=== PATIENT | male | born 1960 | race American Indian/Alaskan Native ===

== ENCOUNTER 2019-04-20 08:20 | Inpatient (IN) | payer MEDICARE ==
[2019-04-20] MEDS ORDERED: NACL 0.9% 1000 ML IV ONE (09:32)
[2019-04-20] MEDS ORDERED: MAXIPIME/NS 2 GM/100 ML 2 GM/100 ML BAG IV ONE (09:36)
[2019-04-20] MEDS ORDERED: VANCOMYCIN/NS 1 GM/250 ML 1 GM/250 ML BAG IV ONE (09:37)
--- NOTE | 2019-04-20 10:17 | Emergency Department Report ---
ED General Adult HPI - General Chief complaint: Altered Mental Status Stated complaint: SEPSIS Time Seen by Provider: 04/20/19 08:53 Source: EMS Mode of arrival: Stretcher Limitations: Altered Mental Status - History of Present Illness Initial comments: Patient presents to the emergency department via EMS for altered mental status. Patient was recently discharged from a rehabilitation facility for treatment of a sacral ulcer with hyperbaric treatment. The patient's states that yesterday the patient became altered and would not answer her questions. Due to the patient's condition he is not able to add to the history. -: Sudden Improves with: none Worsens with: none Treatments Prior to Arrival: none - Related Data Allergies Allergy/AdvReac Type Severity Reaction Status Date / Time No Known Allergies Allergy Unverified 04/20/19 09:03 ED Review of Systems ROS: Stated complaint: SEPSIS Other details as noted in HPI Comment: Unobtainable due to pts medical conditions ED Past Medical Hx - Past Medical History Hx Hypertension: Yes Hx Diabetes: Yes Hx Renal Disease: Yes - Surgical History Past Surgical History?: Yes Additional Surgical History: colostomy - Social History Smoking Status: Never Smoker Substance Use Type: None ED Physical Exam - General Limitations: Altered Mental Status General appearance: other (Altered Menal Status) - Head Head exam: Present: atraumatic, normocephalic - Eye Eye exam: Present: normal appearance - ENT ENT exam: Present: mucous membranes moist - Neck Neck exam: Present: normal inspection - Respiratory Respiratory exam: Present: normal lung sounds bilaterally. Absent: respiratory distress - Cardiovascular Cardiovascular Exam: Present: normal rhythm, tachycardia. Absent: systolic murmur, diastolic murmur, rubs, gallop - GI/Abdominal GI/Abdominal exam: Present: soft, normal bowel sounds, other (colostomy bag present). Absent: distended, tenderness - Rectal Rectal exam: Present: other (patient has a stage IV decubitus ulcer with irritation and drainage) - Extremities Exam Extremities exam: Present: normal inspection - Back Exam Back exam: Present: normal inspection - Neurological Exam Neurological exam: Present: altered - Psychiatric Psychiatric exam: Present: normal affect, normal mood - Skin Skin exam: Present: warm, dry, intact, normal color. Absent: rash ED Course Vital Signs 04/20/19 04/20/19 04/20/19 08:42 08:45 09:00 Temperature 97.9 F Pulse Rate 114 H 116 H 116 H Respiratory 19 20 11 L Rate Blood Pressure 105/66 Blood Pressure 105/66 [Right] O2 Sat by Pulse 99 Oximetry 04/20/19 04/20/19 04/20/19 09:03 09:15 09:30 Temperature Pulse Rate Respiratory 18 10 L 11 L Rate Blood Pressure 111/69 107/68 Blood Pressure [Right] O2 Sat by Pulse 99 91 Oximetry 04/20/19 04/20/19 04/20/19 09:45 10:01 10:15 Temperature Pulse Rate Respiratory 13 9 L 9 L Rate Blood Pressure 107/61 111/69 111/69 Blood Pressure [Right] O2 Sat by Pulse 100 Oximetry 04/20/19 04/20/19 04/20/19 10:31 10:45 11:00 Temperature Pulse Rate 114 H Respiratory 12 14 15 Rate Blood Pressure 107/61 107/61 120/62 Blood Pressure [Right] O2 Sat by Pulse 100 100 95 Oximetry 04/20/19 04/20/19 04/20/19 12:01 12:15 12:18 Temperature Pulse Rate 119 H 122 H 118 H Respiratory 14 12 19 Rate Blood Pressure 123/80 129/76 Blood Pressure [Right] O2 Sat by Pulse 100 81 L 95 Oximetry 04/20/19 04/20/19 12:31 12:45 Temperature Pulse Rate 121 H 124 H Respiratory 14 12 Rate Blood Pressure 125/64 114/66 Blood Pressure [Right] O2 Sat by Pulse 88 Oximetry ED Medical Decision Making - Lab Data Result diagrams: 04/20/19 10:05 04/20/19 10:05 Lab Results 04/20/19 04/20/19 04/20/19 Range/Units 10:05 10:05 10:05 WBC (4.5-11.0) K/mm3 RBC (3.65-5.03) M/mm3 Hgb (11.8-15.2) gm/dl Hct (35.5-45.6) % MCV (84-94) fl MCH (28-32) pg MCHC (32-34) % RDW (13.2-15.2) % Plt Count (140-440) K/mm3 Lymph % (Auto) (13.4-35.0) % [place] % (Auto) (0.0-7.3) % Eos % (Auto) (0.0-4.3) % Baso % (Auto) (0.0-1.8) % Lymph # (1.2-5.4) K/mm3 [place] # (0.0-0.8) K/mm3 Eos # (0.0-0.4) K/mm3 Baso # (0.0-0.1) K/mm3 Seg Neutrophils % (40.0-70.0) % Seg Neutrophils # (1.8-7.7) K/mm3 APTT 36.4 (24.2-36.6) Sec. Sodium (137-145) mmol/L Potassium (3.6-5.0) mmol/L Chloride (98-107) mmol/L Carbon Dioxide (22-30) mmol/L Anion Gap mmol/L BUN (9-20) mg/dL Creatinine (0.8-1.5) mg/dL Estimated GFR ml/min BUN/Creatinine Ratio % Glucose (75-100) mg/dL Lactic Acid (0.7-2.0) mmol/L Calcium (8.4-10.2) mg/dL Total Bilirubin (0.1-1.2) mg/dL AST (5-40) units/L ALT (7-56) units/L Alkaline Phosphatase (35-129) units/L Troponin T 0.269 H* 0.291 H* (0.00-0.029) ng/mL NT-Pro-B Natriuret Pep 416.2 (0-900) pg/mL Total Protein (6.3-8.2) g/dL Albumin (3.9-5) g/dL Albumin/Globulin Ratio % Triglycerides 124 (2-149) mg/dL Cholesterol 223 H (50-199) mg/dL LDL Cholesterol Direct 152 H (50-130) mg/dL HDL Cholesterol 48 (40-59) mg/dL Cholesterol/HDL Ratio 4.64 % Urine Color (Yellow) Urine Turbidity (Clear) Urine pH (5.0-7.0) Ur Specific [place] (1.003-1.030) Urine Protein (Negative) mg/dL Urine Glucose (UA) (Negative) mg/dL Urine Ketones (Negative) mg/dL Urine Blood (Negative) Urine Nitrite (Negative) Urine Bilirubin (Negative) Urine Urobilinogen (<2.0) mg/dL Ur Leukocyte Esterase (Negative) Urine WBC (Auto) (0.0-6.0) /HPF Urine RBC (Auto) (0.0-6.0) /HPF U Epithel Cells (Auto) (0-13.0) /HPF Urine Bacteria (Auto) (Negative) /HPF Urine Mucus /HPF 04/20/19 04/20/19 04/20/19 Range/Units 10:05 10:05 10:05 WBC 12.7 H (4.5-11.0) K/mm3 RBC 3.14 L (3.65-5.03) M/mm3 Hgb 9.2 L (11.8-15.2) gm/dl Hct 27.6 L (35.5-45.6) % MCV 88 (84-94) fl MCH 29 (28-32) pg MCHC 33 (32-34) % RDW 15.5 H (13.2-15.2) % Plt Count 443 H (140-440) K/mm3 Lymph % (Auto) 18.2 (13.4-35.0) % [place] % (Auto) 12.6 H (0.0-7.3) % Eos % (Auto) 0.2 (0.0-4.3) % Baso % (Auto) 0.7 (0.0-1.8) % Lymph # 2.3 (1.2-5.4) K/mm3 [place] # 1.6 H (0.0-0.8) K/mm3 Eos # 0.0 (0.0-0.4) K/mm3 Baso # 0.1 (0.0-0.1) K/mm3 Seg Neutrophils % 68.3 (40.0-70.0) % Seg Neutrophils # 8.7 H (1.8-7.7) K/mm3 APTT (24.2-36.6) Sec. Sodium 131 L (137-145) mmol/L Potassium 6.6 H* (3.6-5.0) mmol/L Chloride 95.8 L (98-107) mmol/L Carbon Dioxide 8 L* (22-30) mmol/L Anion Gap 34 mmol/L BUN 109 H (9-20) mg/dL Creatinine 15.3 H (0.8-1.5) mg/dL Estimated GFR 4 ml/min BUN/Creatinine Ratio 7 % Glucose 116 H (75-100) mg/dL Lactic Acid 0.80 (0.7-2.0) mmol/L Calcium 10.1 (8.4-10.2) mg/dL Total Bilirubin 0.80 (0.1-1.2) mg/dL AST 72 H (5-40) units/L ALT 101 H (7-56) units/L Alkaline Phosphatase 267 H (35-129) units/L Troponin T (0.00-0.029) ng/mL NT-Pro-B Natriuret Pep (0-900) pg/mL Total Protein 9.5 H (6.3-8.2) g/dL Albumin 3.9 (3.9-5) g/dL Albumin/Globulin Ratio 0.7 % Triglycerides (2-149) mg/dL Cholesterol (50-199) mg/dL LDL Cholesterol Direct (50-130) mg/dL HDL Cholesterol (40-59) mg/dL Cholesterol/HDL Ratio % Urine Color (Yellow) Urine Turbidity (Clear) Urine pH (5.0-7.0) Ur Specific [place] (1.003-1.030) Urine Protein (Negative) mg/dL Urine Glucose (UA) (Negative) mg/dL Urine Ketones (Negative) mg/dL Urine Blood (Negative) Urine Nitrite (Negative) Urine Bilirubin (Negative) Urine Urobilinogen (<2.0) mg/dL Ur Leukocyte Esterase (Negative) Urine WBC (Auto) (0.0-6.0) /HPF Urine RBC (Auto) (0.0-6.0) /HPF U Epithel Cells (Auto) (0-13.0) /HPF Urine Bacteria (Auto) (Negative) /HPF Urine Mucus /HPF 04/20/19 04/20/19 Range/Units Unknown Unknown WBC (4.5-11.0) K/mm3 RBC (3.65-5.03) M/mm3 Hgb (11.8-15.2) gm/dl Hct (35.5-45.6) % MCV (84-94) fl MCH (28-32) pg MCHC (32-34) % RDW (13.2-15.2) % Plt Count (140-440) K/mm3 Lymph % (Auto) (13.4-35.0) % [place] % (Auto) (0.0-7.3) % Eos % (Auto) (0.0-4.3) % Baso % (Auto) (0.0-1.8) % Lymph # (1.2-5.4) K/mm3 [place] # (0.0-0.8) K/mm3 Eos # (0.0-0.4) K/mm3 Baso # (0.0-0.1) K/mm3 Seg Neutrophils % (40.0-70.0) % Seg Neutrophils # (1.8-7.7) K/mm3 APTT (24.2-36.6) Sec. Sodium (137-145) mmol/L Potassium (3.6-5.0) mmol/L Chloride (98-107) mmol/L Carbon Dioxide (22-30) mmol/L Anion Gap mmol/L BUN (9-20) mg/dL Creatinine (0.8-1.5) mg/dL Estimated GFR ml/min BUN/Creatinine Ratio % Glucose (75-100) mg/dL Lactic Acid 0.60 L (0.7-2.0) mmol/L Calcium (8.4-10.2) mg/dL Total Bilirubin (0.1-1.2) mg/dL AST (5-40) units/L ALT (7-56) units/L Alkaline Phosphatase (35-129) units/L Troponin T (0.00-0.029) ng/mL NT-Pro-B Natriuret Pep (0-900) pg/mL Total Protein (6.3-8.2) g/dL Albumin (3.9-5) g/dL Albumin/Globulin Ratio % Triglycerides (2-149) mg/dL Cholesterol (50-199) mg/dL LDL Cholesterol Direct (50-130) mg/dL HDL Cholesterol (40-59) mg/dL Cholesterol/HDL Ratio % Urine Color [place] (Yellow) Urine Turbidity Cloudy (Clear) Urine pH 5.0 (5.0-7.0) Ur Specific [place] 1.020 (1.003-1.030) Urine Protein 100 mg/dl (Negative) mg/dL Urine Glucose (UA) Neg (Negative) mg/dL Urine Ketones Tr (Negative) mg/dL Urine Blood Lg (Negative) Urine Nitrite Neg (Negative) Urine Bilirubin Neg (Negative) Urine Urobilinogen < 2.0 (<2.0) mg/dL Ur Leukocyte Esterase Mod (Negative) Urine WBC (Auto) 15.0 H (0.0-6.0) /HPF Urine RBC (Auto) 8.0 (0.0-6.0) /HPF U Epithel Cells (Auto) < 1.0 (0-13.0) /HPF Urine Bacteria (Auto) 4+ (Negative) /HPF Urine Mucus Few /HPF - EKG Data -: EKG Interpreted by Me EKG shows normal: sinus rhythm Rate: tachycardia - Radiology Data Radiology results: report reviewed - Medical Decision Making Sepsis protocol initiated IV antibiotics given IV fluids at 30 mL/kg given a Upon return of laboratory values was discovered that the patient was hyperkalemic Hypokalemia was treated Of note was the onset of acute renal failure Patient has elevated troponin which is likely secondary to acute stress reaction for sepsis and acute renal failure Patient a rectal aspirin Results discussed with the patient's family which include his daughter, , and son Critical Care Time: Yes Critical care time in (mins) excluding proc time.: 75 Critical care attestation.: If time is entered above; I have spent that time in minutes in the direct care of this critically ill patient, excluding procedure time. ED Disposition Clinical Impression: Sepsis, Renal failure, Altered mental status, Hyperkalemia Disposition: OP ADMIT IP TO THIS HOSP Is pt being admited?: Yes Does the pt Need Aspirin: No Condition: Fair Referrals: SARITA THORNTON MD [Primary Care Provider] - 3-5 Days
--- NOTE | 2019-04-20 10:25 | XRay Report ---
AP CHEST: HISTORY: Sepsis AP view of the chest demonstrates a normal mediastinal and cardiac contour with clear lungs and normal bony and soft tissue structures. IMPRESSION: Unremarkable AP chest.
[2019-04-20] MEDS ORDERED: VANCOMYCIN 2,000 MG in NACL 0.9% 500 ML 500 ML IV ONE (10:30)
[2019-04-20 10:56] LABS: Basophils # (Auto) 0.1 K/mm3 (0.0-0.1); Basophils % (Auto) 0.7 % (0.0-1.8); Eosinophils % (Auto) 0.2 % (0.0-4.3); Hematocrit 27.6 % (35.5-45.6); Hemoglobin 9.2 gm/dl (11.8-15.2); Lymphocytes # (Auto) 2.3 K/mm3 (1.2-5.4); Lymphocytes % (Auto) 18.2 % (13.4-35.0); Mean Corpuscular HGB Conc 33 % (32-34); Mean Corpuscular Volume 88 fl (84-94); Monocytes # (Auto) 1.6 K/mm3 (0.0-0.8); Monocytes % (Auto) 12.6 % (0.0-7.3); Platelet Count 443 K/mm3 (140-440); Red Blood Count 3.14 M/mm3 (3.65-5.03); Red Cell Distribution Width 15.5 % (13.2-15.2)
[2019-04-20 11:19] LABS: Albumin 3.9 g/dL (3.9-5); Calcium 10.1 mg/dL (8.4-10.2)
[2019-04-20] MEDS ORDERED: DILAUDID ONE (12:12)
[2019-04-20] MEDS ORDERED: ZOFRAN ONE (12:13)
[2019-04-20] MEDS ORDERED: ZOFRAN IV ONE (12:20)
[2019-04-20] MEDS ORDERED: DILAUDID IV ONE (12:20)
[2019-04-20 12:30] LABS: Chol/HDL Ratio 4.64 %
[2019-04-20 12:48] LABS: Bacteria,Urine 4+ /HPF (Negative); Bilirubin,Urine NEG (Negative); Blood,Urine LG (Negative); Color,Urine Amber (Yellow); Mucus,Urine FEW /HPF; Urobilinogen,Urine < 2.0 mg/dL (<2.0)
[2019-04-20] MEDS ORDERED: KIONEX PR ONE (12:56)
[2019-04-20] MEDS ORDERED: HumuLIN R IV ONE (12:57)
[2019-04-20] MEDS ORDERED: D50W (25GM) Syringe IV ONE (12:58)
--- NOTE | 2019-04-20 13:14 | Cat Scan Report ---
PROCEDURE: CT HEAD/BRAIN WO CON TECHNIQUE: Computerized tomography of the head was performed without contrast material. CT DOSE LENGTH PRODUCT: 2350.5 mGy-cm. HISTORY: Hypoxia. Tachycardia. Sepsis. COMPARISONS: None currently available. FINDINGS: There is no evidence for acute ischemia. There is no hemorrhage. There is no midline shift. There is no hydrocephalus. There is no mass. Age appropriate diaz-white matter attenuation is noted. There is no calvarial fracture. The temporal bones demonstrate aerated mastoid air cells. The middle ears appear unremarkable. Paranasal sinuses are unremarkable. Globes are intact. IMPRESSION: * No acute intracranial findings. This document is electronically signed by Chris Gordon MD., April 20 2019 01:11:27 PM ET
[2019-04-20] MEDS ORDERED: CALCIUM GLUCONATE 1,000 MG in NACL 0.9% 100 ML IV NR (13:30)
[2019-04-20] MEDS ORDERED: SODIUM BICARBONATE 50 MEQ in NACL 0.9% 1000 ML 1,000 ML IV ONE (13:30)
--- NOTE | 2019-04-20 13:43 | Nuclear Medicine Report ---
LUNG SCAN, VENTILATION AND PERFUSION: History: Hypoxia, tachycardia. Technique: 5mci of Tc99m MAA was infused for the perfusion images. 15mci XE 133 gas was inhaled for the ventilatory images. Correlation is made with a chest x-ray dated 04/20/19. Findings: Inhalation of Xenon gas demonstrates a normal distribution of the activity throughout both lungs. The wash out phases show no focal retention of activity. After injection of Technetium 99m macroaggregated albumin gamma camera imaging of the lungs in multiple projections demonstrates normal pulmonary contours with a homogeneous distribution of activity. No focal areas of perfusion deficiency are identified. IMPRESSION: Low probability for pulmonary embolus.
[2019-04-20] MEDS ORDERED: ASPIRIN PR ONE (14:44)
[2019-04-20] MEDS ORDERED: NACL 0.9% 1000 ML 1,000 ML ONE (14:53)
[2019-04-20] MEDS ORDERED: NACL 0.9% 100 ML IV PRN (15:39)
--- NOTE | 2019-04-20 18:03 | Consultation ---
History of Present Illness - Reason for Consult Consult date: 04/20/19 acute renal failure, hyponatremia, hyperkalemia, metabolic acidosis - History of Present Illness This is a 59 yo AAM with past medical history of Hypertension, TYpe 2 DM, h/o malignant neoplasm of the rectum diagnosed in 11/2018, pt underwent an open laparotomy and ANGELES with perineal protectomy on 12/01, at that time course was complicated by septic shock, acute respiratory failure and ATN and pt required HD until last January. Following perineal protectomy and radiation pt developed chronic perineal wound/stage IV sacral ulcer, pt was discharged to [place] for hyperbaric treatment and prolonged IV ABXs treatment. Pt is now brought in to [facility] ER after pt's noted that the patient became altered and would not answer her questions. in ER CT head showed no acute intracranial findings, CXR was unremarkable and VQ scan showed low probability for PE, however labs showed significant elevation of BUN/Cr at 109/15mg/dl along with hyperkalemia/hyponatremia and severe metabolic acidosis with pH 7.1 on ABG. Renal consult was requested for management of SHERINE and evaluation of renal replacement therapy. Pt seen and examined in ER, pt is confused, disoriented, history obtained from ER physician and at bedside. Past History Past Medical History: anemia, cancer, diabetes, hypertension, renal failure Past Surgical History: Other (open laparotomy, ANGELES, perineal protectomy) Social history: denies: smoking, alcohol abuse, prescription drug abuse, IV drug use Family history: hypertension Medications and Allergies Allergies Allergy/AdvReac Type Severity Reaction Status Date / Time No Known Allergies Allergy Unverified 04/20/19 09:03 Home Medications Medication Instructions Recorded Confirmed Last Taken Type Captopril 50 mg PO BID 04/20/19 04/20/19 Unknown History Insulin Detemir [Levemir] 35 unit SQ BID 04/20/19 04/20/19 Unknown History Lispro Insulin [HumaLOG] 15 unit SQ TID 04/20/19 04/20/19 Unknown History Oxycodone HCl [oxyCONTIN ER] 30 mg PO BID 04/20/19 04/20/19 Unknown History Oxycodone HCl/Acetaminophen 1 each PO Q4H 04/20/19 04/20/19 Unknown History [Percocet 10/325 mg] amLODIPine [Norvasc] 5 mg PO DAILY 04/20/19 04/20/19 Unknown History metFORMIN [Glucophage] 500 mg PO BID 04/20/19 04/20/19 Unknown History Active Meds: Active Medications Sodium Bicarbonate 50 meq/ (Sodium Chloride) 1,050 mls @ 100 mls/hr IV DIRECT ONE Stop: 04/20/19 23:59 Last Admin: 04/20/19 17:00 Dose: 100 mls/hr Documented by: Sodium Chloride (Nacl 0.9%) 100 mls @ 999 mls/hr IV RAMAN PRN PRN Reason: Hypotension Review of Systems ROS unobtainable: due to mental status Exam - Vital Signs Vital signs: Vital Signs Temp Pulse Resp BP Pulse Ox 97.9 F 114 H 20 105/66 99 04/20/19 08:42 04/20/19 08:42 04/20/19 08:42 04/20/19 08:42 04/20/19 08:42 - General Appearance General appearance: well-developed, appears stated age, chronically ill EENT: ATNC, PERRL, mucous membranes dry Neck: Present: neck supple Respiratory: Clear to Ascultation Heart: regular, S1S2 Gastrointestinal: Present: tenderness, distended, other (+ colostomy bag in place, site c/d/i ) Integumentary: no rash, ulcer (IV decubitus ulcer with irritation and drainage), other (+ edema b/l LE ) Neurologic: no focal deficit, confused, disoriented Results - Lab Results 04/20/19 10:05 04/20/19 10:05 Most recent lab results Calcium 10.1 mg/dL (8.4-10.2) 04/20/19 10:05 Laboratory Tests 04/20/19 04/20/19 04/20/19 10:05 10:05 10:05 Lactic Acid 0.80 Calcium 10.1 Total Bilirubin 0.80 AST 72 H Alkaline Phosphatase 267 H Troponin T 0.269 H* NT-Pro-B Natriuret Pep 416.2 Total Protein 9.5 H Albumin 3.9 Albumin/Globulin Ratio 0.7 Triglycerides 124 Cholesterol 223 H LDL Cholesterol Direct 152 H HDL Cholesterol 48 Cholesterol/HDL Ratio 4.64 Urine Color Urine Turbidity Urine pH Ur Specific [place] Urine Glucose (UA) Urine Ketones Urine Blood Urine Nitrite Urine Bilirubin Urine Urobilinogen Ur Leukocyte Esterase Urine WBC (Auto) Urine RBC (Auto) 04/20/19 Unknown Lactic Acid Calcium Total Bilirubin AST Alkaline Phosphatase Troponin T NT-Pro-B Natriuret Pep Total Protein Albumin Albumin/Globulin Ratio Triglycerides Cholesterol LDL Cholesterol Direct HDL Cholesterol Cholesterol/HDL Ratio Urine Color [place] Urine Turbidity Cloudy Urine pH 5.0 Ur Specific [place] 1.020 Urine Glucose (UA) Neg Urine Ketones Tr Urine Blood Lg Urine Nitrite Neg Urine Bilirubin Neg Urine Urobilinogen < 2.0 Ur Leukocyte Esterase Mod Urine WBC (Auto) 15.0 H Urine RBC (Auto) 8.0 Assessment and Plan - Patient Problems (1) Acute kidney failure with tubular necrosis Current Visit: Yes Status: Acute Plan to address problem: suspect ATN in the setting of sepsis, renal US ordered to rule out obstructive nephropathy. cont supportive care with IV bicarb gtt/vasopressors prn to maintain MAP > 65mmHg, avoid nephrotoxins, NSAIDs. hold OC-I/metformin. given severe metabolic acidosis/hyperkalemia with evidence of uremic encephalopathy, will arrange stat HD. Discussed with pt's about benefits and risks of hemodialysis, she understands is familiar with the treatment since pt was on HD from Nov - January, and agrees to treatment. vascular surgery consulted for vascath placement, HD orders placed. Total CCM time spent 48 min. (2) Hyponatremia Current Visit: Yes Status: Acute Plan to address problem: likely hypovolemic hyponatremia in the setting of sepsis, pt started on bicarb gtt. will switch to NS once metabolic acidosis is corrected with HD. (3) Metabolic acidosis Current Visit: Yes Status: Acute (4) Hyperkalemia Current Visit: Yes Status: Acute Plan to address problem: due to SHERINE/decreased distal tubular Na delivery. Bicarb gtt was initiated, pt given Kayexalate. Arranged emergent HD as above. (5) Sacral decubitus ulcer, stage IV Current Visit: Yes Status: Acute Plan to address problem: wound care consult (6) Metabolic encephalopathy Current Visit: Yes Status: Acute Plan to address problem: due to underlying sepsis, uremic envephalopathy contributing (7) Sepsis Current Visit: Yes Status: Acute Plan to address problem: blood/urine cultures sent, empiric ABXs started with cefepime/vancomycin. Dose ABXs for HD. (8) Anemia in chronic illness Current Visit: Yes Status: Acute Plan to address problem: check iron panel, ferritin. monitor H/H and transfuse wtih 2PRBC for Hb < 7
[2019-04-20 18:13] LABS: Hepatitis C Virus Antibody Non-Reactive (NonReactive)
[2019-04-20 18:41] LABS: Hepatitis B Surface Antigen Non-Reactive (Negative)
[2019-04-20] MEDS ORDERED: XYLOCAINE 2% INFILTRATI ONE (19:16)
--- NOTE | 2019-04-20 20:23 | Post Operative Note ---
Pre-op diagnosis: renal failure, hyperkalemia Post-op diagnosis: same Findings: vascath via right subclavian, cxr pending Procedure: insertion of vascath, right subclavian, ultrasound guided insertion right subclavian vein Anesthesia: local Surgeon: LEISA SANTANA Estimated blood loss: minimal Pathology: none Condition: critical Disposition: ICU (but stable)
[2019-04-20] MEDS ORDERED: TYLENOL PO PRN (21:01)
[2019-04-20] MEDS ORDERED: SODIUM CHLORIDE FLUSH SYRINGE 10 ML IV PRN (21:01)
[2019-04-20] MEDS ORDERED: ZOFRAN IV PRN (21:01)
[2019-04-20] MEDS ORDERED: CALCIUM GLUCONATE 2,000 MG in NACL 0.9% 100 ML IV ONE (21:07)
--- NOTE | 2019-04-20 21:33 | XRay Report ---
PROCEDURE: XR CHEST 1V AP TECHNIQUE: Chest radiograph single view. HISTORY: central line placement COMPARISONS: Chest x-ray performed earlier today at 10:08 AM . FINDINGS: There has been interval placement of a right central venous catheter with the tip projected in the re gion of the superior vena cava. There is no evidence of focal infiltrate, pneumothorax or pleural fluid collection. The cardiac silhouette appears to be normal size. The thoracic aorta is mildly tortuous. The bony structures are notable for the appearance of neurostimulator leads projected in the region o f the lower thoracic spine. IMPRESSION: 1. Right central venous catheter with tip projected in the region of the superior vena cava. 2. No evidence of pneumothorax. 3. Otherwise no significant change since study performed earlier today at 10:08 AM. This document is electronically signed by Terri Pretty MD., April 20 2019 09:31:09 PM ET
--- NOTE | 2019-04-21 00:29 | Ultrasound Report ---
PROCEDURE: US RENAL BILAT TECHNIQUE: Real-time sonography in multiple planes of the kidneys, ureters and urinary bladder was p erformed with image documentation. HISTORY: SHERINE COMPARISONS: None . FINDINGS: RIGHT kidney: Normal echotexture. No focal renal mass, calculus, or hydronephrosis. Length: 12.6 x 5.3 x 6.0 cm. LEFT kidney: Normal echotexture. No focal renal mass, calculus, or hydronephrosis. Length: 12.2 x 5 .2x 6.1 cm. Bladder: Normal. No distention or wall thickening. IMPRESSION: Normal Examination . This document is electronically signed by Fer Paez MD., April 20 2019 09:59:39 PM ET
[2019-04-21] MEDS: DILAUDID IV PRN ×3 (03:43→19:37)
[2019-04-21] MEDS: ROCEPHIN/NS 1 GM/50 ML 1 GM/50 ML BAG IV SCH ×2 (04:06→09:54)
--- NOTE | 2019-04-21 04:32 | Cat Scan Report ---
PROCEDURE: CT ABDOMEN WO CON TECHNIQUE: Routine axial imaging was obtained of the abdomen without IV or oral contrast enhancement . Sagittal and coronal reconstructions were reviewed. HISTORY: hydronephrosis COMPARISONS: Ultrasound renal 04/20/2019 FINDINGS: The lung bases do not show acute infiltrates or effusions. The liver, gallbladder and biliary tree appear normal. The pancreas, spleen and adrenal glands appear normal. The kidneys show no evidence of stones. There is very mild perinephric stranding bilaterally . There is very mild right-sided ureterectasis in the visualized portion of the ureter. A stone is no t seen in the ureter. The bowel loops are normal in caliber. Limited views of the lower abdomen revea led bilateral ostomy sites. There is no evidence of free fluid or adenopathy. In the right side of th e upper pelvis is a nonspecific 3.4 cm cystic structure. The skeletal structures reveal a TENS unit overlying the left buttock area with the leads directed in to the lower thoracic spine. There is also a 4.2 cm sebaceous cyst overlying the right buttock lead quality control technician iorly. There is disc degeneration in the lower thoracic and lumbar spine. IMPRESSION: Mild right ureterectasis. A stone is not seen in the right ureter or in either kidney. No evidence of bowel obstruction or ileus. Bilateral ostomy site seen in the limited portion of the u pper pelvis. Nonspecific 3.4 cm cystic structure in the right side of the pelvis. 4.2 cm sebaceous cyst overlying the right buttock. Multilevel disc degeneration in the lower thoracic and lumbar spine.. This document is electronically signed by Linden Irby MD., April 21 2019 04:31:15 AM ET
--- NOTE | 2019-04-21 07:10 | Event Note ---
Date: 04/20/19 See H/p in reports Acute renal failure sec to Obstructive Uropathy Rectal cancer HYperkalemia Colostomy Emergent HD
--- NOTE | 2019-04-21 08:00 | History and Physical Report ---
CHIEF COMPLAINT: Severe lethargy and altered sensorium. HISTORY OF PRESENT ILLNESS: A 59-year-old male with history of hypertension, type 2 diabetes, rectal cancer diagnosed 18 years ago with recurrence in 11/2018, comes in for altered sensorium. The patient had rectal cancer 18 years ago and was treated and had a right colostomy for the last 18 years. The patient has been working until 11/2018. The patient was undergoing surgery for reanastomosis of the colostomy site to the distal sigmoid or rectosigmoid region and the patient was found to have recurrence of cancer. Also the patient had a perforation of the colon and went into septic shock, acute respiratory failure, intubated and went into acute tubular necrosis and was dialyzed until January. The patient had perineal proctectomy and radiation. The patient has a stage 4 sacral decubitus ulcer. The patient now found to be altered sensorium and was found to have a high creatinine of 15, probably secondary to obstructive uropathy. The patient also had a high potassium level. Family wants everything to be done. They are not amenable to DNR status or hospice status. PAST MEDICAL HISTORY: Significant for anemia, rectal cancer, diabetes, hypertension, and renal failure. PAST SURGICAL HISTORY: Colostomy 18 years ago. Recent laparotomy followed by colon perforation and sepsis and intubation. SOCIAL HISTORY: Does not smoke. No alcohol abuse. No prescription drug abuse. FAMILY HISTORY: Hypertension. CURRENT MEDICATIONS: Captopril 50 mg twice a day, Levemir 35 units b.i.d., amlodipine 5 mg once a day, metformin 500 twice a day. REVIEW OF SYSTEMS: Significant for altered sensorium and being lethargic. No fever or chills. PHYSICAL EXAMINATION: GENERAL: Middle-aged male, cooperative during examination. VITAL SIGNS: Temperature 98.2, blood pressure 136/70, pulse is 126, respiratory rate is 18. HEENT: Unremarkable. Pupils equal and reactive. NECK: Supple, no lymphadenopathy, no thyromegaly. LUNGS: Clear to auscultation and percussion. Good air entry. CARDIOVASCULAR SYSTEM: S1, S2 heard. No gallop, no murmur, no rub. Apical impulse in left fifth intercostal space in midclavicular line. ABDOMEN: Distended. No fluid thrill. Hernial orifices are normal. EXTREMITIES: Good pedal pulses. CENTRAL NERVOUS SYSTEM: Lethargic. Intermittently alert. LABORATORY DATA: Significant for white count of 12,700, H and H is 9.2 and 27.6. ABG significant for pH of 7.12, pO2 of 142. Sodium is 131, potassium is 6.6, bicarbonate is 18, BUN and creatinine is 109/15.3. Troponin is 0.291. Cholesterol is 223. Urine shows white blood cells of 15. Hepatitis profile is negative. DIAGNOSTIC DATA: Head CT shows no acute intracranial findings. Chest x-ray is unremarkable chest x-ray. Ultrasound shows normal examination. Abdominal CAT scan shows mild right ureterectasis, stone is not seen in the right ureter. No evidence of bowel obstruction or ileus, bilateral ostomy site seen in the limited portion of the upper pelvis. Nonspecific 3.4 cm cystic structure in the right side of the pelvis. Multilevel disk degeneration. No hydronephrosis. ASSESSMENT AND PLAN: 1. Acute kidney injury with a high creatinine level. The patient needs emergent dialysis. Vascular Surgery consulted. Nephrology consulted. BUN and creatinine 109 and 15.3. Surprisingly, there is no hydronephrosis. The patient may have renal parenchymal disease. We will defer to Nephrology. DNR was discussed. Family wants a full code. 2. Hyperkalemia, treated. The patient was given calcium gluconate. 3. Metabolic acidosis secondary to acute kidney injury and possible acute tubular necrosis. IV fluids for the time being. 4. Rectal cancer. Hematology/Oncology consult requested. 5. Elevated troponin, probably secondary to elevated creatinine. 6. Leukocytosis. The patient started on empiric antibiotics. Ceftriaxone 1 gram IV piggyback q. 24 hours. 7. Advance care planning. DNR and hospice was discussed. Family wants everything to be done. 8. Deep venous thrombosis prophylaxis, heparin 5000 q. 12. In summary, the patient has severe renal failure with acute and chronic components. The patient is being taken for emergent hemodialysis. Also, hyperkalemia and rectal cancer with recurrence. Poor prognosis. JOB# [id number] ROSEMARIE/MALDONADO GARCIA
[2019-04-21 08:42] LABS: Basophils % (Auto) 0.4 % (0.0-1.8); Eosinophils # (Auto) 0.2 K/mm3 (0.0-0.4); Eosinophils % (Auto) 1.4 % (0.0-4.3); Hematocrit 24.6 % (35.5-45.6); Hemoglobin 8.5 gm/dl (11.8-15.2); Lymphocytes # (Auto) 1.7 K/mm3 (1.2-5.4); Lymphocytes % (Auto) 16.2 % (13.4-35.0); Mean Corpuscular HGB Conc 35 % (32-34); Mean Corpuscular Volume 87 fl (84-94); Monocytes # (Auto) 1.3 K/mm3 (0.0-0.8); Monocytes % (Auto) 12.5 % (0.0-7.3); Platelet Count 391 K/mm3 (140-440); Red Blood Count 2.85 M/mm3 (3.65-5.03); Red Cell Distribution Width 15.4 % (13.2-15.2)
[2019-04-21 09:10] LABS: Albumin 3.4 g/dL (3.9-5); Calcium 9.6 mg/dL (8.4-10.2)
[2019-04-21] MEDS: HEPARIN SUB-Q SCH ×2 (09:54→21:42)
[2019-04-21] MEDS: SODIUM CHLORIDE FLUSH SYRINGE 10 ML IV SCH ×2 (09:54→21:44)
--- NOTE | 2019-04-21 10:26 | Progress Note ---
Assessment and Plan - Patient Problems (1) Acute kidney failure with tubular necrosis Current Visit: Yes Status: Acute Plan to address problem: suspect ATN in the setting of sepsis, renal US showed no evidenoce of obstructive nephropathy. cont supportive care for ATN, maintain MAP > 65mmHg, avoid nephrotoxins, NSAIDs. hold OC-I/metformin. given severe metabolic acidosis/hyperkalemia with evidence of uremic encephalopathy, pt was initiated on HD. Will monitor lyte/renal parameters and i/O closely and assess need for further renal replacement therapy. (2) Hyponatremia Current Visit: Yes Status: Acute Plan to address problem: likely hypovolemic hyponatremia in the setting of sepsis, improved with IVF and HD . (3) Metabolic acidosis Current Visit: Yes Status: Acute Plan to address problem: improved with IV bicarb and HD (4) Hyperkalemia Current Visit: Yes Status: Acute Plan to address problem: due to SHERINE/decreased distal tubular Na delivery. corrected with HD. cont 2g K renal diet (5) Sacral decubitus ulcer, stage IV Current Visit: Yes Status: Acute Plan to address problem: wound care consult (6) Metabolic encephalopathy Current Visit: Yes Status: Acute Plan to address problem: due to underlying sepsis, uremic envephalopathy contributing (7) Sepsis Current Visit: Yes Status: Acute Plan to address problem: blood/urine cultures sent, empiric ABXs started with cefepime/vancomycin. Dose ABXs for HD. (8) Anemia in chronic illness Current Visit: Yes Status: Acute Plan to address problem: check iron panel, ferritin. monitor H/H and transfuse wtih 2PRBC for Hb < 7 Subjective Date of service: 04/21/19 Principal diagnosis: SHERINE Interval history: pt awake, confused, disoriented, in no acute respiratory distress. tolerated HD well last night. Objective - Vital Signs Vital signs: Vital Signs - 12hr 04/20/19 04/20/19 04/20/19 22:30 22:45 23:00 Temperature Pulse Rate 119 H 114 H 116 H Respiratory Rate Blood Pressure 113/58 117/68 117/62 O2 Sat by Pulse Oximetry O2 Sat by Pulse Oximetry [ Anterior Bilateral] 04/20/19 04/20/19 04/20/19 23:15 23:30 23:45 Temperature Pulse Rate 120 H 117 H 118 H Respiratory Rate Blood Pressure 101/51 96/50 111/61 O2 Sat by Pulse Oximetry O2 Sat by Pulse Oximetry [ Anterior Bilateral] 04/21/19 04/21/19 04/21/19 00:00 00:15 00:30 Temperature Pulse Rate 119 H 119 H 121 H Respiratory Rate Blood Pressure 123/68 108/56 126/60 O2 Sat by Pulse Oximetry O2 Sat by Pulse Oximetry [ Anterior Bilateral] 04/21/19 04/21/19 04/21/19 00:45 01:00 01:15 Temperature Pulse Rate 120 H 120 H 120 H Respiratory Rate Blood Pressure 105/66 117/65 116/56 O2 Sat by Pulse Oximetry O2 Sat by Pulse Oximetry [ Anterior Bilateral] 04/21/19 04/21/19 04/21/19 01:30 01:45 02:00 Temperature Pulse Rate 121 H 121 H 120 H Respiratory Rate Blood Pressure 109/60 110/58 118/59 O2 Sat by Pulse Oximetry O2 Sat by Pulse Oximetry [ Anterior Bilateral] 04/21/19 04/21/19 04/21/19 02:15 02:42 02:50 Temperature 98.2 F Pulse Rate 120 H 130 H 84 Respiratory 16 18 Rate Blood Pressure 123/68 99/61 O2 Sat by Pulse 96 95 Oximetry O2 Sat by Pulse 99 Oximetry [ Anterior Bilateral] 04/21/19 04/21/19 04/21/19 02:53 02:56 03:49 Temperature 98.2 F Pulse Rate 120 H Respiratory 18 Rate Blood Pressure O2 Sat by Pulse Oximetry O2 Sat by Pulse Oximetry [ Anterior Bilateral] 04/21/19 04/21/19 04/21/19 04:42 04:44 08:05 Temperature 98.5 F Pulse Rate 126 H Respiratory 18 Rate Blood Pressure 136/70 O2 Sat by Pulse 100 98 Oximetry O2 Sat by Pulse Oximetry [ Anterior Bilateral] - General Appearance General appearance: well-developed, well-nourished, appears stated age, chronically ill EENT: ATNC, PERRL, mucous membranes moist Neck: no JVD Respiratory: Present: Clear to Ascultation Cardiology: regular, S1S2 Gastrointestinal: normoactive bowel sounds Integumentary: no rash, other (no edema ) Neurologic: confused, disoriented - Lab 04/21/19 07:58 04/21/19 07:58 Most recent lab results Calcium 9.6 mg/dL (8.4-10.2) 04/21/19 07:58 Medications & Allergies - Medications Allergies/Adverse Reactions: Allergies No Known Allergies Allergy (Unverified 04/20/19 09:03) Home Medications: Home Medications Medication Instructions Recorded Confirmed Last Taken Type Captopril 50 mg PO BID 04/20/19 04/20/19 Unknown History Insulin Detemir [Levemir] 35 unit SQ BID 04/20/19 04/20/19 Unknown History Lispro Insulin [HumaLOG] 15 unit SQ TID 04/20/19 04/20/19 Unknown History Oxycodone HCl [oxyCONTIN ER] 30 mg PO BID 04/20/19 04/20/19 Unknown History Oxycodone HCl/Acetaminophen 1 each PO Q4H 04/20/19 04/20/19 Unknown History [Percocet 10/325 mg] amLODIPine [Norvasc] 5 mg PO DAILY 04/20/19 04/20/19 Unknown History metFORMIN [Glucophage] 500 mg PO BID 04/20/19 04/20/19 Unknown History Active Medications: Generic Name Dose Route Start Last Admin Trade Name Freq PRN Reason Stop Dose Admin Acetaminophen 650 mg 04/20/19 21:01 Tylenol PO Q4H PRN Pain MILD(1-3)/Fever >100.5/DE ANDA Heparin Sodium (Porcine) 5,000 unit 04/20/19 22:00 04/21/19 09:54 Heparin SUB-Q 5,000 unit Q12HR ZOE Administration Hydromorphone HCl 0.25 mg 04/20/19 21:01 04/21/19 03:43 Dilaudid IV 0.25 mg Q3H PRN Administration Pain, Moderate (4-6) Sodium Chloride 100 mls @ 999 mls/hr 04/20/19 15:39 Nacl 0.9% IV RAMAN PRN Hypotension Ceftriaxone Sodium 1 gm in 50 mls @ 100 mls/hr 04/20/19 22:00 04/21/19 09:54 Rocephin/Ns 1 Gm/50 Ml IV 100 mls/hr Q24HR ZOE Administration Protocol Ondansetron HCl 4 mg 04/20/19 21:01 Zofran IV Q8H PRN Nausea And Vomiting Oxycodone/Acetaminophen 1 tab 04/20/19 21:01 Percocet 5/325 PO Q6H PRN Pain, Moderate (4-6) Sodium Chloride 10 ml 04/20/19 22:00 04/21/19 09:54 Sodium Chloride Flush Syringe 10 Ml IV 10 ml BID ZOE Administration Sodium Chloride 10 ml 04/20/19 21:01 Sodium Chloride Flush Syringe 10 Ml IV PRN PRN LINE FLUSH
--- NOTE | 2019-04-21 11:41 | Progress Note ---
Assessment and Plan Pt s/p VC insertion. Catheter reportedly functioning adequately. No additional vascular surgery intervention at this time. Will see again as needed. - Patient Problems (1) Acute kidney failure with tubular necrosis Current Visit: Yes Status: Acute (2) Altered mental status Current Visit: Yes Status: Acute (3) Sacral decubitus ulcer, stage IV Current Visit: Yes Status: Acute Subjective Date of service: 04/21/19 Principal diagnosis: SHERINE Interval history: Pt awake, but confused. Denies complaint at present. Objective - Constitutional Vitals: Vital Signs - 12hr 04/20/19 04/20/19 04/21/19 23:30 23:45 00:00 Temperature Pulse Rate 117 H 118 H 119 H Respiratory Rate Blood Pressure 96/50 111/61 123/68 O2 Sat by Pulse Oximetry O2 Sat by Pulse Oximetry [ Anterior Bilateral] 04/21/19 04/21/19 04/21/19 00:15 00:30 00:45 Temperature Pulse Rate 119 H 121 H 120 H Respiratory Rate Blood Pressure 108/56 126/60 105/66 O2 Sat by Pulse Oximetry O2 Sat by Pulse Oximetry [ Anterior Bilateral] 04/21/19 04/21/19 04/21/19 01:00 01:15 01:30 Temperature Pulse Rate 120 H 120 H 121 H Respiratory Rate Blood Pressure 117/65 116/56 109/60 O2 Sat by Pulse Oximetry O2 Sat by Pulse Oximetry [ Anterior Bilateral] 04/21/19 04/21/19 04/21/19 01:45 02:00 02:15 Temperature 98.2 F Pulse Rate 121 H 120 H 120 H Respiratory 16 Rate Blood Pressure 110/58 118/59 123/68 O2 Sat by Pulse Oximetry O2 Sat by Pulse 99 Oximetry [ Anterior Bilateral] 04/21/19 04/21/19 04/21/19 02:42 02:50 02:53 Temperature Pulse Rate 130 H 84 120 H Respiratory 18 Rate Blood Pressure 99/61 O2 Sat by Pulse 96 95 Oximetry O2 Sat by Pulse Oximetry [ Anterior Bilateral] 04/21/19 04/21/19 04/21/19 02:56 03:49 04:42 Temperature 98.2 F Pulse Rate 126 H Respiratory 18 18 Rate Blood Pressure 136/70 O2 Sat by Pulse 100 Oximetry O2 Sat by Pulse Oximetry [ Anterior Bilateral] 04/21/19 04/21/19 04:44 08:05 Temperature 98.5 F Pulse Rate Respiratory Rate Blood Pressure O2 Sat by Pulse 98 Oximetry O2 Sat by Pulse Oximetry [ Anterior Bilateral] General appearance: Present: no acute distress - EENT Eyes: EOM intact ENT: hearing intact - Neck Neck: supple (Right SCV Vas cath in place. No erythema or drainage appreciated.) - Respiratory Respiratory effort: normal Extremities: No edema (RUE without obvious size descrepancy compared to the left), normal temperature - Psychiatric Psychiatric: no appropriate mood/affect, no intact judgment & insight - Labs CBC & Chem 7: 04/21/19 07:58 04/21/19 07:58 Labs: Abnormal lab results 04/20/19 04/20/19 04/20/19 Range/Units 10:05 10:05 10:05 RBC (3.65-5.03) M/mm3 Hgb (11.8-15.2) gm/dl Hct (35.5-45.6) % MCHC (32-34) % RDW (13.2-15.2) % [place] % (Auto) (0.0-7.3) % [place] # (0.0-0.8) K/mm3 POC ABG pH (7.35-7.45) POC ABG pO2 (80-105) Potassium 6.6 H* (3.6-5.0) mmol/L Carbon Dioxide 8 L* (22-30) mmol/L BUN (9-20) mg/dL Creatinine (0.8-1.5) mg/dL Glucose (75-100) mg/dL Lactic Acid (0.7-2.0) mmol/L AST (5-40) units/L ALT (7-56) units/L Alkaline Phosphatase (35-129) units/L Troponin T 0.269 H* 0.291 H* (0.00-0.029) ng/mL Albumin (3.9-5) g/dL Cholesterol 223 H (50-199) mg/dL LDL Cholesterol Direct 152 H (50-130) mg/dL Urine WBC (Auto) (0.0-6.0) /HPF 04/20/19 04/20/19 04/20/19 Range/Units 15:43 Unknown Unknown RBC (3.65-5.03) M/mm3 Hgb (11.8-15.2) gm/dl Hct (35.5-45.6) % MCHC (32-34) % RDW (13.2-15.2) % [place] % (Auto) (0.0-7.3) % [place] # (0.0-0.8) K/mm3 POC ABG pH 7.126 L (7.35-7.45) POC ABG pO2 142 H (80-105) Potassium (3.6-5.0) mmol/L Carbon Dioxide (22-30) mmol/L BUN (9-20) mg/dL Creatinine (0.8-1.5) mg/dL Glucose (75-100) mg/dL Lactic Acid 0.60 L (0.7-2.0) mmol/L AST (5-40) units/L ALT (7-56) units/L Alkaline Phosphatase (35-129) units/L Troponin T (0.00-0.029) ng/mL Albumin (3.9-5) g/dL Cholesterol (50-199) mg/dL LDL Cholesterol Direct (50-130) mg/dL Urine WBC (Auto) 15.0 H (0.0-6.0) /HPF 04/21/19 04/21/19 Range/Units 07:58 07:58 RBC 2.85 L (3.65-5.03) M/mm3 Hgb 8.5 L (11.8-15.2) gm/dl Hct 24.6 L (35.5-45.6) % MCHC 35 H (32-34) % RDW 15.4 H (13.2-15.2) % [place] % (Auto) 12.5 H (0.0-7.3) % [place] # 1.3 H (0.0-0.8) K/mm3 POC ABG pH (7.35-7.45) POC ABG pO2 (80-105) Potassium (3.6-5.0) mmol/L Carbon Dioxide 19 L D (22-30) mmol/L BUN 52 H (9-20) mg/dL Creatinine 6.9 H D (0.8-1.5) mg/dL Glucose 126 H (75-100) mg/dL Lactic Acid (0.7-2.0) mmol/L AST 80 H (5-40) units/L ALT 95 H (7-56) units/L Alkaline Phosphatase 215 H (35-129) units/L Troponin T (0.00-0.029) ng/mL Albumin 3.4 L (3.9-5) g/dL Cholesterol (50-199) mg/dL LDL Cholesterol Direct (50-130) mg/dL Urine WBC (Auto) (0.0-6.0) /HPF Medications & Allergies - Medications Allergies/Adverse Reactions: Allergies No Known Allergies Allergy (Unverified 04/20/19 09:03) Home Medications: Home Medications Medication Instructions Recorded Confirmed Last Taken Type Captopril 50 mg PO BID 04/20/19 04/20/19 Unknown History Insulin Detemir [Levemir] 35 unit SQ BID 04/20/19 04/20/19 Unknown History Lispro Insulin [HumaLOG] 15 unit SQ TID 04/20/19 04/20/19 Unknown History Oxycodone HCl [oxyCONTIN ER] 30 mg PO BID 04/20/19 04/20/19 Unknown History Oxycodone HCl/Acetaminophen 1 each PO Q4H 04/20/19 04/20/19 Unknown History [Percocet 10/325 mg] amLODIPine [Norvasc] 5 mg PO DAILY 04/20/19 04/20/19 Unknown History metFORMIN [Glucophage] 500 mg PO BID 04/20/19 04/20/19 Unknown History Active Medications: Generic Name Dose Route Start Last Admin Trade Name Freq PRN Reason Stop Dose Admin Acetaminophen 650 mg 04/20/19 21:01 Tylenol PO Q4H PRN Pain MILD(1-3)/Fever >100.5/DE ANDA Heparin Sodium (Porcine) 5,000 unit 04/20/19 22:00 04/21/19 09:54 Heparin SUB-Q 5,000 unit Q12HR ZOE Administration Hydromorphone HCl 0.25 mg 04/20/19 21:01 04/21/19 03:43 Dilaudid IV 0.25 mg Q3H PRN Administration Pain, Moderate (4-6) Sodium Chloride 100 mls @ 999 mls/hr 04/20/19 15:39 Nacl 0.9% IV RAMAN PRN Hypotension Ceftriaxone Sodium 1 gm in 50 mls @ 100 mls/hr 04/20/19 22:00 04/21/19 09:54 Rocephin/Ns 1 Gm/50 Ml IV 100 mls/hr Q24HR ZOE Administration Protocol Ondansetron HCl 4 mg 04/20/19 21:01 Zofran IV Q8H PRN Nausea And Vomiting Oxycodone/Acetaminophen 1 tab 04/20/19 21:01 Percocet 5/325 PO Q6H PRN Pain, Moderate (4-6) Sodium Chloride 10 ml 04/20/19 22:00 04/21/19 09:54 Sodium Chloride Flush Syringe 10 Ml IV 10 ml BID ZOE Administration Sodium Chloride 10 ml 04/20/19 21:01 Sodium Chloride Flush Syringe 10 Ml IV PRN PRN LINE FLUSH
--- NOTE | 2019-04-21 12:13 | Progress Note ---
Assessment and Plan Assessment and plan: 59-year-old man with past medical history significant for hypertension, diabetes mellitus, rectal CA status post laparotomy, colostomy, stage IV sacral ulcer, presented to the emergency department with complaints of altered mental status. Patient had history of ATN and was on dialysis until last January. Patient is confused and disoriented. Acute kidney failure with tubular necrosis - Vas-Cath was placed and emergency hemodialysis was done yesterday - Avoid nephrotoxins Metabolic, uremic encephalopathy - Patient is in acute renal failure - Nephrology was consulted and emergency hemodialysis was done - Patient's mentation improved better this morning Severe sepsis likely due to UTI versus sacral decubitus ulcer - With around dysfunction - Continue IV Rocephin and IV fluids Metabolic acidosis due to the above -Improved with bicarbonate and hemodialysis Hyponatremia - Resolved Hyperkalemia - resolved with dialysis Anemia of chronic disease - We'll follow H&H - Transfusion H&H is below 7 DVT prophylaxis - On heparin Disposition - Continue inpatient care History Interval history: Patient was seen in the amount of this morning, patient was confused. Patient was on restraints. Hospitalist Physical - Physical exam Narrative exam: Not in cardiopulmonary distress. The patient appeared well nourished and normally developed. Vital signs as documented. Head exam is unremarkable. No scleral icterus . Neck is without jugular venous distension, thyromegaly, or carotid bruits. Lungs are clear to auscultation. Cardiac exam reveals regular rate and Rhythm. First and second heart sounds normal. No murmurs, rubs or gallops. Abdominal exam reveals colostomy bag on the right side of abdomen and open stoma on the left lower abdomen. Extremities are nonedematous and both femoral and pedal pulses are normal. PARK MANAGER: Patient is confused. - Constitutional Vitals: Temp Pulse Resp BP Pulse Ox 97.4 F L 126 H 16 136/74 98 04/21/19 08:06 04/21/19 04:42 04/21/19 08:06 04/21/19 08:06 04/21/19 08:05 General appearance: Present: no acute distress Results - Labs CBC & Chem 7: 04/21/19 07:58 04/21/19 07:58 Labs: Laboratory Last Values WBC 10.7 K/mm3 (4.5-11.0) 04/21/19 07:58 RBC 2.85 M/mm3 (3.65-5.03) L 04/21/19 07:58 Hgb 8.5 gm/dl (11.8-15.2) L 04/21/19 07:58 Hct 24.6 % (35.5-45.6) L 04/21/19 07:58 MCV 87 fl (84-94) 04/21/19 07:58 MCH 30 pg (28-32) 04/21/19 07:58 MCHC 35 % (32-34) H 04/21/19 07:58 RDW 15.4 % (13.2-15.2) H 04/21/19 07:58 Plt Count 391 K/mm3 (140-440) 04/21/19 07:58 Lymph % (Auto) 16.2 % (13.4-35.0) 04/21/19 07:58 [place] % (Auto) 12.5 % (0.0-7.3) H 04/21/19 07:58 Eos % (Auto) 1.4 % (0.0-4.3) 04/21/19 07:58 Baso % (Auto) 0.4 % (0.0-1.8) 04/21/19 07:58 Lymph # 1.7 K/mm3 (1.2-5.4) 04/21/19 07:58 [place] # 1.3 K/mm3 (0.0-0.8) H 04/21/19 07:58 Eos # 0.2 K/mm3 (0.0-0.4) 04/21/19 07:58 Baso # 0.0 K/mm3 (0.0-0.1) 04/21/19 07:58 Seg Neutrophils % 69.5 % (40.0-70.0) 04/21/19 07:58 Seg Neutrophils # 7.4 K/mm3 (1.8-7.7) 04/21/19 07:58 APTT 36.4 Sec. (24.2-36.6) 04/20/19 10:05 POC ABG pH 7.126 (7.35-7.45) L 04/20/19 15:43 POC ABG pO2 142 (80-105) H 04/20/19 15:43 POC ABG HCO3 7.0 (22-26 mml/L) 04/20/19 15:43 POC ABG Total CO2 8 (23-27mmol/L) 04/20/19 15:43 POC ABG O2 Sat 98 04/20/19 15:43 POC ABG Base Excess -22 ((-2) - (+3)mmol/L) 04/20/19 15:43 32 % 04/20/19 15:43 Sodium 143 mmol/L (137-145) D 04/21/19 07:58 Potassium 3.7 mmol/L (3.6-5.0) D 04/21/19 07:58 Chloride 98.6 mmol/L (98-107) 04/21/19 07:58 Carbon Dioxide 19 mmol/L (22-30) L D 04/21/19 07:58 29 mmol/L 04/21/19 07:58 BUN 52 mg/dL (9-20) H 04/21/19 07:58 6.9 mg/dL (0.8-1.5) H D 04/21/19 07:58 Estimated GFR 10 ml/min 04/21/19 07:58 8 % 04/21/19 07:58 Glucose 126 mg/dL (75-100) H 04/21/19 07:58 5.1 % (4-6) 04/20/19 Unknown Lactic Acid 0.60 mmol/L (0.7-2.0) L 04/20/19 Unknown Calcium 9.6 mg/dL (8.4-10.2) 04/21/19 07:58 0.40 mg/dL (0.1-1.2) 04/21/19 07:58 AST 80 units/L (5-40) H 04/21/19 07:58 ALT 95 units/L (7-56) H 04/21/19 07:58 215 units/L (35-129) H 04/21/19 07:58 0.269 ng/mL (0.00-0.029) H* 04/20/19 10:05 0.291 ng/mL (0.00-0.029) H* 04/20/19 10:05 NT-Pro-B Natriuret Pep 416.2 pg/mL (0-900) 04/20/19 10:05 8.1 g/dL (6.3-8.2) 04/21/19 07:58 3.4 g/dL (3.9-5) L 04/21/19 07:58 0.7 % 04/21/19 07:58 Triglycerides 124 mg/dL (2-149) 04/20/19 10:05 Cholesterol 223 mg/dL (50-199) H 04/20/19 10:05 152 mg/dL (50-130) H 04/20/19 10:05 48 mg/dL (40-59) 04/20/19 10:05 4.64 % 04/20/19 10:05 [place] (Yellow) 04/20/19 Unknown Cloudy (Clear) 04/20/19 Unknown 5.0 (5.0-7.0) 04/20/19 Unknown Ur Specific [place] 1.020 (1.003-1.030) 04/20/19 Unknown 100 mg/dl mg/dL (Negative) 04/20/19 Unknown Neg mg/dL (Negative) 04/20/19 Unknown Tr mg/dL (Negative) 04/20/19 Unknown Lg (Negative) 04/20/19 Unknown Neg (Negative) 04/20/19 Unknown Neg (Negative) 04/20/19 Unknown < 2.0 mg/dL (<2.0) 04/20/19 Unknown Ur Leukocyte Esterase Mod (Negative) 04/20/19 Unknown 15.0 /HPF (0.0-6.0) H 04/20/19 Unknown 8.0 /HPF (0.0-6.0) 04/20/19 Unknown U Epithel Cells (Auto) < 1.0 /HPF (0-13.0) 04/20/19 Unknown 4+ /HPF (Negative) 04/20/19 Unknown Few /HPF 04/20/19 Unknown Hepatitis A IgM Ab Non-reactive (NonReactive) 04/20/19 17:21 Hep Bs Antigen Non-reactive (Negative) 04/20/19 17:21 Hep B Core IgM Ab Non-reactive (NonReactive) 04/20/19 17:21 Non-reactive (NonReactive) 04/20/19 17:21 Active Medications - Current Medications Current Medications: Generic Name Dose Route Start Last Admin Trade Name Freq PRN Reason Stop Dose Admin Acetaminophen 650 mg 04/20/19 21:01 Tylenol PO Q4H PRN Pain MILD(1-3)/Fever >100.5/DE ANDA Heparin Sodium (Porcine) 5,000 unit 04/20/19 22:00 04/21/19 09:54 Heparin SUB-Q 5,000 unit Q12HR ZOE Administration Hydromorphone HCl 0.25 mg 04/20/19 21:01 04/21/19 03:43 Dilaudid IV 0.25 mg Q3H PRN Administration Pain, Moderate (4-6) Sodium Chloride 100 mls @ 999 mls/hr 04/20/19 15:39 Nacl 0.9% IV RAMAN PRN Hypotension Ceftriaxone Sodium 1 gm in 50 mls @ 100 mls/hr 04/20/19 22:00 04/21/19 09:54 Rocephin/Ns 1 Gm/50 Ml IV 100 mls/hr Q24HR ZOE Administration Protocol Ondansetron HCl 4 mg 04/20/19 21:01 Zofran IV Q8H PRN Nausea And Vomiting Oxycodone/Acetaminophen 1 tab 04/20/19 21:01 Percocet 5/325 PO Q6H PRN Pain, Moderate (4-6) Sodium Chloride 10 ml 04/20/19 22:00 04/21/19 09:54 Sodium Chloride Flush Syringe 10 Ml IV 10 ml BID ZOE Administration Sodium Chloride 10 ml 04/20/19 21:01 Sodium Chloride Flush Syringe 10 Ml IV PRN PRN LINE FLUSH
[2019-04-21] MEDS: PERCOCET 5/325 PO PRN ×2 (15:29→21:46)
--- NOTE | 2019-04-21 21:25 | Event Note ---
Date: 04/21/19 [id number]
[2019-04-22] MEDS: DILAUDID IV PRN ×2 (05:59→12:16)
[2019-04-22 06:26] LABS: Calcium 9.6 mg/dL (8.4-10.2)
[2019-04-22 06:38] LABS: Iron 73 ug/dL (49-181); Total Iron Binding Capacity 180 mcg/dL (250-450)
--- NOTE | 2019-04-22 07:14 | Consultation ---
REFERRED BY: Dr. Link. REASON FOR CONSULTATION: Recurrence of colon cancer. HISTORY OF PRESENT ILLNESS: I saw the patient, a 59-year-old -[place] male in the medical floor. The patient has a history of rectal cancer diagnosed 18 years ago for which he has a colostomy and this was found to have a recurrence in 11/2018. He also has a history of diabetes and hypertension. He came to the hospital because of altered sensorium. As per the information, the patient was trying to get a colostomy reversed, and during that procedure, he was found to have recurrence. He also had perforation of the colon and went into septic shock, respiratory failure, intubated and was dialyzed until 01/2019. The patient also has a history of decubitus ulcer. The patient is not able to give adequate history. No family members are present. Most of the information comes from the medical notes. The details about his oncologist and his treatment for recurrent cancer are not clear. There is a mention that he has had radiation. I have been asked to evaluate the patient because of his recurrence. PAST MEDICAL HISTORY: As above, anemia, diabetes, hypertension, renal failure, colorectal cancer, colostomy, and reversal. PAST SURGICAL HISTORY: Colostomy, laparotomy for colon perforation. SOCIAL HISTORY: No history of tobacco or alcohol usage. FAMILY HISTORY: Hypertension. HOME MEDICATIONS: Included Captopril, insulin, amlodipine, metformin. During this inpatient for the renal failure, a catheter was placed and dialysis done. ALLERGIES: None. MEDICATIONS: Include ceftriaxone, Dilaudid. PHYSICAL EXAMINATION: VITAL SIGNS: Temperature 98, pulse 104, respirations 17, BP given 163/97. HEENT: Pallor present. No icterus. NECK: No neck lymph nodes. HEART: S1, S2. LUNGS: Clear to auscultation anteriorly. ABDOMEN: Colostomy and ____. GENERAL: Awake, confused. MUSCULOSKELETAL: A TENS unit in the left buttock area was found. LABORATORY DATA: White cell 10, hemoglobin 8.5, MCV 87, platelets 391. Potassium 3.7, creatinine 6.9. At admission, creatinine was 15.3, calcium 9.6, bilirubin 0.4, AST 80. RADIOLOGY: Abdominal CT was done. Liver was normal. ASSESSMENT: 1. History of recurrent colon cancer found in 11/2018. 2. Original colorectal cancer was 18 years ago. 3. History of colostomy. 4. History of colon perforation, status post surgery in 11/2018. 5. History of renal impairment. Nephrology following. Resume dialysis. 6. Electrolyte issues. 7. Anemia. 8. Abnormal LFTs. CT does not mention any liver lesions. As per the information in the medical record, there is mention of radiation treatment, details not clear. The details of treatment for his recurrent colon cancer are unclear. At this time, he is clinically not good and would need stabilization before treatment, or this could be looked into as an outpatient basis. JOB# [id number] KAREN/MALDONADO
--- NOTE | 2019-04-22 07:28 | Hem/Onc Progress Note ---
Assessment and Plan 1. History of recurrent colon cancer found in 11/2018. 2. Original colorectal cancer was 18 years ago. 3. History of colostomy. 4. History of colon perforation, status post surgery in 11/2018. 5. History of renal impairment. Nephrology following. dialysis. 6. Electrolyte issues. 7. Anemia. 8. Abnormal LFTs. CT does not mention any liver lesions. As per the information in the medical record, there is mention of radiation treatment, details not clear. The details of treatment for his recurrent colon cancer are unclear. At this time, he is clinically not good and would need stabilization before treatment, or this could be looked into as an outpatient basis. - Patient Problems (1) Rectal cancer Current Visit: Yes Status: Acute Subjective Date of service: 04/22/19 Principal diagnosis: rectal ca Interval history: pt awake - answers a few questions - for others - no response Objective - Constitutional Vitals: Last Vital Signs Temp 98.6 F 04/22/19 04:11 Pulse 107 H 04/22/19 04:11 Resp 18 04/22/19 04:11 BP 145/78 04/22/19 04:11 Pulse Ox 99 04/22/19 04:11 General appearance: no acute distress Performance status: 4-completely disabled - EENT Eyes: EOM intact ENT: clear oral mucosa - Neck Neck: supple - Respiratory Respiratory effort: Positive: normal Respiratory: bilateral: CTA - Cardiovascular Heart Sounds: Present: S1 & S2 Extremities: No edema - Gastrointestinal General gastrointestinal: Present: soft, other (colostomy) Rectal Exam: deferred - Genitourinary Male genitourinary: Present: deferred - Integumentary Integumentary: warm - Musculoskeletal Musculoskeletal: strength equal bilaterally - Neurologic Neurologic: moves all extremities, other (blank stare sometimes to questions) - Labs Lab Results: Laboratory Results - last 24 hr 04/21/19 04/21/19 04/22/19 07:58 07:58 04:19 WBC 10.7 RBC 2.85 L Hgb 8.5 L Hct 24.6 L MCV 87 MCH 30 MCHC 35 H RDW 15.4 H Plt Count 391 Lymph % (Auto) 16.2 Caroline % (Auto) 12.5 H Eos % (Auto) 1.4 Baso % (Auto) 0.4 Lymph # 1.7 Caroline # 1.3 H Eos # 0.2 Baso # 0.0 Seg Neutrophils % 69.5 Seg Neutrophils # 7.4 Sodium 143 D 141 Potassium 3.7 D 3.6 Chloride 98.6 101.5 Carbon Dioxide 19 L D 17 L Anion Gap 29 26 BUN 52 H 61 H Creatinine 6.9 H D 8.2 H Estimated GFR 10 8 BUN/Creatinine Ratio 8 7 Glucose 126 H 120 H Calcium 9.6 9.6 Iron TIBC Total Bilirubin 0.40 AST 80 H ALT 95 H Alkaline Phosphatase 215 H Total Protein 8.1 Albumin 3.4 L Albumin/Globulin Ratio 0.7 04/22/19 04:19 WBC RBC Hgb Hct MCV MCH MCHC RDW Plt Count Lymph % (Auto) Caroline % (Auto) Eos % (Auto) Baso % (Auto) Lymph # Caroline # Eos # Baso # Seg Neutrophils % Seg Neutrophils # Sodium Potassium Chloride Carbon Dioxide Anion Gap BUN Creatinine Estimated GFR BUN/Creatinine Ratio Glucose Calcium Iron 73 TIBC 180 L Total Bilirubin AST ALT Alkaline Phosphatase Total Protein Albumin Albumin/Globulin Ratio Medications & Allergies - Medications Allergies/Adverse Reactions: Allergies No Known Allergies Allergy (Unverified 04/20/19 09:03) Home Medications: Home Medications Medication Instructions Recorded Confirmed Last Taken Type Captopril 50 mg PO BID 04/20/19 04/20/19 Unknown History Insulin Detemir [Levemir] 35 unit SQ BID 04/20/19 04/20/19 Unknown History Lispro Insulin [HumaLOG] 15 unit SQ TID 04/20/19 04/20/19 Unknown History Oxycodone HCl [oxyCONTIN ER] 30 mg PO BID 04/20/19 04/20/19 Unknown History Oxycodone HCl/Acetaminophen 1 each PO Q4H 04/20/19 04/20/19 Unknown History [Percocet 10/325 mg] amLODIPine [Norvasc] 5 mg PO DAILY 04/20/19 04/20/19 Unknown History metFORMIN [Glucophage] 500 mg PO BID 04/20/19 04/20/19 Unknown History Active Medications: Generic Name Dose Route Start Last Admin Trade Name Freq PRN Reason Stop Dose Admin Acetaminophen 650 mg 04/20/19 21:01 Tylenol PO Q4H PRN Pain MILD(1-3)/Fever >100.5/DE ANDA Heparin Sodium (Porcine) 5,000 unit 04/20/19 22:00 04/21/19 21:42 Heparin SUB-Q 5,000 unit Q12HR ZOE Administration Hydromorphone HCl 0.25 mg 04/20/19 21:01 04/22/19 05:59 Dilaudid IV 0.25 mg Q3H PRN Administration Pain, Moderate (4-6) Sodium Chloride 100 mls @ 999 mls/hr 04/20/19 15:39 Nacl 0.9% IV RAMAN PRN Hypotension Ceftriaxone Sodium 1 gm in 50 mls @ 100 mls/hr 04/20/19 22:00 04/21/19 09:54 Rocephin/Ns 1 Gm/50 Ml IV 100 mls/hr Q24HR ZOE Administration Protocol Ondansetron HCl 4 mg 04/20/19 21:01 Zofran IV Q8H PRN Nausea And Vomiting Oxycodone/Acetaminophen 1 tab 04/20/19 21:01 04/21/19 21:46 Percocet 5/325 PO 1 tab Q6H PRN Administration Pain, Moderate (4-6) Sodium Chloride 10 ml 04/20/19 22:00 04/21/19 21:44 Sodium Chloride Flush Syringe 10 Ml IV 10 ml BID ZOE Administration Sodium Chloride 10 ml 04/20/19 21:01 Sodium Chloride Flush Syringe 10 Ml IV PRN PRN LINE FLUSH
[2019-04-22] MEDS: PERCOCET 5/325 PO PRN ×2 (09:53→23:06)
[2019-04-22] MEDS ORDERED: NACL 0.9 (PRIMING MACHINE ONLY DIALYSIS) MC ONE (13:32)
--- NOTE | 2019-04-22 15:00 | Progress Note ---
Assessment and Plan Assessment and plan: 59-year-old man with past medical history significant for hypertension, diabetes mellitus, rectal CA status post laparotomy, colostomy, stage IV sacral ulcer, presented to the emergency department with complaints of altered mental status. Patient had history of ATN and was on dialysis until last January. Patient is confused and disoriented. Acute kidney failure with tubular necrosis - Patient is on HD - Avoid nephrotoxins Metabolic, uremic encephalopathy - Patient is in acute renal failure - Nephrology was consulted and emergency hemodialysis was done yesterday - Patient was alert but still confused Severe sepsis likely due to UTI versus sacral decubitus ulcer - Patient is being managed according to sepsis protocol - Continue IV Rocephin and IV fluids Metabolic acidosis due to the above -Improved with bicarbonate and hemodialysis Hyponatremia - Resolved Hyperkalemia - resolved with dialysis Anemia of chronic disease - We'll follow H&H - Transfusion H&H is below 7 History of rectal cancer - Status post colostomy and ostomy - continue colostomy care - Hematology consulted and recommended patient follow-up after his acute condition is resolved DVT prophylaxis - On heparin Disposition - Continue inpatient care History Interval history: Patient was seen in the amount of this morning, patient was confused. Hospitalist Physical - Physical exam Narrative exam: Not in cardiopulmonary distress. The patient appeared well nourished and normally developed. Vital signs as documented. Head exam is unremarkable. No scleral icterus . Neck is without jugular venous distension, thyromegaly, or carotid bruits. Lungs are clear to auscultation. Cardiac exam reveals regular rate and Rhythm. First and second heart sounds normal. No murmurs, rubs or gallops. Abdominal exam reveals colostomy bag on the right side of abdomen and open stoma on the left lower abdomen. Extremities are nonedematous and both femoral and pedal pulses are normal. MEDICAL RECORD CLERK: Patient is alert but confused. - Constitutional Vitals: Temp Pulse Resp BP Pulse Ox 98.0 F 125 H 16 155/105 99 04/22/19 14:15 04/22/19 14:15 04/22/19 14:15 04/22/19 14:15 04/22/19 04:11 General appearance: Present: no acute distress Results - Labs CBC & Chem 7: 04/21/19 07:58 04/22/19 04:19 Labs: Laboratory Last Values WBC 10.7 K/mm3 (4.5-11.0) 04/21/19 07:58 RBC 2.85 M/mm3 (3.65-5.03) L 04/21/19 07:58 Hgb 8.5 gm/dl (11.8-15.2) L 04/21/19 07:58 Hct 24.6 % (35.5-45.6) L 04/21/19 07:58 MCV 87 fl (84-94) 04/21/19 07:58 MCH 30 pg (28-32) 04/21/19 07:58 MCHC 35 % (32-34) H 04/21/19 07:58 RDW 15.4 % (13.2-15.2) H 04/21/19 07:58 Plt Count 391 K/mm3 (140-440) 04/21/19 07:58 Lymph % (Auto) 16.2 % (13.4-35.0) 04/21/19 07:58 [place] % (Auto) 12.5 % (0.0-7.3) H 04/21/19 07:58 Eos % (Auto) 1.4 % (0.0-4.3) 04/21/19 07:58 Baso % (Auto) 0.4 % (0.0-1.8) 04/21/19 07:58 Lymph # 1.7 K/mm3 (1.2-5.4) 04/21/19 07:58 [place] # 1.3 K/mm3 (0.0-0.8) H 04/21/19 07:58 Eos # 0.2 K/mm3 (0.0-0.4) 04/21/19 07:58 Baso # 0.0 K/mm3 (0.0-0.1) 04/21/19 07:58 Seg Neutrophils % 69.5 % (40.0-70.0) 04/21/19 07:58 Seg Neutrophils # 7.4 K/mm3 (1.8-7.7) 04/21/19 07:58 APTT 36.4 Sec. (24.2-36.6) 04/20/19 10:05 POC ABG pH 7.126 (7.35-7.45) L 04/20/19 15:43 POC ABG pO2 142 (80-105) H 04/20/19 15:43 POC ABG HCO3 7.0 (22-26 mml/L) 04/20/19 15:43 POC ABG Total CO2 8 (23-27mmol/L) 04/20/19 15:43 POC ABG O2 Sat 98 04/20/19 15:43 POC ABG Base Excess -22 ((-2) - (+3)mmol/L) 04/20/19 15:43 32 % 04/20/19 15:43 Sodium 141 mmol/L (137-145) 04/22/19 04:19 Potassium 3.6 mmol/L (3.6-5.0) 04/22/19 04:19 Chloride 101.5 mmol/L (98-107) 04/22/19 04:19 Carbon Dioxide 17 mmol/L (22-30) L 04/22/19 04:19 26 mmol/L 04/22/19 04:19 BUN 61 mg/dL (9-20) H 04/22/19 04:19 8.2 mg/dL (0.8-1.5) H 04/22/19 04:19 Estimated GFR 8 ml/min 04/22/19 04:19 7 % 04/22/19 04:19 Glucose 120 mg/dL (75-100) H 04/22/19 04:19 5.1 % (4-6) 04/20/19 Unknown Lactic Acid 0.60 mmol/L (0.7-2.0) L 04/20/19 Unknown Calcium 9.6 mg/dL (8.4-10.2) 04/22/19 04:19 Iron 73 ug/dL (49-181) 04/22/19 04:19 TIBC 180 mcg/dL (250-450) L 04/22/19 04:19 2398.0 ng/mL (13.0-400.0) H 04/22/19 04:19 0.40 mg/dL (0.1-1.2) 04/21/19 07:58 AST 80 units/L (5-40) H 04/21/19 07:58 ALT 95 units/L (7-56) H 04/21/19 07:58 215 units/L (35-129) H 04/21/19 07:58 0.269 ng/mL (0.00-0.029) H* 04/20/19 10:05 0.291 ng/mL (0.00-0.029) H* 04/20/19 10:05 NT-Pro-B Natriuret Pep 416.2 pg/mL (0-900) 04/20/19 10:05 8.1 g/dL (6.3-8.2) 04/21/19 07:58 3.4 g/dL (3.9-5) L 04/21/19 07:58 0.7 % 04/21/19 07:58 Triglycerides 124 mg/dL (2-149) 04/20/19 10:05 Cholesterol 223 mg/dL (50-199) H 04/20/19 10:05 152 mg/dL (50-130) H 04/20/19 10:05 48 mg/dL (40-59) 04/20/19 10:05 4.64 % 04/20/19 10:05 Vitamin B12 > 2000 pg/mL (211-911) H 04/22/19 04:19 > 20.0 ng/mL (7.3-26.0) 04/22/19 04:19 Mariama (Yellow) 04/20/19 Unknown Cloudy (Clear) 04/20/19 Unknown 5.0 (5.0-7.0) 04/20/19 Unknown Ur Specific [place] 1.020 (1.003-1.030) 04/20/19 Unknown 100 mg/dl mg/dL (Negative) 04/20/19 Unknown Neg mg/dL (Negative) 04/20/19 Unknown Tr mg/dL (Negative) 04/20/19 Unknown Lg (Negative) 04/20/19 Unknown Neg (Negative) 04/20/19 Unknown Neg (Negative) 04/20/19 Unknown < 2.0 mg/dL (<2.0) 04/20/19 Unknown Ur Leukocyte Esterase Mod (Negative) 04/20/19 Unknown 15.0 /HPF (0.0-6.0) H 04/20/19 Unknown 8.0 /HPF (0.0-6.0) 04/20/19 Unknown U Epithel Cells (Auto) < 1.0 /HPF (0-13.0) 04/20/19 Unknown 4+ /HPF (Negative) 04/20/19 Unknown Few /HPF 04/20/19 Unknown Hepatitis A IgM Ab Non-reactive (NonReactive) 04/20/19 17:21 Hep Bs Antigen Non-reactive (Negative) 04/20/19 17:21 Hep B Core IgM Ab Non-reactive (NonReactive) 04/20/19 17:21 Non-reactive (NonReactive) 04/20/19 17:21 Active Medications - Current Medications Current Medications: Generic Name Dose Route Start Last Admin Trade Name Freq PRN Reason Stop Dose Admin Acetaminophen 650 mg 04/20/19 21:01 Tylenol PO Q4H PRN Pain MILD(1-3)/Fever >100.5/DE ANDA Heparin Sodium (Porcine) 5,000 unit 04/20/19 22:00 04/21/19 21:42 Heparin SUB-Q 5,000 unit Q12HR ZOE Administration Hydromorphone HCl 0.25 mg 04/20/19 21:01 04/22/19 12:16 Dilaudid IV 0.25 mg Q3H PRN Administration Pain, Moderate (4-6) Sodium Chloride 100 mls @ 999 mls/hr 04/20/19 15:39 Nacl 0.9% IV RAMAN PRN Hypotension Ceftriaxone Sodium 1 gm in 50 mls @ 100 mls/hr 04/20/19 22:00 04/21/19 09:54 Rocephin/Ns 1 Gm/50 Ml IV 100 mls/hr Q24HR ZOE Administration Protocol Ondansetron HCl 4 mg 04/20/19 21:01 Zofran IV Q8H PRN Nausea And Vomiting Oxycodone/Acetaminophen 1 tab 04/20/19 21:01 04/22/19 09:53 Percocet 5/325 PO 1 tab Q6H PRN Administration Pain, Moderate (4-6) Sodium Chloride 10 ml 04/20/19 22:00 04/21/19 21:44 Sodium Chloride Flush Syringe 10 Ml IV 10 ml BID ZOE Administration Sodium Chloride 10 ml 04/20/19 21:01 Sodium Chloride Flush Syringe 10 Ml IV PRN PRN LINE FLUSH Nutrition/Malnutrition Assess - Dietary Evaluation Nutrition/Malnutrition Findings: Nutrition Notes Start: 04/21/19 15:41 Freq: Status: Active Protocol: Document 04/21/19 15:41 RM (Rec: 04/21/19 15:47 RM [id number]) Nutrition Notes Need for Assessment generated from: MD Order Initial or Follow up Brief Note Current Diet Dietary supplements Subjective/Other Information Consulted for poor oral intake . Pt not in room at time of visit. Executive Sales Assistant called nurse and requested that diet be put in w/[facility]. Gave recommendation of diet choice. Nurse stated that she would speak w/MD about orderering diet. Nutrition Intervention Change Diet Order: Cardiac/Consistent CHO Follow-Up By: 04/22/19 Additional Comments Follow for poor oral intake assessment
[2019-04-22] MEDS: HEPARIN SUB-Q SCH ×3 (15:35→23:06)
[2019-04-22] MEDS: SODIUM CHLORIDE FLUSH SYRINGE 10 ML IV SCH ×2 (15:37→23:07)
[2019-04-22] MEDS: ROCEPHIN/NS 1 GM/50 ML 1 GM/50 ML BAG IV SCH (15:46)
--- NOTE | 2019-04-22 17:05 | Progress Note ---
Assessment and Plan - Patient Problems (1) Acute kidney failure with tubular necrosis Current Visit: Yes Status: Acute Plan to address problem: suspect ATN in the setting of sepsis, renal US showed no evidenoce of obstructive nephropathy. cont supportive care for ATN, maintain MAP > 65mmHg, avoid nephrotoxins, NSAIDs. hold OC-I/metformin. no signs of renal recovery, cont HD on TTS schedule. (2) Hyponatremia Current Visit: Yes Status: Acute Plan to address problem: likely hypovolemic hyponatremia in the setting of sepsis, improved with IVF and HD . (3) Metabolic acidosis Current Visit: Yes Status: Acute Plan to address problem: improved with IV bicarb and HD (4) Hyperkalemia Current Visit: Yes Status: Acute Plan to address problem: due to SHERINE/decreased distal tubular Na delivery. corrected with HD. cont 2g K renal diet (5) Sacral decubitus ulcer, stage IV Current Visit: Yes Status: Acute Plan to address problem: wound care consult (6) Metabolic encephalopathy Current Visit: Yes Status: Acute Plan to address problem: due to underlying sepsis, uremic envephalopathy contributing (7) Sepsis Current Visit: Yes Status: Acute Plan to address problem: blood/urine cultures sent, empiric ABXs started with cefepime/vancomycin. Dose ABXs for HD. (8) Anemia in chronic illness Current Visit: Yes Status: Acute Plan to address problem: check iron panel, ferritin. monitor H/H and transfuse wtih 2PRBC for Hb < 7 Subjective Date of service: 04/22/19 Principal diagnosis: rectal ca Interval history: pt awake, confused, disoriented, in no acute respiratory distress. Objective - Vital Signs Vital signs: Vital Signs - 12hr 04/22/19 04/22/19 04/22/19 08:02 10:00 10:30 Temperature 98.1 F 98.0 F Pulse Rate 115 H 107 H Respiratory 18 16 Rate Blood Pressure 138/88 140/82 04/22/19 04/22/19 04/22/19 10:45 11:00 11:15 Temperature Pulse Rate 121 H 116 H 119 H Respiratory Rate Blood Pressure 137/80 130/79 139/91 04/22/19 04/22/19 04/22/19 11:30 11:45 12:00 Temperature Pulse Rate 117 H 114 H 108 H Respiratory Rate Blood Pressure 160/91 155/86 155/88 04/22/19 04/22/19 04/22/19 12:15 12:16 12:30 Temperature Pulse Rate 113 H 108 H Respiratory 16 Rate Blood Pressure 133/82 124/76 04/22/19 04/22/19 04/22/19 12:45 13:00 13:15 Temperature Pulse Rate 118 H 120 H 122 H Respiratory Rate Blood Pressure 140/72 137/77 139/80 04/22/19 04/22/19 04/22/19 13:30 13:45 14:00 Temperature Pulse Rate 63 134 H 127 H Respiratory Rate Blood Pressure 168/124 133/92 142/91 04/22/19 04/22/19 14:15 15:00 Temperature 98.0 F Pulse Rate 125 H Respiratory 16 20 Rate Blood Pressure 155/105 - General Appearance General appearance: well-developed, appears stated age, chronically ill EENT: ATNC, PERRL, mucous membranes moist Neck: no JVD Respiratory: Present: Clear to Ascultation Cardiology: regular, S1S2 Gastrointestinal: normoactive bowel sounds Integumentary: no rash, other (no edema ) Neurologic: no focal deficit, confused, disoriented, CN 3-12 intact Psychiatric: mood/affect appropriate, cooperative - Lab 04/21/19 07:58 04/22/19 04:19 Most recent lab results Calcium 9.6 mg/dL (8.4-10.2) 04/22/19 04:19 Medications & Allergies - Medications Allergies/Adverse Reactions: Allergies No Known Allergies Allergy (Unverified 04/20/19 09:03) Home Medications: Home Medications Medication Instructions Recorded Confirmed Last Taken Type Captopril 50 mg PO BID 04/20/19 04/20/19 Unknown History Insulin Detemir [Levemir] 35 unit SQ BID 04/20/19 04/20/19 Unknown History Lispro Insulin [HumaLOG] 15 unit SQ TID 04/20/19 04/20/19 Unknown History Oxycodone HCl [oxyCONTIN ER] 30 mg PO BID 04/20/19 04/20/19 Unknown History Oxycodone HCl/Acetaminophen 1 each PO Q4H 04/20/19 04/20/19 Unknown History [Percocet 10/325 mg] amLODIPine [Norvasc] 5 mg PO DAILY 04/20/19 04/20/19 Unknown History metFORMIN [Glucophage] 500 mg PO BID 04/20/19 04/20/19 Unknown History Active Medications: Generic Name Dose Route Start Last Admin Trade Name Freq PRN Reason Stop Dose Admin Acetaminophen 650 mg 04/20/19 21:01 Tylenol PO Q4H PRN Pain MILD(1-3)/Fever >100.5/DE ANDA Heparin Sodium (Porcine) 5,000 unit 04/20/19 22:00 04/22/19 15:35 Heparin SUB-Q Not Given Q12HR ZOE Hydromorphone HCl 0.25 mg 04/20/19 21:01 04/22/19 12:16 Dilaudid IV 0.25 mg Q3H PRN Administration Pain, Moderate (4-6) Sodium Chloride 100 mls @ 999 mls/hr 04/20/19 15:39 Nacl 0.9% IV RAMAN PRN Hypotension Ceftriaxone Sodium 1 gm in 50 mls @ 100 mls/hr 04/20/19 22:00 04/22/19 15:46 Rocephin/Ns 1 Gm/50 Ml IV 100 mls/hr Q24HR ZOE Administration Protocol Ondansetron HCl 4 mg 04/20/19 21:01 Zofran IV Q8H PRN Nausea And Vomiting Oxycodone/Acetaminophen 1 tab 04/20/19 21:01 04/22/19 09:53 Percocet 5/325 PO 1 tab Q6H PRN Administration Pain, Moderate (4-6) Sodium Chloride 10 ml 04/20/19 22:00 04/22/19 15:37 Sodium Chloride Flush Syringe 10 Ml IV 10 ml BID ZOE Administration Sodium Chloride 10 ml 04/20/19 21:01 Sodium Chloride Flush Syringe 10 Ml IV PRN PRN LINE FLUSH
[2019-04-22] MEDS ORDERED: APRESOLINE IV PRN (22:27)
[2019-04-22] MEDS ORDERED: D50W (25GM) Syringe IV PRN (22:28)
[2019-04-22] MEDS: LOPRESSOR PO SCH (23:06)
[2019-04-23] MEDS: PERCOCET 5/325 PO PRN ×3 (06:39→19:01)
[2019-04-23 06:42] LABS: Basophils # (Auto) 0.1 K/mm3 (0.0-0.1); Basophils % (Auto) 1.1 % (0.0-1.8); Eosinophils # (Auto) 0.2 K/mm3 (0.0-0.4); Eosinophils % (Auto) 2.2 % (0.0-4.3); Hematocrit 26.4 % (35.5-45.6); Lymphocytes # (Auto) 1.7 K/mm3 (1.2-5.4); Lymphocytes % (Auto) 19.8 % (13.4-35.0); Mean Corpuscular HGB Conc 34 % (32-34); Mean Corpuscular Volume 86 fl (84-94); Monocytes # (Auto) 1.3 K/mm3 (0.0-0.8); Monocytes % (Auto) 14.8 % (0.0-7.3); Platelet Count 386 K/mm3 (140-440); Red Blood Count 3.07 M/mm3 (3.65-5.03); Red Cell Distribution Width 15.4 % (13.2-15.2)
[2019-04-23 07:22] LABS: Albumin 3.6 g/dL (3.9-5); Calcium 9.1 mg/dL (8.4-10.2)
[2019-04-23] MEDS: HumaLOG SUB-Q SCH ×4 (07:30→22:19)
[2019-04-23] MEDS: NORVASC PO SCH (10:20)
[2019-04-23] MEDS: HEPARIN SUB-Q SCH ×2 (10:21→22:18)
[2019-04-23] MEDS: SODIUM CHLORIDE FLUSH SYRINGE 10 ML IV SCH ×2 (10:21→22:20)
[2019-04-23] MEDS: ROCEPHIN/NS 1 GM/50 ML 1 GM/50 ML BAG IV SCH (10:21)
[2019-04-23] MEDS: LOPRESSOR PO SCH ×2 (10:21→22:16)
[2019-04-23] MEDS ORDERED: LANTUS SUB-Q ONE (12:00)
--- NOTE | 2019-04-23 12:00 | Progress Note ---
Assessment and Plan Assessment and plan: 59-year-old man with past medical history significant for hypertension, diabetes mellitus, rectal CA status post laparotomy, colostomy, stage IV sacral ulcer, presented to the emergency department with complaints of altered mental status. Patient had history of ATN and was on dialysis until last January. Patient is confused and disoriented. Acute kidney failure with tubular necrosis - Patient is on HD - Avoid nephrotoxins Metabolic, uremic encephalopathy - Patient is in acute renal failure - Nephrology was consulted and emergency hemodialysis was done yesterday - Patient was alert but still confused Severe sepsis likely due to UTI versus sacral decubitus ulcer - Patient is being managed according to sepsis protocol - Continue IV Rocephin and IV fluids Metabolic acidosis due to the above -Improved with bicarbonate and hemodialysis Hyponatremia - Resolved Hyperkalemia - resolved with dialysis Anemia of chronic disease - We'll follow H&H - Transfusion H&H is below 7 History of rectal cancer - Status post colostomy and ostomy - continue colostomy care - Hematology consulted and recommended patient follow-up after his acute condition is resolved DVT prophylaxis - On heparin Disposition - Discussed with his yesterday and is not considering Hospice at this time History Interval history: Patient was seen in the amount of this morning, patient 's mentation is better than yesterday he said he is in the hospital and able to state his name. Not oriented to time. Hospitalist Physical - Physical exam Narrative exam: Not in cardiopulmonary distress. The patient appeared well nourished and normally developed. Vital signs as documented. Head exam is unremarkable. No scleral icterus . Neck is without jugular venous distension, thyromegaly, or carotid bruits. Lungs are clear to auscultation. Cardiac exam reveals regular rate and Rhythm. First and second heart sounds normal. No murmurs, rubs or gallops. Abdominal exam reveals colostomy bag on the right side of abdomen and open stoma on the left lower abdomen. Extremities are nonedematous and both femoral and pedal pulses are normal. 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 - Constitutional Vitals: Temp Pulse Resp BP Pulse Ox 98.4 F 114 H 18 155/104 99 04/23/19 07:20 04/23/19 07:36 04/23/19 07:20 04/23/19 07:36 04/23/19 04:18 General appearance: Present: no acute distress Results - Labs CBC & Chem 7: 04/23/19 05:57 04/23/19 05:57 Labs: Laboratory Last Values WBC 8.8 K/mm3 (4.5-11.0) 04/23/19 05:57 RBC 3.07 M/mm3 (3.65-5.03) L 04/23/19 05:57 Hgb 9.0 gm/dl (11.8-15.2) L 04/23/19 05:57 Hct 26.4 % (35.5-45.6) L 04/23/19 05:57 MCV 86 fl (84-94) 04/23/19 05:57 MCH 29 pg (28-32) 04/23/19 05:57 MCHC 34 % (32-34) 04/23/19 05:57 RDW 15.4 % (13.2-15.2) H 04/23/19 05:57 Plt Count 386 K/mm3 (140-440) 04/23/19 05:57 Lymph % (Auto) 19.8 % (13.4-35.0) 04/23/19 05:57 [place] % (Auto) 14.8 % (0.0-7.3) H 04/23/19 05:57 Eos % (Auto) 2.2 % (0.0-4.3) 04/23/19 05:57 Baso % (Auto) 1.1 % (0.0-1.8) 04/23/19 05:57 Lymph # 1.7 K/mm3 (1.2-5.4) 04/23/19 05:57 [place] # 1.3 K/mm3 (0.0-0.8) H 04/23/19 05:57 Eos # 0.2 K/mm3 (0.0-0.4) 04/23/19 05:57 Baso # 0.1 K/mm3 (0.0-0.1) 04/23/19 05:57 Seg Neutrophils % 62.1 % (40.0-70.0) 04/23/19 05:57 Seg Neutrophils # 5.4 K/mm3 (1.8-7.7) 04/23/19 05:57 APTT 36.4 Sec. (24.2-36.6) 04/20/19 10:05 POC ABG pH 7.126 (7.35-7.45) L 04/20/19 15:43 POC ABG pO2 142 (80-105) H 04/20/19 15:43 POC ABG HCO3 7.0 (22-26 mml/L) 04/20/19 15:43 POC ABG Total CO2 8 (23-27mmol/L) 04/20/19 15:43 POC ABG O2 Sat 98 04/20/19 15:43 POC ABG Base Excess -22 ((-2) - (+3)mmol/L) 04/20/19 15:43 32 % 04/20/19 15:43 Sodium 142 mmol/L (137-145) 04/23/19 05:57 Potassium 4.5 mmol/L (3.6-5.0) D 04/23/19 05:57 Chloride 97.1 mmol/L (98-107) L 04/23/19 05:57 Carbon Dioxide 18 mmol/L (22-30) L 04/23/19 05:57 31 mmol/L 04/23/19 05:57 BUN 44 mg/dL (9-20) H 04/23/19 05:57 7.1 mg/dL (0.8-1.5) H 04/23/19 05:57 Estimated GFR 10 ml/min 04/23/19 05:57 6 % 04/23/19 05:57 Glucose 132 mg/dL (75-100) H 04/23/19 05:57 POC Glucose 228 (70-105) H 04/23/19 11:32 5.1 % (4-6) 04/20/19 Unknown Lactic Acid 0.60 mmol/L (0.7-2.0) L 04/20/19 Unknown Calcium 9.1 mg/dL (8.4-10.2) 04/23/19 05:57 Iron 73 ug/dL (49-181) 04/22/19 04:19 TIBC 180 mcg/dL (250-450) L 04/22/19 04:19 2398.0 ng/mL (13.0-400.0) H 04/22/19 04:19 0.30 mg/dL (0.1-1.2) 04/23/19 05:57 AST 33 units/L (5-40) 04/23/19 05:57 ALT 63 units/L (7-56) H 04/23/19 05:57 197 units/L (35-129) H 04/23/19 05:57 0.269 ng/mL (0.00-0.029) H* 04/20/19 10:05 0.291 ng/mL (0.00-0.029) H* 04/20/19 10:05 NT-Pro-B Natriuret Pep 416.2 pg/mL (0-900) 04/20/19 10:05 8.0 g/dL (6.3-8.2) 04/23/19 05:57 3.6 g/dL (3.9-5) L 04/23/19 05:57 0.8 % 04/23/19 05:57 Triglycerides 124 mg/dL (2-149) 04/20/19 10:05 Cholesterol 223 mg/dL (50-199) H 04/20/19 10:05 152 mg/dL (50-130) H 04/20/19 10:05 48 mg/dL (40-59) 04/20/19 10:05 4.64 % 04/20/19 10:05 Vitamin B12 > 2000 pg/mL (211-911) H 04/22/19 04:19 > 20.0 ng/mL (7.3-26.0) 04/22/19 04:19 [place] (Yellow) 04/20/19 Unknown Cloudy (Clear) 04/20/19 Unknown 5.0 (5.0-7.0) 04/20/19 Unknown Ur Specific [place] 1.020 (1.003-1.030) 04/20/19 Unknown 100 mg/dl mg/dL (Negative) 04/20/19 Unknown Neg mg/dL (Negative) 04/20/19 Unknown Tr mg/dL (Negative) 04/20/19 Unknown Lg (Negative) 04/20/19 Unknown Neg (Negative) 04/20/19 Unknown Neg (Negative) 04/20/19 Unknown < 2.0 mg/dL (<2.0) 04/20/19 Unknown Ur Leukocyte Esterase Mod (Negative) 04/20/19 Unknown 15.0 /HPF (0.0-6.0) H 04/20/19 Unknown 8.0 /HPF (0.0-6.0) 04/20/19 Unknown U Epithel Cells (Auto) < 1.0 /HPF (0-13.0) 04/20/19 Unknown 4+ /HPF (Negative) 04/20/19 Unknown Few /HPF 04/20/19 Unknown Hepatitis A IgM Ab Non-reactive (NonReactive) 04/20/19 17:21 Hep Bs Antigen Non-reactive (Negative) 04/20/19 17:21 Hep B Core IgM Ab Non-reactive (NonReactive) 04/20/19 17:21 Non-reactive (NonReactive) 04/20/19 17:21 Active Medications - Current Medications Current Medications: Generic Name Dose Route Start Last Admin Trade Name Freq PRN Reason Stop Dose Admin Acetaminophen 650 mg 04/20/19 21:01 Tylenol PO Q4H PRN Pain MILD(1-3)/Fever >100.5/DE ANDA Amlodipine Besylate 5 mg 04/23/19 10:00 04/23/19 10:20 Norvasc PO 5 mg DAILY ZOE Administration Dextrose 50 ml 04/22/19 22:28 D50w (25gm) Syringe IV PRN PRN Hypoglycemia Heparin Sodium (Porcine) 5,000 unit 04/20/19 22:00 04/23/19 10:21 Heparin SUB-Q 5,000 unit Q12HR ZOE Administration Hydralazine HCl 10 mg 04/22/19 22:27 04/23/19 07:36 Apresoline IV 10 mg Q4HR PRN Administration Blood Pressure Hydromorphone HCl 0.5 mg 04/22/19 17:50 Dilaudid IV Q3H PRN Pain, Moderate (4-6) Sodium Chloride 100 mls @ 999 mls/hr 04/20/19 15:39 Nacl 0.9% IV RAMAN PRN Hypotension Ceftriaxone Sodium 1 gm in 50 mls @ 100 mls/hr 04/20/19 22:00 04/23/19 10:21 Rocephin/Ns 1 Gm/50 Ml IV 100 mls/hr Q24HR ZOE Administration Protocol Insulin Glargine 10 units 04/23/19 22:00 Lantus SUB-Q QHS ZOE Insulin Glargine 10 units 04/23/19 11:56 Lantus SUB-Q 04/23/19 11:57 ONCE ONE Insulin Human Lispro 0 unit 04/23/19 07:30 04/23/19 11:49 Humalog SUB-Q 3 unit ACHS ZOE Administration Protocol Metoprolol Tartrate 50 mg 04/22/19 22:00 04/23/19 10:21 Lopressor PO 50 mg BID ZOE Administration Ondansetron HCl 4 mg 04/20/19 21:01 Zofran IV Q8H PRN Nausea And Vomiting Oxycodone/Acetaminophen 1 tab 04/20/19 21:01 04/23/19 06:39 Percocet 5/325 PO 1 tab Q6H PRN Administration Pain, Moderate (4-6) Sodium Chloride 10 ml 04/20/19 22:00 04/23/19 10:21 Sodium Chloride Flush Syringe 10 Ml IV 10 ml BID ZOE Administration Sodium Chloride 10 ml 04/20/19 21:01 Sodium Chloride Flush Syringe 10 Ml IV PRN PRN LINE FLUSH Nutrition/Malnutrition Assess - Dietary Evaluation Nutrition/Malnutrition Findings: Nutrition Notes Start: 04/21/19 15:41 Freq: Status: Active Protocol: Document 04/22/19 15:16 RM (Rec: 04/22/19 15:26 RM [id number]) Nutrition Notes Initial or Follow up Assessment Current Diagnosis Acute Kidney Injury,Diabetes, Sepsis,Hypertension Other Pertinent Diagnosis Sacral wound, Rectal CA, Colostomy Current Diet Cardiac/Consistent CHO, Renal w/Glucerna Labs/Tests Reviewed Pertinent Medications Reviewed Height 6 ft 2 in Weight 98.7 kg [place] Body Weight (kg) 86.36 BMI 27.9 Subjective/Other Information Pt not in room at time of visit. Pt tech and nurse unsure how much pt has been eating. #1 Nutrition Diagnosis Increased nutrient needs ( specify in comment below) Comments: protein needs Etiology wound healing As Evidenced by Signs and Symptoms sacral wound Is patient on ventilator? No Is Patient Ambulatory and/or Out of Bed No REE-([facility]-confined to bed) [phone] Calculation Used for Recommendations [facility] Additional Notes Protein Needs: 118-148g (1.2-1 .5g/kg) Fluid Needs: 1 ml/kcal Nutrition Intervention Change Diet Order: Continue current Add Supplement/Snack (indicate name/kcal Glucerna 1 daily /protein ) Provides kCal: 220 Provides Protein (gm) 10 Goal #1 Meet at least 75% of calorie and protein needs via PO and ONS intakes Anticipated Discharge Needs: Unable to determine at this time Follow-Up By: 04/19/19 Additional Comments Follow for PO and ONS intakes
--- NOTE | 2019-04-23 15:02 | Progress Note ---
Assessment and Plan - Patient Problems (1) Acute kidney failure with tubular necrosis Current Visit: Yes Status: Acute Plan to address problem: suspect ATN in the setting of sepsis, renal US showed no evidenoce of obstructive nephropathy. cont supportive care for ATN, maintain MAP > 65mmHg, avoid nephrotoxins, NSAIDs. hold OC-I/metformin. no signs of renal recovery at present, cont HD on TTS schedule. (2) Hyponatremia Current Visit: Yes Status: Acute Plan to address problem: likely hypovolemic hyponatremia in the setting of sepsis, improved with IVF and HD . (3) Metabolic acidosis Current Visit: Yes Status: Acute Plan to address problem: improved with IV bicarb and HD (4) Hyperkalemia Current Visit: Yes Status: Acute Plan to address problem: due to SHERINE/decreased distal tubular Na delivery. corrected with HD. cont 2g K renal diet (5) Sacral decubitus ulcer, stage IV Current Visit: Yes Status: Acute Plan to address problem: wound care consult, cont empiric ABXs, dose renally adjusted. (6) Metabolic encephalopathy Current Visit: Yes Status: Acute Plan to address problem: due to underlying sepsis, uremic encephalopathy contributing. now improving s/p 2 HD treatments. (7) Sepsis Current Visit: Yes Status: Acute Plan to address problem: likely due to UTI versus sacral decubitus ulcer; BCx/UCx show no growth to date. empiric ABXs started with cefepime/vancomycin. Dose ABXs for HD. (8) Anemia in chronic illness Current Visit: Yes Status: Acute Plan to address problem: check iron panel, ferritin. monitor H/H and transfuse wtih 2PRBC for Hb < 7 Subjective Date of service: 04/23/19 Principal diagnosis: rectal ca Interval history: pt awake, alert, oriented x 3, in no acute respiratory distress. He remains oliguric. Objective - Vital Signs Vital signs: Vital Signs - 12hr 04/23/19 04/23/19 04/23/19 04:18 07:20 07:36 Temperature 98.5 F 98.4 F Pulse Rate 110 H 114 H Respiratory 18 18 Rate Blood Pressure 157/103 155/104 155/104 O2 Sat by Pulse 99 Oximetry 04/23/19 04/23/19 04/23/19 10:30 12:40 13:46 Temperature 98.6 F 98.2 F Pulse Rate 126 H 115 H Respiratory 16 18 20 Rate Blood Pressure 156/99 138/97 O2 Sat by Pulse 99 100 Oximetry - General Appearance General appearance: well-developed, appears stated age, chronically ill EENT: ATNC, PERRL, mucous membranes moist Neck: no JVD Respiratory: Present: Clear to Ascultation Cardiology: regular, S1S2 Gastrointestinal: normoactive bowel sounds Integumentary: no rash Neurologic: no focal deficit, alert and oriented x3, strength 5/5, CN 3-12 intact Psychiatric: mood/affect appropriate, cooperative - Lab 04/23/19 05:57 04/23/19 05:57 Most recent lab results Calcium 9.1 mg/dL (8.4-10.2) 04/23/19 05:57 Medications & Allergies - Medications Allergies/Adverse Reactions: Allergies No Known Allergies Allergy (Unverified 04/20/19 09:03) Home Medications: Home Medications Medication Instructions Recorded Confirmed Last Taken Type Captopril 50 mg PO BID 04/20/19 04/20/19 Unknown History Insulin Detemir [Levemir] 35 unit SQ BID 04/20/19 04/20/19 Unknown History Lispro Insulin [HumaLOG] 15 unit SQ TID 04/20/19 04/20/19 Unknown History Oxycodone HCl [oxyCONTIN ER] 30 mg PO BID 04/20/19 04/20/19 Unknown History Oxycodone HCl/Acetaminophen 1 each PO Q4H 04/20/19 04/20/19 Unknown History [Percocet 10/325 mg] amLODIPine [Norvasc] 5 mg PO DAILY 04/20/19 04/20/19 Unknown History metFORMIN [Glucophage] 500 mg PO BID 04/20/19 04/20/19 Unknown History Active Medications: Generic Name Dose Route Start Last Admin Trade Name Freq PRN Reason Stop Dose Admin Acetaminophen 650 mg 04/20/19 21:01 Tylenol PO Q4H PRN Pain MILD(1-3)/Fever >100.5/DE ANDA Amlodipine Besylate 5 mg 04/23/19 10:00 04/23/19 10:20 Norvasc PO 5 mg DAILY ZOE Administration Dextrose 50 ml 04/22/19 22:28 D50w (25gm) Syringe IV PRN PRN Hypoglycemia Heparin Sodium (Porcine) 5,000 unit 04/20/19 22:00 04/23/19 10:21 Heparin SUB-Q 5,000 unit Q12HR ZOE Administration Hydralazine HCl 10 mg 04/22/19 22:27 04/23/19 07:36 Apresoline IV 10 mg Q4HR PRN Administration Blood Pressure Hydromorphone HCl 0.5 mg 04/22/19 17:50 Dilaudid IV Q3H PRN Pain, Moderate (4-6) Sodium Chloride 100 mls @ 999 mls/hr 04/20/19 15:39 Nacl 0.9% IV RAMAN PRN Hypotension Ceftriaxone Sodium 1 gm in 50 mls @ 100 mls/hr 04/20/19 22:00 04/23/19 10:21 Rocephin/Ns 1 Gm/50 Ml IV 100 mls/hr Q24HR ZOE Administration Protocol Insulin Glargine 10 units 04/23/19 22:00 Lantus SUB-Q QHS ZOE Insulin Human Lispro 0 unit 04/23/19 07:30 04/23/19 11:49 Humalog SUB-Q 3 unit ACHS [facility] Administration Protocol Metoprolol Tartrate 50 mg 04/22/19 22:00 04/23/19 10:21 Lopressor PO 50 mg BID ZOE Administration Ondansetron HCl 4 mg 04/20/19 21:01 Zofran IV Q8H PRN Nausea And Vomiting Oxycodone/Acetaminophen 1 tab 04/20/19 21:01 04/23/19 13:46 Percocet 5/325 PO 1 tab Q6H PRN Administration Pain, Moderate (4-6) Sodium Chloride 10 ml 04/20/19 22:00 04/23/19 10:21 Sodium Chloride Flush Syringe 10 Ml IV 10 ml BID ZOE Administration Sodium Chloride 10 ml 04/20/19 21:01 Sodium Chloride Flush Syringe 10 Ml IV PRN PRN LINE FLUSH
--- NOTE | 2019-04-23 16:55 | Hem/Onc Progress Note ---
Assessment and Plan 1. History of recurrent colon cancer found in 11/2018. 2. Original colorectal cancer was 18 years ago. 3. History of colostomy. 4. History of colon perforation, status post surgery in 11/2018. 5. History of renal impairment. Nephrology following. dialysis. 6. Electrolyte issues. 7. Anemia. 8. Abnormal LFTs. CT does not mention any liver lesions. As per the information in the medical record, there is mention of radiation treatment, details not clear. The details of treatment for his recurrent colon cancer are unclear. At this time, he is clinically not good and would need stabilization before treatment, or this could be looked into as an outpatient basis. 04/23 - d/w nephrology - pt on dialysis pt is not keen for any interventions for the cancer at this time - Patient Problems (1) Rectal cancer Current Visit: Yes Status: Acute Subjective Date of service: 04/23/19 Principal diagnosis: rectal ca Interval history: more awake, Objective - Constitutional Vitals: Last Vital Signs Temp 98.2 F 04/23/19 12:40 Pulse 115 H 04/23/19 12:40 Resp 20 04/23/19 13:46 BP 138/97 04/23/19 12:40 Pulse Ox 100 04/23/19 12:40 Pain Intensity (0-10): denies any pain General appearance: no acute distress Performance status: 3-limited selfcare - EENT Eyes: EOM intact ENT: clear oral mucosa Lymph node exam: negative cervical - Neck Neck: supple - Respiratory Respiratory effort: Positive: normal Respiratory: bilateral: CTA - Cardiovascular Heart Sounds: Present: S1 & S2 Extremities: normal temperature - Gastrointestinal General gastrointestinal: Present: soft, non-tender, other (colostomy) Rectal Exam: deferred - Genitourinary Male genitourinary: Present: deferred - Integumentary Integumentary: warm - Musculoskeletal Musculoskeletal: generalized weakness - Neurologic Neurologic: moves all extremities - Labs Lab Results: Laboratory Results - last 24 hr 04/23/19 04/23/19 04/23/19 05:57 05:57 11:32 WBC 8.8 RBC 3.07 L Hgb 9.0 L Hct 26.4 L MCV 86 MCH 29 MCHC 34 RDW 15.4 H Plt Count 386 Lymph % (Auto) 19.8 [place] % (Auto) 14.8 H Eos % (Auto) 2.2 Baso % (Auto) 1.1 Lymph # 1.7 [place] # 1.3 H Eos # 0.2 Baso # 0.1 Seg Neutrophils % 62.1 Seg Neutrophils # 5.4 Sodium 142 Potassium 4.5 D Chloride 97.1 L Carbon Dioxide 18 L Anion Gap 31 BUN 44 H Creatinine 7.1 H Estimated GFR 10 BUN/Creatinine Ratio 6 Glucose 132 H POC Glucose 228 H Calcium 9.1 Total Bilirubin 0.30 AST 33 ALT 63 H Alkaline Phosphatase 197 H Total Protein 8.0 Albumin 3.6 L Albumin/Globulin Ratio 0.8 Medications & Allergies - Medications Allergies/Adverse Reactions: Allergies No Known Allergies Allergy (Unverified 04/20/19 09:03) Home Medications: Home Medications Medication Instructions Recorded Confirmed Last Taken Type Captopril 50 mg PO BID 04/20/19 04/20/19 Unknown History Insulin Detemir [Levemir] 35 unit SQ BID 04/20/19 04/20/19 Unknown History Lispro Insulin [HumaLOG] 15 unit SQ TID 04/20/19 04/20/19 Unknown History Oxycodone HCl [oxyCONTIN ER] 30 mg PO BID 04/20/19 04/20/19 Unknown History Oxycodone HCl/Acetaminophen 1 each PO Q4H 04/20/19 04/20/19 Unknown History [Percocet 10/325 mg] amLODIPine [Norvasc] 5 mg PO DAILY 04/20/19 04/20/19 Unknown History metFORMIN [Glucophage] 500 mg PO BID 04/20/19 04/20/19 Unknown History Active Medications: Generic Name Dose Route Start Last Admin Trade Name [place] PRN Reason Stop Dose Admin Acetaminophen 650 mg 04/20/19 21:01 Tylenol PO Q4H PRN Pain MILD(1-3)/Fever >100.5/DE ANDA Amlodipine Besylate 5 mg 04/23/19 10:00 04/23/19 10:20 Norvasc PO 5 mg DAILY ZOE Administration Dextrose 50 ml 04/22/19 22:28 D50w (25gm) Syringe IV PRN PRN Hypoglycemia Heparin Sodium (Porcine) 5,000 unit 04/20/19 22:00 04/23/19 10:21 Heparin SUB-Q 5,000 unit Q12HR ZOE Administration Hydralazine HCl 10 mg 04/22/19 22:27 04/23/19 07:36 Apresoline IV 10 mg Q4HR PRN Administration Blood Pressure Hydromorphone HCl 0.5 mg 04/22/19 17:50 Dilaudid IV Q3H PRN Pain, Moderate (4-6) Sodium Chloride 100 mls @ 999 mls/hr 04/20/19 15:39 Nacl 0.9% IV RAMAN PRN Hypotension Ceftriaxone Sodium 1 gm in 50 mls @ 100 mls/hr 04/20/19 22:00 04/23/19 10:21 Rocephin/Ns 1 Gm/50 Ml IV 100 mls/hr Q24HR ZOE Administration Protocol Insulin Glargine 10 units 04/23/19 22:00 Lantus SUB-Q QHS ZOE Insulin Human Lispro 0 unit 04/23/19 07:30 04/23/19 11:49 Humalog SUB-Q 3 unit ACHS ZOE Administration Protocol Metoprolol Tartrate 50 mg 04/22/19 22:00 04/23/19 10:21 Lopressor PO 50 mg BID ZOE Administration Ondansetron HCl 4 mg 04/20/19 21:01 Zofran IV Q8H PRN Nausea And Vomiting Oxycodone/Acetaminophen 1 tab 04/20/19 21:01 04/23/19 13:46 Percocet 5/325 PO 1 tab Q6H PRN Administration Pain, Moderate (4-6) Sodium Chloride 10 ml 04/20/19 22:00 04/23/19 10:21 Sodium Chloride Flush Syringe 10 Ml IV 10 ml BID ZOE Administration Sodium Chloride 10 ml 04/20/19 21:01 Sodium Chloride Flush Syringe 10 Ml IV PRN PRN LINE FLUSH
[2019-04-23] MEDS: LANTUS SUB-Q SCH (22:18)
[2019-04-23] MEDS: DILAUDID IV PRN (22:22)
[2019-04-24 05:35] LABS: Basophils # (Auto) 0.1 K/mm3 (0.0-0.1); Basophils % (Auto) 0.9 % (0.0-1.8); Eosinophils # (Auto) 0.3 K/mm3 (0.0-0.4); Eosinophils % (Auto) 4.1 % (0.0-4.3); Hematocrit 25.8 % (35.5-45.6); Hemoglobin 8.7 gm/dl (11.8-15.2); Lymphocytes # (Auto) 2.2 K/mm3 (1.2-5.4); Lymphocytes % (Auto) 26.4 % (13.4-35.0); Mean Corpuscular HGB Conc 34 % (32-34); Mean Corpuscular Volume 86 fl (84-94); Monocytes # (Auto) 0.9 K/mm3 (0.0-0.8); Monocytes % (Auto) 10.4 % (0.0-7.3); Platelet Count 386 K/mm3 (140-440); Red Blood Count 2.99 M/mm3 (3.65-5.03)
[2019-04-24] MEDS: PERCOCET 5/325 PO PRN (05:45)
[2019-04-24 06:01] LABS: Calcium 9.7 mg/dL (8.4-10.2)
[2019-04-24] MEDS: HumaLOG SUB-Q SCH ×4 (07:45→21:21)
--- NOTE | 2019-04-24 07:55 | Progress Note ---
Assessment and Plan - Patient Problems (1) Colorectal cancer Current Visit: Yes Status: Acute Plan to address problem: Being followed by oncologist (2) Anemia in chronic kidney disease Current Visit: Yes Status: Acute Plan to address problem: Give Erythropoetin on dialysis (3) Acute kidney failure with tubular necrosis Current Visit: Yes Status: Acute Plan to address problem: Patient started on dialysis due to worsening renal indices, uremic encephalopathy, hyperkalemia and hyponatremia. Improving on dialysis. Hemodialysis today and then continue on a Friday, and Friday schedule. (4) Hyperkalemia Current Visit: Yes Status: Acute Plan to address problem: Improved with dialysis (5) Hyponatremia Current Visit: Yes Status: Acute Plan to address problem: Improved with dialysis (6) Metabolic acidosis Current Visit: Yes Status: Acute Plan to address problem: Improved with dialysis (7) Metabolic encephalopathy Current Visit: Yes Status: Acute Plan to address problem: Improved with dialysis (8) Sacral decubitus ulcer, stage IV Current Visit: Yes Status: Acute Plan to address problem: Continue treatment (9) Sepsis Current Visit: Yes Status: Acute Plan to address problem: Secondary to urinary tract infection and/or infected sacral decubitus ulcer. Continue antibiotics and monitoring Subjective Date of service: 04/24/19 Principal diagnosis: rectal ca Interval history: Patient seen lying in bed. Complains of pain over the sacral area. No nausea or vomiting. No shortness of breath Objective - Exam Narrative Exam: Middle-aged -[place] female lying in bed in no acute distress HEENT: NCAT, pink oral mucous membrane Neck: Supple, no venous distention CVS: S1S2 RRR with no murmur, rub or gallop Chest: Clear to auscultation Abdomen: Protuberant, soft, nontender, ostomy intact, no organomegaly, bowel sounds are present Extremities: Mild edema Neuro: Awake, alert no focal deficits - Vital Signs Vital signs: Vital Signs - 12hr 04/23/19 04/23/19 04/23/19 20:02 22:00 22:16 Temperature 98.2 F Pulse Rate 103 H 106 H 100 H Respiratory 20 Rate Blood Pressure 133/93 133/93 O2 Sat by Pulse 99 Oximetry 04/23/19 04/24/19 04/24/19 22:22 00:01 04:31 Temperature 98.4 F 97.7 F Pulse Rate 101 H 95 H Respiratory 20 20 20 Rate Blood Pressure 136/80 137/77 O2 Sat by Pulse 100 100 Oximetry 04/24/19 05:45 Temperature Pulse Rate Respiratory 20 Rate Blood Pressure O2 Sat by Pulse Oximetry - Lab 04/24/19 03:59 04/24/19 03:59 Most recent lab results Calcium 9.7 mg/dL (8.4-10.2) 04/24/19 03:59 Medications & Allergies - Medications Allergies/Adverse Reactions: Allergies No Known Allergies Allergy (Unverified 04/20/19 09:03) Home Medications: Home Medications Medication Instructions Recorded Confirmed Last Taken Type Captopril 50 mg PO BID 04/20/19 04/20/19 Unknown History Insulin Detemir [Levemir] 35 unit SQ BID 04/20/19 04/20/19 Unknown History Lispro Insulin [HumaLOG] 15 unit SQ TID 04/20/19 04/20/19 Unknown History Oxycodone HCl [oxyCONTIN ER] 30 mg PO BID 04/20/19 04/20/19 Unknown History Oxycodone HCl/Acetaminophen 1 each PO Q4H 04/20/19 04/20/19 Unknown History [Percocet 10/325 mg] amLODIPine [Norvasc] 5 mg PO DAILY 04/20/19 04/20/19 Unknown History metFORMIN [Glucophage] 500 mg PO BID 04/20/19 04/20/19 Unknown History Active Medications: Generic Name Dose Route Start Last Admin Trade Name Freq PRN Reason Stop Dose Admin Acetaminophen 650 mg 04/20/19 21:01 Tylenol PO Q4H PRN Pain MILD(1-3)/Fever >100.5/DE ANDA Amlodipine Besylate 5 mg 04/23/19 10:00 04/23/19 10:20 Norvasc PO 5 mg DAILY ZOE Administration Dextrose 50 ml 04/22/19 22:28 D50w (25gm) Syringe IV PRN PRN Hypoglycemia Heparin Sodium (Porcine) 5,000 unit 04/20/19 22:00 04/23/19 22:18 Heparin SUB-Q 5,000 unit Q12HR ZOE Administration Hydralazine HCl 10 mg 04/22/19 22:27 04/23/19 07:36 Apresoline IV 10 mg Q4HR PRN Administration Blood Pressure Hydromorphone HCl 0.5 mg 04/22/19 17:50 04/23/19 22:22 Dilaudid IV 0.5 mg Q3H PRN Administration Pain, Moderate (4-6) Sodium Chloride 100 mls @ 999 mls/hr 04/20/19 15:39 Nacl 0.9% IV RAMAN PRN Hypotension Ceftriaxone Sodium 1 gm in 50 mls @ 100 mls/hr 04/20/19 22:00 04/23/19 10:21 Rocephin/Ns 1 Gm/50 Ml IV 100 mls/hr Q24HR ZOE Administration Protocol Insulin Glargine 10 units 04/23/19 22:00 04/23/19 22:18 Lantus SUB-Q 10 units QHS ZOE Administration Insulin Human Lispro 0 unit 04/23/19 07:30 04/23/19 22:19 Humalog SUB-Q 3 unit ACHS ZOE Administration Protocol Metoprolol Tartrate 50 mg 04/22/19 22:00 04/23/19 22:16 Lopressor PO 50 mg BID ZOE Administration Ondansetron HCl 4 mg 04/20/19 21:01 Zofran IV Q8H PRN Nausea And Vomiting Oxycodone/Acetaminophen 1 tab 04/20/19 21:01 04/24/19 05:45 Percocet 5/325 PO 1 tab Q6H PRN Administration Pain, Moderate (4-6) Sodium Chloride 10 ml 04/20/19 22:00 04/23/19 22:20 Sodium Chloride Flush Syringe 10 Ml IV 10 ml BID ZOE Administration Sodium Chloride 10 ml 04/20/19 21:01 Sodium Chloride Flush Syringe 10 Ml IV PRN PRN LINE FLUSH
[2019-04-24] MEDS: DILAUDID IV PRN ×4 (08:10→21:30)
[2019-04-24] MEDS ORDERED: NACL 0.9 (PRIMING MACHINE ONLY DIALYSIS) MC ONE (12:43)
--- NOTE | 2019-04-24 13:00 | Progress Note ---
Assessment and Plan Assessment and plan: 59-year-old man with past medical history significant for hypertension, diabetes mellitus, rectal CA status post laparotomy, colostomy, stage IV sacral ulcer, presented to the emergency department with complaints of altered mental status. Patient had history of ATN and was on dialysis until last January. Patient is confused and disoriented. Acute kidney failure with tubular necrosis - Patient is on HD - Avoid nephrotoxins Metabolic, uremic encephalopathy - Resolved, she desired and oriented - Patient is in acute renal failure - Nephrology was consulted and patient is currently on dialysis - Patient was alert but still confused Severe sepsis likely due to UTI versus sacral decubitus ulcer - Patient is being managed according to sepsis protocol - Continue IV Rocephin Metabolic acidosis due to the above -Improved with bicarbonate and hemodialysis Hyponatremia - Resolved Hyperkalemia - resolved with dialysis Anemia of chronic disease - We'll follow H&H - Transfusion H&H is below 7 History of rectal cancer - Status post colostomy and ostomy - continue colostomy care - Hematology consulted and recommended patient follow-up after his acute condition is resolved DVT prophylaxis - On heparin Disposition - Patient is alert and oriented, follow nephrology recommendation for arrangement of outpatient dialysis if needed. History Interval history: Patient was seen in the amount of this morning, patient was alert and oriented. No confusion. Hospitalist Physical - Physical exam Narrative exam: Not in cardiopulmonary distress. The patient appeared well nourished and normally developed. Vital signs as documented. Head exam is unremarkable. No scleral icterus . Neck is without jugular venous distension, thyromegaly, or carotid bruits. Lungs are clear to auscultation. Cardiac exam reveals regular rate and Rhythm. First and second heart sounds normal. No murmurs, rubs or gallops. Abdominal exam reveals colostomy bag on the right side of abdomen and open stoma on the left lower abdomen. Extremities are nonedematous and both femoral and pedal pulses are normal. TECHNICAL SUPPORT ASSOCIATE: Alert and oriented 3. No focal deficit - Constitutional Vitals: Temp Pulse Resp BP Pulse Ox 98.9 F 101 H 16 145/83 95 04/24/19 10:00 04/24/19 12:30 04/24/19 10:00 04/24/19 12:30 04/24/19 07:57 General appearance: Present: no acute distress Results - Labs CBC & Chem 7: 04/24/19 03:59 04/24/19 03:59 Labs: Laboratory Last Values WBC 8.4 K/mm3 (4.5-11.0) 04/24/19 03:59 RBC 2.99 M/mm3 (3.65-5.03) L 04/24/19 03:59 Hgb 8.7 gm/dl (11.8-15.2) L 04/24/19 03:59 Hct 25.8 % (35.5-45.6) L 04/24/19 03:59 MCV 86 fl (84-94) 04/24/19 03:59 MCH 29 pg (28-32) 04/24/19 03:59 MCHC 34 % (32-34) 04/24/19 03:59 RDW 15.0 % (13.2-15.2) 04/24/19 03:59 Plt Count 386 K/mm3 (140-440) 04/24/19 03:59 Lymph % (Auto) 26.4 % (13.4-35.0) 04/24/19 03:59 [place] % (Auto) 10.4 % (0.0-7.3) H 04/24/19 03:59 Eos % (Auto) 4.1 % (0.0-4.3) 04/24/19 03:59 Baso % (Auto) 0.9 % (0.0-1.8) 04/24/19 03:59 Lymph # 2.2 K/mm3 (1.2-5.4) 04/24/19 03:59 [place] # 0.9 K/mm3 (0.0-0.8) H 04/24/19 03:59 Eos # 0.3 K/mm3 (0.0-0.4) 04/24/19 03:59 Baso # 0.1 K/mm3 (0.0-0.1) 04/24/19 03:59 Seg Neutrophils % 58.2 % (40.0-70.0) 04/24/19 03:59 Seg Neutrophils # 4.9 K/mm3 (1.8-7.7) 04/24/19 03:59 APTT 36.4 Sec. (24.2-36.6) 04/20/19 10:05 POC ABG pH 7.126 (7.35-7.45) L 04/20/19 15:43 POC ABG pO2 142 (80-105) H 04/20/19 15:43 POC ABG HCO3 7.0 (22-26 mml/L) 04/20/19 15:43 POC ABG Total CO2 8 (23-27mmol/L) 04/20/19 15:43 POC ABG O2 Sat 98 04/20/19 15:43 POC ABG Base Excess -22 ((-2) - (+3)mmol/L) 04/20/19 15:43 32 % 04/20/19 15:43 Sodium 135 mmol/L (137-145) L 04/24/19 03:59 Potassium 3.8 mmol/L (3.6-5.0) 04/24/19 03:59 Chloride 97.4 mmol/L (98-107) L 04/24/19 03:59 Carbon Dioxide 21 mmol/L (22-30) L 04/24/19 03:59 20 mmol/L 04/24/19 03:59 BUN 52 mg/dL (9-20) H 04/24/19 03:59 5.7 mg/dL (0.8-1.5) H 04/24/19 03:59 Estimated GFR 13 ml/min 04/24/19 03:59 9 % 04/24/19 03:59 Glucose 112 mg/dL (75-100) H 04/24/19 03:59 POC Glucose 169 (70-105) H 04/24/19 08:13 5.1 % (4-6) 04/20/19 Unknown Lactic Acid 0.60 mmol/L (0.7-2.0) L 04/20/19 Unknown Calcium 9.7 mg/dL (8.4-10.2) 04/24/19 03:59 Iron 73 ug/dL (49-181) 04/22/19 04:19 TIBC 180 mcg/dL (250-450) L 04/22/19 04:19 2398.0 ng/mL (13.0-400.0) H 04/22/19 04:19 0.30 mg/dL (0.1-1.2) 04/23/19 05:57 AST 33 units/L (5-40) 04/23/19 05:57 ALT 63 units/L (7-56) H 04/23/19 05:57 197 units/L (35-129) H 04/23/19 05:57 0.269 ng/mL (0.00-0.029) H* 04/20/19 10:05 0.291 ng/mL (0.00-0.029) H* 04/20/19 10:05 NT-Pro-B Natriuret Pep 416.2 pg/mL (0-900) 04/20/19 10:05 8.0 g/dL (6.3-8.2) 04/23/19 05:57 3.6 g/dL (3.9-5) L 04/23/19 05:57 0.8 % 04/23/19 05:57 Triglycerides 124 mg/dL (2-149) 04/20/19 10:05 Cholesterol 223 mg/dL (50-199) H 04/20/19 10:05 152 mg/dL (50-130) H 04/20/19 10:05 48 mg/dL (40-59) 04/20/19 10:05 4.64 % 04/20/19 10:05 Vitamin B12 > 2000 pg/mL (211-911) H 04/22/19 04:19 > 20.0 ng/mL (7.3-26.0) 04/22/19 04:19 [place] (Yellow) 04/20/19 Unknown Cloudy (Clear) 04/20/19 Unknown 5.0 (5.0-7.0) 04/20/19 Unknown Ur Specific [place] 1.020 (1.003-1.030) 04/20/19 Unknown 100 mg/dl mg/dL (Negative) 04/20/19 Unknown Neg mg/dL (Negative) 04/20/19 Unknown Tr mg/dL (Negative) 04/20/19 Unknown Lg (Negative) 04/20/19 Unknown Neg (Negative) 04/20/19 Unknown Neg (Negative) 04/20/19 Unknown < 2.0 mg/dL (<2.0) 04/20/19 Unknown Ur Leukocyte Esterase Mod (Negative) 04/20/19 Unknown 15.0 /HPF (0.0-6.0) H 04/20/19 Unknown 8.0 /HPF (0.0-6.0) 04/20/19 Unknown U Epithel Cells (Auto) < 1.0 /HPF (0-13.0) 04/20/19 Unknown 4+ /HPF (Negative) 04/20/19 Unknown Few /HPF 04/20/19 Unknown Hepatitis A IgM Ab Non-reactive (NonReactive) 04/20/19 17:21 Hep Bs Antigen Non-reactive (Negative) 04/20/19 17:21 Hep B Core IgM Ab Non-reactive (NonReactive) 04/20/19 17:21 Non-reactive (NonReactive) 04/20/19 17:21 Active Medications - Current Medications Current Medications: Generic Name Dose Route Start Last Admin Trade Name Freq PRN Reason Stop Dose Admin Acetaminophen 650 mg 04/20/19 21:01 Tylenol PO Q4H PRN Pain MILD(1-3)/Fever >100.5/DE ANDA Amlodipine Besylate 5 mg 04/23/19 10:00 04/23/19 10:20 Norvasc PO 5 mg DAILY ZOE Administration Dextrose 50 ml 04/22/19 22:28 D50w (25gm) Syringe IV PRN PRN Hypoglycemia Heparin Sodium (Porcine) 5,000 unit 04/20/19 22:00 04/23/19 22:18 Heparin SUB-Q 5,000 unit Q12HR ZOE Administration Hydralazine HCl 10 mg 04/22/19 22:27 04/23/19 07:36 Apresoline IV 10 mg Q4HR PRN Administration Blood Pressure Hydromorphone HCl 0.5 mg 04/22/19 17:50 04/24/19 08:10 Dilaudid IV 0.5 mg Q3H PRN Administration Pain, Moderate (4-6) Sodium Chloride 100 mls @ 999 mls/hr 04/20/19 15:39 Nacl 0.9% IV RAMAN PRN Hypotension Ceftriaxone Sodium 1 gm in 50 mls @ 100 mls/hr 04/20/19 22:00 04/23/19 10:21 Rocephin/Ns 1 Gm/50 Ml IV 100 mls/hr Q24HR ZOE Administration Protocol Insulin Glargine 10 units 04/23/19 22:00 04/23/19 22:18 Lantus SUB-Q 10 units QHS ZOE Administration Insulin Human Lispro 0 unit 04/23/19 07:30 04/24/19 12:20 Humalog SUB-Q Not Given ACHS [facility] Protocol Metoprolol Tartrate 50 mg 04/22/19 22:00 04/23/19 22:16 Lopressor PO 50 mg BID ZOE Administration Ondansetron HCl 4 mg 04/20/19 21:01 Zofran IV Q8H PRN Nausea And Vomiting Oxycodone/Acetaminophen 1 tab 04/20/19 21:01 04/24/19 05:45 Percocet 5/325 PO 1 tab Q6H PRN Administration Pain, Moderate (4-6) Sodium Chloride 10 ml 04/20/19 22:00 04/23/19 22:20 Sodium Chloride Flush Syringe 10 Ml IV 10 ml BID ZOE Administration Sodium Chloride 10 ml 04/20/19 21:01 Sodium Chloride Flush Syringe 10 Ml IV PRN PRN LINE FLUSH Nutrition/Malnutrition Assess - Dietary Evaluation Nutrition/Malnutrition Findings: Nutrition Notes Start: 04/21/19 15:41 Freq: Status: Active Protocol: Document 04/22/19 15:16 RM (Rec: 04/22/19 15:26 RM [id number]) Nutrition Notes Initial or Follow up Assessment Current Diagnosis Acute Kidney Injury,Diabetes, Sepsis,Hypertension Other Pertinent Diagnosis Sacral wound, Rectal CA, Colostomy Current Diet Cardiac/Consistent CHO, Renal w/Glucerna Labs/Tests Reviewed Pertinent Medications Reviewed Height 6 ft 2 in Weight 98.7 kg [place] Body Weight (kg) 86.36 BMI 27.9 Subjective/Other Information Pt not in room at time of visit. Pt tech and nurse unsure how much pt has been eating. #1 Nutrition Diagnosis Increased nutrient needs ( specify in comment below) Comments: protein needs Etiology wound healing As Evidenced by Signs and Symptoms sacral wound Is patient on ventilator? No Is Patient Ambulatory and/or Out of Bed No REE-([facility]-confined to bed) [phone] Calculation Used for Recommendations [facility] Additional Notes Protein Needs: 118-148g (1.2-1 .5g/kg) Fluid Needs: 1 ml/kcal Nutrition Intervention Change Diet Order: Continue current Add Supplement/Snack (indicate name/kcal Glucerna 1 daily /protein ) Provides kCal: 220 Provides Protein (gm) 10 Goal #1 Meet at least 75% of calorie and protein needs via PO and ONS intakes Anticipated Discharge Needs: Unable to determine at this time Follow-Up By: 04/19/19 Additional Comments Follow for PO and ONS intakes
[2019-04-24] MEDS: ROCEPHIN/NS 1 GM/50 ML 1 GM/50 ML BAG IV SCH (13:54)
[2019-04-24] MEDS: LOPRESSOR PO SCH ×2 (13:55→21:26)
[2019-04-24] MEDS: HEPARIN SUB-Q SCH ×2 (13:55→21:26)
[2019-04-24] MEDS: NORVASC PO SCH (13:55)
[2019-04-24] MEDS: SODIUM CHLORIDE FLUSH SYRINGE 10 ML IV SCH ×2 (13:55→21:25)
[2019-04-24] MEDS: LANTUS SUB-Q SCH (21:26)
[2019-04-25] MEDS: DILAUDID IV PRN ×5 (00:21→21:45)
[2019-04-25 08:02] LABS: Calcium 8.9 mg/dL (8.4-10.2)
--- NOTE | 2019-04-25 08:34 | Hem/Onc Progress Note ---
Assessment and Plan 1. History of recurrent colon cancer found in 11/2018. 2. Original colorectal cancer was 18 years ago. 3. History of colostomy. 4. History of colon perforation, status post surgery in 11/2018. 5. History of renal impairment. Nephrology following. dialysis. 6. Electrolyte issues. 7. Anemia. 8. Abnormal LFTs. CT does not mention any liver lesions. As per the information in the medical record, there is mention of radiation treatment, details not clear. The details of treatment for his recurrent colon cancer are unclear. At this time, he is clinically not good and would need stabilization before treatment, or this could be looked into as an outpatient basis. 04/25 pt is not keen for any interventions for the cancer at this time d/w - surgeon - dr Farris had told plt that all cancer removed OP follow uo with med oncology needed - Patient Problems (1) Rectal cancer Current Visit: Yes Status: Acute Subjective Date of service: 04/25/19 Principal diagnosis: colon ca Interval history: more awake, d/w Objective - Constitutional Vitals: Last Vital Signs Temp 97.4 F L 04/25/19 05:37 Pulse 90 04/25/19 05:37 Resp 18 04/25/19 05:37 BP 104/67 04/25/19 05:37 Pulse Ox 100 04/25/19 05:37 Pain Intensity (0-10): denies any pain General appearance: no acute distress Performance status: 3-limited selfcare - EENT Eyes: EOM intact ENT: hearing intact Lymph node exam: negative cervical - Neck Neck: normal ROM - Respiratory Respiratory effort: Positive: normal Respiratory: bilateral: CTA (anteriorly) - Cardiovascular Heart Sounds: Present: S1 & S2 (m) Extremities: normal temperature - Gastrointestinal General gastrointestinal: Present: soft, other (colostomy and bandage) Rectal Exam: deferred - Genitourinary Male genitourinary: Present: deferred - Integumentary Integumentary: warm - Musculoskeletal Musculoskeletal: generalized weakness - Neurologic Neurologic: moves all extremities - Labs Lab Results: Laboratory Results - last 24 hr 04/24/19 04/24/19 04/24/19 14:15 16:35 20:49 Sodium Potassium Chloride Carbon Dioxide Anion Gap BUN Creatinine Estimated GFR BUN/Creatinine Ratio Glucose POC Glucose 160 H 173 H 136 H Calcium 04/25/19 04/25/19 07:21 07:48 Sodium 136 L Potassium 4.2 Chloride 95.5 L Carbon Dioxide 27 Anion Gap 18 BUN 34 H Creatinine 2.5 H D Estimated GFR 32 BUN/Creatinine Ratio 14 Glucose 149 H POC Glucose 179 H Calcium 8.9 Medications & Allergies - Medications Allergies/Adverse Reactions: Allergies No Known Allergies Allergy (Unverified 04/20/19 09:03) Home Medications: Home Medications Medication Instructions Recorded Confirmed Last Taken Type Captopril 50 mg PO BID 04/20/19 04/20/19 Unknown History Insulin Detemir [Levemir] 35 unit SQ BID 04/20/19 04/20/19 Unknown History Lispro Insulin [HumaLOG] 15 unit SQ TID 04/20/19 04/20/19 Unknown History Oxycodone HCl [oxyCONTIN ER] 30 mg PO BID 04/20/19 04/20/19 Unknown History Oxycodone HCl/Acetaminophen 1 each PO Q4H 04/20/19 04/20/19 Unknown History [Percocet 10/325 mg] amLODIPine [Norvasc] 5 mg PO DAILY 04/20/19 04/20/19 Unknown History metFORMIN [Glucophage] 500 mg PO BID 04/20/19 04/20/19 Unknown History Active Medications: Generic Name Dose Route Start Last Admin Trade Name Freq PRN Reason Stop Dose Admin Acetaminophen 650 mg 04/20/19 21:01 Tylenol PO Q4H PRN Pain MILD(1-3)/Fever >100.5/DE ANDA Amlodipine Besylate 5 mg 04/23/19 10:00 04/24/19 13:55 Norvasc PO 5 mg DAILY ZOE Administration Dextrose 50 ml 04/22/19 22:28 D50w (25gm) Syringe IV PRN PRN Hypoglycemia Heparin Sodium (Porcine) 5,000 unit 04/20/19 22:00 04/24/19 21:26 Heparin SUB-Q 5,000 unit Q12HR ZOE Administration Hydralazine HCl 10 mg 04/22/19 22:27 04/23/19 07:36 Apresoline IV 10 mg Q4HR PRN Administration Blood Pressure Hydromorphone HCl 0.5 mg 04/22/19 17:50 04/25/19 05:38 Dilaudid IV 0.5 mg Q3H PRN Administration Pain , Severe (7-10) Sodium Chloride 100 mls @ 999 mls/hr 04/20/19 15:39 Nacl 0.9% IV RAMAN PRN Hypotension Ceftriaxone Sodium 1 gm in 50 mls @ 100 mls/hr 04/20/19 22:00 04/24/19 13:54 Rocephin/Ns 1 Gm/50 Ml IV 100 mls/hr Q24HR ZOE Administration Protocol Insulin Glargine 10 units 04/23/19 22:00 04/24/19 21:26 Lantus SUB-Q 10 units QHS ZOE Administration Insulin Human Lispro 0 unit 04/23/19 07:30 04/24/19 21:21 Humalog SUB-Q Not Given ACHS [facility] Protocol Metoprolol Tartrate 50 mg 04/22/19 22:00 04/24/19 21:26 Lopressor PO 50 mg BID ZOE Administration Ondansetron HCl 4 mg 04/20/19 21:01 Zofran IV Q8H PRN Nausea And Vomiting Oxycodone/Acetaminophen 1 tab 04/20/19 21:01 04/24/19 05:45 Percocet 5/325 PO 1 tab Q6H PRN Administration Pain, Moderate (4-6) Sodium Chloride 10 ml 04/20/19 22:00 04/24/19 21:25 Sodium Chloride Flush Syringe 10 Ml IV 10 ml BID ZOE Administration Sodium Chloride 10 ml 04/20/19 21:01 04/25/19 00:23 Sodium Chloride Flush Syringe 10 Ml IV 10 ml PRN PRN Administration LINE FLUSH
--- NOTE | 2019-04-25 09:17 | Progress Note ---
Assessment and Plan Assessment and plan: 59-year-old man with past medical history significant for hypertension, diabetes mellitus, rectal CA status post laparotomy, colostomy, stage IV sacral ulcer, presented to the emergency department with complaints of altered mental status. Patient had history of ATN and was on dialysis until last January. Patient is confused and disoriented. Acute kidney failure with tubular necrosis - Patient is on HD - Avoid nephrotoxins Metabolic, uremic encephalopathy - Resolved, she desired and oriented - Patient is in acute renal failure - Nephrology was consulted and patient is currently on dialysis - Patient was alert but still confused Severe sepsis likely due to UTI versus sacral decubitus ulcer - Patient is being managed according to sepsis protocol - Continue IV Rocephin Metabolic acidosis due to the above -Improved with bicarbonate and hemodialysis Hyponatremia - Resolved Hyperkalemia - resolved with dialysis Anemia of chronic disease - We'll follow H&H - Transfusion H&H is below 7 History of rectal cancer - Status post colostomy and ostomy - continue colostomy care - Hematology consulted and recommended patient follow-up after his acute condition is resolved DVT prophylaxis - On heparin Disposition - Patient is alert and oriented, follow nephrology recommendation for arrangement of outpatient dialysis if needed. History Interval history: Continues to complain of buttock pain/sacral pain related to his decub Review of systems Constitutional: No fevers, no malaise, no joint pains CVS: No chest pain, no orthopnea, no dyspnea on exertion, no pedal edema GI: No abdominal pain, no diarrhea, no vomiting, no constipation Respiratory: No shortness of breath, no wheezing, no coughing Hospitalist Physical - Physical exam Narrative exam: General.: Appears well, no distress, nontoxic HEENT: Moist mucous membranes, extraocular muscles intact, no lymphadenopathy Neck: supple Cardiac: S1-S2 heard Lungs: clear to auscultation bilaterally Abdomen: soft , nontender, nondistended, bowel sounds positive Extremities: no edema clubbing or cyanosis Skin: no rash or lesions, stage III sacral decub, present on admission Neurologic: no gross focal deficits Psych: calm, and cooperative - Constitutional Vitals: Temp Pulse Resp BP Pulse Ox 97.4 F L 103 H 18 142/97 98 04/25/19 05:37 04/25/19 08:07 04/25/19 08:07 04/25/19 08:07 04/25/19 08:07 General appearance: Present: no acute distress Results - Labs CBC & Chem 7: 04/29/19 14:48 04/30/19 10:37 Labs: Laboratory Last Values WBC 8.4 K/mm3 (4.5-11.0) 04/24/19 03:59 RBC 2.99 M/mm3 (3.65-5.03) L 04/24/19 03:59 Hgb 8.7 gm/dl (11.8-15.2) L 04/24/19 03:59 Hct 25.8 % (35.5-45.6) L 04/24/19 03:59 MCV 86 fl (84-94) 04/24/19 03:59 MCH 29 pg (28-32) 04/24/19 03:59 MCHC 34 % (32-34) 04/24/19 03:59 RDW 15.0 % (13.2-15.2) 04/24/19 03:59 Plt Count 386 K/mm3 (140-440) 04/24/19 03:59 Lymph % (Auto) 26.4 % (13.4-35.0) 04/24/19 03:59 Thomas % (Auto) 10.4 % (0.0-7.3) H 04/24/19 03:59 Eos % (Auto) 4.1 % (0.0-4.3) 04/24/19 03:59 Baso % (Auto) 0.9 % (0.0-1.8) 04/24/19 03:59 Lymph # 2.2 K/mm3 (1.2-5.4) 04/24/19 03:59 Thomas # 0.9 K/mm3 (0.0-0.8) H 04/24/19 03:59 Eos # 0.3 K/mm3 (0.0-0.4) 04/24/19 03:59 Baso # 0.1 K/mm3 (0.0-0.1) 04/24/19 03:59 Seg Neutrophils % 58.2 % (40.0-70.0) 04/24/19 03:59 Seg Neutrophils # 4.9 K/mm3 (1.8-7.7) 04/24/19 03:59 APTT 36.4 Sec. (24.2-36.6) 04/20/19 10:05 POC ABG pH 7.126 (7.35-7.45) L 04/20/19 15:43 POC ABG pO2 142 (80-105) H 04/20/19 15:43 POC ABG HCO3 7.0 (22-26 mml/L) 04/20/19 15:43 POC ABG Total CO2 8 (23-27mmol/L) 04/20/19 15:43 POC ABG O2 Sat 98 04/20/19 15:43 POC ABG Base Excess -22 ((-2) - (+3)mmol/L) 04/20/19 15:43 32 % 04/20/19 15:43 Sodium 136 mmol/L (137-145) L 04/25/19 07:21 Potassium 4.2 mmol/L (3.6-5.0) 04/25/19 07:21 Chloride 95.5 mmol/L (98-107) L 04/25/19 07:21 Carbon Dioxide 27 mmol/L (22-30) 04/25/19 07:21 18 mmol/L 04/25/19 07:21 BUN 34 mg/dL (9-20) H 04/25/19 07:21 2.5 mg/dL (0.8-1.5) H D 04/25/19 07:21 Estimated GFR 32 ml/min 04/25/19 07:21 14 % 04/25/19 07:21 Glucose 149 mg/dL (75-100) H 04/25/19 07:21 POC Glucose 179 (70-105) H 04/25/19 07:48 5.1 % (4-6) 04/20/19 Unknown Lactic Acid 0.60 mmol/L (0.7-2.0) L 04/20/19 Unknown Calcium 8.9 mg/dL (8.4-10.2) 04/25/19 07:21 Iron 73 ug/dL (49-181) 04/22/19 04:19 TIBC 180 mcg/dL (250-450) L 04/22/19 04:19 2398.0 ng/mL (13.0-400.0) H 04/22/19 04:19 0.30 mg/dL (0.1-1.2) 04/23/19 05:57 AST 33 units/L (5-40) 04/23/19 05:57 ALT 63 units/L (7-56) H 04/23/19 05:57 197 units/L (35-129) H 04/23/19 05:57 0.269 ng/mL (0.00-0.029) H* 04/20/19 10:05 0.291 ng/mL (0.00-0.029) H* 04/20/19 10:05 NT-Pro-B Natriuret Pep 416.2 pg/mL (0-900) 04/20/19 10:05 8.0 g/dL (6.3-8.2) 04/23/19 05:57 3.6 g/dL (3.9-5) L 04/23/19 05:57 0.8 % 04/23/19 05:57 Triglycerides 124 mg/dL (2-149) 04/20/19 10:05 Cholesterol 223 mg/dL (50-199) H 04/20/19 10:05 152 mg/dL (50-130) H 04/20/19 10:05 48 mg/dL (40-59) 04/20/19 10:05 4.64 % 04/20/19 10:05 Vitamin B12 > 2000 pg/mL (211-911) H 04/22/19 04:19 > 20.0 ng/mL (7.3-26.0) 04/22/19 04:19 Mariama (Yellow) 04/20/19 Unknown Cloudy (Clear) 04/20/19 Unknown 5.0 (5.0-7.0) 04/20/19 Unknown Ur Specific Luna 1.020 (1.003-1.030) 04/20/19 Unknown 100 mg/dl mg/dL (Negative) 04/20/19 Unknown Neg mg/dL (Negative) 04/20/19 Unknown Tr mg/dL (Negative) 04/20/19 Unknown Lg (Negative) 04/20/19 Unknown Neg (Negative) 04/20/19 Unknown Neg (Negative) 04/20/19 Unknown < 2.0 mg/dL (<2.0) 04/20/19 Unknown Ur Leukocyte Esterase Mod (Negative) 04/20/19 Unknown 15.0 /HPF (0.0-6.0) H 04/20/19 Unknown 8.0 /HPF (0.0-6.0) 04/20/19 Unknown U Epithel Cells (Auto) < 1.0 /HPF (0-13.0) 04/20/19 Unknown 4+ /HPF (Negative) 04/20/19 Unknown Few /HPF 04/20/19 Unknown Hepatitis A IgM Ab Non-reactive (NonReactive) 04/20/19 17:21 Hep Bs Antigen Non-reactive (Negative) 04/20/19 17:21 Hep B Core IgM Ab Non-reactive (NonReactive) 04/20/19 17:21 Non-reactive (NonReactive) 04/20/19 17:21 Active Medications - Current Medications Current Medications: Generic Name Dose Route Start Last Admin Trade Name Freq PRN Reason Stop Dose Admin Acetaminophen 650 mg 04/20/19 21:01 Tylenol PO Q4H PRN Pain MILD(1-3)/Fever >100.5/DE ANDA Amlodipine Besylate 5 mg 04/23/19 10:00 04/24/19 13:55 Norvasc PO 5 mg DAILY ZOE Administration Dextrose 50 ml 04/22/19 22:28 D50w (25gm) Syringe IV PRN PRN Hypoglycemia Heparin Sodium (Porcine) 5,000 unit 04/20/19 22:00 04/24/19 21:26 Heparin SUB-Q 5,000 unit Q12HR ZOE Administration Hydralazine HCl 10 mg 04/22/19 22:27 04/23/19 07:36 Apresoline IV 10 mg Q4HR PRN Administration Blood Pressure Hydromorphone HCl 0.5 mg 04/22/19 17:50 04/25/19 05:38 Dilaudid IV 0.5 mg Q3H PRN Administration Pain , Severe (7-10) Sodium Chloride 100 mls @ 999 mls/hr 04/20/19 15:39 Nacl 0.9% IV RAMAN PRN Hypotension Ceftriaxone Sodium 1 gm in 50 mls @ 100 mls/hr 04/20/19 22:00 04/24/19 13:54 Rocephin/Ns 1 Gm/50 Ml IV 100 mls/hr Q24HR ZOE Administration Protocol Insulin Glargine 10 units 04/23/19 22:00 04/24/19 21:26 Lantus SUB-Q 10 units QHS ZOE Administration Insulin Human Lispro 0 unit 04/23/19 07:30 04/24/19 21:21 Humalog SUB-Q Not Given ACHS [facility] Protocol Metoprolol Tartrate 50 mg 04/22/19 22:00 04/24/19 21:26 Lopressor PO 50 mg BID ZOE Administration Ondansetron HCl 4 mg 04/20/19 21:01 Zofran IV Q8H PRN Nausea And Vomiting Oxycodone/Acetaminophen 1 tab 04/20/19 21:01 04/24/19 05:45 Percocet 5/325 PO 1 tab Q6H PRN Administration Pain, Moderate (4-6) Sodium Chloride 10 ml 04/20/19 22:00 04/24/19 21:25 Sodium Chloride Flush Syringe 10 Ml IV 10 ml BID ZOE Administration Sodium Chloride 10 ml 04/20/19 21:01 04/25/19 00:23 Sodium Chloride Flush Syringe 10 Ml IV 10 ml PRN PRN Administration LINE FLUSH Nutrition/Malnutrition Assess - Dietary Evaluation Nutrition/Malnutrition Findings: Nutrition Notes Start: 04/21/19 15:41 Freq: Status: Active Protocol: Document 04/22/19 15:16 RM (Rec: 04/22/19 15:26 RM [id number]) Nutrition Notes Initial or Follow up Assessment Current Diagnosis Acute Kidney Injury,Diabetes, Sepsis,Hypertension Other Pertinent Diagnosis Sacral wound, Rectal CA, Colostomy Current Diet Cardiac/Consistent CHO, Renal w/Glucerna Labs/Tests Reviewed Pertinent Medications Reviewed Height 6 ft 2 in Weight 98.7 kg [place] Body Weight (kg) 86.36 BMI 27.9 Subjective/Other Information Pt not in room at time of visit. Pt tech and nurse unsure how much pt has been eating. #1 Nutrition Diagnosis Increased nutrient needs ( specify in comment below) Comments: protein needs Etiology wound healing As Evidenced by Signs and Symptoms sacral wound Is patient on ventilator? No Is Patient Ambulatory and/or Out of Bed No REE-([facility]-confined to bed) 8140.003 Calculation Used for Recommendations [facility] Additional Notes Protein Needs: 118-148g (1.2-1 .5g/kg) Fluid Needs: 1 ml/kcal Nutrition Intervention Change Diet Order: Continue current Add Supplement/Snack (indicate name/kcal Glucerna 1 daily /protein ) Provides kCal: 220 Provides Protein (gm) 10 Goal #1 Meet at least 75% of calorie and protein needs via PO and ONS intakes Anticipated Discharge Needs: Unable to determine at this time Follow-Up By: 04/19/19 Additional Comments Follow for PO and ONS intakes
[2019-04-25] MEDS: HumaLOG SUB-Q SCH ×4 (09:40→21:47)
[2019-04-25] MEDS: ROCEPHIN/NS 1 GM/50 ML 1 GM/50 ML BAG IV SCH (09:41)
[2019-04-25] MEDS: HEPARIN SUB-Q SCH ×2 (09:41→21:47)
[2019-04-25] MEDS: NORVASC PO SCH (09:41)
[2019-04-25] MEDS: LOPRESSOR PO SCH ×2 (09:41→21:46)
[2019-04-25] MEDS: SODIUM CHLORIDE FLUSH SYRINGE 10 ML IV SCH ×2 (09:42→21:47)
--- NOTE | 2019-04-25 12:28 | Progress Note ---
Assessment and Plan - Patient Problems (1) Acute kidney failure with tubular necrosis Current Visit: Yes Status: Acute Plan to address problem: Patient started on dialysis due to worsening renal indices, uremic encephalopathy, hyperkalemia and hyponatremia. Improving on dialysis. Hemodialysis on a Friday, and Friday schedule this week (2) Colorectal cancer Current Visit: Yes Status: Acute Plan to address problem: Being followed by oncologist (3) Anemia in chronic kidney disease Current Visit: Yes Status: Acute Plan to address problem: Give Erythropoetin on dialysis (4) Hyperkalemia Current Visit: Yes Status: Acute Plan to address problem: Improved with dialysis (5) Hyponatremia Current Visit: Yes Status: Acute Plan to address problem: Improved with dialysis (6) Metabolic acidosis Current Visit: Yes Status: Acute Plan to address problem: Improved with dialysis (7) Metabolic encephalopathy Current Visit: Yes Status: Acute Plan to address problem: Improved with dialysis (8) Sacral decubitus ulcer, stage IV Current Visit: Yes Status: Acute Plan to address problem: Continue treatment (9) Sepsis Current Visit: Yes Status: Acute Plan to address problem: Secondary to urinary tract infection and/or infected sacral decubitus ulcer. Continue antibiotics and monitoring Subjective Date of service: 04/25/19 Principal diagnosis: rectal ca Interval history: Patient seen lying in bed. Feels better today. No nausea or vomiting. No shortness of breath Objective - Exam Narrative Exam: Middle-aged -[place] female lying in bed in no acute distress HEENT: NCAT, pink oral mucous membrane Neck: Supple, no venous distention CVS: S1S2 RRR with no murmur, rub or gallop Chest: Clear to auscultation Abdomen: Protuberant, soft, nontender, ostomy intact, no organomegaly, bowel s ounds are present Extremities: Mild edema Neuro: Awake, alert no focal deficits - Vital Signs Vital signs: Vital Signs - 12hr 04/25/19 04/25/19 05:37 08:07 Temperature 97.4 F L Pulse Rate 90 103 H Respiratory 18 18 Rate Blood Pressure 142/97 Blood Pressure 104/67 [Right] O2 Sat by Pulse 100 98 Oximetry - Lab 04/24/19 03:59 04/25/19 07:21 Most recent lab results Calcium 8.9 mg/dL (8.4-10.2) 04/25/19 07:21 Medications & Allergies - Medications Allergies/Adverse Reactions: Allergies No Known Allergies Allergy (Unverified 04/20/19 09:03) Home Medications: Home Medications Medication Instructions Recorded Confirmed Last Taken Type Captopril 50 mg PO BID 04/20/19 04/20/19 Unknown History Insulin Detemir [Levemir] 35 unit SQ BID 04/20/19 04/20/19 Unknown History Lispro Insulin [HumaLOG] 15 unit SQ TID 04/20/19 04/20/19 Unknown History Oxycodone HCl [oxyCONTIN ER] 30 mg PO BID 04/20/19 04/20/19 Unknown History Oxycodone HCl/Acetaminophen 1 each PO Q4H 04/20/19 04/20/19 Unknown History [Percocet 10/325 mg] amLODIPine [Norvasc] 5 mg PO DAILY 04/20/19 04/20/19 Unknown History metFORMIN [Glucophage] 500 mg PO BID 04/20/19 04/20/19 Unknown History Active Medications: Generic Name Dose Route Start Last Admin Trade Name Fantasma PRN Reason Stop Dose Admin Acetaminophen 650 mg 04/20/19 21:01 Tylenol PO Q4H PRN Pain MILD(1-3)/Fever >100.5/DE ANDA Amlodipine Besylate 5 mg 04/23/19 10:00 04/25/19 09:41 Norvasc PO 5 mg DAILY ZOE Administration Dextrose 50 ml 04/22/19 22:28 D50w (25gm) Syringe IV PRN PRN Hypoglycemia Heparin Sodium (Porcine) 5,000 unit 04/20/19 22:00 04/25/19 09:41 Heparin SUB-Q 5,000 unit Q12HR ZOE Administration Hydralazine HCl 10 mg 04/22/19 22:27 04/23/19 07:36 Apresoline IV 10 mg Q4HR PRN Administration Blood Pressure Hydromorphone HCl 0.5 mg 04/22/19 17:50 04/25/19 09:42 Dilaudid IV 0.5 mg Q3H PRN Administration Pain , Severe (7-10) Sodium Chloride 100 mls @ 999 mls/hr 04/20/19 15:39 Nacl 0.9% IV RAMAN PRN Hypotension Ceftriaxone Sodium 1 gm in 50 mls @ 100 mls/hr 04/20/19 22:00 04/25/19 09:41 Rocephin/Ns 1 Gm/50 Ml IV 100 mls/hr Q24HR ZOE Administration Protocol Insulin Glargine 10 units 04/23/19 22:00 04/24/19 21:26 Lantus SUB-Q 10 units QHS ZOE Administration Insulin Human Lispro 0 unit 04/23/19 07:30 04/25/19 09:40 Humalog SUB-Q 2 unit ACHS ZOE Administration Protocol Metoprolol Tartrate 50 mg 04/22/19 22:00 04/25/19 09:41 Lopressor PO 50 mg BID ZOE Administration Ondansetron HCl 4 mg 04/20/19 21:01 Zofran IV Q8H PRN Nausea And Vomiting Oxycodone/Acetaminophen 1 tab 04/20/19 21:01 04/24/19 05:45 Percocet 5/325 PO 1 tab Q6H PRN Administration Pain, Moderate (4-6) Sodium Chloride 10 ml 04/20/19 22:00 04/25/19 09:42 Sodium Chloride Flush Syringe 10 Ml IV 10 ml BID ZOE Administration Sodium Chloride 10 ml 04/20/19 21:01 04/25/19 00:23 Sodium Chloride Flush Syringe 10 Ml IV 10 ml PRN PRN Administration LINE FLUSH
[2019-04-25] MEDS: LANTUS SUB-Q SCH (21:47)
[2019-04-26] MEDS: DILAUDID IV PRN ×2 (05:45→09:00)
--- NOTE | 2019-04-26 08:16 | Progress Note ---
Assessment and Plan - Patient Problems (1) Acute kidney failure with tubular necrosis Current Visit: Yes Status: Acute Plan to address problem: Patient started on dialysis due to worsening renal indices, uremic encephalopathy, hyperkalemia and hyponatremia. Improving on dialysis. Hemodialysis on a Friday, and Friday schedule this week. We'll follow up labs and continue to monitor for renal recovery (2) Colorectal cancer Current Visit: Yes Status: Acute Plan to address problem: Being followed by oncologist (3) Anemia in chronic kidney disease Current Visit: Yes Status: Acute Plan to address problem: Give Erythropoetin on dialysis (4) Hyperkalemia Current Visit: Yes Status: Acute Plan to address problem: Improved with dialysis (5) Hyponatremia Current Visit: Yes Status: Acute Plan to address problem: Improved with dialysis (6) Metabolic acidosis Current Visit: Yes Status: Acute Plan to address problem: Improved with dialysis (7) Metabolic encephalopathy Current Visit: Yes Status: Acute Plan to address problem: Improved with dialysis (8) Sacral decubitus ulcer, stage IV Current Visit: Yes Status: Acute Plan to address problem: Continue treatment (9) Sepsis Current Visit: Yes Status: Acute Plan to address problem: Secondary to urinary tract infection and/or infected sacral decubitus ulcer. Continue antibiotics and monitoring Subjective Date of service: 04/26/19 Principal diagnosis: colon ca Interval history: Patient seen lying in bed. Feels better today. Asks about his renal recovery. No nausea or vomiting. No shortness of breath Objective - Exam Narrative Exam: Middle-aged -[place] female lying in bed in no acute distress HEENT: NCAT, pink oral mucous membrane Neck: Supple, no venous distention CVS: S1S2 RRR with no murmur, rub or gallop Chest: Clear to auscultation Abdomen: Protuberant, soft, nontender, ostomy intact, no organomegaly, bowel sounds are present Extremities: Mild edema Neuro: Awake, alert no focal deficits - Vital Signs Vital signs: Vital Signs - 12hr 04/25/19 04/25/19 04/25/19 21:45 21:46 22:15 Temperature Pulse Rate 87 Respiratory 20 18 Rate Respiratory 20 Rate [Posterior Sacrum Soft Tissue] Blood Pressure 112/73 O2 Sat by Pulse 96 Oximetry 04/26/19 04/26/19 04/26/19 00:26 04:57 05:45 Temperature 98.0 F 98.0 F Pulse Rate 80 90 Respiratory 18 18 20 Rate Respiratory Rate [Posterior Sacrum Soft Tissue] Blood Pressure 105/67 113/63 O2 Sat by Pulse 99 98 Oximetry 04/26/19 06:15 Temperature Pulse Rate Respiratory 18 Rate Respiratory Rate [Posterior Sacrum Soft Tissue] Blood Pressure O2 Sat by Pulse Oximetry - Lab 04/24/19 03:59 04/25/19 07:21 Most recent lab results Calcium 8.9 mg/dL (8.4-10.2) 04/25/19 07:21 Medications & Allergies - Medications Allergies/Adverse Reactions: Allergies No Known Allergies Allergy (Unverified 04/20/19 09:03) Home Medications: Home Medications Medication Instructions Recorded Confirmed Last Taken Type Captopril 50 mg PO BID 04/20/19 04/20/19 Unknown History Insulin Detemir [Levemir] 35 unit SQ BID 04/20/19 04/20/19 Unknown History Lispro Insulin [HumaLOG] 15 unit SQ TID 04/20/19 04/20/19 Unknown History Oxycodone HCl [oxyCONTIN ER] 30 mg PO BID 04/20/19 04/20/19 Unknown History Oxycodone HCl/Acetaminophen 1 each PO Q4H 04/20/19 04/20/19 Unknown History [Percocet 10/325 mg] amLODIPine [Norvasc] 5 mg PO DAILY 04/20/19 04/20/19 Unknown History metFORMIN [Glucophage] 500 mg PO BID 04/20/19 04/20/19 Unknown History Active Medications: Generic Name Dose Route Start Last Admin Trade Name Fantasmaq PRN Reason Stop Dose Admin Acetaminophen 650 mg 04/20/19 21:01 Tylenol PO Q4H PRN Pain MILD(1-3)/Fever >100.5/DE ANDA Amlodipine Besylate 5 mg 04/23/19 10:00 04/25/19 09:41 Norvasc PO 5 mg DAILY ZOE Administration Dextrose 50 ml 04/22/19 22:28 D50w (25gm) Syringe IV PRN PRN Hypoglycemia Heparin Sodium (Porcine) 5,000 unit 04/20/19 22:00 04/25/19 21:47 Heparin SUB-Q 5,000 unit Q12HR ZOE Administration Hydralazine HCl 10 mg 04/22/19 22:27 04/23/19 07:36 Apresoline IV 10 mg Q4HR PRN Administration Blood Pressure Hydromorphone HCl 0.5 mg 04/22/19 17:50 04/26/19 05:45 Dilaudid IV 0.5 mg Q3H PRN Administration Pain , Severe (7-10) Sodium Chloride 100 mls @ 999 mls/hr 04/20/19 15:39 Nacl 0.9% IV RAMAN PRN Hypotension Ceftriaxone Sodium 1 gm in 50 mls @ 100 mls/hr 04/20/19 22:00 04/25/19 09:41 Rocephin/Ns 1 Gm/50 Ml IV 100 mls/hr Q24HR ZOE Administration Protocol Insulin Glargine 10 units 04/23/19 22:00 04/25/19 21:47 Lantus SUB-Q 10 units QHS ZOE Administration Insulin Human Lispro 0 unit 04/23/19 07:30 04/25/19 21:47 Humalog SUB-Q 2 unit ACHS ZOE Administration Protocol Metoprolol Tartrate 50 mg 04/22/19 22:00 04/25/19 21:46 Lopressor PO 50 mg BID ZOE Administration Ondansetron HCl 4 mg 04/20/19 21:01 Zofran IV Q8H PRN Nausea And Vomiting Oxycodone/Acetaminophen 1 tab 04/20/19 21:01 04/24/19 05:45 Percocet 5/325 PO 1 tab Q6H PRN Administration Pain, Moderate (4-6) Sodium Chloride 10 ml 04/20/19 22:00 04/25/19 21:47 Sodium Chloride Flush Syringe 10 Ml IV 10 ml BID ZOE Administration Sodium Chloride 10 ml 04/20/19 21:01 04/25/19 00:23 Sodium Chloride Flush Syringe 10 Ml IV 10 ml PRN PRN Administration LINE FLUSH
--- NOTE | 2019-04-26 08:21 | Hem/Onc Progress Note ---
Assessment and Plan 1. History of recurrent colon cancer found in 11/2018. 2. Original colorectal cancer was 18 years ago. 3. History of colostomy. 4. History of colon perforation, status post surgery in 11/2018. 5. History of renal impairment. Nephrology following. dialysis. 6. Electrolyte issues. 7. Anemia. 8. Abnormal LFTs. CT does not mention any liver lesions. As per the information in the medical record, there is mention of radiation treatment, details not clear. The details of treatment for his recurrent colon cancer are unclear. At this time, he is clinically not good and would need stabilization before treatment, or this could be looked into as an outpatient basis. 04/26 pt is not keen for any interventions for the cancer at this time surgeon - dr Farris had told plt that all cancer removed OP follow uo with med oncology needed - Patient Problems (1) Rectal cancer Current Visit: Yes Status: Acute Subjective Date of service: 04/26/19 Principal diagnosis: rec colon ca Interval history: pt more awake Objective - Constitutional Vitals: Last Vital Signs Temp 98.0 F 04/26/19 04:57 Pulse 90 04/26/19 04:57 Resp 18 04/26/19 06:15 BP 113/63 04/26/19 04:57 Pulse Ox 98 04/26/19 04:57 Pain Intensity (0-10): denies any pain General appearance: no acute distress Performance status: 3-limited selfcare - EENT Eyes: EOM intact ENT: hearing intact Lymph node exam: negative cervical - Neck Neck: normal ROM - Respiratory Respiratory effort: Positive: normal Respiratory: bilateral: CTA - Cardiovascular Heart Sounds: Present: S1 & S2 Extremities: No edema - Gastrointestinal General gastrointestinal: Present: soft, other (colostomy+) Rectal Exam: deferred - Genitourinary Male genitourinary: Present: deferred - Integumentary Integumentary: warm - Musculoskeletal Musculoskeletal: strength equal bilaterally - Neurologic Neurologic: moves all extremities - Labs Lab Results: Laboratory Results - last 24 hr 04/25/19 04/25/19 04/25/19 11:36 16:35 20:42 POC Glucose 221 H 179 H 157 H 04/26/19 07:20 POC Glucose 166 H Medications & Allergies - Medications Allergies/Adverse Reactions: Allergies No Known Allergies Allergy (Unverified 04/20/19 09:03) Home Medications: Home Medications Medication Instructions Recorded Confirmed Last Taken Type Captopril 50 mg PO BID 04/20/19 04/20/19 Unknown History Insulin Detemir [Levemir] 35 unit SQ BID 04/20/19 04/20/19 Unknown History Lispro Insulin [HumaLOG] 15 unit SQ TID 04/20/19 04/20/19 Unknown History Oxycodone HCl [oxyCONTIN ER] 30 mg PO BID 04/20/19 04/20/19 Unknown History Oxycodone HCl/Acetaminophen 1 each PO Q4H 04/20/19 04/20/19 Unknown History [Percocet 10/325 mg] amLODIPine [Norvasc] 5 mg PO DAILY 04/20/19 04/20/19 Unknown History metFORMIN [Glucophage] 500 mg PO BID 04/20/19 04/20/19 Unknown History Active Medications: Generic Name Dose Route Start Last Admin Trade Name Freq PRN Reason Stop Dose Admin Acetaminophen 650 mg 04/20/19 21:01 Tylenol PO Q4H PRN Pain MILD(1-3)/Fever >100.5/DE ANDA Amlodipine Besylate 5 mg 04/23/19 10:00 04/25/19 09:41 Norvasc PO 5 mg DAILY ZOE Administration Dextrose 50 ml 04/22/19 22:28 D50w (25gm) Syringe IV PRN PRN Hypoglycemia Heparin Sodium (Porcine) 5,000 unit 04/20/19 22:00 04/25/19 21:47 Heparin SUB-Q 5,000 unit Q12HR ZOE Administration Hydralazine HCl 10 mg 04/22/19 22:27 04/23/19 07:36 Apresoline IV 10 mg Q4HR PRN Administration Blood Pressure Hydromorphone HCl 0.5 mg 04/22/19 17:50 04/26/19 05:45 Dilaudid IV 0.5 mg Q3H PRN Administration Pain , Severe (7-10) Sodium Chloride 100 mls @ 999 mls/hr 04/20/19 15:39 Nacl 0.9% IV RAMAN PRN Hypotension Ceftriaxone Sodium 1 gm in 50 mls @ 100 mls/hr 04/20/19 22:00 04/25/19 09:41 Rocephin/Ns 1 Gm/50 Ml IV 100 mls/hr Q24HR ZOE Administration Protocol Insulin Glargine 10 units 04/23/19 22:00 04/25/19 21:47 Lantus SUB-Q 10 units QHS ZOE Administration Insulin Human Lispro 0 unit 04/23/19 07:30 04/25/19 21:47 Humalog SUB-Q 2 unit ACHS ZOE Administration Protocol Metoprolol Tartrate 50 mg 04/22/19 22:00 04/25/19 21:46 Lopressor PO 50 mg BID ZOE Administration Ondansetron HCl 4 mg 04/20/19 21:01 Zofran IV Q8H PRN Nausea And Vomiting Oxycodone/Acetaminophen 1 tab 04/20/19 21:01 04/24/19 05:45 Percocet 5/325 PO 1 tab Q6H PRN Administration Pain, Moderate (4-6) Sodium Chloride 10 ml 04/20/19 22:00 04/25/19 21:47 Sodium Chloride Flush Syringe 10 Ml IV 10 ml BID ZOE Administration Sodium Chloride 10 ml 04/20/19 21:01 04/25/19 00:23 Sodium Chloride Flush Syringe 10 Ml IV 10 ml PRN PRN Administration LINE FLUSH
[2019-04-26] MEDS: HumaLOG SUB-Q SCH ×4 (09:03→23:10)
[2019-04-26] MEDS: NORVASC PO SCH (10:32)
[2019-04-26] MEDS: LOPRESSOR PO SCH ×2 (10:32→23:10)
[2019-04-26] MEDS: SODIUM CHLORIDE FLUSH SYRINGE 10 ML IV SCH ×2 (10:33→23:11)
[2019-04-26] MEDS: ROCEPHIN/NS 1 GM/50 ML 1 GM/50 ML BAG IV SCH (10:33)
[2019-04-26] MEDS: HEPARIN SUB-Q SCH ×2 (10:34→23:09)
--- NOTE | 2019-04-26 16:44 | Progress Note ---
Assessment and Plan Assessment and plan: 59-year-old man with past medical history significant for hypertension, diabetes mellitus, rectal CA status post laparotomy, colostomy, stage IV sacral ulcer, presented to the emergency department with complaints of altered mental status. Patient had history of ATN and was on dialysis until last January. Patient is confused and disoriented. Acute kidney failure with tubular necrosis - Patient is on HD, awaiting renal recovery - Avoid nephrotoxins Metabolic, uremic encephalopathy. metabolic acidosis - Resolved, she desired and oriented - Patient is in acute renal failure - Nephrology was consulted and patient is currently on dialysis - Patient was alert but still confused Severe sepsis likely due to UTI , sacral decubitus ulcer is deep POA, stage 3, did not appear infected -cont abx, to finish today Sacral decub stage 3, poa -cont wound care Hyponatremia - Resolved Hyperkalemia - resolved with dialysis Anemia of chronic disease - We'll follow H&H - Transfusion H&H is below 7 History of rectal cancer - Status post colostomy and ostomy - continue colostomy care - oncology consulted and recommended patient follow-up after his acute condition is resolved DVT prophylaxis - On heparin Disposition - Patient is alert and oriented, follow nephrology recommendation for arrangement of outpatient dialysis if needed. History Interval history: Continues to complain of buttock pain/sacral pain related to his decub Review of systems Constitutional: No fevers, no malaise, no joint pains CVS: No chest pain, no orthopnea, no dyspnea on exertion, no pedal edema GI: No abdominal pain, no diarrhea, no vomiting, no constipation Respiratory: No shortness of breath, no wheezing, no coughing Hospitalist Physical - Physical exam Narrative exam: General.: Appears well, no distress, nontoxic HEENT: Moist mucous membranes, extraocular muscles intact, no lymphadenopathy Neck: supple Cardiac: S1-S2 heard Lungs: clear to auscultation bilaterally Abdomen: soft , nontender, nondistended, bowel sounds positive Extremities: no edema clubbing or cyanosis Skin: no rash or lesions, stage III sacral decub, present on admission Neurologic: no gross focal deficits Psych: calm, and cooperative - Constitutional Vitals: Temp Pulse Resp BP Pulse Ox 98.1 F 74 18 134/82 98 04/26/19 12:00 04/26/19 12:04/26/19 12:04/26/19 12:00 04/26/19 10:00 General appearance: Present: no acute distress Results - Labs CBC & Chem 7: 04/29/19 14:48 04/30/19 10:37 Labs: Laboratory Last Values WBC 8.4 K/mm3 (4.5-11.0) 04/24/19 03:59 RBC 2.99 M/mm3 (3.65-5.03) L 04/24/19 03:59 Hgb 8.7 gm/dl (11.8-15.2) L 04/24/19 03:59 Hct 25.8 % (35.5-45.6) L 04/24/19 03:59 MCV 86 fl (84-94) 04/24/19 03:59 MCH 29 pg (28-32) 04/24/19 03:59 MCHC 34 % (32-34) 04/24/19 03:59 RDW 15.0 % (13.2-15.2) 04/24/19 03:59 Plt Count 386 K/mm3 (140-440) 04/24/19 03:59 Lymph % (Auto) 26.4 % (13.4-35.0) 04/24/19 03:59 [place] % (Auto) 10.4 % (0.0-7.3) H 04/24/19 03:59 Eos % (Auto) 4.1 % (0.0-4.3) 04/24/19 03:59 Baso % (Auto) 0.9 % (0.0-1.8) 04/24/19 03:59 Lymph # 2.2 K/mm3 (1.2-5.4) 04/24/19 03:59 [place] # 0.9 K/mm3 (0.0-0.8) H 04/24/19 03:59 Eos # 0.3 K/mm3 (0.0-0.4) 04/24/19 03:59 Baso # 0.1 K/mm3 (0.0-0.1) 04/24/19 03:59 Seg Neutrophils % 58.2 % (40.0-70.0) 04/24/19 03:59 Seg Neutrophils # 4.9 K/mm3 (1.8-7.7) 04/24/19 03:59 APTT 36.4 Sec. (24.2-36.6) 04/20/19 10:05 POC ABG pH 7.126 (7.35-7.45) L 04/20/19 15:43 POC ABG pO2 142 (80-105) H 04/20/19 15:43 POC ABG HCO3 7.0 (22-26 mml/L) 04/20/19 15:43 POC ABG Total CO2 8 (23-27mmol/L) 04/20/19 15:43 POC ABG O2 Sat 98 04/20/19 15:43 POC ABG Base Excess -22 ((-2) - (+3)mmol/L) 04/20/19 15:43 32 % 04/20/19 15:43 Sodium 136 mmol/L (137-145) L 04/25/19 07:21 Potassium 4.2 mmol/L (3.6-5.0) 04/25/19 07:21 Chloride 95.5 mmol/L (98-107) L 04/25/19 07:21 Carbon Dioxide 27 mmol/L (22-30) 04/25/19 07:21 18 mmol/L 04/25/19 07:21 BUN 34 mg/dL (9-20) H 04/25/19 07:21 2.5 mg/dL (0.8-1.5) H D 04/25/19 07:21 Estimated GFR 32 ml/min 04/25/19 07:21 14 % 04/25/19 07:21 Glucose 149 mg/dL (75-100) H 04/25/19 07:21 POC Glucose 108 (70-105) H 04/26/19 12:34 5.1 % (4-6) 04/20/19 Unknown Lactic Acid 0.60 mmol/L (0.7-2.0) L 04/20/19 Unknown Calcium 8.9 mg/dL (8.4-10.2) 04/25/19 07:21 Iron 73 ug/dL (49-181) 04/22/19 04:19 TIBC 180 mcg/dL (250-450) L 04/22/19 04:19 2398.0 ng/mL (13.0-400.0) H 04/22/19 04:19 0.30 mg/dL (0.1-1.2) 04/23/19 05:57 AST 33 units/L (5-40) 04/23/19 05:57 ALT 63 units/L (7-56) H 04/23/19 05:57 197 units/L (35-129) H 04/23/19 05:57 0.269 ng/mL (0.00-0.029) H* 04/20/19 10:05 0.291 ng/mL (0.00-0.029) H* 04/20/19 10:05 NT-Pro-B Natriuret Pep 416.2 pg/mL (0-900) 04/20/19 10:05 8.0 g/dL (6.3-8.2) 04/23/19 05:57 3.6 g/dL (3.9-5) L 04/23/19 05:57 0.8 % 04/23/19 05:57 Triglycerides 124 mg/dL (2-149) 04/20/19 10:05 Cholesterol 223 mg/dL (50-199) H 04/20/19 10:05 152 mg/dL (50-130) H 04/20/19 10:05 48 mg/dL (40-59) 04/20/19 10:05 4.64 % 04/20/19 10:05 Vitamin B12 > 2000 pg/mL (211-911) H 04/22/19 04:19 > 20.0 ng/mL (7.3-26.0) 04/22/19 04:19 [place] (Yellow) 04/20/19 Unknown Cloudy (Clear) 04/20/19 Unknown 5.0 (5.0-7.0) 04/20/19 Unknown Ur Specific [place] 1.020 (1.003-1.030) 04/20/19 Unknown 100 mg/dl mg/dL (Negative) 04/20/19 Unknown Neg mg/dL (Negative) 04/20/19 Unknown Tr mg/dL (Negative) 04/20/19 Unknown Lg (Negative) 04/20/19 Unknown Neg (Negative) 04/20/19 Unknown Neg (Negative) 04/20/19 Unknown < 2.0 mg/dL (<2.0) 04/20/19 Unknown Ur Leukocyte Esterase Mod (Negative) 04/20/19 Unknown 15.0 /HPF (0.0-6.0) H 04/20/19 Unknown 8.0 /HPF (0.0-6.0) 04/20/19 Unknown U Epithel Cells (Auto) < 1.0 /HPF (0-13.0) 04/20/19 Unknown 4+ /HPF (Negative) 04/20/19 Unknown Few /HPF 04/20/19 Unknown Hepatitis A IgM Ab Non-reactive (NonReactive) 04/20/19 17:21 Hep Bs Antigen Non-reactive (Negative) 04/20/19 17:21 Hep B Core IgM Ab Non-reactive (NonReactive) 04/20/19 17:21 Non-reactive (NonReactive) 04/20/19 17:21 Active Medications - Current Medications Current Medications: Generic Name Dose Route Start Last Admin Trade Name Freq PRN Reason Stop Dose Admin Acetaminophen 650 mg 04/20/19 21:01 Tylenol PO Q4H PRN Pain MILD(1-3)/Fever >100.5/DE ANDA Amlodipine Besylate 5 mg 04/23/19 10:00 04/26/19 10:32 Norvasc PO 5 mg DAILY Z[facility] Administration Dextrose 50 ml 04/22/19 22:28 D50w (25gm) Syringe IV PRN PRN Hypoglycemia Heparin Sodium (Porcine) 5,000 unit 04/20/19 22:00 04/26/19 10:34 Heparin SUB-Q 5,000 unit Q12HR [facility] Administration Hydralazine HCl 10 mg 04/22/19 22:27 04/23/19 07:36 Apresoline IV 10 mg Q4HR PRN Administration Blood Pressure Sodium Chloride 100 mls @ 999 mls/hr 04/20/19 15:39 Nacl 0.9% IV RAMAN PRN Hypotension Insulin Glargine 10 units 04/23/19 22:00 04/25/19 21:47 Lantus SUB-Q 10 units QHS [facility] Administration Insulin Human Lispro 0 unit 04/23/19 07:30 04/26/19 12:48 Humalog SUB-Q Not Given ACHS [facility] Protocol Metoprolol Tartrate 50 mg 04/22/19 22:00 04/26/19 10:32 Lopressor PO 50 mg BID ZOE Administration Ondansetron HCl 4 mg 04/20/19 21:01 Zofran IV Q8H PRN Nausea And Vomiting Oxycodone/Acetaminophen 2 tab 04/26/19 16:39 Percocet 5/325 PO Q6H PRN Pain, Moderate (4-6) Sodium Chloride 10 ml 04/20/19 22:00 04/26/19 10:33 Sodium Chloride Flush Syringe 10 Ml IV 10 ml BID ZOE Administration Sodium Chloride 10 ml 04/20/19 21:01 04/25/19 00:23 Sodium Chloride Flush Syringe 10 Ml IV 10 ml PRN PRN Administration LINE FLUSH Nutrition/Malnutrition Assess - Dietary Evaluation Nutrition/Malnutrition Findings: Nutrition Notes Start: 04/21/19 15:41 Freq: Status: Active Protocol: Document 04/26/19 13:46 OH (Rec: 04/26/19 13:54 OH [id number]) Nutrition Notes Initial or Follow up Reassessment Other Pertinent Diagnosis ESRD Current Diet cardiac/consistent CHO Labs/Tests ALB 3.6 GLU 166 BUN 34 K+ 4.2 Pertinent Medications Reviewed Height 6 ft 2 in Weight 95.5 kg [place] Body Weight (kg) 86.36 BMI 27.0 Intake Prior to Admission Poor Weight Status Overweight Subjective/Other Information F/U: Pt. sitting up in bed trying to change his colostomy bag. Pt requesting help so RN assistance requested. Pt. verbalized he was previously @ [facility]. Pt. reports no n/v currently. Per pt he would like more meat with his meals. Pt. verbalized he does enjoy nutritional supplement. Pt. has dentures on top which he lost during his stay at [facility]. He is on TTS schedule for ICHD tx. Pt. to be d/c'd to [facility]. Pt. with sacral wound which is being treated by lending consultant. Percent of energy/protein needs met: 50/50% Burn Absent Trauma Absent GI Symptoms None Difficulty In Chewing Skin Integrity/Comment sacral wound Current % PO Fair (50-74%) Calculation Used for Recommendations [place] [facility] Additional Notes Protein Needs: 118-148g (1.2-1 .5g/kg) Fluid Needs: 1 ml/kcal Nutrition Intervention Change Diet Order: Renal/consistent CHO Add Supplement/Snack (indicate name/kcal nepro bid /protein ) Provides kCal: 850 Provides Protein (gm) 38 Goal #2 Initiate nepro bid and monitor for tolerance Anticipated Discharge Needs: renal diet education Follow-Up By: 04/29/19 Additional Comments f/u po intake/ONS tolerance
[2019-04-26] MEDS: PERCOCET 5/325 PO PRN (16:53)
--- NOTE | 2019-04-26 22:25 | Event Note ---
Date: 04/26/19 Patient requesting pain control, states pain not improved on oral meds. will give one dose of IV DILAUDID and will review again.
[2019-04-26] MEDS ORDERED: DILAUDID IV ONE (22:30)
[2019-04-26] MEDS: LANTUS SUB-Q SCH (23:10)
--- NOTE | 2019-04-27 08:02 | Hem/Onc Progress Note ---
Assessment and Plan 1. History of recurrent colon cancer found in 11/2018. 2. Original colorectal cancer was 18 years ago. 3. History of colostomy. 4. History of colon perforation, status post surgery in 11/2018. 5. History of renal impairment. Nephrology following. dialysis. 6. Electrolyte issues. 7. Anemia.sec to CKD likely 8. Abnormal LFTs. CT does not mention any liver lesions. As per the information in the medical record, there is mention of radiation treatment, details not clear. The details of treatment for his recurrent colon cancer are unclear. At this time, he is clinically not good and would need stabilization before treatment, or this could be looked into as an outpatient basis. 04/27 pt is not keen for any interventions for the cancer at this time as OP - the surgeon - dr Farris had told plt that all cancer removed OP follow uo with med oncology needed CEA 10 h/o decubiti - Patient Problems (1) Rectal cancer Current Visit: Yes Status: Acute Subjective Date of service: 04/27/19 Principal diagnosis: colon ca Interval history: pt more awake Objective - Constitutional Vitals: Last Vital Signs Temp 98.4 F 04/27/19 05:49 Pulse 92 H 04/27/19 05:49 Resp 20 04/27/19 05:49 BP 125/85 04/27/19 05:49 Pulse Ox 100 04/27/19 05:49 Pain Intensity (0-10): denies any pain General appearance: no acute distress Performance status: 3-limited selfcare - EENT Eyes: EOM intact ENT: hearing intact Lymph node exam: negative cervical - Neck Neck: normal ROM - Respiratory Respiratory effort: Positive: normal Respiratory: bilateral: CTA - Cardiovascular Heart Sounds: Present: S1 & S2 Extremities: normal temperature - Gastrointestinal General gastrointestinal: Present: soft, other (stomy+) Rectal Exam: deferred - Genitourinary Male genitourinary: Present: deferred - Integumentary Integumentary: warm - Musculoskeletal Musculoskeletal: strength equal bilaterally - Neurologic Neurologic: moves all extremities - Labs Lab Results: Laboratory Results - last 24 hr 04/22/19 04/26/19 04/26/19 04:19 12:34 16:50 POC Glucose 108 H 150 H Carcinoembryonic Ag 10.5 H 04/26/19 04/27/19 21:50 07:43 POC Glucose 150 H 140 H Carcinoembryonic Ag Medications & Allergies - Medications Allergies/Adverse Reactions: Allergies No Known Allergies Allergy (Unverified 04/20/19 09:03) Home Medications: Home Medications Medication Instructions Recorded Confirmed Last Taken Type Captopril 50 mg PO BID 04/20/19 04/20/19 Unknown History Insulin Detemir [Levemir] 35 unit SQ BID 04/20/19 04/20/19 Unknown History Lispro Insulin [HumaLOG] 15 unit SQ TID 04/20/19 04/20/19 Unknown History Oxycodone HCl [oxyCONTIN ER] 30 mg PO BID 04/20/19 04/20/19 Unknown History Oxycodone HCl/Acetaminophen 1 each PO Q4H 04/20/19 04/20/19 Unknown History [Percocet 10/325 mg] amLODIPine [Norvasc] 5 mg PO DAILY 04/20/19 04/20/19 Unknown History metFORMIN [Glucophage] 500 mg PO BID 04/20/19 04/20/19 Unknown History Active Medications: Generic Name Dose Route Start Last Admin Trade Name Freq PRN Reason Stop Dose Admin Acetaminophen 650 mg 04/20/19 21:01 Tylenol PO Q4H PRN Pain MILD(1-3)/Fever >100.5/DE ANDA Amlodipine Besylate 5 mg 04/23/19 10:00 04/26/19 10:32 Norvasc PO 5 mg DAILY [facility] Administration Dextrose 50 ml 04/22/19 22:28 D50w (25gm) Syringe IV PRN PRN Hypoglycemia Heparin Sodium (Porcine) 5,000 unit 04/20/19 22:00 04/26/19 23:09 Heparin SUB-Q 5,000 unit Q12HR [facility]OE Administration Hydralazine HCl 10 mg 04/22/19 22:27 04/23/19 07:36 Apresoline IV 10 mg Q4HR PRN Administration Blood Pressure Sodium Chloride 100 mls @ 999 mls/hr 04/20/19 15:39 Nacl 0.9% IV RAMAN PRN Hypotension Insulin Glargine 10 units 04/23/19 22:00 04/26/19 23:10 Lantus SUB-Q Not Given QHS [facility] Insulin Human Lispro 0 unit 04/23/19 07:30 04/26/19 23:10 Humalog SUB-Q Not Given ACHS [facility] Protocol Metoprolol Tartrate 50 mg 04/22/19 22:00 04/26/19 23:10 Lopressor PO 50 mg BID ZOE Administration Ondansetron HCl 4 mg 04/20/19 21:01 Zofran IV Q8H PRN Nausea And Vomiting Oxycodone/Acetaminophen 2 tab 04/26/19 16:39 04/26/19 16:53 Percocet 5/325 PO 2 tab Q6H PRN Administration Pain, Moderate (4-6) Sodium Chloride 10 ml 04/20/19 22:00 04/26/19 23:11 Sodium Chloride Flush Syringe 10 Ml IV 10 ml BID ZOE Administration Sodium Chloride 10 ml 04/20/19 21:01 04/25/19 00:23 Sodium Chloride Flush Syringe 10 Ml IV 10 ml PRN PRN Administration LINE FLUSH
[2019-04-27 08:27] LABS: Calcium 9.1 mg/dL (8.4-10.2)
[2019-04-27] MEDS: HumaLOG SUB-Q SCH ×4 (08:36→18:46)
[2019-04-27] MEDS: PERCOCET 5/325 PO PRN ×2 (09:27→14:41)
--- NOTE | 2019-04-27 11:48 | Progress Note ---
Assessment and Plan Assessment and plan: 59-year-old man with past medical history significant for hypertension, diabetes mellitus, rectal CA status post laparotomy, colostomy, stage IV sacral ulcer, presented to the emergency department with complaints of altered mental status. Patient had history of ATN and was on dialysis until last January. Patient is confused and disoriented. Acute kidney failure with tubular necrosis - Patient is on HD, awaiting renal recovery - Avoid nephrotoxins Metabolic, uremic encephalopathy. metabolic acidosis - Resolved, she desired and oriented - Patient is in acute renal failure - Nephrology was consulted and patient is currently on dialysis - Patient was alert but still confused Severe sepsis likely due to UTI , sacral decubitus ulcer is deep POA, stage 3, did not appear infected -cont abx, to finish today Sacral decub stage 3, poa -cont wound care Hyponatremia - Resolved Hyperkalemia - resolved with dialysis Anemia of chronic disease - We'll follow H&H - Transfusion H&H is below 7 History of rectal cancer - Status post colostomy and ostomy - continue colostomy care - oncology consulted and recommended patient follow-up after his acute condition is resolved DVT prophylaxis - On heparin Disposition - Patient is alert and oriented, follow nephrology recommendation for arrangement of outpatient dialysis if needed. History Interval history: Continues to complain of buttock pain/sacral pain related to his decub Review of systems Constitutional: No fevers, no malaise, no joint pains CVS: No chest pain, no orthopnea, no dyspnea on exertion, no pedal edema GI: No abdominal pain, no diarrhea, no vomiting, no constipation Respiratory: No shortness of breath, no wheezing, no coughing Hospitalist Physical - Physical exam Narrative exam: General.: Appears well, no distress, nontoxic HEENT: Moist mucous membranes, extraocular muscles intact, no lymphadenopathy Neck: supple Cardiac: S1-S2 heard Lungs: clear to auscultation bilaterally Abdomen: soft , nontender, nondistended, bowel sounds positive Extremities: no edema clubbing or cyanosis Skin: no rash or lesions, stage III sacral decub, present on admission Neurologic: no gross focal deficits Psych: calm, and cooperative - Constitutional Vitals: Temp Pulse Resp BP Pulse Ox 98.4 F 92 H 20 125/85 100 04/27/19 05:49 04/27/19 05:49 04/27/19 05:49 04/27/19 05:49 04/27/19 05:49 General appearance: Present: no acute distress Results - Labs CBC & Chem 7: 04/29/19 14:48 04/30/19 10:37 Labs: Laboratory Last Values WBC 8.4 K/mm3 (4.5-11.0) 04/24/19 03:59 RBC 2.99 M/mm3 (3.65-5.03) L 04/24/19 03:59 Hgb 8.7 gm/dl (11.8-15.2) L 04/24/19 03:59 Hct 25.8 % (35.5-45.6) L 04/24/19 03:59 MCV 86 fl (84-94) 04/24/19 03:59 MCH 29 pg (28-32) 04/24/19 03:59 MCHC 34 % (32-34) 04/24/19 03:59 RDW 15.0 % (13.2-15.2) 04/24/19 03:59 Plt Count 386 K/mm3 (140-440) 04/24/19 03:59 Lymph % (Auto) 26.4 % (13.4-35.0) 04/24/19 03:59 [place] % (Auto) 10.4 % (0.0-7.3) H 04/24/19 03:59 Eos % (Auto) 4.1 % (0.0-4.3) 04/24/19 03:59 Baso % (Auto) 0.9 % (0.0-1.8) 04/24/19 03:59 Lymph # 2.2 K/mm3 (1.2-5.4) 04/24/19 03:59 [place] # 0.9 K/mm3 (0.0-0.8) H 04/24/19 03:59 Eos # 0.3 K/mm3 (0.0-0.4) 04/24/19 03:59 Baso # 0.1 K/mm3 (0.0-0.1) 04/24/19 03:59 Seg Neutrophils % 58.2 % (40.0-70.0) 04/24/19 03:59 Seg Neutrophils # 4.9 K/mm3 (1.8-7.7) 04/24/19 03:59 APTT 36.4 Sec. (24.2-36.6) 04/20/19 10:05 POC ABG pH 7.126 (7.35-7.45) L 04/20/19 15:43 POC ABG pO2 142 (80-105) H 04/20/19 15:43 POC ABG HCO3 7.0 (22-26 mml/L) 04/20/19 15:43 POC ABG Total CO2 8 (23-27mmol/L) 04/20/19 15:43 POC ABG O2 Sat 98 04/20/19 15:43 POC ABG Base Excess -22 ((-2) - (+3)mmol/L) 04/20/19 15:43 32 % 04/20/19 15:43 Sodium 131 mmol/L (137-145) L 04/27/19 07:47 Potassium 4.6 mmol/L (3.6-5.0) 04/27/19 07:47 Chloride 94.4 mmol/L (98-107) L 04/27/19 07:47 Carbon Dioxide 24 mmol/L (22-30) 04/27/19 07:47 17 mmol/L 04/27/19 07:47 BUN 39 mg/dL (9-20) H 04/27/19 07:47 2.2 mg/dL (0.8-1.5) H 04/27/19 07:47 Estimated GFR 38 ml/min 04/27/19 07:47 18 % 04/27/19 07:47 Glucose 117 mg/dL (75-100) H 04/27/19 07:47 POC Glucose 140 (70-105) H 04/27/19 07:43 5.1 % (4-6) 04/20/19 Unknown Lactic Acid 0.60 mmol/L (0.7-2.0) L 04/20/19 Unknown Calcium 9.1 mg/dL (8.4-10.2) 04/27/19 07:47 Phosphorus 3.30 mg/dL (2.5-4.5) 04/27/19 07:47 Iron 73 ug/dL (49-181) 04/22/19 04:19 TIBC 180 mcg/dL (250-450) L 04/22/19 04:19 2398.0 ng/mL (13.0-400.0) H 04/22/19 04:19 0.30 mg/dL (0.1-1.2) 04/23/19 05:57 AST 33 units/L (5-40) 04/23/19 05:57 ALT 63 units/L (7-56) H 04/23/19 05:57 197 units/L (35-129) H 04/23/19 05:57 0.269 ng/mL (0.00-0.029) H* 04/20/19 10:05 0.291 ng/mL (0.00-0.029) H* 04/20/19 10:05 NT-Pro-B Natriuret Pep 416.2 pg/mL (0-900) 04/20/19 10:05 8.0 g/dL (6.3-8.2) 04/23/19 05:57 3.6 g/dL (3.9-5) L 04/23/19 05:57 0.8 % 04/23/19 05:57 Triglycerides 124 mg/dL (2-149) 04/20/19 10:05 Cholesterol 223 mg/dL (50-199) H 04/20/19 10:05 152 mg/dL (50-130) H 04/20/19 10:05 48 mg/dL (40-59) 04/20/19 10:05 4.64 % 04/20/19 10:05 Carcinoembryonic Ag 10.5 ng/mL (0.0-2.4) H 04/22/19 04:19 Vitamin B12 > 2000 pg/mL (211-911) H 04/22/19 04:19 > 20.0 ng/mL (7.3-26.0) 04/22/19 04:19 [place] (Yellow) 04/20/19 Unknown Cloudy (Clear) 04/20/19 Unknown 5.0 (5.0-7.0) 04/20/19 Unknown Ur Specific [place] 1.020 (1.003-1.030) 04/20/19 Unknown 100 mg/dl mg/dL (Negative) 04/20/19 Unknown Neg mg/dL (Negative) 04/20/19 Unknown Tr mg/dL (Negative) 04/20/19 Unknown Lg (Negative) 04/20/19 Unknown Neg (Negative) 04/20/19 Unknown Neg (Negative) 04/20/19 Unknown < 2.0 mg/dL (<2.0) 04/20/19 Unknown Ur Leukocyte Esterase Mod (Negative) 04/20/19 Unknown 15.0 /HPF (0.0-6.0) H 04/20/19 Unknown 8.0 /HPF (0.0-6.0) 04/20/19 Unknown U Epithel Cells (Auto) < 1.0 /HPF (0-13.0) 04/20/19 Unknown 4+ /HPF (Negative) 04/20/19 Unknown Few /HPF 04/20/19 Unknown Hepatitis A IgM Ab Non-reactive (NonReactive) 04/20/19 17:21 Hep Bs Antigen Non-reactive (Negative) 04/20/19 17:21 Hep B Core IgM Ab Non-reactive (NonReactive) 04/20/19 17:21 Non-reactive (NonReactive) 04/20/19 17:21 Active Medications - Current Medications Current Medications: Generic Name Dose Route Start Last Admin Trade Name Freq PRN Reason Stop Dose Admin Acetaminophen 650 mg 04/20/19 21:01 Tylenol PO Q4H PRN Pain MILD(1-3)/Fever >100.5/DE ANDA Amlodipine Besylate 5 mg 04/23/19 10:00 04/26/19 10:32 Norvasc PO 5 mg DAILY [facility] Administration Dextrose 50 ml 04/22/19 22:28 D50w (25gm) Syringe IV PRN PRN Hypoglycemia Heparin Sodium (Porcine) 5,000 unit 04/20/19 22:00 04/26/19 23:09 Heparin SUB-Q 5,000 unit Q12HR [facility] Administration Hydralazine HCl 10 mg 04/22/19 22:27 04/23/19 07:36 Apresoline IV 10 mg Q4HR PRN Administration Blood Pressure Sodium Chloride 100 mls @ 999 mls/hr 04/20/19 15:39 Nacl 0.9% IV RAMAN PRN Hypotension Insulin Glargine 10 units 04/23/19 22:00 04/26/19 23:10 Lantus SUB-Q Not Given QHS [facility] Insulin Human Lispro 0 unit 04/23/19 07:30 04/27/19 08:36 Humalog SUB-Q Not Given ACHS [facility] Protocol Metoprolol Tartrate 50 mg 04/22/19 22:00 04/26/19 23:10 Lopressor PO 50 mg BID ZOE Administration Ondansetron HCl 4 mg 04/20/19 21:01 Zofran IV Q8H PRN Nausea And Vomiting Oxycodone/Acetaminophen 2 tab 04/26/19 16:39 04/27/19 09:27 Percocet 5/325 PO 2 tab Q6H PRN Administration Pain, Moderate (4-6) Sodium Chloride 10 ml 04/20/19 22:00 04/26/19 23:11 Sodium Chloride Flush Syringe 10 Ml IV 10 ml BID ZOE Administration Sodium Chloride 10 ml 04/20/19 21:01 04/25/19 00:23 Sodium Chloride Flush Syringe 10 Ml IV 10 ml PRN PRN Administration LINE FLUSH Nutrition/Malnutrition Assess - Dietary Evaluation Nutrition/Malnutrition Findings: Nutrition Notes Start: 04/21/19 15:41 Freq: Status: Active Protocol: Document 04/26/19 13:46 OH (Rec: 04/26/19 13:54 OH [id number]) Nutrition Notes Initial or Follow up Reassessment Other Pertinent Diagnosis ESRD Current Diet cardiac/consistent CHO Labs/Tests ALB 3.6 GLU 166 BUN 34 K+ 4.2 Pertinent Medications Reviewed Height 6 ft 2 in Weight 95.5 kg [place] Body Weight (kg) 86.36 BMI 27.0 Intake Prior to Admission Poor Weight Status Overweight Subjective/Other Information F/U: Pt. sitting up in bed trying to change his colostomy bag. Pt requesting help so RN assistance requested. Pt. verbalized he was previously @ [facility]. Pt. reports no n/v currently. Per pt he would like more meat with his meals. Pt. verbalized he does enjoy nutritional supplement. Pt. has dentures on top which he lost during his stay at [facility]. He is on TTS schedule for ICHD tx. Pt. to be d/c'd to [facility]. Pt. with sacral wound which is being treated by client coordinator. Percent of energy/protein needs met: 50/50% Burn Absent Trauma Absent GI Symptoms None Difficulty In Chewing Skin Integrity/Comment sacral wound Current % PO Fair (50-74%) Calculation Used for Recommendations [place] Additional Notes Protein Needs: 118-148g (1.2-1 .5g/kg) Fluid Needs: 1 ml/kcal Nutrition Intervention Change Diet Order: Renal/consistent CHO Add Supplement/Snack (indicate name/kcal nepro bid /protein ) Provides kCal: 850 Provides Protein (gm) 38 Goal #2 Initiate nepro bid and monitor for tolerance Anticipated Discharge Needs: renal diet education Follow-Up By: 04/29/19 Additional Comments f/u po intake/ONS tolerance
[2019-04-27] MEDS: LOPRESSOR PO SCH (13:28)
[2019-04-27] MEDS: NORVASC PO SCH (13:29)
[2019-04-27] MEDS: HEPARIN SUB-Q SCH (13:30)
--- NOTE | 2019-04-27 19:36 | Progress Note ---
Assessment and Plan - Patient Problems (1) Acute kidney failure with tubular necrosis Current Visit: Yes Status: Acute Plan to address problem: Patient started on dialysis due to worsening renal indices, uremic encephalopathy, hyperkalemia and hyponatremia. Creatinine is down suggesting possible renal recovery. We'll hold dialysis and follow-up renal indices. Discussed with patient and family at the bedside (2) Colorectal cancer Current Visit: Yes Status: Acute Plan to address problem: Being followed by oncologist (3) Anemia in chronic kidney disease Current Visit: Yes Status: Acute Plan to address problem: Give Erythropoetin on dialysis (4) Hyperkalemia Current Visit: Yes Status: Acute Plan to address problem: Improved with dialysis (5) Hyponatremia Current Visit: Yes Status: Acute Plan to address problem: Improved with dialysis (6) Metabolic acidosis Current Visit: Yes Status: Acute Plan to address problem: Improved with dialysis (7) Metabolic encephalopathy Current Visit: Yes Status: Acute Plan to address problem: Improved with dialysis (8) Sacral decubitus ulcer, stage IV Current Visit: Yes Status: Acute Plan to address problem: Continue treatment (9) Sepsis Current Visit: Yes Status: Acute Plan to address problem: Secondary to urinary tract infection and/or infected sacral decubitus ulcer. Continue antibiotics and monitoring Subjective Date of service: 04/27/19 Principal diagnosis: rec colon ca Interval history: Patient seen lying in bed. Feels better today. Asks about his renal recovery. No nausea or vomiting. No shortness of breath Objective - Exam Narrative Exam: Middle-aged -[place] female lying in bed in no acute distress HEENT: NCAT, pink oral mucous membrane Neck: Supple, no venous distention CVS: S1S2 RRR with no murmur, rub or gallop Chest: Clear to auscultation Abdomen: Protuberant, soft, nontender, ostomy intact, no organomegaly, bowel so unds are present Extremities: Mild edema Neuro: Awake, alert no focal deficits - Vital Signs Vital signs: Vital Signs - 12hr 04/27/19 04/27/19 04/27/19 12:22 13:28 13:29 Temperature 98.2 F Pulse Rate 85 85 85 Respiratory 16 Rate Blood Pressure 139/97 139/97 139/97 O2 Sat by Pulse 100 Oximetry 04/27/19 04/27/19 04/27/19 15:00 15:15 15:30 Temperature 97.2 F L Pulse Rate 85 84 91 H Respiratory 18 Rate Blood Pressure 108/73 101/77 102/84 O2 Sat by Pulse Oximetry 04/27/19 04/27/19 04/27/19 15:45 16:00 16:15 Temperature Pulse Rate 91 H 91 H 102 H Respiratory Rate Blood Pressure 115/82 104/79 117/85 O2 Sat by Pulse Oximetry 04/27/19 04/27/19 04/27/19 16:30 16:45 17:00 Temperature Pulse Rate 90 102 H 99 H Respiratory Rate Blood Pressure 106/77 115/83 110/77 O2 Sat by Pulse Oximetry 04/27/19 04/27/19 04/27/19 17:15 17:30 17:45 Temperature Pulse Rate 98 H 99 H 103 H Respiratory Rate Blood Pressure 94/66 110/78 112/87 O2 Sat by Pulse Oximetry 04/27/19 04/27/19 18:00 18:15 Temperature 98.2 F Pulse Rate 105 H 98 H Respiratory 18 Rate Blood Pressure 90/66 110/62 O2 Sat by Pulse Oximetry - Lab 04/24/19 03:59 04/27/19 07:47 Most recent lab results Calcium 9.1 mg/dL (8.4-10.2) 04/27/19 07:47 Phosphorus 3.30 mg/dL (2.5-4.5) 04/27/19 07:47 Medications & Allergies - Medications Allergies/Adverse Reactions: Allergies No Known Allergies Allergy (Unverified 04/20/19 09:03) Home Medications: Home Medications Medication Instructions Recorded Confirmed Last Taken Type Captopril 50 mg PO BID 04/20/19 04/20/19 Unknown History Insulin Detemir [Levemir] 35 unit SQ BID 04/20/19 04/20/19 Unknown History Lispro Insulin [HumaLOG] 15 unit SQ TID 04/20/19 04/20/19 Unknown History Oxycodone HCl [oxyCONTIN ER] 30 mg PO BID 04/20/19 04/20/19 Unknown History Oxycodone HCl/Acetaminophen 1 each PO Q4H 04/20/19 04/20/19 Unknown History [Percocet 10/325 mg] amLODIPine [Norvasc] 5 mg PO DAILY 04/20/19 04/20/19 Unknown History metFORMIN [Glucophage] 500 mg PO BID 04/20/19 04/20/19 Unknown History Active Medications: Generic Name Dose Route Start Last Admin Trade Name [place] PRN Reason Stop Dose Admin Acetaminophen 650 mg 04/20/19 21:01 Tylenol PO Q4H PRN Pain MILD(1-3)/Fever >100.5/DE ANDA Amlodipine Besylate 5 mg 04/23/19 10:00 04/27/19 13:29 Norvasc PO 5 mg DAILY [facility] Administration Dextrose 50 ml 04/22/19 22:28 D50w (25gm) Syringe IV PRN PRN Hypoglycemia Heparin Sodium (Porcine) 5,000 unit 04/20/19 22:00 04/27/19 13:30 Heparin SUB-Q 5,000 unit Q12HR [facility] Administration Hydralazine HCl 10 mg 04/22/19 22:27 04/23/19 07:36 Apresoline IV 10 mg Q4HR PRN Administration Blood Pressure Sodium Chloride 100 mls @ 999 mls/hr 04/20/19 15:39 Nacl 0.9% IV RAMAN PRN Hypotension Insulin Glargine 10 units 04/23/19 22:00 04/26/19 23:10 Lantus SUB-Q Not Given QHS [facility] Insulin Human Lispro 0 unit 04/23/19 07:30 04/27/19 18:46 Humalog SUB-Q 2 unit ACHS [facility] Administration Protocol Metoprolol Tartrate 50 mg 04/22/19 22:00 04/27/19 13:28 Lopressor PO 50 mg BID [facility] Administration Ondansetron HCl 4 mg 04/20/19 21:01 Zofran IV Q8H PRN Nausea And Vomiting Oxycodone/Acetaminophen 2 tab 04/26/19 16:39 04/27/19 14:41 Percocet 5/325 PO 2 tab Q6H PRN Administration Pain, Moderate (4-6) Sodium Chloride 10 ml 04/20/19 22:00 04/26/19 23:11 Sodium Chloride Flush Syringe 10 Ml IV 10 ml BID ZOE Administration Sodium Chloride 10 ml 04/20/19 21:01 04/25/19 00:23 Sodium Chloride Flush Syringe 10 Ml IV 10 ml PRN PRN Administration LINE FLUSH
[2019-04-28] MEDS: SODIUM CHLORIDE FLUSH SYRINGE 10 ML IV SCH ×4 (04:13→22:09)
[2019-04-28] MEDS: HEPARIN SUB-Q SCH ×3 (04:13→21:51)
[2019-04-28] MEDS: HumaLOG SUB-Q SCH ×5 (04:13→21:55)
[2019-04-28] MEDS: LANTUS SUB-Q SCH ×2 (04:14→21:51)
[2019-04-28] MEDS: LOPRESSOR PO SCH ×3 (04:14→21:56)
--- NOTE | 2019-04-28 07:19 | Hem/Onc Progress Note ---
Assessment and Plan 1. History of recurrent colon cancer found in 11/2018. 2. Original colorectal cancer was 18 years ago. 3. History of colostomy. 4. History of colon perforation, status post surgery in 11/2018. 5. History of renal impairment. Nephrology following. dialysis. 6. Electrolyte issues. 7. Anemia.sec to CKD likely 8. Abnormal LFTs. CT does not mention any liver lesions. As per the information in the medical record, there is mention of radiation treatment, details not clear. The details of treatment for his recurrent colon cancer are unclear. At this time, he is clinically not good and would need stabilization before treatment, or this could be looked into as an outpatient basis. 04/28 pt is not keen for any interventions for the cancer at this time as OP - the surgeon - dr Farris had told plt that all cancer removed OP follow uo with med oncology needed CEA 10 h/o decubiti hb low - will follow - ckd may have a role - Patient Problems (1) Rectal cancer Current Visit: Yes Status: Acute Subjective Date of service: 04/28/19 Principal diagnosis: colon ca Interval history: feeling better Objective - Constitutional Vitals: Last Vital Signs Temp 98.6 F 04/28/19 05:39 Pulse 92 H 04/28/19 05:39 Resp 18 04/28/19 05:39 BP 111/87 04/28/19 05:39 Pulse Ox 99 04/28/19 05:39 Pain Intensity (0-10): denies any pain General appearance: no acute distress Performance status: 3-limited selfcare - EENT Eyes: EOM intact ENT: hearing intact Lymph node exam: negative cervical - Neck Neck: normal ROM - Respiratory Respiratory effort: Positive: normal Respiratory: bilateral: CTA - Cardiovascular Heart Sounds: Present: S1 & S2 Extremities: normal temperature - Gastrointestinal General gastrointestinal: Present: soft, non-tender, other (stomy+) Rectal Exam: deferred - Genitourinary Male genitourinary: Present: deferred - Integumentary Integumentary: warm - Musculoskeletal Musculoskeletal: strength equal bilaterally - Neurologic Neurologic: moves all extremities - Labs Lab Results: Laboratory Results - last 24 hr 04/27/19 04/27/19 04/27/19 07:43 07:47 12:33 Sodium 131 L Potassium 4.6 Chloride 94.4 L Carbon Dioxide 24 Anion Gap 17 BUN 39 H Creatinine 2.2 H Estimated GFR 38 BUN/Creatinine Ratio 18 Glucose 117 H POC Glucose 140 H 148 H Calcium 9.1 Phosphorus 3.30 04/27/19 04/27/19 18:42 21:36 Sodium Potassium Chloride Carbon Dioxide Anion Gap BUN Creatinine Estimated GFR BUN/Creatinine Ratio Glucose POC Glucose 151 H 164 H Calcium Phosphorus Medications & Allergies - Medications Allergies/Adverse Reactions: Allergies No Known Allergies Allergy (Unverified 04/20/19 09:03) Home Medications: Home Medications Medication Instructions Recorded Confirmed Last Taken Type Captopril 50 mg PO BID 04/20/19 04/20/19 Unknown History Insulin Detemir [Levemir] 35 unit SQ BID 04/20/19 04/20/19 Unknown History Lispro Insulin [HumaLOG] 15 unit SQ TID 04/20/19 04/20/19 Unknown History Oxycodone HCl [oxyCONTIN ER] 30 mg PO BID 04/20/19 04/20/19 Unknown History Oxycodone HCl/Acetaminophen 1 each PO Q4H 04/20/19 04/20/19 Unknown History [Percocet 10/325 mg] amLODIPine [Norvasc] 5 mg PO DAILY 04/20/19 04/20/19 Unknown History metFORMIN [Glucophage] 500 mg PO BID 04/20/19 04/20/19 Unknown History Active Medications: Generic Name Dose Route Start Last Admin Trade Name Freq PRN Reason Stop Dose Admin Acetaminophen 650 mg 04/20/19 21:01 Tylenol PO Q4H PRN Pain MILD(1-3)/Fever >100.5/DE ANDA Amlodipine Besylate 5 mg 04/23/19 10:00 04/27/19 13:29 Norvasc PO 5 mg DAILY [facility] Administration Dextrose 50 ml 04/22/19 22:28 D50w (25gm) Syringe IV PRN PRN Hypoglycemia Heparin Sodium (Porcine) 5,000 unit 04/20/19 22:00 04/28/19 04:13 Heparin SUB-Q Not Given Q12HR [facility] Hydralazine HCl 10 mg 04/22/19 22:27 04/23/19 07:36 Apresoline IV 10 mg Q4HR PRN Administration Blood Pressure Sodium Chloride 100 mls @ 999 mls/hr 04/20/19 15:39 Nacl 0.9% IV RAMAN PRN Hypotension Insulin Glargine 10 units 04/23/19 22:00 04/28/19 04:14 Lantus SUB-Q Not Given QHS [facility] Insulin Human Lispro 0 unit 04/23/19 07:30 04/28/19 04:13 Humalog SUB-Q Not Given ACHS [facility] Protocol Metoprolol Tartrate 50 mg 04/22/19 22:00 04/28/19 04:14 Lopressor PO Not Given BID [facility] Ondansetron HCl 4 mg 04/20/19 21:01 Zofran IV Q8H PRN Nausea And Vomiting Oxycodone/Acetaminophen 2 tab 04/26/19 16:39 04/27/19 14:41 Percocet 5/325 PO 2 tab Q6H PRN Administration Pain, Moderate (4-6) Sodium Chloride 10 ml 04/20/19 22:00 04/28/19 04:14 Sodium Chloride Flush Syringe 10 Ml IV Not Given BID [facility] Sodium Chloride 10 ml 04/20/19 21:01 04/25/19 00:23 Sodium Chloride Flush Syringe 10 Ml IV 10 ml PRN PRN Administration LINE FLUSH
[2019-04-28 07:47] LABS: Calcium 9.1 mg/dL (8.4-10.2)
[2019-04-28] MEDS: PERCOCET 5/325 PO PRN ×3 (09:06→22:08)
[2019-04-28] MEDS: NORVASC PO SCH (11:26)
--- NOTE | 2019-04-28 13:32 | Progress Note ---
Assessment and Plan Assessment and plan: 59-year-old man with past medical history significant for hypertension, diabetes mellitus, rectal CA status post laparotomy, colostomy, stage IV sacral ulcer, presented to the emergency department with complaints of altered mental status. Patient had history of ATN and was on dialysis until last January. Patient is confused and disoriented. Acute kidney failure with tubular necrosis - Patient is on HD, awaiting renal recovery - Avoid nephrotoxins Metabolic, uremic encephalopathy. metabolic acidosis - Resolved, she desired and oriented - Patient is in acute renal failure - Nephrology was consulted and patient is currently on dialysis - Patient was alert but still confused Severe sepsis likely due to UTI , sacral decubitus ulcer is deep POA, stage 3, did not appear infected -cont abx, to finish today Sacral decub stage 3, poa -cont wound care Hyponatremia - Resolved Hyperkalemia - resolved with dialysis Anemia of chronic disease - We'll follow H&H - Transfusion H&H is below 7 History of rectal cancer - Status post colostomy and ostomy - continue colostomy care - oncology consulted and recommended patient follow-up after his acute condition is resolved DVT prophylaxis - On heparin Disposition - Patient is alert and oriented, follow nephrology recommendation for arrangement of outpatient dialysis if needed. History Interval history: Continues to complain of buttock pain/sacral pain related to his decub Review of systems Constitutional: No fevers, no malaise, no joint pains CVS: No chest pain, no orthopnea, no dyspnea on exertion, no pedal edema GI: No abdominal pain, no diarrhea, no vomiting, no constipation Respiratory: No shortness of breath, no wheezing, no coughing Hospitalist Physical - Physical exam Narrative exam: General.: Appears well, no distress, nontoxic HEENT: Moist mucous membranes, extraocular muscles intact, no lymphadenopathy Neck: supple Cardiac: S1-S2 heard Lungs: clear to auscultation bilaterally Abdomen: soft , nontender, nondistended, bowel sounds positive Extremities: no edema clubbing or cyanosis Skin: no rash or lesions, stage III sacral decub, present on admission Neurologic: no gross focal deficits Psych: calm, and cooperative - Constitutional Vitals: Temp Pulse Resp BP Pulse Ox 98.6 F 92 H 18 111/87 99 04/28/19 05:39 04/28/19 05:39 04/28/19 05:39 04/28/19 05:39 04/28/19 05:39 General appearance: Present: no acute distress Results - Labs CBC & Chem 7: 04/29/19 14:48 04/30/19 10:37 Labs: Laboratory Last Values WBC 8.4 K/mm3 (4.5-11.0) 04/24/19 03:59 RBC 2.99 M/mm3 (3.65-5.03) L 04/24/19 03:59 Hgb 8.7 gm/dl (11.8-15.2) L 04/24/19 03:59 Hct 25.8 % (35.5-45.6) L 04/24/19 03:59 MCV 86 fl (84-94) 04/24/19 03:59 MCH 29 pg (28-32) 04/24/19 03:59 MCHC 34 % (32-34) 04/24/19 03:59 RDW 15.0 % (13.2-15.2) 04/24/19 03:59 Plt Count 386 K/mm3 (140-440) 04/24/19 03:59 Lymph % (Auto) 26.4 % (13.4-35.0) 04/24/19 03:59 [place] % (Auto) 10.4 % (0.0-7.3) H 04/24/19 03:59 Eos % (Auto) 4.1 % (0.0-4.3) 04/24/19 03:59 Baso % (Auto) 0.9 % (0.0-1.8) 04/24/19 03:59 Lymph # 2.2 K/mm3 (1.2-5.4) 04/24/19 03:59 [place] # 0.9 K/mm3 (0.0-0.8) H 04/24/19 03:59 Eos # 0.3 K/mm3 (0.0-0.4) 04/24/19 03:59 Baso # 0.1 K/mm3 (0.0-0.1) 04/24/19 03:59 Seg Neutrophils % 58.2 % (40.0-70.0) 04/24/19 03:59 Seg Neutrophils # 4.9 K/mm3 (1.8-7.7) 04/24/19 03:59 APTT 36.4 Sec. (24.2-36.6) 04/20/19 10:05 POC ABG pH 7.126 (7.35-7.45) L 04/20/19 15:43 POC ABG pO2 142 (80-105) H 04/20/19 15:43 POC ABG HCO3 7.0 (22-26 mml/L) 04/20/19 15:43 POC ABG Total CO2 8 (23-27mmol/L) 04/20/19 15:43 POC ABG O2 Sat 98 04/20/19 15:43 POC ABG Base Excess -22 ((-2) - (+3)mmol/L) 04/20/19 15:43 32 % 04/20/19 15:43 Sodium 136 mmol/L (137-145) L 04/28/19 06:52 Potassium 4.8 mmol/L (3.6-5.0) 04/28/19 06:52 Chloride 96.3 mmol/L (98-107) L 04/28/19 06:52 Carbon Dioxide 26 mmol/L (22-30) 04/28/19 06:52 19 mmol/L 04/28/19 06:52 BUN 30 mg/dL (9-20) H 04/28/19 06:52 2.2 mg/dL (0.8-1.5) H 04/28/19 06:52 Estimated GFR 38 ml/min 04/28/19 06:52 14 % 04/28/19 06:52 Glucose 128 mg/dL (75-100) H 04/28/19 06:52 POC Glucose 160 (70-105) H 04/28/19 11:25 5.1 % (4-6) 04/20/19 Unknown Lactic Acid 0.60 mmol/L (0.7-2.0) L 04/20/19 Unknown Calcium 9.1 mg/dL (8.4-10.2) 04/28/19 06:52 Phosphorus 3.30 mg/dL (2.5-4.5) 04/27/19 07:47 Iron 73 ug/dL (49-181) 04/22/19 04:19 TIBC 180 mcg/dL (250-450) L 04/22/19 04:19 2398.0 ng/mL (13.0-400.0) H 04/22/19 04:19 0.30 mg/dL (0.1-1.2) 04/23/19 05:57 AST 33 units/L (5-40) 04/23/19 05:57 ALT 63 units/L (7-56) H 04/23/19 05:57 197 units/L (35-129) H 04/23/19 05:57 0.269 ng/mL (0.00-0.029) H* 04/20/19 10:05 0.291 ng/mL (0.00-0.029) H* 04/20/19 10:05 NT-Pro-B Natriuret Pep 416.2 pg/mL (0-900) 04/20/19 10:05 8.0 g/dL (6.3-8.2) 04/23/19 05:57 3.6 g/dL (3.9-5) L 04/23/19 05:57 0.8 % 04/23/19 05:57 Triglycerides 124 mg/dL (2-149) 04/20/19 10:05 Cholesterol 223 mg/dL (50-199) H 04/20/19 10:05 152 mg/dL (50-130) H 04/20/19 10:05 48 mg/dL (40-59) 04/20/19 10:05 4.64 % 04/20/19 10:05 Carcinoembryonic Ag 10.5 ng/mL (0.0-2.4) H 04/22/19 04:19 Vitamin B12 > 2000 pg/mL (211-911) H 04/22/19 04:19 > 20.0 ng/mL (7.3-26.0) 04/22/19 04:19 [place] (Yellow) 04/20/19 Unknown Cloudy (Clear) 04/20/19 Unknown 5.0 (5.0-7.0) 04/20/19 Unknown Ur Specific [place] 1.020 (1.003-1.030) 04/20/19 Unknown 100 mg/dl mg/dL (Negative) 04/20/19 Unknown Neg mg/dL (Negative) 04/20/19 Unknown Tr mg/dL (Negative) 04/20/19 Unknown Lg (Negative) 04/20/19 Unknown Neg (Negative) 04/20/19 Unknown Neg (Negative) 04/20/19 Unknown < 2.0 mg/dL (<2.0) 04/20/19 Unknown Ur Leukocyte Esterase Mod (Negative) 04/20/19 Unknown 15.0 /HPF (0.0-6.0) H 04/20/19 Unknown 8.0 /HPF (0.0-6.0) 04/20/19 Unknown U Epithel Cells (Auto) < 1.0 /HPF (0-13.0) 04/20/19 Unknown 4+ /HPF (Negative) 04/20/19 Unknown Few /HPF 04/20/19 Unknown Hepatitis A IgM Ab Non-reactive (NonReactive) 04/20/19 17:21 Hep Bs Antigen Non-reactive (Negative) 04/20/19 17:21 Hep B Core IgM Ab Non-reactive (NonReactive) 04/20/19 17:21 Non-reactive (NonReactive) 04/20/19 17:21 Active Medications - Current Medications Current Medications: Generic Name Dose Route Start Last Admin Trade Name Freq PRN Reason Stop Dose Admin Acetaminophen 650 mg 04/20/19 21:01 Tylenol PO Q4H PRN Pain MILD(1-3)/Fever >100.5/DE ANDA Amlodipine Besylate 5 mg 04/23/19 10:00 04/28/19 11:26 Norvasc PO 5 mg DAILY [facility] Administration Dextrose 50 ml 04/22/19 22:28 D50w (25gm) Syringe IV PRN PRN Hypoglycemia Heparin Sodium (Porcine) 5,000 unit 04/20/19 22:00 04/28/19 11:30 Heparin SUB-Q 5,000 unit Q12HR [facility] Administration Hydralazine HCl 10 mg 04/22/19 22:27 04/23/19 07:36 Apresoline IV 10 mg Q4HR PRN Administration Blood Pressure Sodium Chloride 100 mls @ 999 mls/hr 04/20/19 15:39 Nacl 0.9% IV RAMAN PRN Hypotension Insulin Glargine 10 units 04/23/19 22:00 04/28/19 04:14 Lantus SUB-Q Not Given QHS [facility] Insulin Human Lispro 0 unit 04/23/19 07:30 04/28/19 09:36 Humalog SUB-Q Not Given ACHS [facility] Protocol Metoprolol Tartrate 50 mg 04/22/19 22:00 04/28/19 11:26 Lopressor PO 50 mg BID [facility] Administration Ondansetron HCl 4 mg 04/20/19 21:01 Zofran IV Q8H PRN Nausea And Vomiting Oxycodone/Acetaminophen 2 tab 04/26/19 16:39 04/28/19 09:06 Percocet 5/325 PO 2 tab Q6H PRN Administration Pain, Moderate (4-6) Sodium Chloride 10 ml 04/20/19 22:00 04/28/19 11:27 Sodium Chloride Flush Syringe 10 Ml IV 10 ml BID [facility] Administration Sodium Chloride 10 ml 04/20/19 21:01 04/25/19 00:23 Sodium Chloride Flush Syringe 10 Ml IV 10 ml PRN PRN Administration LINE FLUSH Nutrition/Malnutrition Assess - Dietary Evaluation Nutrition/Malnutrition Findings: Nutrition Notes Start: 04/21/19 15:41 Freq: Status: Active Protocol: Document 04/26/19 13:46 [place] (Rec: 04/26/19 13:54 [place] [id number]) Nutrition Notes Initial or Follow up Reassessment Other Pertinent Diagnosis ESRD Current Diet cardiac/consistent CHO Labs/Tests ALB 3.6 GLU 166 BUN 34 K+ 4.2 Pertinent Medications Reviewed Height 6 ft 2 in Weight 95.5 kg [place] Body Weight (kg) 86.36 BMI 27.0 Intake Prior to Admission Poor Weight Status Overweight Subjective/Other Information F/U: Pt. sitting up in bed trying to change his colostomy bag. Pt requesting help so RN assistance requested. Pt. verbalized he was previously @ [facility]. Pt. reports no n/v currently. Per pt he would like more meat with his meals. Pt. verbalized he does enjoy nutritional supplement. Pt. has dentures on top which he lost during his stay at [facility]. He is on TTS schedule for [facility] tx. Pt. to be d/c'd to [facility]. Pt. with sacral wound which is being treated by [employer]. Percent of energy/protein needs met: 50/50% Burn Absent Trauma Absent GI Symptoms None Difficulty In Chewing Skin Integrity/Comment sacral wound Current % PO Fair (50-74%) Calculation Used for Recommendations [facility] Additional Notes Protein Needs: 118-148g (1.2-1 .5g/kg) Fluid Needs: 1 ml/kcal Nutrition Intervention Change Diet Order: Renal/consistent CHO Add Supplement/Snack (indicate name/kcal nepro bid /protein ) Provides kCal: 850 Provides Protein (gm) 38 Goal #2 Initiate nepro bid and monitor for tolerance Anticipated Discharge Needs: renal diet education Follow-Up By: 04/29/19 Additional Comments f/u po intake/ONS tolerance
--- NOTE | 2019-04-28 17:20 | Progress Note ---
Assessment and Plan - Patient Problems (1) Acute kidney failure with tubular necrosis Current Visit: Yes Status: Acute Plan to address problem: Patient started on dialysis due to worsening renal indices, uremic encephalopathy, hyperkalemia and hyponatremia. Creatinine is now improved suggesting possible renal recovery. We'll hold dialysis and follow-up renal indices. Reevaluate tomorrow morning. Discussed with patient at the bedside. I discussed the case technician and patient is also awaiting SNIF placement. Already has outpatient dialysis arranged at [facility] dialysis (2) Colorectal cancer Current Visit: Yes Status: Acute Plan to address problem: Being followed by oncologist (3) Anemia in chronic kidney disease Current Visit: Yes Status: Acute Plan to address problem: Give Erythropoetin on dialysis (4) Hyperkalemia Current Visit: Yes Status: Acute Plan to address problem: Improved with dialysis (5) Hyponatremia Current Visit: Yes Status: Acute Plan to address problem: Improved with dialysis (6) Metabolic acidosis Current Visit: Yes Status: Acute Plan to address problem: Improved with dialysis (7) Metabolic encephalopathy Current Visit: Yes Status: Acute Plan to address problem: Improved with dialysis (8) Sacral decubitus ulcer, stage IV Current Visit: Yes Status: Acute Plan to address problem: Continue treatment (9) Sepsis Current Visit: Yes Status: Acute Plan to address problem: Secondary to urinary tract infection and/or infected sacral decubitus ulcer. Continue antibiotics and monitoring Subjective Date of service: 04/28/19 Principal diagnosis: colon ca Interval history: Patient seen lying in bed. Feels better today. Asks about his renal recovery. No nausea or vomiting. No shortness of breath Objective - Exam Narrative Exam: Middle-aged -[place] female lying in bed in no acute distress HEENT: NCAT, pink oral mucous membrane Neck: Supple, no venous distention CVS: S1S2 RRR with no murmur, rub or gallop Chest: Clear to auscultation Abdomen: Protuberant, soft, nontender, ostomy intact, no organomegaly, bowel sounds are present Extremities: No edema Neuro: Awake, alert no focal deficits - Vital Signs Vital signs: Vital Signs - 12hr 04/28/19 04/28/19 05:39 11:35 Temperature 98.6 F 98.5 F Pulse Rate 92 H 91 H Respiratory 18 30 H Rate Blood Pressure 111/87 93/71 O2 Sat by Pulse 99 99 Oximetry - Lab 04/24/19 03:59 04/28/19 06:52 Most recent lab results Calcium 9.1 mg/dL (8.4-10.2) 04/28/19 06:52 Phosphorus 3.30 mg/dL (2.5-4.5) 04/27/19 07:47 Medications & Allergies - Medications Allergies/Adverse Reactions: Allergies No Known Allergies Allergy (Unverified 04/20/19 09:03) Home Medications: Home Medications Medication Instructions Recorded Confirmed Last Taken Type Captopril 50 mg PO BID 04/20/19 04/20/19 Unknown History Insulin Detemir [Levemir] 35 unit SQ BID 04/20/19 04/20/19 Unknown History Lispro Insulin [HumaLOG] 15 unit SQ TID 04/20/19 04/20/19 Unknown History Oxycodone HCl [oxyCONTIN ER] 30 mg PO BID 04/20/19 04/20/19 Unknown History Oxycodone HCl/Acetaminophen 1 each PO Q4H 04/20/19 04/20/19 Unknown History [Percocet 10/325 mg] amLODIPine [Norvasc] 5 mg PO DAILY 04/20/19 04/20/19 Unknown History metFORMIN [Glucophage] 500 mg PO BID 04/20/19 04/20/19 Unknown History Active Medications: Generic Name Dose Route Start Last Admin Trade Name Freq PRN Reason Stop Dose Admin Acetaminophen 650 mg 04/20/19 21:01 Tylenol PO Q4H PRN Pain MILD(1-3)/Fever >100.5/DE ANDA Amlodipine Besylate 5 mg 04/23/19 10:00 04/28/19 11:26 Norvasc PO 5 mg DAILY ZOE Administration Dextrose 50 ml 04/22/19 22:28 D50w (25gm) Syringe IV PRN PRN Hypoglycemia Heparin Sodium (Porcine) 5,000 unit 04/20/19 22:00 04/28/19 11:30 Heparin SUB-Q 5,000 unit Q12HR ZOE Administration Hydralazine HCl 10 mg 04/22/19 22:27 04/23/19 07:36 Apresoline IV 10 mg Q4HR PRN Administration Blood Pressure Sodium Chloride 100 mls @ 999 mls/hr 04/20/19 15:39 Nacl 0.9% IV RAMAN PRN Hypotension Insulin Glargine 10 units 04/23/19 22:00 04/28/19 04:14 Lantus SUB-Q Not Given QHS [facility] Insulin Human Lispro 0 unit 04/23/19 07:30 04/28/19 13:46 Humalog SUB-Q 2 unit ACHS ZOE Administration Protocol Metoprolol Tartrate 50 mg 04/22/19 22:00 04/28/19 11:26 Lopressor PO 50 mg BID ZOE Administration Ondansetron HCl 4 mg 04/20/19 21:01 Zofran IV Q8H PRN Nausea And Vomiting Oxycodone/Acetaminophen 2 tab 04/26/19 16:39 04/28/19 15:26 Percocet 5/325 PO 2 tab Q6H PRN Administration Pain, Moderate (4-6) Sodium Chloride 10 ml 04/20/19 22:00 04/28/19 11:27 Sodium Chloride Flush Syringe 10 Ml IV 10 ml BID ZOE Administration Sodium Chloride 10 ml 04/20/19 21:01 04/25/19 00:23 Sodium Chloride Flush Syringe 10 Ml IV 10 ml PRN PRN Administration LINE FLUSH
[2019-04-29] MEDS: PERCOCET 5/325 PO PRN ×2 (10:57→21:51)
[2019-04-29] MEDS: HumaLOG SUB-Q SCH ×4 (10:57→21:50)
[2019-04-29] MEDS: NORVASC PO SCH (11:07)
[2019-04-29] MEDS: LOPRESSOR PO SCH ×2 (11:07→21:54)
[2019-04-29] MEDS: HEPARIN SUB-Q SCH ×2 (11:07→21:50)
[2019-04-29] MEDS: SODIUM CHLORIDE FLUSH SYRINGE 10 ML IV SCH ×2 (11:07→21:55)
--- NOTE | 2019-04-29 11:19 | Discharge Summary ---
Providers - Providers Date of Admission: 04/20/19 21:01 Attending physician: SUNDEEP ASENCIO MD 04/20/19 15:40 Consult to Physician [CONS] Stat Comment: Consulting Provider: ISABEL HANCOCK Physician Instructions: Reason For Exam: acute renal failure needing dialysis 04/20/19 16:01 Consult to Physician [CONS] Stat Comment: Consulting Provider: LEISA SANTANA Physician Instructions: Reason For Exam: vas cath 04/20/19 21:06 Consult to Physician [CONS] Routine Comment: Consulting Provider: MELISSA RODRIGUEZ Physician Instructions: Reason For Exam: Rectal cancer 04/21/19 08:00 Consult to Dietitian/Nutrition [CONS] Routine Physician Instructions: Reason For Exam: POOR APPETIDE Reason for Consult: Poor oral intake 04/21/19 09:00 Consult to Wound/ET Nurse [CONS] Routine Reason For Exam: wound eval 04/22/19 11:35 Physical Therapy Evaluation and Treat [CONS] Routine Comment: Reason For Exam: weakness 04/22/19 11:36 Occupational Therapy Evaluate and Treat [CONS] Routine Comment: Reason For Exam: weakness 04/25/19 12:30 Consult to Case Management [CONS] Routine Services Needed at Discharge: Other Notified:: renal case manager Comment:: arrange outpatient dialysis at [facility] Hospitalization Condition: Fair Hospital course: 59-year-old man with past medical history significant for hypertension, diabetes mellitus, rectal CA status post laparotomy, colostomy, stage IV sacral ulcer, presented to the emergency department with complaints of altered mental status. Patient had history of ATN and was on dialysis until last January. Patient is confused and disoriented. Acute kidney failure with tubular necrosis - Patient is on HD, awaiting renal recovery - Avoid nephrotoxins Metabolic, uremic encephalopathy. metabolic acidosis - Resolved, Severe sepsis likely due to UTI , sacral decubitus ulcer is deep POA, stage 3, did not appear infected completed abx Sacral decub stage 3, poa -cont wound care Hyponatremia - Resolved Hyperkalemia - resolved with dialysis Anemia of chronic disease stable did not require transfusion History of rectal cancer - Status post colostomy and ostomy - continue colostomy care - oncology consulted and recommended patient follow-up after his acute condition is resolved DVT prophylaxis - On heparin Disposition The patient was planned for SNF placement, but he refused stating that he did not want to wait, and therefore was discharged home with home services Disposition: [id number] HOME UNDER HOME HL Time spent for discharge: 33 mins Core Measure Documentation - Palliative Care Palliative Care/ Comfort Measures: Not Applicable - Core Measures Any of the following diagnoses?: none Exam - Physical Exam Narrative exam: General.: Appears well, no distress, nontoxic HEENT: Moist mucous membranes, extraocular muscles intact, no lymphadenopathy Neck: supple Cardiac: S1-S2 heard Lungs: clear to auscultation bilaterally Abdomen: soft , nontender, nondistended, bowel sounds positive Extremities: no edema clubbing or cyanosis Skin: no rash or lesions, stage III sacral decub, present on admission Neurologic: no gross focal deficits Psych: calm, and cooperative - Constitutional Vitals: Temp Pulse Resp BP Pulse Ox 97.8 F 105 H 20 115/83 98 04/29/19 05:20 04/29/19 11:07 04/29/19 05:20 04/29/19 11:07 04/29/19 05:20 Plan Follow up with: SARITA THORNTON MD [Primary Care Provider] - 3-5 Days Prescriptions: oxyCODONE /ACETAMINOPHEN [Percocet 5/325 mg] 2 tab PO Q6H PRN #20 tablet PRN Reason: Pain, Moderate (4-6)
--- NOTE | 2019-04-29 11:59 | Progress Note ---
Assessment and Plan - Patient Problems (1) Acute kidney failure with tubular necrosis Current Visit: Yes Status: Acute Plan to address problem: Patient started on dialysis due to worsening renal indices, uremic encephalopathy, hyperkalemia and hyponatremia. Creatinine is now improved suggesting possible renal recovery. Continue to hold dialysis and follow-up renal indices. Patient will get labs as an outpatient on Friday and then follow-up in the office next week. Already has outpatient dialysis arranged at [facility] dialysis but does not need to go for now. If kidney function remains stable, we'll arrange for permacath removal as an outpatient (2) Colorectal cancer Current Visit: Yes Status: Acute Plan to address problem: Being followed by oncologist (3) Anemia in chronic kidney disease Current Visit: Yes Status: Acute Plan to address problem: Give Erythropoetin on dialysis (4) Hyperkalemia Current Visit: Yes Status: Acute Plan to address problem: Improved with dialysis (5) Hyponatremia Current Visit: Yes Status: Acute Plan to address problem: Improved with dialysis (6) Metabolic acidosis Current Visit: Yes Status: Acute Plan to address problem: Improved with dialysis (7) Metabolic encephalopathy Current Visit: Yes Status: Acute Plan to address problem: Improved with dialysis (8) Sacral decubitus ulcer, stage IV Current Visit: Yes Status: Acute Plan to address problem: Continue treatment (9) Sepsis Current Visit: Yes Status: Acute Plan to address problem: Secondary to urinary tract infection and/or infected sacral decubitus ulcer. Stable Subjective Date of service: 04/29/19 Principal diagnosis: colon ca Interval history: Patient seen lying in bed. Feels better today. Asks about his renal recovery. No nausea or vomiting. No shortness of breath Objective - Exam Narrative Exam: Middle-aged -[place] female lying in bed in no acute distress HEENT: NCAT, pink oral mucous membrane Neck: Supple, no venous distention CVS: S1S2 RRR with no murmur, rub or gallop Chest: Clear to auscultation Abdomen: Protuberant, soft, nontender, ostomy intact, no organomegaly, bowel sounds are present Extremities: No edema Neuro: Awake, alert no focal deficits - Vital Signs Vital signs: Vital Signs - 12hr 04/29/19 04/29/19 04/29/19 05:15 05:20 10:56 Temperature 98.8 F 97.8 F Pulse Rate 96 H 70 Respiratory 18 20 Rate Blood Pressure 131/79 116/46 115/83 O2 Sat by Pulse 100 98 Oximetry 04/29/19 11:07 Temperature Pulse Rate 105 H Respiratory Rate Blood Pressure 115/83 O2 Sat by Pulse Oximetry - Lab 04/29/19 14:48 04/29/19 14:48 Most recent lab results Calcium 9.1 mg/dL (8.4-10.2) 04/28/19 06:52 Phosphorus 3.30 mg/dL (2.5-4.5) 04/27/19 07:47 Medications & Allergies - Medications Allergies/Adverse Reactions: Allergies No Known Allergies Allergy (Unverified 04/20/19 09:03) Home Medications: Home Medications Medication Instructions Recorded Confirmed Last Taken Type amLODIPine [Norvasc] 5 mg PO DAILY 04/20/19 04/20/19 Unknown History Insulin Glargine [Lantus VIAL] 10 units SUB-Q QHS 30 Days #1000 04/29/19 Unknown Rx units Lispro Insulin [HumaLOG] 0 unit SUB-Q ACHS units 04/29/19 Unknown Rx Metoprolol [Lopressor TAB] 50 mg PO BID tablet 04/29/19 Unknown Rx oxyCODONE /ACETAMINOPHEN [Percocet 2 tab PO Q6H PRN #20 tablet 04/29/19 Unknown Rx 5/325 mg] Active Medications: Generic Name Dose Route Start Last Admin Trade Name Freq PRN Reason Stop Dose Admin Acetaminophen 650 mg 04/20/19 21:01 Tylenol PO Q4H PRN Pain MILD(1-3)/Fever >100.5/DE ANDA Amlodipine Besylate 5 mg 04/23/19 10:00 04/29/19 11:07 Norvasc PO 5 mg DAILY ZOE Administration Dextrose 50 ml 04/22/19 22:28 D50w (25gm) Syringe IV PRN PRN Hypoglycemia Heparin Sodium (Porcine) 5,000 unit 04/20/19 22:00 04/29/19 11:07 Heparin SUB-Q 5,000 unit Q12HR ZOE Administration Hydralazine HCl 10 mg 04/22/19 22:27 04/23/19 07:36 Apresoline IV 10 mg Q4HR PRN Administration Blood Pressure Sodium Chloride 100 mls @ 999 mls/hr 04/20/19 15:39 Nacl 0.9% IV RAMAN PRN Hypotension Insulin Glargine 10 units 04/23/19 22:00 04/28/19 21:51 Lantus SUB-Q 10 units QHS ZOE Administration Insulin Human Lispro 0 unit 04/23/19 07:30 04/29/19 10:57 Humalog SUB-Q Not Given ACHS [facility] Protocol Metoprolol Tartrate 50 mg 04/22/19 22:00 04/29/19 11:07 Lopressor PO 50 mg BID ZOE Administration Ondansetron HCl 4 mg 04/20/19 21:01 Zofran IV Q8H PRN Nausea And Vomiting Oxycodone/Acetaminophen 2 tab 04/26/19 16:39 04/29/19 10:57 Percocet 5/325 PO 2 tab Q6H PRN Administration Pain, Moderate (4-6) Sodium Chloride 10 ml 04/20/19 22:00 04/29/19 11:07 Sodium Chloride Flush Syringe 10 Ml IV 10 ml BID ZOE Administration Sodium Chloride 10 ml 04/20/19 21:01 04/25/19 00:23 Sodium Chloride Flush Syringe 10 Ml IV 10 ml PRN PRN Administration LINE FLUSH
[2019-04-29] MEDS: NYSTOP TP SCH (14:39)
[2019-04-29 15:01] LABS: Basophils # (Auto) 0.1 K/mm3 (0.0-0.1); Basophils % (Auto) 1.1 % (0.0-1.8); Eosinophils # (Auto) 0.3 K/mm3 (0.0-0.4); Hematocrit 27.5 % (35.5-45.6); Hemoglobin 9.3 gm/dl (11.8-15.2); Lymphocytes # (Auto) 3.2 K/mm3 (1.2-5.4); Lymphocytes % (Auto) 37.3 % (13.4-35.0); Mean Corpuscular HGB Conc 34 % (32-34); Mean Corpuscular Volume 88 fl (84-94); Monocytes # (Auto) 0.8 K/mm3 (0.0-0.8); Platelet Count 383 K/mm3 (140-440); Red Blood Count 3.13 M/mm3 (3.65-5.03); Red Cell Distribution Width 13.9 % (13.2-15.2)
[2019-04-29 16:44] LABS: Albumin 3.4 g/dL (3.9-5); Calcium 9.4 mg/dL (8.4-10.2)
[2019-04-29] MEDS: LANTUS SUB-Q SCH (21:54)
[2019-04-30] MEDS: NYSTOP TP SCH ×2 (01:46→09:47)
[2019-04-30] MEDS ORDERED: BENADRYL PO NR (02:00)
[2019-04-30] MEDS: PERCOCET 5/325 PO PRN (07:49)
--- NOTE | 2019-04-30 08:43 | Progress Note ---
Assessment and Plan - Patient Problems (1) Acute kidney failure with tubular necrosis Current Visit: Yes Status: Acute Plan to address problem: Patient started on dialysis due to worsening renal indices, uremic encephalopathy, hyperkalemia and hyponatremia. Creatinine continues to improve showing renal recovery. Discontinue dialysis. I spoke to the nurse/ophthalmic medical assistant earlier today to arrange for discontinuing permacath. Follow up in the office in one week to get labs and reevaluate patient's electrolyte and volume status. I believe he will do well. Okay to discharge from renal standpoint (2) Colorectal cancer Current Visit: Yes Status: Acute Plan to address problem: Being followed by oncologist (3) Anemia in chronic kidney disease Current Visit: Yes Status: Acute Plan to address problem: Give Erythropoetin on dialysis (4) Hyperkalemia Current Visit: Yes Status: Acute Plan to address problem: Improved with dialysis (5) Hyponatremia Current Visit: Yes Status: Acute Plan to address problem: Improved with dialysis (6) Metabolic acidosis Current Visit: Yes Status: Acute Plan to address problem: Improved with dialysis (7) Metabolic encephalopathy Current Visit: Yes Status: Acute Plan to address problem: Improved with dialysis (8) Sacral decubitus ulcer, stage IV Current Visit: Yes Status: Acute Plan to address problem: Continue treatment (9) Sepsis Current Visit: Yes Status: Acute Plan to address problem: Secondary to urinary tract infection and/or infected sacral decubitus ulcer. Stable Subjective Date of service: 04/30/19 Principal diagnosis: colon ca Interval history: Patient seen lying in bed. Feels better today. Asks about his renal recovery. No nausea or vomiting. No shortness of breath Objective - Exam Narrative Exam: Middle-aged -[place] female lying in bed in no acute distress HEENT: NCAT, pink oral mucous membrane Neck: Supple, no venous distention CVS: S1S2 RRR with no murmur, rub or gallop Chest: Clear to auscultation Abdomen: Protuberant, soft, nontender, ostomy intact, no organomegaly, bowel sounds are present Extremities: No edema Neuro: Awake, alert no focal deficits - Vital Signs Vital signs: Vital Signs - 12hr 04/29/19 04/30/19 21:29 05:23 Temperature 98.7 F 98.3 F Pulse Rate 119 H 107 H Respiratory 18 16 Rate Blood Pressure 93/63 104/72 O2 Sat by Pulse 94 98 Oximetry - Lab 04/29/19 14:48 04/30/19 10:37 Most recent lab results Calcium 9.4 mg/dL (8.4-10.2) 04/29/19 14:48 Phosphorus 3.30 mg/dL (2.5-4.5) 04/27/19 07:47 Medications & Allergies - Medications Allergies/Adverse Reactions: Allergies No Known Allergies Allergy (Unverified 04/20/19 09:03) Home Medications: Home Medications Medication Instructions Recorded Confirmed Last Taken Type amLODIPine [Norvasc] 5 mg PO DAILY 04/20/19 04/20/19 Unknown History Insulin Glargine [Lantus VIAL] 10 units SUB-Q QHS 30 Days #1000 04/29/19 Unknown Rx units Lispro Insulin [HumaLOG] 0 unit SUB-Q ACHS units 04/29/19 Unknown Rx Metoprolol [Lopressor TAB] 50 mg PO BID tablet 04/29/19 Unknown Rx oxyCODONE /ACETAMINOPHEN [Percocet 2 tab PO Q6H PRN #20 tablet 04/29/19 Unknown Rx 5/325 mg] Active Medications: Generic Name Dose Route Start Last Admin Trade Name Freq PRN Reason Stop Dose Admin Acetaminophen 650 mg 04/20/19 21:01 Tylenol PO Q4H PRN Pain MILD(1-3)/Fever >100.5/DE ANDA Amlodipine Besylate 5 mg 04/23/19 10:00 04/29/19 11:07 Norvasc PO 5 mg DAILY ZOE Administration Dextrose 50 ml 04/22/19 22:28 D50w (25gm) Syringe IV PRN PRN Hypoglycemia Heparin Sodium (Porcine) 5,000 unit 04/20/19 22:00 04/29/19 21:50 Heparin SUB-Q 5,000 unit Q12HR ZOE Administration Hydralazine HCl 10 mg 04/22/19 22:27 04/23/19 07:36 Apresoline IV 10 mg Q4HR PRN Administration Blood Pressure Sodium Chloride 100 mls @ 999 mls/hr 04/20/19 15:39 Nacl 0.9% IV RAMAN PRN Hypotension Insulin Glargine 10 units 04/23/19 22:00 04/29/19 21:54 Lantus SUB-Q Not Given QHS [facility] Insulin Human Lispro 0 unit 04/23/19 07:30 04/29/19 21:50 Humalog SUB-Q Not Given ACHS [facility] Protocol Metoprolol Tartrate 50 mg 04/22/19 22:00 04/29/19 21:54 Lopressor PO Not Given BID [facility] Nystatin 1 applic 04/29/19 14:00 04/30/19 01:46 Nystop TP 1 applic BID ZOE Administration Ondansetron HCl 4 mg 04/20/19 21:01 Zofran IV Q8H PRN Nausea And Vomiting Oxycodone/Acetaminophen 2 tab 04/26/19 16:39 04/30/19 07:49 Percocet 5/325 PO 2 tab Q6H PRN Administration Pain, Moderate (4-6) Sodium Chloride 10 ml 04/20/19 22:00 04/29/19 21:55 Sodium Chloride Flush Syringe 10 Ml IV 10 ml BID ZOE Administration Sodium Chloride 10 ml 04/20/19 21:01 04/25/19 00:23 Sodium Chloride Flush Syringe 10 Ml IV 10 ml PRN PRN Administration LINE FLUSH
[2019-04-30] MEDS: HumaLOG SUB-Q SCH ×3 (09:00→18:03)
[2019-04-30] MEDS: HEPARIN SUB-Q SCH (09:47)
[2019-04-30] MEDS: NORVASC PO SCH (09:47)
[2019-04-30] MEDS: LOPRESSOR PO SCH (09:48)
[2019-04-30] MEDS: SODIUM CHLORIDE FLUSH SYRINGE 10 ML IV SCH (09:48)
[2019-04-30] MEDS ORDERED: DILAUDID IV ONE (10:28)
[2019-04-30 11:12] LABS: Calcium 9.4 mg/dL (8.4-10.2)
[2019-04-30] MEDS ORDERED: DILAUDID PO PRN (11:42)
--- NOTE | 2019-04-30 11:43 | Progress Note ---
Assessment and Plan Assessment and plan: 59-year-old man with past medical history significant for hypertension, diabetes mellitus, rectal CA status post laparotomy, colostomy, stage IV sacral ulcer, presented to the emergency department with complaints of altered mental status. Patient had history of ATN and was on dialysis until last January. Patient is confused and disoriented. Acute kidney failure with tubular necrosis - Patient is on HD, awaiting renal recovery - Avoid nephrotoxins Metabolic, uremic encephalopathy. metabolic acidosis - Resolved, she desired and oriented - Patient is in acute renal failure - Nephrology was consulted and patient is currently on dialysis - Patient was alert but still confused Severe sepsis likely due to UTI , sacral decubitus ulcer is deep POA, stage 3, did not appear infected -cont abx, to finish today Sacral decub stage 3, poa -cont wound care Hyponatremia - Resolved Hyperkalemia - resolved with dialysis Anemia of chronic disease - We'll follow H&H - Transfusion H&H is below 7 History of rectal cancer - Status post colostomy and ostomy - continue colostomy care - oncology consulted and recommended patient follow-up after his acute condition is resolved DVT prophylaxis - On heparin Disposition - Patient is alert and oriented, follow nephrology recommendation for arrangement of outpatient dialysis if needed. History Interval history: Continues to complain of buttock pain/sacral pain related to his decub Review of systems Constitutional: No fevers, no malaise, no joint pains CVS: No chest pain, no orthopnea, no dyspnea on exertion, no pedal edema GI: No abdominal pain, no diarrhea, no vomiting, no constipation Respiratory: No shortness of breath, no wheezing, no coughing Hospitalist Physical - Physical exam Narrative exam: General.: Appears well, no distress, nontoxic HEENT: Moist mucous membranes, extraocular muscles intact, no lymphadenopathy Neck: supple Cardiac: S1-S2 heard Lungs: clear to auscultation bilaterally Abdomen: soft , nontender, nondistended, bowel sounds positive Extremities: no edema clubbing or cyanosis Skin: no rash or lesions, stage III sacral decub, present on admission Neurologic: no gross focal deficits Psych: calm, and cooperative - Constitutional Vitals: Temp Pulse Resp BP Pulse Ox 98.3 F 116 H 16 107/76 98 04/30/19 05:23 04/30/19 09:48 04/30/19 05:23 04/30/19 09:48 04/30/19 05:23 General appearance: Present: no acute distress Results - Labs CBC & Chem 7: 04/29/19 14:48 04/30/19 10:37 Labs: Laboratory Last Values WBC 8.6 K/mm3 (4.5-11.0) 04/29/19 14:48 RBC 3.13 M/mm3 (3.65-5.03) L 04/29/19 14:48 Hgb 9.3 gm/dl (11.8-15.2) L 04/29/19 14:48 Hct 27.5 % (35.5-45.6) L 04/29/19 14:48 MCV 88 fl (84-94) 04/29/19 14:48 MCH 30 pg (28-32) 04/29/19 14:48 MCHC 34 % (32-34) 04/29/19 14:48 RDW 13.9 % (13.2-15.2) 04/29/19 14:48 Plt Count 383 K/mm3 (140-440) 04/29/19 14:48 Lymph % (Auto) 37.3 % (13.4-35.0) H 04/29/19 14:48 [place] % (Auto) 9.0 % (0.0-7.3) H 04/29/19 14:48 Eos % (Auto) 3.0 % (0.0-4.3) 04/29/19 14:48 Baso % (Auto) 1.1 % (0.0-1.8) 04/29/19 14:48 Lymph # 3.2 K/mm3 (1.2-5.4) 04/29/19 14:48 [place] # 0.8 K/mm3 (0.0-0.8) 04/29/19 14:48 Eos # 0.3 K/mm3 (0.0-0.4) 04/29/19 14:48 Baso # 0.1 K/mm3 (0.0-0.1) 04/29/19 14:48 Seg Neutrophils % 49.6 % (40.0-70.0) 04/29/19 14:48 Seg Neutrophils # 4.3 K/mm3 (1.8-7.7) 04/29/19 14:48 APTT 36.4 Sec. (24.2-36.6) 04/20/19 10:05 POC ABG pH 7.126 (7.35-7.45) L 04/20/19 15:43 POC ABG pO2 142 (80-105) H 04/20/19 15:43 POC ABG HCO3 7.0 (22-26 mml/L) 04/20/19 15:43 POC ABG Total CO2 8 (23-27mmol/L) 04/20/19 15:43 POC ABG O2 Sat 98 04/20/19 15:43 POC ABG Base Excess -22 ((-2) - (+3)mmol/L) 04/20/19 15:43 32 % 04/20/19 15:43 Sodium 131 mmol/L (137-145) L 04/30/19 10:37 Potassium 5.4 mmol/L (3.6-5.0) H 04/30/19 10:37 Chloride 92.6 mmol/L (98-107) L 04/30/19 10:37 Carbon Dioxide 23 mmol/L (22-30) 04/30/19 10:37 21 mmol/L 04/30/19 10:37 BUN 36 mg/dL (9-20) H 04/30/19 10:37 1.9 mg/dL (0.8-1.5) H 04/30/19 10:37 Estimated GFR 44 ml/min 04/30/19 10:37 19 % 04/30/19 10:37 Glucose 147 mg/dL (75-100) H 04/30/19 10:37 POC Glucose 148 (70-105) H 04/30/19 11:29 5.1 % (4-6) 04/20/19 Unknown Lactic Acid 0.60 mmol/L (0.7-2.0) L 04/20/19 Unknown Calcium 9.4 mg/dL (8.4-10.2) 04/30/19 10:37 Phosphorus 3.30 mg/dL (2.5-4.5) 04/27/19 07:47 Iron 73 ug/dL (49-181) 04/22/19 04:19 TIBC 180 mcg/dL (250-450) L 04/22/19 04:19 2398.0 ng/mL (13.0-400.0) H 04/22/19 04:19 0.20 mg/dL (0.1-1.2) 04/29/19 14:48 AST 26 units/L (5-40) 04/29/19 14:48 ALT 41 units/L (7-56) 04/29/19 14:48 150 units/L (35-129) H 04/29/19 14:48 0.269 ng/mL (0.00-0.029) H* 04/20/19 10:05 0.291 ng/mL (0.00-0.029) H* 04/20/19 10:05 NT-Pro-B Natriuret Pep 416.2 pg/mL (0-900) 04/20/19 10:05 8.3 g/dL (6.3-8.2) H 04/29/19 14:48 3.4 g/dL (3.9-5) L 04/29/19 14:48 0.7 % 04/29/19 14:48 Triglycerides 124 mg/dL (2-149) 04/20/19 10:05 Cholesterol 223 mg/dL (50-199) H 04/20/19 10:05 152 mg/dL (50-130) H 04/20/19 10:05 48 mg/dL (40-59) 04/20/19 10:05 4.64 % 04/20/19 10:05 Carcinoembryonic Ag 10.5 ng/mL (0.0-2.4) H 04/22/19 04:19 Vitamin B12 > 2000 pg/mL (211-911) H 04/22/19 04:19 > 20.0 ng/mL (7.3-26.0) 04/22/19 04:19 [place] (Yellow) 04/20/19 Unknown Cloudy (Clear) 04/20/19 Unknown 5.0 (5.0-7.0) 04/20/19 Unknown Ur Specific [place] 1.020 (1.003-1.030) 04/20/19 Unknown 100 mg/dl mg/dL (Negative) 04/20/19 Unknown Neg mg/dL (Negative) 04/20/19 Unknown Tr mg/dL (Negative) 04/20/19 Unknown Lg (Negative) 04/20/19 Unknown Neg (Negative) 04/20/19 Unknown Neg (Negative) 04/20/19 Unknown < 2.0 mg/dL (<2.0) 04/20/19 Unknown Ur Leukocyte Esterase Mod (Negative) 04/20/19 Unknown 15.0 /HPF (0.0-6.0) H 04/20/19 Unknown 8.0 /HPF (0.0-6.0) 04/20/19 Unknown U Epithel Cells (Auto) < 1.0 /HPF (0-13.0) 04/20/19 Unknown 4+ /HPF (Negative) 04/20/19 Unknown Few /HPF 04/20/19 Unknown Hepatitis A IgM Ab Non-reactive (NonReactive) 04/20/19 17:21 Hep Bs Antigen Non-reactive (Negative) 04/20/19 17:21 Hep B Core IgM Ab Non-reactive (NonReactive) 04/20/19 17:21 Non-reactive (NonReactive) 04/20/19 17:21 Active Medications - Current Medications Current Medications: Generic Name Dose Route Start Last Admin Trade Name Freq PRN Reason Stop Dose Admin Acetaminophen 650 mg 04/20/19 21:01 Tylenol PO Q4H PRN Pain MILD(1-3)/Fever >100.5/DE ANDA Amlodipine Besylate 5 mg 04/23/19 10:00 04/30/19 09:47 Norvasc PO 5 mg DAILY ZOE Administration Dextrose 50 ml 04/22/19 22:28 D50w (25gm) Syringe IV PRN PRN Hypoglycemia Heparin Sodium (Porcine) 5,000 unit 04/20/19 22:00 04/30/19 09:47 Heparin SUB-Q 5,000 unit Q12HR ZOE Administration Hydralazine HCl 10 mg 04/22/19 22:27 04/23/19 07:36 Apresoline IV 10 mg Q4HR PRN Administration Blood Pressure Hydromorphone HCl 4 mg 04/30/19 11:42 Dilaudid PO Q6H PRN Pain , Severe (7-10) Sodium Chloride 100 mls @ 999 mls/hr 04/20/19 15:39 Nacl 0.9% IV RAMAN PRN Hypotension Insulin Glargine 10 units 04/23/19 22:00 04/29/19 21:54 Lantus SUB-Q Not Given QHS ZOE Insulin Human Lispro 0 unit 04/23/19 07:30 04/30/19 09:00 Humalog SUB-Q 2 unit ACHS ZOE Administration Protocol Metoprolol Tartrate 50 mg 04/22/19 22:00 04/30/19 09:48 Lopressor PO 50 mg BID ZOE Administration Nystatin 1 applic 04/29/19 14:00 04/30/19 09:47 Nystop TP 1 applic BID ZOE Administration Ondansetron HCl 4 mg 04/20/19 21:01 Zofran IV Q8H PRN Nausea And Vomiting Sodium Chloride 10 ml 04/20/19 22:00 04/30/19 09:48 Sodium Chloride Flush Syringe 10 Ml IV 10 ml BID ZOE Administration Sodium Chloride 10 ml 04/20/19 21:01 04/25/19 00:23 Sodium Chloride Flush Syringe 10 Ml IV 10 ml PRN PRN Administration LINE FLUSH Nutrition/Malnutrition Assess - Dietary Evaluation Nutrition/Malnutrition Findings: Nutrition Notes Start: 04/21/19 15:41 Freq: Status: Active Protocol: Document 04/29/19 16:31 RM (Rec: 04/29/19 16:40 RM [id number]) Nutrition Notes Initial or Follow up Reassessment Current Diagnosis Acute Kidney Injury,CKD(stage I-IV),Diabetes,Sepsis, Hypertension Current Diet consistent CHO w/Glucerna Labs/Tests Reviewed Pertinent Medications Reviewed Height 6 ft 2 in Weight 91.8 kg [place] Body Weight (kg) 86.36 BMI 25.9 Subjective/Other Information Pt stated that he eats 25% of his meals. Declined Nepro d/t not having Mixed Kahn option. Percent of energy/protein needs met: 24%/19% Burn Absent Trauma Absent #1 Nutrition Diagnosis Increased nutrient needs ( specify in comment below) Diagnosis Progress(for reassessment Continues documentation) Is patient on ventilator? No Is Patient Ambulatory and/or Out of Bed No REE-([facility]-confined to bed) [phone] Calculation Used for Recommendations [facility] Additional Notes Protein Needs: 118-148g (1.2-1 .5g/kg) Fluid Needs: 1 ml/kcal Nutrition Intervention Change Diet Order: Consistent CHO Add Supplement/Snack (indicate name/kcal Ensure Clear Mixed Kahn BID /protein ) Provides kCal: 480 Provides Protein (gm) 16 Goal #1 Meet at least 75% of calorie and protein needs via PO and ONS intakes Anticipated Discharge Needs: consistent CHO Follow-Up By: 05/04/19 Additional Comments Follow for PO and ONS intakes
[2019-04-30] MEDS ORDERED: TRIPLE ANTIBIOTIC TP ONE (16:48)
[2019-04-30 17:49] VITALS: BP 101/74
== END 2019-04-30 23:33 | DRG 871 ==
LOC: ED 08:20 → 4A 21:01 → 3A 04-26 21:47
PROVIDERS: ADMIT Internal Medicine; ATTEND Internal Medicine
PROC: 4A033R1 Measurement of Arterial Saturation, Peripheral, Percutaneous Approach (ICD-10-PCS; 2019-04-20)
PROC: 02HV33Z Insertion of Infusion Device into Superior Vena Cava, Percutaneous Approach (ICD-10-PCS; 2019-04-20)
PROC: 5A1D70Z Performance of Urinary Filtration, Intermittent, Less than 6 Hours Per Day (ICD-10-PCS; principal; 2019-04-24)
PROC: 5A1D70Z Performance of Urinary Filtration, Intermittent, Less than 6 Hours Per Day (ICD-10-PCS; 2019-04-27)
DX: A41.9 Sepsis, unspecified organism (principal); L89.154 Pressure ulcer of sacral region, stage 4; N17.0 Acute kidney failure with tubular necrosis; G93.41 Metabolic encephalopathy; E87.1 Hypo-osmolality and hyponatremia; N39.0 Urinary tract infection, site not specified; Z66 Do not resuscitate; Z51.5 Encounter for palliative care; R65.20 Severe sepsis without septic shock; E87.5 Hyperkalemia; I10 Essential (primary) hypertension; D63.8 Anemia in other chronic diseases classified elsewhere; Z85.048 Personal history of other malignant neoplasm of rectum, rectosigmoid junction, and anus; Z82.49 Family history of ischemic heart disease and other diseases of the circulatory system
CPT/HCPCS: 36415; 70450; 71045; 74150; 76770; 78582; 80048; 80053; 80061; 80074; 81001; 82140; 82378; 82607; 82728; 82747; 82803; 82962; 83036; 83550; 83880; 84100; 84484; 85025; 85730; 87040; 87086; 87116; 93005; 93010; 96361; 96365; 96366; 96367; 96375; 99292; G0378; A6250; A9540; A9558; J0360; J0610; J0692; J0696; J1170; J1644; J1815; J2405; J3370; J7030; J7040

== ENCOUNTER 2019-05-01 23:29 | Inpatient (IN) | payer MEDICARE ==
[2019-05-01] MEDS ORDERED: NACL 0.9% 1000 ML 1,000 ML IV ONE (23:57)
--- NOTE | 2019-05-01 23:58 | Emergency Department Report ---
ED General Adult HPI - General Chief complaint: Syncope Stated complaint: WEAKNESS Time Seen by Provider: 05/01/19 23:49 Source: patient Mode of arrival: Ambulatory Limitations: No Limitations - History of Present Illness Initial comments: Patient is a 59-year-old male that presents emergency room with complaints of weakness. Patient states he was unable to get up because when he stood up he felt lightheaded. Patient denies syncope. Patient denies chest pain. Patient denies difficulty breathing. Patient states he just was discharged from this ospital within the past 2 days. Patient is complaining of pain to his buttocks that he has had for many months since having surgery for rectal cancer. Patient states the pain is a 5-6 out of 10 and is better with rest and worse with movement -: Sudden Severity scale (0 -10): 5 Quality: aching Consistency: constant Improves with: rest Worsens with: movement Associated Symptoms: weakness Treatments Prior to Arrival: none - Related Data Home Medications Medication Instructions Recorded Confirmed Last Taken amLODIPine [Norvasc] 5 mg PO DAILY 04/20/19 04/20/19 Unknown Previous Rx's Medication Instructions Recorded Last Taken Type Insulin Glargine [Lantus VIAL] 10 units SUB-Q QHS 30 Days #1000 04/29/19 Unknown Rx units Lispro Insulin [HumaLOG] 0 unit SUB-Q ACHS units 04/29/19 Unknown Rx Metoprolol [Lopressor TAB] 50 mg PO BID tablet 04/29/19 Unknown Rx oxyCODONE /ACETAMINOPHEN [Percocet 2 tab PO Q6H PRN #20 tablet 04/29/19 Unknown Rx 5/325 mg] Allergies Allergy/AdvReac Type Severity Reaction Status Date / Time No Known Allergies Allergy Unverified 04/20/19 09:03 ED Review of Systems ROS: Stated complaint: WEAKNESS Other details as noted in HPI Constitutional: weakness. denies: chills, fever Eyes: denies: eye pain, eye discharge, vision change ENT: denies: ear pain, throat pain Respiratory: denies: cough, shortness of breath, wheezing Cardiovascular: denies: chest pain, palpitations Endocrine: no symptoms reported Gastrointestinal: denies: abdominal pain, nausea, diarrhea Genitourinary: denies: urgency, dysuria Musculoskeletal: denies: back pain, joint swelling, arthralgia Skin: denies: rash, lesions Neurological: weakness. denies: headache, paresthesias Psychiatric: denies: anxiety, depression Hematological/Lymphatic: denies: easy bleeding, easy bruising ED Past Medical Hx - Past Medical History Previous Medical History?: Yes Hx Hypertension: Yes Hx Congestive Heart Failure: No Hx Diabetes: Yes Hx Renal Disease: Yes Hx Asthma: No Hx COPD: No - Surgical History Past Surgical History?: Yes Additional Surgical History: colostomy - Family History Family history: no significant - Social History Smoking Status: Never Smoker Substance Use Type: None - Medications Home Medications: Home Medications Medication Instructions Recorded Confirmed Last Taken Type amLODIPine [Norvasc] 5 mg PO DAILY 04/20/19 04/20/19 Unknown History Insulin Glargine [Lantus VIAL] 10 units SUB-Q QHS 30 Days #1000 04/29/19 Unknown Rx units Lispro Insulin [HumaLOG] 0 unit SUB-Q ACHS units 04/29/19 Unknown Rx Metoprolol [Lopressor TAB] 50 mg PO BID tablet 04/29/19 Unknown Rx oxyCODONE /ACETAMINOPHEN [Percocet 2 tab PO Q6H PRN #20 tablet 04/29/19 Unknown Rx 5/325 mg] ED Physical Exam - General Limitations: No Limitations General appearance: alert, in no apparent distress - Head Head exam: Present: atraumatic, normocephalic - Eye Eye exam: Present: normal appearance, PERRL Pupils: Present: normal accommodation - ENT ENT exam: Present: mucous membranes dry - Neck Neck exam: Present: normal inspection - Respiratory Respiratory exam: Present: normal lung sounds bilaterally. Absent: respiratory distress, wheezes, rales - Cardiovascular Cardiovascular Exam: Present: regular rate, normal rhythm. Absent: systolic murmur, diastolic murmur, rubs, gallop - GI/Abdominal GI/Abdominal exam: Present: soft, normal bowel sounds. Absent: distended, tenderness, guarding - Rectal Rectal exam: Present: deferred - Extremities Exam Extremities exam: Present: normal inspection - Back Exam Back exam: Present: normal inspection - Neurological Exam Neurological exam: Present: alert, oriented X3 - Psychiatric Psychiatric exam: Present: normal affect, normal mood - Skin Skin exam: Present: warm, dry, intact, normal color. Absent: rash ED Course Vital Signs 05/01/19 05/02/19 05/02/19 23:42 00:00 00:02 Temperature 98.2 F Pulse Rate 118 H 104 H 104 H Respiratory 18 16 17 Rate Blood Pressure 90/53 90/53 Blood Pressure 94/54 [Right] O2 Sat by Pulse 92 98 Oximetry 05/02/19 05/02/19 05/02/19 00:50 01:00 02:00 Temperature Pulse Rate 93 H 93 H Respiratory 16 17 19 Rate Blood Pressure 100/52 99/64 Blood Pressure [Right] O2 Sat by Pulse 100 100 Oximetry 05/02/19 05/02/19 05/02/19 03:00 03:06 03:10 Temperature Pulse Rate 93 H Respiratory 16 19 Rate Blood Pressure 114/76 Blood Pressure 114/76 [Right] O2 Sat by Pulse 99 100 Oximetry 05/02/19 05/02/19 05/02/19 03:20 03:30 03:40 Temperature Pulse Rate 99 H 100 H Respiratory 13 15 Rate Blood Pressure 114/76 114/76 114/76 Blood Pressure [Right] O2 Sat by Pulse 100 Oximetry - Reevaluation(s) Reevaluation #1: Patient's initial evaluation done. Patient's initial blood pressure 88/52 on the left arm and 84/54 in the right arm. Patient will be given normal saline bolus. 05/01/19 23:49 His blood pressure has improved. Patient reports pressure 99/54 after receiving 500 mils of fluid. Patient resting comfortably in the bed. Discussed all results with patient. Patient will be admitted to the hospitalist service. Patient agrees to plan of care. 05/02/19 02:20 - Consultations Consultation #1: Hospitalist consulted for admission. Hospitalist to admit patient. Hospitalist to assume care patient. 05/02/19 02:25 ED Medical Decision Making - Lab Data Result diagrams: 05/02/19 00:03 05/02/19 01:21 - EKG Data -: EKG Interpreted by In EKG shows normal: sinus rhythm, axis, intervals, QRS complexes, ST-T waves Rate: tachycardia - Radiology Data Radiology results: report reviewed, image reviewed PROCEDURE: Chest. TECHNIQUE: Portable AP view. HISTORY: weakness COMPARISONS: Chest 04/20/2019. FINDINGS: The heart and mediastinum appear normal. The lungs are clear and well expanded. There are no pleural effusions. The soft tissues and regional skeleton are unremarkable. There are neurostimulator electrode leads near the thoracolumbar junction. IMPRESSION: Negative portable chest. - Medical Decision Making Patient is a 59-year-old male that presented to the emergency room with complaints of weakness and hypotension. Patient blood pressure low upon arrival and patient was given normal saline bolus and his blood pressure improved. Patient has multiple abnormalities on his labs. Patient was admitted to the hospitalist service. - Differential Diagnosis hypotension. Weakness. Critical Care Time: Yes Critical care attestation.: If time is entered above; I have spent that time in minutes in the direct care of this critically ill patient, excluding procedure time. Critical Care Time: 35 minutes ED Disposition Clinical Impression: Weakness, Hyponatremia Renal failure Qualifiers: Renal failure chronicity: acute on chronic Acute renal failure type: unspecified Chronic kidney disease stage: unspecified stage Qualified Code(s): N17.9 - Acute kidney failure, unspecified Hypotension Qualifiers: Hypotension type: unspecified hypotension type Qualified Code(s): I95.9 - Hypotension, unspecified Disposition: 09 OP ADMIT IP TO THIS HOSP Is pt being admited?: Yes Does the pt Need Aspirin: No Condition: Critical Time of Disposition: 02:27
[2019-05-02 00:22] LABS: Basophils # (Auto) 0.1 K/mm3 (0.0-0.1); Eosinophils # (Auto) 0.1 K/mm3 (0.0-0.4); Hematocrit 26.7 % (35.5-45.6); Hemoglobin 9.5 gm/dl (11.8-15.2); Lymphocytes # (Auto) 3.1 K/mm3 (1.2-5.4); Lymphocytes % (Auto) 27.8 % (13.4-35.0); Mean Corpuscular HGB Conc 36 % (32-34); Mean Corpuscular Volume 87 fl (84-94); Monocytes # (Auto) 1.1 K/mm3 (0.0-0.8); Monocytes % (Auto) 10.1 % (0.0-7.3); Platelet Count 479 K/mm3 (140-440); Red Blood Count 3.08 M/mm3 (3.65-5.03); Red Cell Distribution Width 14.2 % (13.2-15.2)
[2019-05-02 01:51] LABS: Creatine Kinase MB 2.9 ng/mL (0.0-4.0)
--- NOTE | 2019-05-02 01:51 | XRay Report ---
PROCEDURE: Chest. TECHNIQUE: Portable AP view. HISTORY: weakness COMPARISONS: Chest 04/20/2019. FINDINGS: The heart and mediastinum appear normal. The lungs are clear and well expanded. There are no pleural effusions. The soft tissues and regional skeleton are unremarkable. There are neurostimulator electro de leads near the thoracolumbar junction. IMPRESSION: Negative portable chest. This document is electronically signed by Marvin Ngo MD., May 02 2019 01:49:47 AM ET
[2019-05-02 01:54] LABS: Albumin 3.7 g/dL (3.9-5); Calcium 10.3 mg/dL (8.4-10.2)
[2019-05-02] MEDS ORDERED: DILAUDID IV ONE ×3 (02:56→18:00)
[2019-05-02] MEDS ORDERED: TYLENOL PO PRN (03:00)
[2019-05-02] MEDS ORDERED: ZOFRAN IV PRN (03:00)
[2019-05-02] MEDS ORDERED: PERCOCET 5/325 PO PRN (03:00)
[2019-05-02] MEDS ORDERED: SODIUM CHLORIDE FLUSH SYRINGE 10 ML IV PRN (03:00)
--- NOTE | 2019-05-02 03:08 | History and Physical Report ---
History of Present Illness Date of examination: 05/02/19 History of present illness: 59 year old man with a history of hypertension, diabetes, rectal cancer, status post laparotomy, colostomy,, sacral decubitus was just discharged from the hospital on April 30, returning today complaining of generalized weakness, dizziness. He arrived in the emergency room hypotensive with systolic blood pressure in the 80s, he has been taking his captopril and Norvasc at home without checking his blood pressure Review of systems Constitutional: no weight loss, chills, fever Ears, eyes, nose, mouth and throat: no nasal congestion, no nasal discharge, no sinus pressure, no vision change, no red eye. Neck: No neck pain or rigidity. Cardiovascular: no palpitations, chest pain Respiratory: no cough, shortness of breath Gastrointestinal: no hematochezia, abdominal pain Genitourinary : no frequency , no hematuria Musculoskeletal: no joint swelling or muscle ache Integumentary: no rash, no pruritis Neurological: no parathesias, no focal weakness Endocrine: no cold or heat intolerance, no polyuria or polydipsia Hematologic/Lymphatic: no easy bruising, no easy bleeding, no gland swelling Allergic/Immunologic: no urticaria, no angioedema. PAST MEDICAL HISTORY:hypertension, diabetes, rectal cancer, status post laparotomy, colostomy,sacral decubitus PAST SURGICAL HISTORY: laparotomy, colostomy SOCIAL HISTORY: Denies alcohol, drugs, tobacco FAMILY HISTORY: Hypertension Medications and Allergies Allergies Allergy/AdvReac Type Severity Reaction Status Date / Time No Known Allergies Allergy Unverified 04/20/19 09:03 Home Medications Medication Instructions Recorded Confirmed Last Taken Type amLODIPine [Norvasc] 5 mg PO DAILY 04/20/19 05/02/19 Unknown History Insulin Glargine [Lantus VIAL] 10 units SUB-Q QHS 30 Days #1000 04/29/19 05/02/19 Unknown Rx units Lispro Insulin [HumaLOG] 0 unit SUB-Q ACHS units 04/29/19 05/02/19 Unknown Rx Metoprolol [Lopressor TAB] 50 mg PO BID tablet 04/29/19 05/02/19 Unknown Rx oxyCODONE /ACETAMINOPHEN [Percocet 2 tab PO Q6H PRN #20 tablet 04/29/19 05/02/19 Unknown Rx 5/325 mg] Active Meds: Active Medications Acetaminophen (Tylenol) 650 mg PO Q4H PRN PRN Reason: Pain MILD(1-3)/Fever >100.5/DE ANDA Enoxaparin Sodium (Lovenox) 30 mg SUB-Q QDAY ZOE Sodium Chloride (Nacl 0.9% 1000 Ml) 1,000 mls @ 125 mls/hr IV DIRECT ZOE Ondansetron HCl (Zofran) 4 mg IV Q8H PRN PRN Reason: Nausea And Vomiting Oxycodone/Acetaminophen (Percocet 5/325) 1 tab PO Q4H PRN PRN Reason: Pain, Moderate (4-6) Sodium Chloride (Sodium Chloride Flush Syringe 10 Ml) 10 ml IV BID ZOE Sodium Chloride (Sodium Chloride Flush Syringe 10 Ml) 10 ml IV PRN PRN PRN Reason: LINE FLUSH Exam - Physical Exam Narrative exam: General Apperance: The patient lying in bed, breathing comfortable HEENT: Normocephalic, atraumatic. Pupils equally round and reactive to light, EOMI, no sclericterus or JVD or thyromegaly or nodule. , no carotid bruit, mucous membranes moist, no exudate or erythema Heart: S1-S2, regular is rhythm Lungs: Clear to auscultation bilaterally, breathing comfortable Abdomen: + Colostomy, + ileostomy, Positive bowel sounds, soft, nontender, nondistended, no organomegaly Extremities: No edema cyanosis clubbing Skin: sacral decubitus, no rash, nodule, warm and dry Neuro: cranial nerves 2-12 intact, speech is fluent, motor/sensory intact - Constitutional Vitals: Temp Pulse Resp BP Pulse Ox 98.2 F 93 H 19 99/64 100 05/01/19 23:42 05/02/19 02:00 05/02/19 03:06 05/02/19 02:00 05/02/19 02:00 Results - Labs CBC & Chem 7: 05/03/19 15:01 05/08/19 07:00 Labs: Abnormal lab results 05/02/19 05/02/19 Range/Units 00:03 01:21 WBC 11.3 H (4.5-11.0) K/mm3 RBC 3.08 L (3.65-5.03) M/mm3 Hgb 9.5 L (11.8-15.2) gm/dl Hct 26.7 L (35.5-45.6) % MCHC 36 H (32-34) % Plt Count 479 H (140-440) K/mm3 [place] % (Auto) 10.1 H (0.0-7.3) % [place] # 1.1 H (0.0-0.8) K/mm3 Sodium 127 L (137-145) mmol/L Potassium 5.6 H (3.6-5.0) mmol/L Chloride 92.2 L (98-107) mmol/L Carbon Dioxide 20 L (22-30) mmol/L BUN 49 H (9-20) mg/dL Creatinine 4.0 H D (0.8-1.5) mg/dL Glucose 119 H (75-100) mg/dL Calcium 10.3 H (8.4-10.2) mg/dL Alkaline Phosphatase 172 H (35-129) units/L Troponin T 0.223 H* (0.00-0.029) ng/mL Total Protein 8.9 H (6.3-8.2) g/dL Albumin 3.7 L (3.9-5) g/dL - Imaging and Cardiology Chest x-ray: report reviewed Assessment and Plan Assessment Acute renal failure Hypotension, probably secondary to antihypertensive Hyperkalemia Hyponatremia Abnormal cardiac enzyme Diabetes Rectal cancer Plan Admit medicine Start IV fluids, obtain ultrasound of the kidneys, consult renal Hold antihypertensive , give Kayexalate Check cardiac enzymes, echo check fingersticks and initiate insulin sliding scale DVT prophylaxis
[2019-05-02] MEDS ORDERED: NACL 0.9% 1000 ML 1,000 ML IV SCH (04:00)
[2019-05-02 04:46] LABS: Creatine Kinase MB 2.7 ng/mL (0.0-4.0)
[2019-05-02] MEDS ORDERED: KIONEX PO ONE (06:11)
--- NOTE | 2019-05-02 06:58 | Consultation ---
History of Present Illness - Reason for Consult Consult date: 05/02/19 acute renal failure, chronic renal failure, hyperkalemia Requesting physician: ELADIO GILL - History of Present Illness This is a 59 yo AAM with past medical history of Hypertension, Type 2 DM, h/o malignant neoplasm of the rectum diagnosed in 11/2018, pt underwent an open laparotomy and ANGELES with perineal protectomy on 12/01, at that time course was complicated by septic shock, acute respiratory failure and ATN and pt required HD until last January. Following perineal protectomy and radiation pt developed chronic perineal wound/stage IV sacral ulcer, stayed in [place] for hyperbaric treatment and prolonged IV ABXs treatment. Pt was recently hospitalized here in [facility] from 04/20- for severe sepsis likely due to UTI versus sacral decubitus ulcer, developed SHERINE secondary to ATN and required temporary hemodialysis. Pt showed signs of renal recovery and HD discontinued, permcath removed prior to the discharge on 04/30. Pt now returns to the ER with complaints of generalized weakness, dizziness. In ER pt was found to be hypotensive with systolic blood pressure in the 80s, he has been taking his captopril and Norvasc at home without checking his blood pressure. Pt however denies fever, chills, n/v/d, abd pain, dysuria, blurry vision, headaches, CP, SOB, palpitations. labs showed elevated BUN/Cr at 49/4.0mg/dl with mild hyperkalemia (K 5.6) and hyponatremia (na 127). Most recent Cr on 04/30 was 1.9mg/dl. renal consult is requested for management of SHERINE and electrolyte imbalance. Past History Past Medical History: anemia, cancer, diabetes, hypertension, renal failure Past Surgical History: Other (open laparotomy, ANGELES, perineal protectomy) Social history: denies: smoking, alcohol abuse, prescription drug abuse, IV drug use Family history: hypertension Medications and Allergies Allergies Allergy/AdvReac Type Severity Reaction Status Date / Time No Known Allergies Allergy Unverified 04/20/19 09:03 Home Medications Medication Instructions Recorded Confirmed Last Taken Type amLODIPine [Norvasc] 5 mg PO DAILY 04/20/19 05/02/19 Unknown History Insulin Glargine [Lantus VIAL] 10 units SUB-Q QHS 30 Days #1000 04/29/19 05/02/19 Unknown Rx units Lispro Insulin [HumaLOG] 0 unit SUB-Q ACHS units 04/29/19 05/02/19 Unknown Rx Metoprolol [Lopressor TAB] 50 mg PO BID tablet 04/29/19 05/02/19 Unknown Rx oxyCODONE /ACETAMINOPHEN [Percocet 2 tab PO Q6H PRN #20 tablet 04/29/19 05/02/19 Unknown Rx 5/325 mg] Active Meds: Active Medications Acetaminophen (Tylenol) 650 mg PO Q4H PRN PRN Reason: Pain MILD(1-3)/Fever >100.5/DE ANDA Enoxaparin Sodium (Lovenox) 30 mg SUB-Q QDAY ZOE Sodium Chloride (Nacl 0.9% 1000 Ml) 1,000 mls @ 125 mls/hr IV DIRECT ZOE Last Admin: 05/02/19 06:37 Dose: 125 mls/hr Documented by: Ondansetron HCl (Zofran) 4 mg IV Q8H PRN PRN Reason: Nausea And Vomiting Oxycodone/Acetaminophen (Percocet 5/325) 1 tab PO Q4H PRN PRN Reason: Pain, Moderate (4-6) Sodium Chloride (Sodium Chloride Flush Syringe 10 Ml) 10 ml IV BID ZOE Sodium Chloride (Sodium Chloride Flush Syringe 10 Ml) 10 ml IV PRN PRN PRN Reason: LINE FLUSH Last Admin: 05/02/19 06:38 Dose: 10 ml Documented by: Review of Systems All systems: negative Constitutional: fatigue, weakness, malaise Exam - Vital Signs Vital signs: Vital Signs Temp Pulse Resp BP Pulse Ox 98.2 F 118 H 18 94/54 92 05/01/19 23:42 05/01/19 23:42 05/01/19 23:42 05/01/19 23:42 05/01/19 23:42 - General Appearance General appearance: well-developed, appears stated age, chronically ill EENT: ATNC, PERRL, mucous membranes moist Neck: Present: neck supple Respiratory: Clear to Ascultation Heart: regular, S1S2 Gastrointestinal: Present: normoactive bowel sounds Integumentary: no rash, other (no edema ) Neurologic: no focal deficit, alert and oriented x3, strength 5/5, CN 3-12 intact Psychiatric: mood/affect appropriate, cooperative Results - Lab Results 05/02/19 00:03 05/02/19 01:21 Most recent lab results Calcium 10.3 mg/dL (8.4-10.2) H 05/02/19 01:21 Assessment and Plan - Patient Problems (1) Acute kidney failure with tubular necrosis Current Visit: No Status: Acute Plan to address problem: acute kidney injury likely due to pre-renal azotemia in the setting of hypotension/volume depletion. pt was in recovery phase do ATN, and remained non-oliguric prior to recent discharge, no emergent indication for renal replacement therapy for now. Stop BP meds for now, IV NS bolus given in ER with stabilization of BP. start IV NS at 125ml/hr to maintain MAP > 65 mmHg, cont supportive care for SHERINE/ATN avoid nephrotoxins, NSAIDs. Renal US was ordered. Will monitor lytes and renal parameters closely and assess indication for renal replacement therapy on a daily basis. (2) Hyperkalemia Current Visit: No Status: Acute Plan to address problem: likely due to decreased distal tubular delivery in the setting of hypotension, s/p medical treatment with kayexalate, IV NS boluses. follow repeat K. cont 2g K renal diet. If renal function does not improve and hyperkalemia is refractory to medical management will consider HD. (3) Hyponatremia Current Visit: Yes Status: Acute Plan to address problem: likely hypovolemic hyponatremia, cont IV NS at 125ml/hr (4) Metabolic acidosis Current Visit: No Status: Acute Plan to address problem: started sodium bicarb 1300mg po bid. (5) Sacral decubitus ulcer, stage IV Current Visit: No Status: Acute Plan to address problem: consult wound care (6) Colorectal cancer Current Visit: No Status: Acute Plan to address problem: follow oncology recommendations
[2019-05-02 10:49] LABS: Creatine Kinase MB 2.9 ng/mL (0.0-4.0)
--- NOTE | 2019-05-02 11:13 | Progress Note ---
Assessment and Plan Assessment and plan: 59m who was in hospital being rx for kidney failure, he was planned for NH placement but refused and was dc, and returned within a day as he could not care for himself at home Acute renal failure, now on HD/hyperkalemia cont HD per nephrology stage 3 sacral decub cont wound care hx of rectal ca sp colostomy cont supportive care chronic pain added mscontin and po dilaudid, explained to patient that IV dilaudid will not be given at [place] Diabetes, cont insulins dispo; to [place], awaiting placement History Interval history: Review of systems Constitutional: No fevers, no malaise, no joint pains CVS: No chest pain, no orthopnea, no dyspnea on exertion, no pedal edema GI: No abdominal pain, no diarrhea, no vomiting, no constipation Respiratory: no wheezing, no coughing Hospitalist Physical - Physical exam Narrative exam: General.: Appears well, no distress, nontoxic HEENT: Moist mucous membranes, extraocular muscles intact, no lymphadenopathy Neck: supple Cardiac: S1-S2 heard Lungs: clear to auscultation bilaterally Abdomen: soft , nontender, nondistended, bowel sounds positive Extremities: no edema clubbing or cyanosis Skin: no rash or lesions Neurologic: no gross focal deficits Psych: calm, and cooperative - Constitutional Vitals: Temp Pulse Resp BP Pulse Ox 98.4 F 78 17 101/80 80 L 05/02/19 05:30 05/02/19 05:27 05/02/19 08:39 05/02/19 05:27 05/02/19 05:27 Results - Labs CBC & Chem 7: 05/03/19 15:01 05/08/19 07:00 Labs: Laboratory Last Values WBC 11.3 K/mm3 (4.5-11.0) H 05/02/19 00:03 RBC 3.08 M/mm3 (3.65-5.03) L 05/02/19 00:03 Hgb 9.5 gm/dl (11.8-15.2) L 05/02/19 00:03 Hct 26.7 % (35.5-45.6) L 05/02/19 00:03 MCV 87 fl (84-94) 05/02/19 00:03 MCH 31 pg (28-32) 05/02/19 00:03 MCHC 36 % (32-34) H 05/02/19 00:03 RDW 14.2 % (13.2-15.2) 05/02/19 00:03 Plt Count 479 K/mm3 (140-440) H 05/02/19 00:03 Lymph % (Auto) 27.8 % (13.4-35.0) 05/02/19 00:03 [place] % (Auto) 10.1 % (0.0-7.3) H 05/02/19 00:03 Eos % (Auto) 1.0 % (0.0-4.3) 05/02/19 00:03 Baso % (Auto) 1.0 % (0.0-1.8) 05/02/19 00:03 Lymph # 3.1 K/mm3 (1.2-5.4) 05/02/19 00:03 Wayne # 1.1 K/mm3 (0.0-0.8) H 05/02/19 00:03 Eos # 0.1 K/mm3 (0.0-0.4) 05/02/19 00:03 Baso # 0.1 K/mm3 (0.0-0.1) 05/02/19 00:03 Seg Neutrophils % 60.1 % (40.0-70.0) 05/02/19 00:03 Seg Neutrophils # 6.8 K/mm3 (1.8-7.7) 05/02/19 00:03 Sodium 127 mmol/L (137-145) L 05/02/19 01:21 Potassium 5.6 mmol/L (3.6-5.0) H 05/02/19 01:21 Chloride 92.2 mmol/L (98-107) L 05/02/19 01:21 Carbon Dioxide 20 mmol/L (22-30) L 05/02/19 01:21 20 mmol/L 05/02/19 01:21 BUN 49 mg/dL (9-20) H 05/02/19 01:21 4.0 mg/dL (0.8-1.5) H D 05/02/19 01:21 Estimated GFR 19 ml/min 05/02/19 01:21 12 % 05/02/19 01:21 Glucose 119 mg/dL (75-100) H 05/02/19 01:21 POC Glucose 118 (70-105) H 05/02/19 09:34 Lactic Acid 1.10 mmol/L (0.7-2.0) 05/02/19 01:21 Calcium 10.3 mg/dL (8.4-10.2) H 05/02/19 01:21 0.30 mg/dL (0.1-1.2) 05/02/19 01:21 AST 19 units/L (5-40) 05/02/19 01:21 ALT 41 units/L (7-56) 05/02/19 01:21 172 units/L (35-129) H 05/02/19 01:21 72 units/L (55-170) 05/02/19 09:36 CK-MB (CK-2) 2.9 ng/mL (0.0-4.0) 05/02/19 09:36 CK-MB (CK-2) Rel Index 4.0 (0-4) 05/02/19 09:36 0.186 ng/mL (0.00-0.029) H* 05/02/19 03:11 8.9 g/dL (6.3-8.2) H 05/02/19 01:21 3.7 g/dL (3.9-5) L 05/02/19 01:21 0.7 % 05/02/19 01:21 Active Medications - Current Medications Current Medications: Generic Name Dose Route Start Last Admin Trade Name Freq PRN Reason Stop Dose Admin Acetaminophen 650 mg 05/02/19 03:00 Tylenol PO Q4H PRN Pain MILD(1-3)/Fever >100.5/DE ANDA Enoxaparin Sodium 30 mg 05/02/19 10:00 Lovenox SUB-Q QDAY ZOE Sodium Chloride 1,000 mls @ 125 mls/hr 05/02/19 04:00 05/02/19 06:37 Nacl 0.9% 1000 Ml IV 125 mls/hr DIRECT ZOE Administration Ondansetron HCl 4 mg 05/02/19 03:00 Zofran IV Q8H PRN Nausea And Vomiting Oxycodone/Acetaminophen 1 tab 05/02/19 03:00 Percocet 5/325 PO Q4H PRN Pain, Moderate (4-6) Sodium Bicarbonate 1,300 mg 05/02/19 10:00 Sodium Bicarbonate PO BID ZOE Sodium Chloride 10 ml 05/02/19 10:00 Sodium Chloride Flush Syringe 10 Ml IV BID ZOE Sodium Chloride 10 ml 05/02/19 03:00 05/02/19 06:38 Sodium Chloride Flush Syringe 10 Ml IV 10 ml PRN PRN Administration LINE FLUSH
[2019-05-02] MEDS ORDERED: NORCO 10/325 PO PRN (11:14)
[2019-05-02] MEDS: LOVENOX SUB-Q SCH (11:43)
[2019-05-02] MEDS: SODIUM BICARBONATE PO SCH ×2 (11:44→21:39)
[2019-05-02] MEDS: SODIUM CHLORIDE FLUSH SYRINGE 10 ML IV SCH ×2 (11:53→21:40)
[2019-05-02] MEDS: MS CONTIN ER PO SCH ×2 (13:13→21:39)
--- NOTE | 2019-05-02 13:17 | Ultrasound Report ---
PROCEDURE: US RENAL BILAT TECHNIQUE: Renal ultrasound HISTORY: arf COMPARISON: 04/20/2019 FINDINGS: The right kidney measures 12.3 x 5.6 x 5.7 cm. The left measures 12.4 x 5.7 x 6.0 cm. There is mild r ight hydronephrosis. There is a small amount of debris in the bladder. IMPRESSION: Mild right hydronephrosis. Small amount of dependent debris in the bladder. This document is electronically signed by Shraddha Guillen MD., May 02 2019 01:15:42 PM ET
[2019-05-02 15:21] LABS: Calcium 9.4 mg/dL (8.4-10.2)
[2019-05-02 18:45] LABS: Chol/HDL Ratio 4.79 %
[2019-05-03] MEDS: MS CONTIN ER PO SCH ×4 (05:43→21:52)
--- NOTE | 2019-05-03 10:36 | Progress Note ---
Assessment and Plan - Patient Problems (1) Acute kidney failure with tubular necrosis Current Visit: No Status: Acute Plan to address problem: Probably acute tubular necrosis secondary to hypotension. Kidney function improving. Follow-up electrolytes and renal function. (2) Hypotension Current Visit: Yes Status: Acute Qualifiers: Hypotension type: unspecified hypotension type Qualified Code(s): I95.9 - Hypotension, unspecified Plan to address problem: Continue volume patient. Blood pressure is improving. Follow up blood pressure off of antihypertensive medications. (3) Hyperkalemia Current Visit: No Status: Acute Plan to address problem: Low potassium diet. Follow-up electrolytes (4) Anemia in chronic illness Current Visit: No Status: Acute Plan to address problem: Follow-up hemoglobin (5) Sacral decubitus ulcer, stage IV Current Visit: No Status: Acute Plan to address problem: Continue local wound care Subjective Date of service: 05/03/19 Principal diagnosis: acute kidney injury Interval history: Patient seen lying in bed. He has no complaints this morning other than wanting Diet liberalized. No nausea or vomiting Objective - Exam Narrative Exam: Middle aged male lying in bed in no acute distress HEENT: NCAT, pink oral mucous membrane Neck: Supple, no venous distention CVS: S1S2 RRR with no murmur, rub or gallop Chest: Clear to auscultation Abdomen: Protuberant, soft, nontender, ostomy intact, no organomegaly, bowel sounds are present Extremities: No edema Neuro: Awake, alert no focal deficits - Vital Signs Vital signs: Vital Signs - 12hr 05/02/19 05/03/19 05/03/19 23:14 00:24 01:12 Temperature 98.6 F Pulse Rate 59 L 96 H Respiratory 20 Rate Blood Pressure 94/64 O2 Sat by Pulse 99 100 Oximetry 05/03/19 04:04 Temperature 98.4 F Pulse Rate 109 H Respiratory 20 Rate Blood Pressure 108/75 O2 Sat by Pulse 100 Oximetry - Lab 05/02/19 00:03 05/02/19 14:29 Most recent lab results Calcium 9.4 mg/dL (8.4-10.2) 05/02/19 14:29 Medications & Allergies - Medications Allergies/Adverse Reactions: Allergies No Known Allergies Allergy (Unverified 04/20/19 09:03) Home Medications: Home Medications Medication Instructions Recorded Confirmed Last Taken Type amLODIPine [Norvasc] 5 mg PO DAILY 04/20/19 05/02/19 Unknown History Insulin Glargine [Lantus VIAL] 10 units SUB-Q QHS 30 Days #1000 04/29/19 05/02/19 Unknown Rx units Lispro Insulin [HumaLOG] 0 unit SUB-Q ACHS units 04/29/19 05/02/19 Unknown Rx Metoprolol [Lopressor TAB] 50 mg PO BID tablet 04/29/19 05/02/19 Unknown Rx oxyCODONE /ACETAMINOPHEN [Percocet 2 tab PO Q6H PRN #20 tablet 04/29/19 05/02/19 Unknown Rx 5/325 mg] Active Medications: Generic Name Dose Route Start Last Admin Trade Name Freq PRN Reason Stop Dose Admin Acetaminophen 650 mg 05/02/19 03:00 Tylenol PO Q4H PRN Pain MILD(1-3)/Fever >100.5/DE ANDA Acetaminophen/Hydrocodone Bitart 1 each 05/02/19 11:14 05/02/19 11:50 [place] 10/325 PO 1 each Q6H PRN Administration Pain, Moderate (4-6) Enoxaparin Sodium 30 mg 05/02/19 10:00 05/02/19 11:43 Lovenox SUB-Q 30 mg QDAY ZOE Administration Sodium Chloride 1,000 mls @ 125 mls/hr 05/02/19 04:00 05/02/19 06:37 Nacl 0.9% 1000 Ml IV 125 mls/hr DIRECT ZOE Administration Morphine Sulfate 15 mg 05/02/19 14:00 05/03/19 05:43 Ms Contin Er PO 15 mg Q8HR ZOE Administration Ondansetron HCl 4 mg 05/02/19 03:00 Zofran IV Q8H PRN Nausea And Vomiting Sodium Bicarbonate 1,300 mg 05/02/19 10:00 05/02/19 21:39 Sodium Bicarbonate PO 1,300 mg BID ZOE Administration Sodium Chloride 10 ml 05/02/19 10:00 05/02/19 21:40 Sodium Chloride Flush Syringe 10 Ml IV 10 ml BID ZOE Administration Sodium Chloride 10 ml 05/02/19 03:00 05/02/19 06:38 Sodium Chloride Flush Syringe 10 Ml IV 10 ml PRN PRN Administration LINE FLUSH
[2019-05-03] MEDS: LOVENOX SUB-Q SCH (10:44)
[2019-05-03] MEDS: SODIUM CHLORIDE FLUSH SYRINGE 10 ML IV SCH ×2 (10:44→21:53)
[2019-05-03] MEDS: SODIUM BICARBONATE PO SCH ×2 (10:44→21:52)
[2019-05-03 15:44] LABS: Basophils # (Auto) 0.1 K/mm3 (0.0-0.1); Basophils % (Auto) 1.1 % (0.0-1.8); Eosinophils # (Auto) 0.2 K/mm3 (0.0-0.4); Eosinophils % (Auto) 2.4 % (0.0-4.3); Hematocrit 25.9 % (35.5-45.6); Hemoglobin 8.8 gm/dl (11.8-15.2); Lymphocytes # (Auto) 2.8 K/mm3 (1.2-5.4); Lymphocytes % (Auto) 33.3 % (13.4-35.0); Mean Corpuscular HGB Conc 34 % (32-34); Mean Corpuscular Volume 87 fl (84-94); Monocytes # (Auto) 0.8 K/mm3 (0.0-0.8); Monocytes % (Auto) 9.6 % (0.0-7.3); Platelet Count 541 K/mm3 (140-440); Red Blood Count 2.98 M/mm3 (3.65-5.03); Red Cell Distribution Width 13.9 % (13.2-15.2)
[2019-05-03 15:50] LABS: Calcium 9.4 mg/dL (8.4-10.2)
--- NOTE | 2019-05-03 15:52 | Progress Note ---
Assessment and Plan Assessment and plan: 59m who was in hospital being rx for kidney failure, he was planned for NH placement but refused and was dc, and returned within a day as he could not care for himself at home Acute renal failure, now on HD/hyperkalemia cont HD per nephrology stage 3 sacral decub cont wound care hx of rectal ca sp colostomy cont supportive care chronic pain added mscontin and po dilaudid, explained to patient that IV dilaudid will not be given at [place] Diabetes, cont insulins dispo; to [place], awaiting placement History Interval history: Review of systems Constitutional: No fevers, no malaise, no joint pains CVS: No chest pain, no orthopnea, no dyspnea on exertion, no pedal edema GI: No abdominal pain, no diarrhea, no vomiting, no constipation Respiratory: no wheezing, no coughing Hospitalist Physical - Physical exam Narrative exam: General.: Appears well, no distress, nontoxic HEENT: Moist mucous membranes, extraocular muscles intact, no lymphadenopathy Neck: supple Cardiac: S1-S2 heard Lungs: clear to auscultation bilaterally Abdomen: soft , nontender, nondistended, bowel sounds positive Extremities: no edema clubbing or cyanosis Skin: no rash or lesions Neurologic: no gross focal deficits Psych: calm, and cooperative - Constitutional Vitals: Temp Pulse Resp BP Pulse Ox 98.1 F 109 H 18 98/72 100 05/03/19 08:07 05/03/19 04:04 05/03/19 08:07 05/03/19 08:07 05/03/19 14:25 Results - Labs CBC & Chem 7: 05/03/19 15:01 05/08/19 07:00 Labs: Laboratory Last Values WBC 8.4 K/mm3 (4.5-11.0) 05/03/19 15:01 RBC 2.98 M/mm3 (3.65-5.03) L 05/03/19 15:01 Hgb 8.8 gm/dl (11.8-15.2) L 05/03/19 15:01 Hct 25.9 % (35.5-45.6) L 05/03/19 15:01 MCV 87 fl (84-94) 05/03/19 15:01 MCH 30 pg (28-32) 05/03/19 15:01 MCHC 34 % (32-34) 05/03/19 15:01 RDW 13.9 % (13.2-15.2) 05/03/19 15:01 Plt Count 541 K/mm3 (140-440) H 05/03/19 15:01 Lymph % (Auto) 33.3 % (13.4-35.0) 05/03/19 15:01 Nolan % (Auto) 9.6 % (0.0-7.3) H 05/03/19 15:01 Eos % (Auto) 2.4 % (0.0-4.3) 05/03/19 15:01 Baso % (Auto) 1.1 % (0.0-1.8) 05/03/19 15:01 Lymph # 2.8 K/mm3 (1.2-5.4) 05/03/19 15:01 Nolan # 0.8 K/mm3 (0.0-0.8) 05/03/19 15:01 Eos # 0.2 K/mm3 (0.0-0.4) 05/03/19 15:01 Baso # 0.1 K/mm3 (0.0-0.1) 05/03/19 15:01 Seg Neutrophils % 53.6 % (40.0-70.0) 05/03/19 15:01 Seg Neutrophils # 4.5 K/mm3 (1.8-7.7) 05/03/19 15:01 Sodium 130 mmol/L (137-145) L 05/03/19 15:01 Potassium 5.1 mmol/L (3.6-5.0) H 05/03/19 15:01 Chloride 94.9 mmol/L (98-107) L 05/03/19 15:01 Carbon Dioxide 20 mmol/L (22-30) L 05/03/19 15:01 20 mmol/L 05/03/19 15:01 BUN 41 mg/dL (9-20) H 05/03/19 15:01 2.3 mg/dL (0.8-1.5) H 05/03/19 15:01 Estimated GFR 36 ml/min 05/03/19 15:01 18 % 05/03/19 15:01 Glucose 114 mg/dL (75-100) H 05/03/19 15:01 POC Glucose 147 (70-105) H 05/02/19 23:53 Lactic Acid 1.10 mmol/L (0.7-2.0) 05/02/19 01:21 Calcium 9.4 mg/dL (8.4-10.2) 05/03/19 15:01 0.30 mg/dL (0.1-1.2) 05/02/19 01:21 AST 19 units/L (5-40) 05/02/19 01:21 ALT 41 units/L (7-56) 05/02/19 01:21 172 units/L (35-129) H 05/02/19 01:21 72 units/L (55-170) 05/02/19 09:36 CK-MB (CK-2) 2.9 ng/mL (0.0-4.0) 05/02/19 09:36 CK-MB (CK-2) Rel Index 4.0 (0-4) 05/02/19 09:36 0.185 ng/mL (0.00-0.029) H* 05/02/19 09:36 8.9 g/dL (6.3-8.2) H 05/02/19 01:21 3.7 g/dL (3.9-5) L 05/02/19 01:21 0.7 % 05/02/19 01:21 Triglycerides 255 mg/dL (2-149) H 05/02/19 01:21 Cholesterol 163 mg/dL (50-199) 05/02/19 01:21 79 mg/dL (50-130) 05/02/19 01:21 34 mg/dL (40-59) L 05/02/19 01:21 4.79 % 05/02/19 01:21 Active Medications - Current Medications Current Medications: Generic Name Dose Route Start Last Admin Trade Name Freq PRN Reason Stop Dose Admin Acetaminophen 650 mg 05/02/19 03:00 Tylenol PO Q4H PRN Pain MILD(1-3)/Fever >100.5/DE ANDA Acetaminophen/Hydrocodone Bitart 1 each 05/02/19 11:14 05/02/19 11:50 [place] 10/325 PO 1 each Q6H PRN Administration Pain, Moderate (4-6) Enoxaparin Sodium 30 mg 05/02/19 10:00 05/03/19 10:44 Lovenox SUB-Q 30 mg QDAY ZOE Administration Sodium Chloride 1,000 mls @ 125 mls/hr 05/02/19 04:00 05/02/19 06:37 Nacl 0.9% 1000 Ml IV 125 mls/hr DIRECT ZOE Administration Morphine Sulfate 30 mg 05/03/19 15:50 Ms Contin Er PO Q8HR ZOE Ondansetron HCl 4 mg 05/02/19 03:00 Zofran IV Q8H PRN Nausea And Vomiting Sodium Bicarbonate 1,300 mg 05/02/19 10:00 05/03/19 10:44 Sodium Bicarbonate PO 1,300 mg BID ZOE Administration Sodium Chloride 10 ml 05/02/19 10:00 05/03/19 10:44 Sodium Chloride Flush Syringe 10 Ml IV 10 ml BID ZOE Administration Sodium Chloride 10 ml 05/02/19 03:00 05/02/19 06:38 Sodium Chloride Flush Syringe 10 Ml IV 10 ml PRN PRN Administration LINE FLUSH
[2019-05-03] MEDS: TYLENOL PO SCH (17:24)
[2019-05-03] MEDS ORDERED: D50W (25GM) Syringe IV PRN (22:44)
[2019-05-04] MEDS: TYLENOL PO SCH ×3 (01:38→17:29)
[2019-05-04] MEDS: BENADRYL PO PRN ×3 (06:28→22:04)
[2019-05-04] MEDS: DILAUDID PO PRN ×3 (06:36→23:53)
[2019-05-04] MEDS: MS CONTIN ER PO SCH ×3 (06:37→22:01)
--- NOTE | 2019-05-04 08:49 | Progress Note ---
Assessment and Plan - Patient Problems (1) Acute kidney failure with tubular necrosis Current Visit: No Status: Acute Plan to address problem: Probably acute tubular necrosis secondary to hypotension. Kidney function improving. Follow-up electrolytes and renal function. (2) Hypotension Current Visit: Yes Status: Acute Qualifiers: Hypotension type: unspecified hypotension type Qualified Code(s): I95.9 - Hypotension, unspecified Plan to address problem: Continue volume repletion. Blood pressure is improving. Follow up blood pressure off of antihypertensive medications. (3) Hyperkalemia Current Visit: No Status: Acute Plan to address problem: Low potassium diet. Follow-up electrolytes (4) Anemia in chronic illness Current Visit: No Status: Acute Plan to address problem: Follow-up hemoglobin (5) Sacral decubitus ulcer, stage IV Current Visit: No Status: Acute Plan to address problem: Continue local wound care Subjective Date of service: 05/04/19 Principal diagnosis: acute kidney injury Interval history: Patient seen lying in bed. He is feeling better. No nausea or vomiting Objective - Exam Narrative Exam: Middle aged male lying in bed in no acute distress HEENT: NCAT, pink oral mucous membrane Neck: Supple, no venous distention CVS: S1S2 RRR with no murmur, rub or gallop Chest: Clear to auscultation Abdomen: Protuberant, soft, nontender, ostomy intact, no organomegaly, bowel sounds are present Extremities: No edema Neuro: Awake, alert no focal deficits - Vital Signs Vital signs: Vital Signs - 12hr 05/03/19 05/03/19 05/03/19 21:00 21:52 22:02 Temperature Pulse Rate Respiratory 20 18 Rate Respiratory 18 Rate [Posterior Sacrum Soft Tissue] Blood Pressure O2 Sat by Pulse 97 Oximetry 05/03/19 05/03/19 05/04/19 22:52 23:37 04:30 Temperature 98.4 F 98.7 F Pulse Rate 104 H 93 H Respiratory 18 20 20 Rate Respiratory Rate [Posterior Sacrum Soft Tissue] Blood Pressure 103/73 97/66 O2 Sat by Pulse 98 100 Oximetry 05/04/19 05/04/19 05/04/19 06:36 06:37 07:36 Temperature Pulse Rate Respiratory 18 18 18 Rate Respiratory Rate [Posterior Sacrum Soft Tissue] Blood Pressure O2 Sat by Pulse Oximetry - Lab 05/03/19 15:01 05/03/19 15:01 Most recent lab results Calcium 9.4 mg/dL (8.4-10.2) 05/03/19 15:01 Medications & Allergies - Medications Allergies/Adverse Reactions: Allergies No Known Allergies Allergy (Unverified 04/20/19 09:03) Home Medications: Home Medications Medication Instructions Recorded Confirmed Last Taken Type amLODIPine [Norvasc] 5 mg PO DAILY 04/20/19 05/02/19 Unknown History Insulin Glargine [Lantus VIAL] 10 units SUB-Q QHS 30 Days #1000 04/29/19 05/02/19 Unknown Rx units Lispro Insulin [HumaLOG] 0 unit SUB-Q ACHS units 04/29/19 05/02/19 Unknown Rx Metoprolol [Lopressor TAB] 50 mg PO BID tablet 04/29/19 05/02/19 Unknown Rx oxyCODONE /ACETAMINOPHEN [Percocet 2 tab PO Q6H PRN #20 tablet 04/29/19 05/02/19 Unknown Rx 5/325 mg] Active Medications: Generic Name Dose Route Start Last Admin Trade Name Freq PRN Reason Stop Dose Admin Acetaminophen 650 mg 05/02/19 03:00 Tylenol PO Q4H PRN Pain MILD(1-3)/Fever >100.5/DE ANDA Acetaminophen 1,000 mg 05/03/19 17:00 05/04/19 01:38 Tylenol PO Not Given Q8H [facility] Dextrose 50 ml 05/03/19 22:44 D50w (25gm) Syringe IV PRN PRN Hypoglycemia Diphenhydramine HCl 25 mg 05/04/19 06:01 05/04/19 06:28 Benadryl PO 25 mg Q6H PRN Administration Itching Enoxaparin Sodium 30 mg 05/02/19 10:00 05/03/19 10:44 Lovenox SUB-Q 30 mg QDAY ZOE Administration Hydromorphone HCl 8 mg 05/03/19 16:01 05/04/19 06:36 Dilaudid PO 8 mg Q6H PRN Administration Pain , Severe (7-10) Insulin Human Lispro 0 unit 05/04/19 07:30 Humalog SUB-Q ACHS [facility] Protocol Morphine Sulfate 30 mg 05/03/19 17:00 05/04/19 06:37 Ms Contin Er PO Not Given Q8HR ZOE Ondansetron HCl 4 mg 05/02/19 03:00 Zofran IV Q8H PRN Nausea And Vomiting Sodium Bicarbonate 1,300 mg 05/02/19 10:00 05/03/19 21:52 Sodium Bicarbonate PO 1,300 mg BID ZOE Administration Sodium Chloride 10 ml 05/02/19 10:00 05/03/19 21:53 Sodium Chloride Flush Syringe 10 Ml IV 10 ml BID ZOE Administration Sodium Chloride 10 ml 05/02/19 03:00 05/02/19 06:38 Sodium Chloride Flush Syringe 10 Ml IV 10 ml PRN PRN Administration LINE FLUSH
[2019-05-04] MEDS: LOVENOX SUB-Q SCH (09:52)
[2019-05-04] MEDS: SODIUM BICARBONATE PO SCH ×2 (09:52→22:02)
[2019-05-04] MEDS: SODIUM CHLORIDE FLUSH SYRINGE 10 ML IV SCH ×2 (09:53→22:02)
[2019-05-04] MEDS: HumaLOG SUB-Q SCH ×4 (13:35→22:01)
--- NOTE | 2019-05-04 13:35 | Progress Note ---
Assessment and Plan Assessment and plan: Patient is a 59 yo man with a history of hypertension, diabetes mellitus, rectal CA status post laparotomy, colostomy, stage IV sacral ulcer who presented back to ED with hypotension after being discharged the previous day. He was found to have Creatinine of 4.0. Acute renal failure, ATN and vasomotor nephropathy, poa: Nephrology following, no HD Hypotension, probably secondary to antihypertensive: hold and adjust Hyperkalemia: treated, monitor bmp closely Hyponatremia hypovolemia: monitor bmp closely Abnormal cardiac enzyme due to ARF Diabetes mellitus type 2 on Insulin: cont insulins Rectal cancer sp colostomy, with stage 3 sacral decubitus ulcer, patient reports that the rectal cancer resection may have went to far to the anal verge, he spent a month in hyperbaric O2 treatment: cont wound care Chronic pain: added mscontin and po dilaudid, explained to patient that IV dilaudid will not be given at [place] Dispo; to [place], awaiting placement History Interval history: Patient was seen and examined. Follow-up on current diagnosis of Renal failure. No overnight events reported to me. Patient denies any chest pain, shortness breath, nausea/vomiting or severe headaches. Imaging, nursing note, chart, labs and old chart reviewed. Discussed with patient. Hospitalist Physical - Physical exam Narrative exam: Gen: WDWN, NAD, Awake, Alert, Orientated HEENT: NCAT, EOMI, PERRL, OP Clear Neck: supple, no adenopathy, no thyromegaly, no JVD CVS/Heart: RRR, normal S1S2, pulses present bilaterally Chest/Lungs: CTA B, Symmetrical chest expansion, good air entry bilaterally GI/Abdomen: soft, NTND, colostomy bag in place, good bowel sounds, no guarding or rebound /Bladder: no suprapubic tenderness, no CVA or paraspinal tenderness Extermity/Skin: no c/c/e, no obvious rash MSK: FROM x 4 Neuro: CN 2-12 grossly intact, no new focal deficits Psych: calm - Constitutional Vitals: Temp Pulse Resp BP Pulse Ox 98.3 F 90 16 102/70 98 05/04/19 09:12 05/04/19 09:12 05/04/19 09:12 05/04/19 09:12 05/04/19 11:41 Results - Labs CBC & Chem 7: 05/03/19 15:01 05/05/19 04:53 Labs: Laboratory Last Values WBC 8.4 K/mm3 (4.5-11.0) 05/03/19 15:01 RBC 2.98 M/mm3 (3.65-5.03) L 05/03/19 15:01 Hgb 8.8 gm/dl (11.8-15.2) L 05/03/19 15:01 Hct 25.9 % (35.5-45.6) L 05/03/19 15:01 MCV 87 fl (84-94) 05/03/19 15:01 MCH 30 pg (28-32) 05/03/19 15:01 MCHC 34 % (32-34) 05/03/19 15:01 RDW 13.9 % (13.2-15.2) 05/03/19 15:01 Plt Count 541 K/mm3 (140-440) H 05/03/19 15:01 Lymph % (Auto) 33.3 % (13.4-35.0) 05/03/19 15:01 [place] % (Auto) 9.6 % (0.0-7.3) H 05/03/19 15:01 Eos % (Auto) 2.4 % (0.0-4.3) 05/03/19 15:01 Baso % (Auto) 1.1 % (0.0-1.8) 05/03/19 15:01 Lymph # 2.8 K/mm3 (1.2-5.4) 05/03/19 15:01 [place] # 0.8 K/mm3 (0.0-0.8) 05/03/19 15:01 Eos # 0.2 K/mm3 (0.0-0.4) 05/03/19 15:01 Baso # 0.1 K/mm3 (0.0-0.1) 05/03/19 15:01 Seg Neutrophils % 53.6 % (40.0-70.0) 05/03/19 15:01 Seg Neutrophils # 4.5 K/mm3 (1.8-7.7) 05/03/19 15:01 Sodium 130 mmol/L (137-145) L 05/03/19 15:01 Potassium 5.1 mmol/L (3.6-5.0) H 05/03/19 15:01 Chloride 94.9 mmol/L (98-107) L 05/03/19 15:01 Carbon Dioxide 20 mmol/L (22-30) L 05/03/19 15:01 20 mmol/L 05/03/19 15:01 BUN 41 mg/dL (9-20) H 05/03/19 15:01 2.3 mg/dL (0.8-1.5) H 05/03/19 15:01 Estimated GFR 36 ml/min 05/03/19 15:01 18 % 05/03/19 15:01 Glucose 114 mg/dL (75-100) H 05/03/19 15:01 POC Glucose 163 (70-105) H 05/04/19 12:07 5.7 % (4-6) 05/04/19 05:33 Lactic Acid 1.10 mmol/L (0.7-2.0) 05/02/19 01:21 Calcium 9.4 mg/dL (8.4-10.2) 05/03/19 15:01 0.30 mg/dL (0.1-1.2) 05/02/19 01:21 AST 19 units/L (5-40) 05/02/19 01:21 ALT 41 units/L (7-56) 05/02/19 01:21 172 units/L (35-129) H 05/02/19 01:21 72 units/L (55-170) 05/02/19 09:36 CK-MB (CK-2) 2.9 ng/mL (0.0-4.0) 05/02/19 09:36 CK-MB (CK-2) Rel Index 4.0 (0-4) 05/02/19 09:36 0.185 ng/mL (0.00-0.029) H* 05/02/19 09:36 8.9 g/dL (6.3-8.2) H 05/02/19 01:21 3.7 g/dL (3.9-5) L 05/02/19 01:21 0.7 % 05/02/19 01:21 Triglycerides 255 mg/dL (2-149) H 05/02/19 01:21 Cholesterol 163 mg/dL (50-199) 05/02/19 01:21 79 mg/dL (50-130) 05/02/19 01:21 34 mg/dL (40-59) L 05/02/19 01:21 4.79 % 05/02/19 01:21 Active Medications - Current Medications Current Medications: Generic Name Dose Route Start Last Admin Trade Name Freq PRN Reason Stop Dose Admin Acetaminophen 650 mg 05/02/19 03:00 Tylenol PO Q4H PRN Pain MILD(1-3)/Fever >100.5/DE ANDA Acetaminophen 1,000 mg 05/03/19 17:00 05/04/19 09:52 Tylenol PO Not Given Q8H [facility] Dextrose 50 ml 05/03/19 22:44 D50w (25gm) Syringe IV PRN PRN Hypoglycemia Diphenhydramine HCl 25 mg 05/04/19 06:01 05/04/19 12:58 Benadryl PO 25 mg Q6H PRN Administration Itching Enoxaparin Sodium 30 mg 05/02/19 10:00 05/04/19 09:52 Lovenox SUB-Q 30 mg QDAY [facility] Administration Hydromorphone HCl 8 mg 05/03/19 16:01 05/04/19 06:36 Dilaudid PO 8 mg Q6H PRN Administration Pain , Severe (7-10) Insulin Human Lispro 0 unit 05/04/19 07:30 Humalog SUB-Q ACHS [facility] Protocol Morphine Sulfate 30 mg 05/03/19 17:00 05/04/19 12:59 Ms Contin Er PO Not Given Q8HR [facility] Ondansetron HCl 4 mg 05/02/19 03:00 Zofran IV Q8H PRN Nausea And Vomiting Sodium Bicarbonate 1,300 mg 05/02/19 10:00 05/04/19 09:52 Sodium Bicarbonate PO 1,300 mg BID ZOE Administration Sodium Chloride 10 ml 05/02/19 10:00 05/04/19 09:53 Sodium Chloride Flush Syringe 10 Ml IV 10 ml BID ZOE Administration Sodium Chloride 10 ml 05/02/19 03:00 05/02/19 06:38 Sodium Chloride Flush Syringe 10 Ml IV 10 ml PRN PRN Administration LINE FLUSH Nutrition/Malnutrition Assess - Dietary Evaluation Nutrition/Malnutrition Findings: Nutrition Notes Start: 05/03/19 17:53 Freq: Status: Active Protocol: Document 05/03/19 17:53 RM (Rec: 05/03/19 18:01 RM [id number]) Nutrition Notes Need for Assessment generated from: [facility] Initial or Follow up Assessment Current Diagnosis Acute Kidney Injury,Diabetes, Hypertension Other Pertinent Diagnosis Sacral PU,Hx rectal cancer Current Diet Regular Labs/Tests K 5.1 Pertinent Medications Reviewed Height 5 ft 11.5 in Weight 94.376 kg Usual Body Weight 118.18 kg [place] Body Weight (kg) 79.54 BMI 28.5 Weight change and time frame 20% wt loss X 5 1/2 months Subjective/Other Information Screened for malnutrition. Renal,Cardiac diet in place earlier today. Regular diet ordered later today. Pt stated that [employer] his appetite was "so so." Stated that he was D/C'd from this facility Friday and came back Friday night. Stated that he ate most of his meals yesterday but none today d/t disliking the renal diet. Stated UBW was 260 lbs in November. No temporal or orbital wasting . Burn Absent Trauma Absent #1 Nutrition Diagnosis Inadequate oral intake Etiology food preferences As Evidenced by Signs and Symptoms pt statement that he did not eat any of his meals today Is patient on ventilator? No Is Patient Ambulatory and/or Out of Bed Yes REE-([facility]-ambulatory/OOB) [ 2338.466 NUTR.MSJOOB] Calculation Used for Recommendations [facility] Additional Notes Protein Needs: 94-123g (1-1.3g /kg) Fluid Needs: 1 ml/kcal Nutrition Intervention Change Diet Order: Continue current Add Supplement/Snack (indicate name/kcal Glucerna [place], Chocolate /protein ) 1 daily Provides kCal: 220 Provides Protein (gm) 10 Goal #1 Meet at least 75% of calorie and protein needs via PO and ONS intakes Anticipated Discharge Needs: Regular diet Follow-Up By: 05/06/19 Additional Comments Follow for PO and ONS intakes, K lab
[2019-05-05] MEDS: TYLENOL PO SCH ×3 (01:42→16:42)
[2019-05-05 06:51] LABS: Calcium 9.3 mg/dL (8.4-10.2)
[2019-05-05] MEDS: HumaLOG SUB-Q SCH ×3 (08:36→16:42)
[2019-05-05] MEDS: DILAUDID PO PRN ×3 (08:53→22:16)
[2019-05-05] MEDS: LOVENOX SUB-Q SCH (09:32)
[2019-05-05] MEDS: SODIUM BICARBONATE PO SCH ×2 (09:33→22:16)
[2019-05-05] MEDS: SODIUM CHLORIDE FLUSH SYRINGE 10 ML IV SCH ×2 (09:34→22:20)
--- NOTE | 2019-05-05 12:46 | Progress Note ---
Assessment and Plan - Patient Problems (1) Acute kidney failure with tubular necrosis Current Visit: No Status: Acute Plan to address problem: Probably acute tubular necrosis secondary to hypotension. Kidney function improving. Okay to discharge from renal standpoint. Patient does not need dialysis (2) Hypotension Current Visit: Yes Status: Acute Qualifiers: Hypotension type: unspecified hypotension type Qualified Code(s): I95.9 - Hypotension, unspecified Plan to address problem: Blood pressure has improved. Follow up blood pressure off of antihypertensive medications. (3) Hyperkalemia Current Visit: No Status: Acute Plan to address problem: Low potassium diet. Follow-up electrolytes (4) Anemia in chronic illness Current Visit: No Status: Acute Plan to address problem: Follow-up hemoglobin (5) Sacral decubitus ulcer, stage IV Current Visit: No Status: Acute Plan to address problem: Continue local wound care Subjective Date of service: 05/05/19 Principal diagnosis: acute kidney injury Interval history: Patient seen lying in bed. He is feeling better. No nausea or vomiting. He was surprised by how deep his sacral wound is Objective - Exam Narrative Exam: Middle aged male lying in bed in no acute distress HEENT: NCAT, pink oral mucous membrane Neck: Supple, no venous distention CVS: S1S2 RRR with no murmur, rub or gallop Chest: Clear to auscultation Abdomen: Protuberant, soft, nontender, ostomy intact, no organomegaly, bowel sounds are present Extremities: No edema Neuro: Awake, alert no focal deficits - Vital Signs Vital signs: Vital Signs - 12hr 05/05/19 05/05/19 05/05/19 00:53 04:09 06:06 Temperature 98.0 F 98.0 F Pulse Rate 104 H 102 H Respiratory 18 18 18 Rate Blood Pressure 88/58 85/53 O2 Sat by Pulse 100 100 Oximetry 05/05/19 05/05/19 06:08 08:14 Temperature 98.0 F 97.8 F Pulse Rate Respiratory 18 18 Rate Blood Pressure 97/61 105/62 O2 Sat by Pulse Oximetry - Lab 05/03/19 15:01 05/05/19 04:53 Most recent lab results Calcium 9.3 mg/dL (8.4-10.2) 05/05/19 04:53 Medications & Allergies - Medications Allergies/Adverse Reactions: Allergies No Known Allergies Allergy (Unverified 04/20/19 09:03) Home Medications: Home Medications Medication Instructions Recorded Confirmed Last Taken Type amLODIPine [Norvasc] 5 mg PO DAILY 04/20/19 05/02/19 Unknown History Insulin Glargine [Lantus VIAL] 10 units SUB-Q QHS 30 Days #1000 04/29/19 05/02/19 Unknown Rx units Lispro Insulin [HumaLOG] 0 unit SUB-Q ACHS units 04/29/19 05/02/19 Unknown Rx Metoprolol [Lopressor TAB] 50 mg PO BID tablet 04/29/19 05/02/19 Unknown Rx oxyCODONE /ACETAMINOPHEN [Percocet 2 tab PO Q6H PRN #20 tablet 04/29/19 05/02/19 Unknown Rx 5/325 mg] Active Medications: Generic Name Dose Route Start Last Admin Trade Name Freq PRN Reason Stop Dose Admin Acetaminophen 650 mg 05/02/19 03:00 Tylenol PO Q4H PRN Pain MILD(1-3)/Fever >100.5/DE ANDA Acetaminophen 1,000 mg 05/03/19 17:00 05/05/19 09:31 Tylenol PO Not Given Q8H [facility] Dextrose 50 ml 05/03/19 22:44 D50w (25gm) Syringe IV PRN PRN Hypoglycemia Diphenhydramine HCl 25 mg 05/04/19 06:01 05/04/19 22:04 Benadryl PO 25 mg Q6H PRN Administration Itching Enoxaparin Sodium 30 mg 05/02/19 10:00 05/05/19 09:32 Lovenox SUB-Q 30 mg QDAY [facility] Administration Hydromorphone HCl 4 mg 05/04/19 22:53 05/05/19 08:53 Dilaudid PO 4 mg Q6H PRN Administration Pain , Severe (7-10) Insulin Human Lispro 0 unit 05/04/19 07:30 05/05/19 08:36 Humalog SUB-Q Not Given ACHS [facility] Protocol Ondansetron HCl 4 mg 05/02/19 03:00 Zofran IV Q8H PRN Nausea And Vomiting Sodium Bicarbonate 1,300 mg 05/02/19 10:00 05/05/19 09:33 Sodium Bicarbonate PO 1,300 mg BID ZOE Administration Sodium Chloride 10 ml 05/02/19 10:00 05/05/19 09:34 Sodium Chloride Flush Syringe 10 Ml IV 10 ml BID ZOE Administration Sodium Chloride 10 ml 05/02/19 03:00 05/02/19 06:38 Sodium Chloride Flush Syringe 10 Ml IV 10 ml PRN PRN Administration LINE FLUSH
--- NOTE | 2019-05-05 13:10 | Progress Note ---
Assessment and Plan Assessment and plan: Patient is a 59 yo man with a history of hypertension, diabetes mellitus, rectal CA status post laparotomy, colostomy, stage IV sacral ulcer and ARF s/p HD up until 04/26/19 who presented back to ED with hypotension after being discharged the previous day. In discussing with Nephrology, patient may have went home and took his old antihypertensive which dropped his bp too low. He was found to have Creatinine of 4.0. Acute renal failure, ATN and vasomotor nephropathy, poa: Nephrology following, no HD Hypotension, probably secondary to antihypertensive: resolved Hyperkalemia: treated, monitor bmp closely Hyponatremia hypovolemia: monitor bmp closely Abnormal cardiac enzyme due to ARF Diabetes mellitus type 2 on Insulin: cont insulins Rectal cancer sp colostomy, with stage 3 sacral decubitus ulcer, patient reports that the rectal cancer resection may have went to far to the anal verge, he spent a month in hyperbaric O2 treatment: cont wound care Chronic pain: added mscontin and po dilaudid, explained to patient that IV dilaudid will not be given at [place] Dispo; continue inpatient care, awaiting [facility] placement History Interval history: Patient was seen and examined. Follow-up on current diagnosis of Renal failure. No overnight events reported to me. Patient denies any chest pain, shortness breath, nausea/vomiting or severe headaches. Imaging, nursing note, chart, labs and old chart reviewed. Discussed with patient. Hospitalist Physical - Physical exam Narrative exam: Gen: WDWN, NAD, Awake, Alert, Orientated HEENT: NCAT, EOMI, PERRL, OP Clear Neck: supple, no adenopathy, no thyromegaly, no JVD CVS/Heart: RRR, normal S1S2, pulses present bilaterally Chest/Lungs: CTA B, Symmetrical chest expansion, good air entry bilaterally GI/Abdomen: soft, NTND, colostomy bag in place, good bowel sounds, no guarding or rebound /Bladder: no suprapubic tenderness, no CVA or paraspinal tenderness Extermity/Skin: no c/c/e, no obvious rash MSK: FROM x 4 Neuro: CN 2-12 grossly intact, no new focal deficits Psych: calm - Constitutional Vitals: Temp Pulse Resp BP Pulse Ox 97.8 F 102 H 18 105/62 100 05/05/19 08:14 05/05/19 06:06 05/05/19 08:14 05/05/19 08:14 05/05/19 06:06 Results - Labs CBC & Chem 7: 05/03/19 15:01 05/05/19 04:53 Labs: Laboratory Last Values WBC 8.4 K/mm3 (4.5-11.0) 05/03/19 15:01 RBC 2.98 M/mm3 (3.65-5.03) L 05/03/19 15:01 Hgb 8.8 gm/dl (11.8-15.2) L 05/03/19 15:01 Hct 25.9 % (35.5-45.6) L 05/03/19 15:01 MCV 87 fl (84-94) 05/03/19 15:01 MCH 30 pg (28-32) 05/03/19 15:01 MCHC 34 % (32-34) 05/03/19 15:01 RDW 13.9 % (13.2-15.2) 05/03/19 15:01 Plt Count 541 K/mm3 (140-440) H 05/03/19 15:01 Lymph % (Auto) 33.3 % (13.4-35.0) 05/03/19 15:01 [place] % (Auto) 9.6 % (0.0-7.3) H 05/03/19 15:01 Eos % (Auto) 2.4 % (0.0-4.3) 05/03/19 15:01 Baso % (Auto) 1.1 % (0.0-1.8) 05/03/19 15:01 Lymph # 2.8 K/mm3 (1.2-5.4) 05/03/19 15:01 [place] # 0.8 K/mm3 (0.0-0.8) 05/03/19 15:01 Eos # 0.2 K/mm3 (0.0-0.4) 05/03/19 15:01 Baso # 0.1 K/mm3 (0.0-0.1) 05/03/19 15:01 Seg Neutrophils % 53.6 % (40.0-70.0) 05/03/19 15:01 Seg Neutrophils # 4.5 K/mm3 (1.8-7.7) 05/03/19 15:01 Sodium 132 mmol/L (137-145) L 05/05/19 04:53 Potassium 4.6 mmol/L (3.6-5.0) 05/05/19 04:53 Chloride 96.8 mmol/L (98-107) L 05/05/19 04:53 Carbon Dioxide 20 mmol/L (22-30) L 05/05/19 04:53 20 mmol/L 05/05/19 04:53 BUN 36 mg/dL (9-20) H 05/05/19 04:53 2.1 mg/dL (0.8-1.5) H 05/05/19 04:53 Estimated GFR 40 ml/min 05/05/19 04:53 17 % 05/05/19 04:53 Glucose 117 mg/dL (75-100) H 05/05/19 04:53 POC Glucose 141 (70-105) H 05/05/19 08:18 5.7 % (4-6) 05/04/19 05:33 Lactic Acid 1.10 mmol/L (0.7-2.0) 05/02/19 01:21 Calcium 9.3 mg/dL (8.4-10.2) 05/05/19 04:53 0.30 mg/dL (0.1-1.2) 05/02/19 01:21 AST 19 units/L (5-40) 05/02/19 01:21 ALT 41 units/L (7-56) 05/02/19 01:21 172 units/L (35-129) H 05/02/19 01:21 72 units/L (55-170) 05/02/19 09:36 CK-MB (CK-2) 2.9 ng/mL (0.0-4.0) 05/02/19 09:36 CK-MB (CK-2) Rel Index 4.0 (0-4) 05/02/19 09:36 0.185 ng/mL (0.00-0.029) H* 05/02/19 09:36 8.9 g/dL (6.3-8.2) H 05/02/19 01:21 3.7 g/dL (3.9-5) L 05/02/19 01:21 0.7 % 05/02/19 01:21 Triglycerides 255 mg/dL (2-149) H 05/02/19 01:21 Cholesterol 163 mg/dL (50-199) 05/02/19 01:21 79 mg/dL (50-130) 05/02/19 01:21 34 mg/dL (40-59) L 05/02/19 01:21 4.79 % 05/02/19 01:21 Active Medications - Current Medications Current Medications: Generic Name Dose Route Start Last Admin Trade Name Freq PRN Reason Stop Dose Admin Acetaminophen 650 mg 05/02/19 03:00 Tylenol PO Q4H PRN Pain MILD(1-3)/Fever >100.5/D EANDA Acetaminophen 1,000 mg 05/03/19 17:00 05/05/19 09:31 Tylenol PO Not Given Q8H [facility] Dextrose 50 ml 05/03/19 22:44 D50w (25gm) Syringe IV PRN PRN Hypoglycemia Diphenhydramine HCl 25 mg 05/04/19 06:01 05/04/19 22:04 Benadryl PO 25 mg Q6H PRN Administration Itching Enoxaparin Sodium 30 mg 05/02/19 10:00 05/05/19 09:32 Lovenox SUB-Q 30 mg QDAY [facility] Administration Hydromorphone HCl 4 mg 05/04/19 22:53 05/05/19 08:53 Dilaudid PO 4 mg Q6H PRN Administration Pain , Severe (7-10) Insulin Human Lispro 0 unit 05/04/19 07:30 05/05/19 08:36 Humalog SUB-Q Not Given [facility] Protocol Ondansetron HCl 4 mg 05/02/19 03:00 Zofran IV Q8H PRN Nausea And Vomiting Sodium Bicarbonate 1,300 mg 05/02/19 10:00 05/05/19 09:33 Sodium Bicarbonate PO 1,300 mg BID ZOE Administration Sodium Chloride 10 ml 05/02/19 10:00 05/05/19 09:34 Sodium Chloride Flush Syringe 10 Ml IV 10 ml BID ZOE Administration Sodium Chloride 10 ml 05/02/19 03:00 05/02/19 06:38 Sodium Chloride Flush Syringe 10 Ml IV 10 ml PRN PRN Administration LINE FLUSH Nutrition/Malnutrition Assess - Dietary Evaluation Nutrition/Malnutrition Findings: Nutrition Notes Start: 05/03/19 17:53 Freq: Status: Active Protocol: Document 05/03/19 17:53 RM (Rec: 05/03/19 18:01 RM [id number]) Nutrition Notes Need for Assessment generated from: [facility] Initial or Follow up Assessment Current Diagnosis Acute Kidney Injury,Diabetes, Hypertension Other Pertinent Diagnosis Sacral PU,Hx rectal cancer Current Diet Regular Labs/Tests K 5.1 Pertinent Medications Reviewed Height 5 ft 11.5 in Weight 94.376 kg Usual Body Weight 118.18 kg [place] Body Weight (kg) 79.54 BMI 28.5 Weight change and time frame 20% wt loss X 5 1/2 months Subjective/Other Information Screened for malnutrition. Renal,Cardiac diet in place earlier today. Regular diet ordered later today. Pt stated that [employer] his appetite was "so so." Stated that he was D/C'd from this facility Friday and came back Friday night. Stated that he ate most of his meals yesterday but none today d/t disliking the renal diet. Stated UBW was 260 lbs in November. No temporal or orbital wasting . Burn Absent Trauma Absent #1 Nutrition Diagnosis Inadequate oral intake Etiology food preferences As Evidenced by Signs and Symptoms pt statement that he did not eat any of his meals today Is patient on ventilator? No Is Patient Ambulatory and/or Out of Bed Yes REE-([facility]-ambulatory/OOB) [ 2338.466 NUTR.MSJOOB] Calculation Used for Recommendations [facility] Additional Notes Protein Needs: 94-123g (1-1.3g /kg) Fluid Needs: 1 ml/kcal Nutrition Intervention Change Diet Order: Continue current Add Supplement/Snack (indicate name/kcal Glucerna [place], Chocolate /protein ) 1 daily Provides kCal: 220 Provides Protein (gm) 10 Goal #1 Meet at least 75% of calorie and protein needs via PO and ONS intakes Anticipated Discharge Needs: Regular diet Follow-Up By: 05/06/19 Additional Comments Follow for PO and ONS intakes, K lab
[2019-05-06] MEDS: HumaLOG SUB-Q SCH ×5 (01:38→22:54)
[2019-05-06] MEDS: TYLENOL PO SCH ×3 (01:59→18:00)
[2019-05-06] MEDS: DILAUDID PO PRN ×2 (06:00→12:17)
[2019-05-06] MEDS: LOVENOX SUB-Q SCH (10:17)
[2019-05-06] MEDS: SODIUM BICARBONATE PO SCH ×2 (10:17→22:01)
--- NOTE | 2019-05-06 11:23 | Progress Note ---
Assessment and Plan - Patient Problems (1) Acute kidney failure with tubular necrosis Current Visit: No Status: Acute Plan to address problem: Probably acute tubular necrosis secondary to hypotension. Kidney function improving. Okay to discharge from renal standpoint. Patient does not need dialysis (2) Hypotension Current Visit: Yes Status: Acute Qualifiers: Hypotension type: unspecified hypotension type Qualified Code(s): I95.9 - Hypotension, unspecified Plan to address problem: Blood pressure has improved. Follow up blood pressure off of antihypertensive medications. (3) Hyperkalemia Current Visit: No Status: Acute Plan to address problem: Low potassium diet. Follow-up electrolytes (4) Anemia in chronic illness Current Visit: No Status: Acute Plan to address problem: Follow-up hemoglobin (5) Sacral decubitus ulcer, stage IV Current Visit: No Status: Acute Plan to address problem: Continue local wound care. Needs improved pain control. Called RN and discussed with her Subjective Date of service: 05/06/19 Principal diagnosis: acute kidney injury Interval history: Patient seen lying in bed. Patient is complaining of pain over his sacral wound. He is crying. No nausea or vomiting. Objective - Exam Narrative Exam: Middle aged male lying in bed in no acute distress HEENT: NCAT, pink oral mucous membrane Neck: Supple, no venous distention CVS: S1S2 RRR with no murmur, rub or gallop Chest: Clear to auscultation Abdomen: Protuberant, soft, nontender, ostomy intact, no organomegaly, bowel sounds are present Extremities: No edema Neuro: Awake, alert no focal deficits - Vital Signs Vital signs: Vital Signs - 12hr 05/06/19 05/06/19 00:07 04:58 Temperature 97.9 F 98.8 F Pulse Rate 104 H 86 Respiratory 12 16 Rate Blood Pressure 102/68 105/74 O2 Sat by Pulse 100 99 Oximetry - Lab 05/03/19 15:01 05/05/19 04:53 Most recent lab results Calcium 9.3 mg/dL (8.4-10.2) 05/05/19 04:53 Medications & Allergies - Medications Allergies/Adverse Reactions: Allergies No Known Allergies Allergy (Unverified 04/20/19 09:03) Home Medications: Home Medications Medication Instructions Recorded Confirmed Last Taken Type amLODIPine [Norvasc] 5 mg PO DAILY 04/20/19 05/02/19 Unknown History Insulin Glargine [Lantus VIAL] 10 units SUB-Q QHS 30 Days #1000 04/29/19 0 05/02/19 Unknown Rx units Lispro Insulin [HumaLOG] 0 unit SUB-Q ACHS units 04/29/19 05/02/19 Unknown Rx Metoprolol [Lopressor TAB] 50 mg PO BID tablet 04/29/19 05/02/19 Unknown Rx oxyCODONE /ACETAMINOPHEN [Percocet 2 tab PO Q6H PRN #20 tablet 04/29/19 05/02/19 Unknown Rx 5/325 mg] Active Medications: Generic Name Dose Route Start Last Admin Trade Name Freq PRN Reason Stop Dose Admin Acetaminophen 650 mg 05/02/19 03:00 Tylenol PO Q4H PRN Pain MILD(1-3)/Fever >100.5/DE ANDA Acetaminophen 1,000 mg 05/03/19 17:00 05/06/19 10:18 Tylenol PO 1,000 mg Q8H [facility]OE Administration Dextrose 50 ml 05/03/19 22:44 D50w (25gm) Syringe IV PRN PRN Hypoglycemia Diphenhydramine HCl 25 mg 05/04/19 06:01 05/04/19 22:04 Benadryl PO 25 mg Q6H PRN Administration Itching Enoxaparin Sodium 40 mg 05/07/19 10:00 Lovenox SUB-Q QDAY@1000 [facility] Hydromorphone HCl 4 mg 05/04/19 22:53 05/06/19 06:00 Dilaudid PO 4 mg Q6H PRN Administration Pain , Severe (7-10) Insulin Human Lispro 0 unit 05/04/19 07:30 05/06/19 08:00 Humalog SUB-Q Not Given ACHS [facility] Protocol Ondansetron HCl 4 mg 05/02/19 03:00 Zofran IV Q8H PRN Nausea And Vomiting Sodium Bicarbonate 1,300 mg 05/02/19 10:00 05/06/19 10:17 Sodium Bicarbonate PO 1,300 mg BID ZOE Administration Sodium Chloride 10 ml 05/02/19 10:00 05/05/19 22:20 Sodium Chloride Flush Syringe 10 Ml IV 10 ml BID ZOE Administration Sodium Chloride 10 ml 05/02/19 03:00 05/02/19 06:38 Sodium Chloride Flush Syringe 10 Ml IV 10 ml PRN PRN Administration LINE FLUSH
[2019-05-06] MEDS ORDERED: NARCAN 0.4 MG/1 ML IV PRN (13:53)
--- NOTE | 2019-05-06 13:56 | Progress Note ---
Assessment and Plan Assessment and plan: Patient is a 59 yo man with a history of hypertension, diabetes mellitus, rectal CA status post laparotomy, colostomy, stage IV sacral ulcer and ARF s/p HD up until 04/26/19 who presented back to ED with hypotension after being discharged the previous day. In discussing with Nephrology, patient may have went home and took his old antihypertensive which dropped his bp too low. He was found to have Creatinine of 4.0. Acute renal failure, ATN and vasomotor nephropathy, poa: Nephrology following, no HD Hypotension, probably secondary to antihypertensive: resolved Hyperkalemia: treated, monitor bmp closely Hyponatremia hypovolemia: monitor bmp closely Abnormal cardiac enzyme due to ARF Diabetes mellitus type 2 on Insulin: cont insulins Rectal cancer sp colostomy, with stage 3 sacral decubitus ulcer, patient reports that the rectal cancer resection may have went to far to the anal verge, he spent a month in hyperbaric O2 treatment: cont wound care Chronic rectal pains uncontrolled, patient in tears: added IV dilaudid will not be given at [place] Dispo; continue inpatient care, awaiting [facility] placement History Interval history: Patient was seen and examined. Follow-up on current diagnosis of Renal failure. No overnight events reported to me. Patient denies any chest pain, shortness breath, nausea/vomiting or severe headaches. Imaging, nursing note, chart, labs and old chart reviewed. Discussed with patient. Hospitalist Physical - Physical exam Narrative exam: Gen: WDWN, NAD, Awake, Alert, Orientated HEENT: NCAT, EOMI, PERRL, OP Clear Neck: supple, no adenopathy, no thyromegaly, no JVD CVS/Heart: RRR, normal S1S2, pulses present bilaterally Chest/Lungs: CTA B, Symmetrical chest expansion, good air entry bilaterally GI/Abdomen: soft, NTND, colostomy bag in place, good bowel sounds, no guarding or rebound /Bladder: no suprapubic tenderness, no CVA or paraspinal tenderness Extermity/Skin: no c/c/e, no obvious rash MSK: FROM x 4 Neuro: CN 2-12 grossly intact, no new focal deficits Psych: calm - Constitutional Vitals: Temp Pulse Resp BP Pulse Ox 98.0 F 103 H 19 92/67 96 05/06/19 11:24 05/06/19 11:24 05/06/19 11:24 05/06/19 11:24 05/06/19 11:24 Results - Labs CBC & Chem 7: 05/03/19 15:01 05/05/19 04:53 Labs: Laboratory Last Values WBC 8.4 K/mm3 (4.5-11.0) 05/03/19 15:01 RBC 2.98 M/mm3 (3.65-5.03) L 05/03/19 15:01 Hgb 8.8 gm/dl (11.8-15.2) L 05/03/19 15:01 Hct 25.9 % (35.5-45.6) L 05/03/19 15:01 MCV 87 fl (84-94) 05/03/19 15:01 MCH 30 pg (28-32) 05/03/19 15:01 MCHC 34 % (32-34) 05/03/19 15:01 RDW 13.9 % (13.2-15.2) 05/03/19 15:01 Plt Count 541 K/mm3 (140-440) H 05/03/19 15:01 Lymph % (Auto) 33.3 % (13.4-35.0) 05/03/19 15:01 [place] % (Auto) 9.6 % (0.0-7.3) H 05/03/19 15:01 Eos % (Auto) 2.4 % (0.0-4.3) 05/03/19 15:01 Baso % (Auto) 1.1 % (0.0-1.8) 05/03/19 15:01 Lymph # 2.8 K/mm3 (1.2-5.4) 05/03/19 15:01 [place] # 0.8 K/mm3 (0.0-0.8) 05/03/19 15:01 Eos # 0.2 K/mm3 (0.0-0.4) 05/03/19 15:01 Baso # 0.1 K/mm3 (0.0-0.1) 05/03/19 15:01 Seg Neutrophils % 53.6 % (40.0-70.0) 05/03/19 15:01 Seg Neutrophils # 4.5 K/mm3 (1.8-7.7) 05/03/19 15:01 Sodium 132 mmol/L (137-145) L 05/05/19 04:53 Potassium 4.6 mmol/L (3.6-5.0) 05/05/19 04:53 Chloride 96.8 mmol/L (98-107) L 05/05/19 04:53 Carbon Dioxide 20 mmol/L (22-30) L 05/05/19 04:53 20 mmol/L 05/05/19 04:53 BUN 36 mg/dL (9-20) H 05/05/19 04:53 2.1 mg/dL (0.8-1.5) H 05/05/19 04:53 Estimated GFR 40 ml/min 05/05/19 04:53 17 % 05/05/19 04:53 Glucose 117 mg/dL (75-100) H 05/05/19 04:53 POC Glucose 209 (70-105) H 05/06/19 11:29 5.7 % (4-6) 05/04/19 05:33 Lactic Acid 1.10 mmol/L (0.7-2.0) 05/02/19 01:21 Calcium 9.3 mg/dL (8.4-10.2) 05/05/19 04:53 0.30 mg/dL (0.1-1.2) 05/02/19 01:21 AST 19 units/L (5-40) 05/02/19 01:21 ALT 41 units/L (7-56) 05/02/19 01:21 172 units/L (35-129) H 05/02/19 01:21 72 units/L (55-170) 05/02/19 09:36 CK-MB (CK-2) 2.9 ng/mL (0.0-4.0) 05/02/19 09:36 CK-MB (CK-2) Rel Index 4.0 (0-4) 05/02/19 09:36 0.185 ng/mL (0.00-0.029) H* 05/02/19 09:36 8.9 g/dL (6.3-8.2) H 05/02/19 01:21 3.7 g/dL (3.9-5) L 05/02/19 01:21 0.7 % 05/02/19 01:21 Triglycerides 255 mg/dL (2-149) H 05/02/19 01:21 Cholesterol 163 mg/dL (50-199) 05/02/19 01:21 79 mg/dL (50-130) 05/02/19 01:21 34 mg/dL (40-59) L 05/02/19 01:21 4.79 % 05/02/19 01:21 Active Medications - Current Medications Current Medications: Generic Name Dose Route Start Last Admin Trade Name Freq PRN Reason Stop Dose Admin Acetaminophen 650 mg 05/02/19 03:00 Tylenol PO Q4H PRN Pain MILD(1-3)/Fever >100.5/DE ANDA Acetaminophen 1,000 mg 05/03/19 17:00 05/06/19 10:18 Tylenol PO 1,000 mg Q8H ZOE Administration Dextrose 50 ml 05/03/19 22:44 D50w (25gm) Syringe IV PRN PRN Hypoglycemia Diphenhydramine HCl 25 mg 05/04/19 06:01 05/04/19 22:04 Benadryl PO 25 mg Q6H PRN Administration Itching Enoxaparin Sodium 40 mg 05/07/19 10:00 Lovenox SUB-Q QDAY@1000 ZOE Hydromorphone HCl 1 mg 05/06/19 13:53 Dilaudid IV Q4H PRN Pain , Severe (7-10) Insulin Human Lispro 0 unit 05/04/19 07:30 05/06/19 13:28 Humalog SUB-Q 2 unit ACHS ZOE Administration Protocol Naloxone HCl 0.1 mg 05/06/19 13:53 Narcan 0.4 Mg/1 Ml IV Q2MIN PRN Res Rate </= 8 or 02 SAT < 92% Ondansetron HCl 4 mg 05/02/19 03:00 Zofran IV Q8H PRN Nausea And Vomiting Sodium Bicarbonate 1,300 mg 05/02/19 10:00 05/06/19 10:17 Sodium Bicarbonate PO 1,300 mg BID ZOE Administration Sodium Chloride 10 ml 05/02/19 10:00 05/05/19 22:20 Sodium Chloride Flush Syringe 10 Ml IV 10 ml BID ZOE Administration Sodium Chloride 10 ml 05/02/19 03:00 05/02/19 06:38 Sodium Chloride Flush Syringe 10 Ml IV 10 ml PRN PRN Administration LINE FLUSH Nutrition/Malnutrition Assess - Dietary Evaluation Nutrition/Malnutrition Findings: Nutrition Notes Start: 05/03/19 17:53 Freq: Status: Active Protocol: Document 05/03/19 17:53 RM (Rec: 05/03/19 18:01 RM [id number]) Nutrition Notes Need for Assessment generated from: [facility] Initial or Follow up Assessment Current Diagnosis Acute Kidney Injury,Diabetes, Hypertension Other Pertinent Diagnosis Sacral PU,Hx rectal cancer Current Diet Regular Labs/Tests K 5.1 Pertinent Medications Reviewed Height 5 ft 11.5 in Weight 94.376 kg Usual Body Weight 118.18 kg [place] Body Weight (kg) 79.54 BMI 28.5 Weight change and time frame 20% wt loss X 5 1/2 months Subjective/Other Information Screened for malnutrition. Renal,Cardiac diet in place earlier today. Regular diet ordered later today. 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 Stated that he ate most of his meals yesterday but none today d/t disliking the renal diet. Stated UBW was 260 lbs in November. No temporal or orbital wasting . Burn Absent Trauma Absent #1 Nutrition Diagnosis Inadequate oral intake Etiology food preferences As Evidenced by Signs and Symptoms pt statement that he did not eat any of his meals today Is patient on ventilator? No Is Patient Ambulatory and/or Out of Bed Yes REE-([facility]-ambulatory/OOB) [ 2338.466 NUTR.MSJOOB] Calculation Used for [facility] Additional Notes Protein Needs: 94-123g (1-1.3g /kg) Fluid Needs: 1 ml/kcal Nutrition Intervention Change Diet Order: Continue current Add Supplement/Snack (indicate name/kcal Glucerna [place], Chocolate /protein ) 1 daily Provides kCal: 220 Provides Protein (gm) 10 Goal #1 Meet at least 75% of calorie and protein needs via PO and ONS intakes Anticipated Discharge Needs: Regular diet Follow-Up By: 05/06/19 Additional Comments Follow for PO and ONS intakes, K lab
[2019-05-06] MEDS: DILAUDID IV PRN ×2 (14:33→20:34)
[2019-05-06] MEDS: SODIUM CHLORIDE FLUSH SYRINGE 10 ML IV SCH ×2 (14:35→22:01)
[2019-05-06] MEDS ORDERED: RESTORIL PO PRN (22:57)
[2019-05-07] MEDS: TYLENOL PO SCH ×3 (00:07→18:34)
[2019-05-07] MEDS: DILAUDID IV PRN ×5 (03:56→22:40)
[2019-05-07] MEDS: HumaLOG SUB-Q SCH ×4 (08:00→21:41)
--- NOTE | 2019-05-07 11:13 | Progress Note ---
Assessment and Plan - Patient Problems (1) Acute kidney failure with tubular necrosis Current Visit: No Status: Acute Plan to address problem: Probably acute tubular necrosis secondary to hypotension. Kidney function improving. Okay to discharge from renal standpoint. Patient does not need dialysis. Follow-up kidney indices and electrolytes in the morning if patient still in the hospital (2) Hypotension Current Visit: Yes Status: Acute Qualifiers: Hypotension type: unspecified hypotension type Qualified Code(s): I95.9 - Hypotension, unspecified Plan to address problem: Blood pressure has improved. Follow up blood pressure off of antihypertensive medications. (3) Hyperkalemia Current Visit: No Status: Acute Plan to address problem: Low potassium diet. Follow-up electrolytes (4) Anemia in chronic illness Current Visit: No Status: Acute Plan to address problem: Follow-up hemoglobin (5) Sacral decubitus ulcer, stage IV Current Visit: No Status: Acute Plan to address problem: Continue local wound care. Pain control improved. Continue treatment Subjective Date of service: 05/07/19 Principal diagnosis: acute kidney injury Interval history: Patient seen lying in bed. Feels better today. Pain is controlled. No nausea or vomiting. Objective - Exam Narrative Exam: Middle aged male lying in bed in no acute distress HEENT: NCAT, pink oral mucous membrane Neck: Supple, no venous distention CVS: S1S2 RRR with no murmur, rub or gallop Chest: Clear to auscultation Abdomen: Protuberant, soft, nontender, ostomy intact, no organomegaly, bowel sounds are present Extremities: No edema Neuro: Awake, alert no focal deficits - Vital Signs Vital signs: Vital Signs - 12hr 05/07/19 04:50 Temperature 99.0 F Pulse Rate 103 H Respiratory 18 Rate Blood Pressure 97/69 O2 Sat by Pulse 99 Oximetry - Lab 05/03/19 15:01 05/05/19 04:53 Most recent lab results Calcium 9.3 mg/dL (8.4-10.2) 05/05/19 04:53 Medications & Allergies - Medications Allergies/Adverse Reactions: Allergies No Known Allergies Allergy (Unverified 04/20/19 09:03) Home Medications: Home Medications Medication Instructions Recorded Confirmed Last Taken Type amLODIPine [Norvasc] 5 mg PO DAILY 04/20/19 05/02/19 Unknown History Insulin Glargine [Lantus VIAL] 10 units SUB-Q QHS 30 Days #1000 04/29/19 05/02/19 Unknown Rx units Lispro Insulin [HumaLOG] 0 unit SUB-Q ACHS units 04/29/19 05/02/19 Unknown Rx Metoprolol [Lopressor TAB] 50 mg PO BID tablet 04/29/19 05/02/19 Unknown Rx oxyCODONE /ACETAMINOPHEN [Percocet 2 tab PO Q6H PRN #20 tablet 04/29/19 05/02/19 Unknown Rx 5/325 mg] Active Medications: Generic Name Dose Route Start Last Admin Trade Name Freq PRN Reason Stop Dose Admin Acetaminophen 650 mg 05/02/19 03:00 Tylenol PO Q4H PRN Pain MILD(1-3)/Fever >100.5/DE ANDA Acetaminophen 1,000 mg 05/03/19 17:00 05/07/19 00:07 Tylenol PO 1,000 mg Q8H ZOE Administration Acetaminophen/Hydrocodone Bitart 1 each 05/06/19 13:54 [place] 10/325 PO Q4H PRN Pain , Severe (7-10) Dextrose 50 ml 05/03/19 22:44 D50w (25gm) Syringe IV PRN PRN Hypoglycemia Diphenhydramine HCl 25 mg 05/04/19 06:01 05/04/19 22:04 Benadryl PO 25 mg Q6H PRN Administration Itching Enoxaparin Sodium 40 mg 05/07/19 10:00 Lovenox SUB-Q QDAY@1000 [facility] Hydromorphone HCl 1 mg 05/06/19 13:53 05/07/19 08:39 Dilaudid IV 1 mg Q4H PRN Administration Pain , Severe (7-10) Insulin Human Lispro 0 unit 05/04/19 07:30 05/06/19 22:54 Humalog SUB-Q Not Given ACHS [facility] Protocol Naloxone HCl 0.1 mg 05/06/19 13:53 Narcan 0.4 Mg/1 Ml IV Q2MIN PRN Res Rate </= 8 or 02 SAT < 92% Ondansetron HCl 4 mg 05/02/19 03:00 Zofran IV Q8H PRN Nausea And Vomiting Sodium Bicarbonate 1,300 mg 05/02/19 10:00 05/06/19 22:01 Sodium Bicarbonate PO 1,300 mg BID ZOE Administration Sodium Chloride 10 ml 05/02/19 10:00 05/06/19 22:01 Sodium Chloride Flush Syringe 10 Ml IV 10 ml BID ZOE Administration Sodium Chloride 10 ml 05/02/19 03:00 05/02/19 06:38 Sodium Chloride Flush Syringe 10 Ml IV 10 ml PRN PRN Administration LINE FLUSH Temazepam 15 mg 05/06/19 22:57 05/07/19 00:07 Restoril PO 15 mg QHS PRN Administration Sleep
[2019-05-07] MEDS: LOVENOX SUB-Q SCH (11:43)
[2019-05-07] MEDS: SODIUM CHLORIDE FLUSH SYRINGE 10 ML IV SCH ×2 (11:44→22:41)
[2019-05-07] MEDS: SODIUM BICARBONATE PO SCH ×2 (11:44→21:37)
--- NOTE | 2019-05-07 15:46 | Progress Note ---
Assessment and Plan Assessment and plan: Patient is a 59 yo man with a history of hypertension, diabetes mellitus, rectal CA status post laparotomy, colostomy, stage IV sacral ulcer and ARF s/p HD up until 04/26/19 who presented back to ED with hypotension after being discharged the previous day. In discussing with Nephrology, patient may have went home and took his old antihypertensive which dropped his bp too low. He was found to have Creatinine of 4.0. Acute renal failure, ATN and vasomotor nephropathy, poa: Nephrology following, no HD Hypotension, probably secondary to antihypertensive: resolved Hyperkalemia: treated, monitor bmp closely Hyponatremia hypovolemia: monitor bmp closely Abnormal cardiac enzyme due to ARF Diabetes mellitus type 2 on Insulin: cont insulins Rectal cancer sp colostomy, with stage 3 sacral decubitus ulcer, patient reports that the rectal cancer resection may have went to far to the anal verge, he spent a month in hyperbaric O2 treatment: cont wound care Chronic rectal pains uncontrolled, patient in tears: added IV dilaudid will not be given at [place] Dispo; continue inpatient care, awaiting [facility] placement History Interval history: Patient was seen and examined. Follow-up on current diagnosis of Renal failure. No overnight events reported to me. Patient denies any chest pain, shortness breath, nausea/vomiting or severe headaches. Imaging, nursing note, chart, labs and old chart reviewed. Discussed with patient. Hospitalist Physical - Physical exam Narrative exam: Gen: WDWN, NAD, Awake, Alert, Orientated HEENT: NCAT, EOMI, PERRL, OP Clear Neck: supple, no adenopathy, no thyromegaly, no JVD CVS/Heart: RRR, normal S1S2, pulses present bilaterally Chest/Lungs: CTA B, Symmetrical chest expansion, good air entry bilaterally GI/Abdomen: soft, NTND, colostomy bag in place, good bowel sounds, no guarding or rebound /Bladder: no suprapubic tenderness, no CVA or paraspinal tenderness Extermity/Skin: no c/c/e, no obvious rash MSK: FROM x 4 Neuro: CN 2-12 grossly intact, no new focal deficits Psych: calm - Constitutional Vitals: Temp Pulse Resp BP Pulse Ox 98.1 F 104 H 18 105/56 99 05/07/19 11:53 05/07/19 11:53 05/07/19 11:53 05/07/19 11:53 05/07/19 11:53 Results - Labs CBC & Chem 7: 05/03/19 15:01 05/05/19 04:53 Labs: Laboratory Last Values WBC 8.4 K/mm3 (4.5-11.0) 05/03/19 15:01 RBC 2.98 M/mm3 (3.65-5.03) L 05/03/19 15:01 Hgb 8.8 gm/dl (11.8-15.2) L 05/03/19 15:01 Hct 25.9 % (35.5-45.6) L 05/03/19 15:01 MCV 87 fl (84-94) 05/03/19 15:01 MCH 30 pg (28-32) 05/03/19 15:01 MCHC 34 % (32-34) 05/03/19 15:01 RDW 13.9 % (13.2-15.2) 05/03/19 15:01 Plt Count 541 K/mm3 (140-440) H 05/03/19 15:01 Lymph % (Auto) 33.3 % (13.4-35.0) 05/03/19 15:01 [place] % (Auto) 9.6 % (0.0-7.3) H 05/03/19 15:01 Eos % (Auto) 2.4 % (0.0-4.3) 05/03/19 15:01 Baso % (Auto) 1.1 % (0.0-1.8) 05/03/19 15:01 Lymph # 2.8 K/mm3 (1.2-5.4) 05/03/19 15:01 [place] # 0.8 K/mm3 (0.0-0.8) 05/03/19 15:01 Eos # 0.2 K/mm3 (0.0-0.4) 05/03/19 15:01 Baso # 0.1 K/mm3 (0.0-0.1) 05/03/19 15:01 Seg Neutrophils % 53.6 % (40.0-70.0) 05/03/19 15:01 Seg Neutrophils # 4.5 K/mm3 (1.8-7.7) 05/03/19 15:01 Sodium 132 mmol/L (137-145) L 05/05/19 04:53 Potassium 4.6 mmol/L (3.6-5.0) 05/05/19 04:53 Chloride 96.8 mmol/L (98-107) L 05/05/19 04:53 Carbon Dioxide 20 mmol/L (22-30) L 05/05/19 04:53 20 mmol/L 05/05/19 04:53 BUN 36 mg/dL (9-20) H 05/05/19 04:53 2.1 mg/dL (0.8-1.5) H 05/05/19 04:53 Estimated GFR 40 ml/min 05/05/19 04:53 17 % 05/05/19 04:53 Glucose 117 mg/dL (75-100) H 05/05/19 04:53 POC Glucose 225 (70-105) H 05/07/19 11:58 5.7 % (4-6) 05/04/19 05:33 Lactic Acid 1.10 mmol/L (0.7-2.0) 05/02/19 01:21 Calcium 9.3 mg/dL (8.4-10.2) 05/05/19 04:53 0.30 mg/dL (0.1-1.2) 05/02/19 01:21 AST 19 units/L (5-40) 05/02/19 01:21 ALT 41 units/L (7-56) 05/02/19 01:21 172 units/L (35-129) H 05/02/19 01:21 72 units/L (55-170) 05/02/19 09:36 CK-MB (CK-2) 2.9 ng/mL (0.0-4.0) 05/02/19 09:36 CK-MB (CK-2) Rel Index 4.0 (0-4) 05/02/19 09:36 0.185 ng/mL (0.00-0.029) H* 05/02/19 09:36 8.9 g/dL (6.3-8.2) H 05/02/19 01:21 3.7 g/dL (3.9-5) L 05/02/19 01:21 0.7 % 05/02/19 01:21 Triglycerides 255 mg/dL (2-149) H 05/02/19 01:21 Cholesterol 163 mg/dL (50-199) 05/02/19 01:21 79 mg/dL (50-130) 05/02/19 01:21 34 mg/dL (40-59) L 05/02/19 01:21 4.79 % 05/02/19 01:21 Active Medications - Current Medications Current Medications: Generic Name Dose Route Start Last Admin Trade Name Freq PRN Reason Stop Dose Admin Acetaminophen 650 mg 05/02/19 03:00 Tylenol PO Q4H PRN Pain MILD(1-3)/Fever >100.5/DE ANDA Acetaminophen 1,000 mg 05/03/19 17:00 05/07/19 11:44 Tylenol PO 1,000 mg Q8H ZOE Administration Acetaminophen/Hydrocodone Bitart 1 each 05/06/19 13:54 [place] 10/325 PO Q4H PRN Pain , Severe (7-10) Dextrose 50 ml 05/03/19 22:44 D50w (25gm) Syringe IV PRN PRN Hypoglycemia Diphenhydramine HCl 25 mg 05/04/19 06:01 05/04/19 22:04 Benadryl PO 25 mg Q6H PRN Administration Itching Enoxaparin Sodium 40 mg 05/07/19 10:00 05/07/19 11:43 Lovenox SUB-Q 40 mg QDAY@1000 ZOE Administration Hydromorphone HCl 1 mg 05/06/19 13:53 05/07/19 12:50 Dilaudid IV 1 mg Q4H PRN Administration Pain , Severe (7-10) Insulin Human Lispro 0 unit 05/04/19 07:30 05/07/19 12:50 Humalog SUB-Q 2 unit ACHS ZOE Administration Protocol Naloxone HCl 0.1 mg 05/06/19 13:53 Narcan 0.4 Mg/1 Ml IV Q2MIN PRN Res Rate </= 8 or 02 SAT < 92% Ondansetron HCl 4 mg 05/02/19 03:00 Zofran IV Q8H PRN Nausea And Vomiting Sodium Bicarbonate 1,300 mg 05/02/19 10:00 05/07/19 11:44 Sodium Bicarbonate PO 1,300 mg BID ZOE Administration Sodium Chloride 10 ml 05/02/19 10:00 05/07/19 11:44 Sodium Chloride Flush Syringe 10 Ml IV 10 ml BID ZOE Administration Sodium Chloride 10 ml 05/02/19 03:00 05/02/19 06:38 Sodium Chloride Flush Syringe 10 Ml IV 10 ml PRN PRN Administration LINE FLUSH Temazepam 15 mg 05/06/19 22:57 05/07/19 00:07 Restoril PO 15 mg QHS PRN Administration Sleep Nutrition/Malnutrition Assess - Dietary Evaluation Nutrition/Malnutrition Findings: Nutrition Notes Start: 05/03/19 17: 53 Freq: Status: Active Protocol: Document 05/06/19 16:02 RM (Rec: 05/06/19 16:06 RM [id number]) Nutrition Notes Initial or Follow up Assessment Current Diagnosis Acute Kidney Injury,Diabetes, Hypertension Other Pertinent Diagnosis Sacral PU,Hx rectal cancer Current Diet Regular Labs/Tests K 4.6 Pertinent Medications Reviewed Height 5 ft 11.5 in Weight 99.8 kg [place] Body Weight (kg) 79.54 BMI 30.2 Subjective/Other Information Pt stated that his appetite is good and that he eats most of his meals. Also stated that he drinks the Glucerna. Percent of energy/protein needs met: 82%/80% Burn Absent Trauma Absent #1 Nutrition Diagnosis Inadequate oral intake As Evidenced by Signs and Symptoms pt meeting 82% of calorie and 80% of protein needs Diagnosis Progress(for reassessment Resolved documentation) Is patient on ventilator? No Is Patient Ambulatory and/or Out of Bed Yes REE-([facility]-ambulatory/OOB) [ 2408.978 NUTR.MSJOOB] Calculation Used for Recommendations [facility] Additional Notes Protein Needs: 94-123g (1-1.3g /kg) Fluid Needs: 1 ml/kcal Nutrition Intervention Change Diet Order: Continue current Add Supplement/Snack (indicate name/kcal Glucerna [place], Chocolate /protein ) 1 daily Provides kCal: 220 Provides Protein (gm) 10 Goal #1 Continue to meet at least 75% of calorie and protein needs via PO and ONS intakes Anticipated Discharge Needs: Regular diet Follow-Up By: 05/14/19 Additional Comments Follow for PO and ONS intakes
[2019-05-08] MEDS: TYLENOL PO SCH ×3 (01:45→17:49)
[2019-05-08] MEDS: DILAUDID IV PRN ×5 (03:15→20:21)
[2019-05-08] MEDS: HumaLOG SUB-Q SCH ×4 (07:30→22:46)
[2019-05-08 08:15] LABS: Calcium 9.5 mg/dL (8.4-10.2)
[2019-05-08] MEDS: SODIUM BICARBONATE PO SCH ×2 (09:42→22:45)
[2019-05-08] MEDS: SODIUM CHLORIDE FLUSH SYRINGE 10 ML IV SCH ×2 (09:43→22:45)
[2019-05-08] MEDS: LOVENOX SUB-Q SCH (09:43)
--- NOTE | 2019-05-08 12:21 | Progress Note ---
Assessment and Plan - Patient Problems (1) Acute kidney failure with tubular necrosis Current Visit: No Status: Acute Plan to address problem: Renal function continues to improve. no indications for renal replacement therapy at this time. 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 From nephrology standpoint patient is stable for DC. (2) Hypotension Current Visit: Yes Status: Acute Qualifiers: Hypotension type: unspecified hypotension type Qualified Code(s): I95.9 - Hypotension, unspecified Plan to address problem: Improvement in current hemodynamics off antihypertensive medications. (3) Anemia in chronic illness Current Visit: No Status: Acute Plan to address problem: Trend Hgb levels. (4) Hyperkalemia Current Visit: No Status: Acute Plan to address problem: improved at present time. (5) Sacral decubitus ulcer, stage IV Current Visit: No Status: Acute Plan to address problem: undergoing wound care. Subjective Date of service: 05/08/19 Principal diagnosis: acute kidney injury Interval history: No acute issues this am. Pending discharge. Objective - Vital Signs Vital signs: Vital Signs - 12hr 05/08/19 05/08/19 00:40 11:51 Temperature 98.6 F 98.4 F Pulse Rate 96 H 96 H Respiratory 18 20 Rate Blood Pressure 116/86 103/72 O2 Sat by Pulse 98 99 Oximetry - General Appearance General appearance: well-developed, well-nourished, appears stated age EENT: ATNC, PERRL Neck: no JVD, no thyromegaly Respiratory: Present: Clear to Ascultation Cardiology: regular, S1S2 Gastrointestinal: normal, normoactive bowel sounds Integumentary: no rash, warm and dry Neurologic: no focal deficit, no asterixis, alert and oriented x3 Musculoskeletal: other (-edema ) Psychiatric: mood/affect appropriate, cooperative - Lab 05/03/19 15:01 05/08/19 07:00 Most recent lab results Calcium 9.5 mg/dL (8.4-10.2) 05/08/19 07:00 - Allied health notes Allied health notes reviewed: nursing Medications & Allergies - Medications Allergies/Adverse Reactions: Allergies No Known Allergies Allergy (Unverified 04/20/19 09:03) Home Medications: Home Medications Medication Instructions Recorded Confirmed Last Taken Type amLODIPine [Norvasc] 5 mg PO DAILY 04/20/19 05/02/19 Unknown History Insulin Glargine [Lantus VIAL] 10 units SUB-Q QHS 30 Days #1000 04/29/19 05/02/19 Unknown Rx units Lispro Insulin [HumaLOG] 0 unit SUB-Q ACHS units 04/29/19 05/02/19 Unknown Rx Metoprolol [Lopressor TAB] 50 mg PO BID tablet 04/29/19 05/02/19 Unknown Rx oxyCODONE /ACETAMINOPHEN [Percocet 2 tab PO Q6H PRN #20 tablet 04/29/19 05/02/19 Unknown Rx 5/325 mg] Active Medications: Generic Name Dose Route Start Last Admin Trade Name Freq PRN Reason Stop Dose Admin Acetaminophen 650 mg 05/02/19 03:00 Tylenol PO Q4H PRN Pain MILD(1-3)/Fever >100.5/DE ANDA Acetaminophen 1,000 mg 05/03/19 17:00 05/08/19 09:49 Tylenol PO 1,000 mg Q8H ZOE Administration Acetaminophen/Hydrocodone Bitart 1 each 05/06/19 13:54 [place] 10/325 PO Q4H PRN Pain , Severe (7-10) Dextrose 50 ml 05/03/19 22:44 D50w (25gm) Syringe IV PRN PRN Hypoglycemia Diphenhydramine HCl 25 mg 05/04/19 06:01 05/04/19 22:04 Benadryl PO 25 mg Q6H PRN Administration Itching Enoxaparin Sodium 40 mg 05/07/19 10:00 05/08/19 09:43 Lovenox SUB-Q 40 mg QDAY@1000 [facility] Administration Hydromorphone HCl 1 mg 05/06/19 13:53 05/08/19 11:45 Dilaudid IV 1 mg Q4H PRN Administration Pain , Severe (7-10) Insulin Human Lispro 0 unit 05/04/19 07:30 05/08/19 07:30 Humalog SUB-Q Not Given [facility] Protocol Naloxone HCl 0.1 mg 05/06/19 13:53 Narcan 0.4 Mg/1 Ml IV Q2MIN PRN Res Rate </= 8 or 02 SAT < 92% Ondansetron HCl 4 mg 05/02/19 03:00 Zofran IV Q8H PRN Nausea And Vomiting Sodium Bicarbonate 1,300 mg 05/02/19 10:00 05/08/19 09:42 Sodium Bicarbonate PO 1,300 mg BID ZOE Administration Sodium Chloride 10 ml 05/02/19 10:00 05/08/19 09:43 Sodium Chloride Flush Syringe 10 Ml IV 10 ml BID ZOE Administration Sodium Chloride 10 ml 05/02/19 03:00 05/02/19 06:38 Sodium Chloride Flush Syringe 10 Ml IV 10 ml PRN PRN Administration LINE FLUSH Temazepam 15 mg 05/06/19 22:57 05/07/19 00:07 Restoril PO 15 mg QHS PRN Administration Sleep
--- NOTE | 2019-05-08 15:11 | Progress Note ---
Assessment and Plan Assessment and plan: Patient is a 59 yo man with a history of hypertension, diabetes mellitus, rectal CA status post laparotomy, colostomy, stage IV sacral ulcer and ARF s/p HD up until 04/26/19 who presented back to ED with hypotension after being discharged the previous day. In discussing with Nephrology, patient may have went home and took his old antihypertensive which dropped his bp too low. He was found to have Creatinine of 4.0. Acute renal failure, ATN and vasomotor nephropathy, poa: Nephrology following, no HD Hypotension, probably secondary to antihypertensive: resolved Hyperkalemia: treated, monitor bmp closely Hyponatremia hypovolemia: monitor bmp closely Abnormal cardiac enzyme due to ARF Diabetes mellitus type 2 on Insulin: cont insulins Rectal cancer sp colostomy, with stage 3 sacral decubitus ulcer, patient reports that the rectal cancer resection may have went to far to the anal verge, he spent a month in hyperbaric O2 treatment: cont wound care Chronic rectal pains uncontrolled, patient in tears: added IV dilaudid will not be given at [place] Dispo; continue inpatient care, awaiting BRIANNE placement History Interval history: Patient was seen and examined. Follow-up on current diagnosis of Renal failure. No overnight events reported to me. Patient denies any chest pain, shortness breath, nausea/vomiting or severe headaches. Imaging, nursing note, chart, labs and old chart reviewed. Discussed with patient. Hospitalist Physical - Physical exam Narrative exam: Gen: WDWN, NAD, Awake, Alert, Orientated HEENT: NCAT, EOMI, PERRL, OP Clear Neck: supple, no adenopathy, no thyromegaly, no JVD CVS/Heart: RRR, normal S1S2, pulses present bilaterally Chest/Lungs: CTA B, Symmetrical chest expansion, good air entry bilaterally GI/Abdomen: soft, NTND, colostomy bag in place, good bowel sounds, no guarding or rebound /Bladder: no suprapubic tenderness, no CVA or paraspinal tenderness Extermity/Skin: no c/c/e, no obvious rash MSK: FROM x 4 Neuro: CN 2-12 grossly intact, no new focal deficits Psych: calm - Constitutional Vitals: Temp Pulse Resp BP Pulse Ox 98.4 F 96 H 20 103/72 99 05/08/19 11:51 05/08/19 11:51 05/08/19 11:51 05/08/19 11:51 05/08/19 11:51 Results - Labs CBC & Chem 7: 05/03/19 15:01 05/08/19 07:00 Labs: Laboratory Last Values WBC 8.4 K/mm3 (4.5-11.0) 05/03/19 15:01 RBC 2.98 M/mm3 (3.65-5.03) L 05/03/19 15:01 Hgb 8.8 gm/dl (11.8-15.2) L 05/03/19 15:01 Hct 25.9 % (35.5-45.6) L 05/03/19 15:01 MCV 87 fl (84-94) 05/03/19 15:01 MCH 30 pg (28-32) 05/03/19 15:01 MCHC 34 % (32-34) 05/03/19 15:01 RDW 13.9 % (13.2-15.2) 05/03/19 15:01 Plt Count 541 K/mm3 (140-440) H 05/03/19 15:01 Lymph % (Auto) 33.3 % (13.4-35.0) 05/03/19 15:01 [place] % (Auto) 9.6 % (0.0-7.3) H 05/03/19 15:01 Eos % (Auto) 2.4 % (0.0-4.3) 05/03/19 15:01 Baso % (Auto) 1.1 % (0.0-1.8) 05/03/19 15:01 Lymph # 2.8 K/mm3 (1.2-5.4) 05/03/19 15:01 [place] # 0.8 K/mm3 (0.0-0.8) 05/03/19 15:01 Eos # 0.2 K/mm3 (0.0-0.4) 05/03/19 15:01 Baso # 0.1 K/mm3 (0.0-0.1) 05/03/19 15:01 Seg Neutrophils % 53.6 % (40.0-70.0) 05/03/19 15:01 Seg Neutrophils # 4.5 K/mm3 (1.8-7.7) 05/03/19 15:01 Sodium 133 mmol/L (137-145) L 05/08/19 07:00 Potassium 4.9 mmol/L (3.6-5.0) 05/08/19 07:00 Chloride 98.9 mmol/L (98-107) 05/08/19 07:00 Carbon Dioxide 18 mmol/L (22-30) L 05/08/19 07:00 21 mmol/L 05/08/19 07:00 BUN 24 mg/dL (9-20) H 05/08/19 07:00 1.5 mg/dL (0.8-1.5) 05/08/19 07:00 Estimated GFR 58 ml/min 05/08/19 07:00 16 % 05/08/19 07:00 Glucose 131 mg/dL (75-100) H 05/08/19 07:00 POC Glucose 123 (70-105) H 05/08/19 11:58 5.7 % (4-6) 05/04/19 05:33 Lactic Acid 1.10 mmol/L (0.7-2.0) 05/02/19 01:21 Calcium 9.5 mg/dL (8.4-10.2) 05/08/19 07:00 0.30 mg/dL (0.1-1.2) 05/02/19 01:21 AST 19 units/L (5-40) 05/02/19 01:21 ALT 41 units/L (7-56) 05/02/19 01:21 172 units/L (35-129) H 05/02/19 01:21 72 units/L (55-170) 05/02/19 09:36 CK-MB (CK-2) 2.9 ng/mL (0.0-4.0) 05/02/19 09:36 CK-MB (CK-2) Rel Index 4.0 (0-4) 05/02/19 09:36 0.185 ng/mL (0.00-0.029) H* 05/02/19 09:36 8.9 g/dL (6.3-8.2) H 05/02/19 01:21 3.7 g/dL (3.9-5) L 05/02/19 01:21 0.7 % 05/02/19 01:21 Triglycerides 255 mg/dL (2-149) H 05/02/19 01:21 Cholesterol 163 mg/dL (50-199) 05/02/19 01:21 79 mg/dL (50-130) 05/02/19 01:21 34 mg/dL (40-59) L 05/02/19 01:21 4.79 % 05/02/19 01:21 Active Medications - Current Medications Current Medications: Generic Name Dose Route Start Last Admin Trade Name Freq PRN Reason Stop Dose Admin Acetaminophen 650 mg 05/02/19 03:00 Tylenol PO Q4H PRN Pain MILD(1-3)/Fever >100.5/DE ANDA Acetaminophen 1,000 mg 05/03/19 17:00 05/08/19 09:49 Tylenol PO 1,000 mg Q8H ZOE Administration Acetaminophen/Hydrocodone Bitart 1 each 05/06/19 13:54 [place] 10/325 PO Q4H PRN Pain , Severe (7-10) Dextrose 50 ml 05/03/19 22:44 D50w (25gm) Syringe IV PRN PRN Hypoglycemia Diphenhydramine HCl 25 mg 05/04/19 06:01 05/04/19 22:04 Benadryl PO 25 mg Q6H PRN Administration Itching Enoxaparin Sodium 40 mg 05/07/19 10:00 05/08/19 09:43 Lovenox SUB-Q 40 mg QDAY@1000 ZOE Administration Hydromorphone HCl 1 mg 05/06/19 13:53 05/08/19 11:45 Dilaudid IV 1 mg Q4H PRN Administration Pain , Severe (7-10) Insulin Human Lispro 0 unit 05/04/19 07:30 05/08/19 11:30 Humalog SUB-Q Not Given [facility] Protocol Naloxone HCl 0.1 mg 05/06/19 13:53 Narcan 0.4 Mg/1 Ml IV Q2MIN PRN Res Rate </= 8 or 02 SAT < 92% Ondansetron HCl 4 mg 05/02/19 03:00 Zofran IV Q8H PRN Nausea And Vomiting Sodium Bicarbonate 1,300 mg 05/02/19 10:00 05/08/19 09:42 Sodium Bicarbonate PO 1,300 mg BID ZOE Administration Sodium Chloride 10 ml 05/02/19 10:00 05/08/19 09:43 Sodium Chloride Flush Syringe 10 Ml IV 10 ml BID ZOE Administration Sodium Chloride 10 ml 05/02/19 03:00 05/02/19 06:38 Sodium Chloride Flush Syringe 10 Ml IV 10 ml PRN PRN Administration LINE FLUSH Temazepam 15 mg 05/06/19 22:57 05/07/19 00:07 Restoril PO 15 mg QHS PRN Administration Sleep Nutrition/Malnutrition Assess - Dietary Evaluation Nutrition/Malnutrition Findings: Nutrition Notes Start: 05/03/19 17:53 Freq: Status: Active Protocol: Document 05/06/19 16:02 RM (Rec: 05/06/19 16:06 RM [email or web address]) Nutrition Notes Initial or Follow up Assessment Current Diagnosis Acute Kidney Injury,Diabetes, Hypertension Other Pertinent Diagnosis Sacral PU,Hx rectal cancer Current Diet Regular Labs/Tests K 4.6 Pertinent Medications Reviewed Height 5 ft 11.5 in Weight 99.8 kg [place] Body Weight (kg) 79.54 BMI 30.2 Subjective/Other Information Pt stated that his appetite is good and that he eats most of his meals. Also stated that he drinks the Glucerna. Percent of energy/protein needs met: 82%/80% Burn Absent Trauma Absent #1 Nutrition Diagnosis Inadequate oral intake As Evidenced by Signs and Symptoms pt meeting 82% of calorie and 80% of protein needs Diagnosis Progress(for reassessment Resolved documentation) Is patient on ventilator? No Is Patient Ambulatory and/or Out of Bed Yes REE-([facility]-ambulatory/OOB) [ 2408.978 NUTR.[email or web address]] Calculation Used for Recommendations [facility] Additional Notes Protein Needs: 94-123g (1-1.3g /kg) Fluid Needs: 1 ml/kcal Nutrition Intervention Change Diet Order: Continue current Add Supplement/Snack (indicate name/kcal Glucerna [place], Chocolate /protein ) 1 daily Provides kCal: 220 Provides Protein (gm) 10 Goal #1 Continue to meet at least 75% of calorie and protein needs via PO and ONS intakes Anticipated Discharge Needs: Regular diet Follow-Up By: 05/14/19 Additional Comments Follow for PO and ONS intakes
[2019-05-09] MEDS: DILAUDID IV PRN ×6 (00:36→21:05)
[2019-05-09] MEDS: TYLENOL PO SCH (00:42)
[2019-05-09] MEDS: HumaLOG SUB-Q SCH ×4 (07:30→22:15)
[2019-05-09] MEDS ORDERED: NORCO 5/325 PO PRN (08:47)
[2019-05-09] MEDS: SODIUM BICARBONATE PO SCH ×2 (09:53→21:25)
[2019-05-09] MEDS: SODIUM CHLORIDE FLUSH SYRINGE 10 ML IV SCH ×2 (09:54→21:25)
[2019-05-09] MEDS: LOVENOX SUB-Q SCH (09:54)
--- NOTE | 2019-05-09 11:14 | Progress Note ---
Assessment and Plan - Patient Problems (1) Acute kidney failure with tubular necrosis Current Visit: No Status: Acute Plan to address problem: Renal function continues to improve. no indications for renal replacement therapy at this time. From nephrology standpoint patient is stable for DC, and should follow up with his ux developer designer in [facility] in 1-2 weeks post discharge. From nephrology standpoint patient is stable for DC. (2) Hypotension Current Visit: Yes Status: Acute Qualifiers: Hypotension type: unspecified hypotension type Qualified Code(s): I95.9 - Hypotension, unspecified Plan to address problem: Improvement in current hemodynamics off antihypertensive medications. (3) Anemia in chronic illness Current Visit: No Status: Acute Plan to address problem: Trend Hgb levels. (4) Hyperkalemia Current Visit: No Status: Acute Plan to address problem: improved at present time. (5) Sacral decubitus ulcer, stage IV Current Visit: No Status: Acute Plan to address problem: undergoing wound care. Subjective Date of service: 05/09/19 Principal diagnosis: acute kidney injury Interval history: No acute issues overnight. No new labs this am. Pending BRIANNE placement. Objective - Vital Signs Vital signs: Vital Signs - 12hr 05/09/19 04:55 Temperature 98.4 F Pulse Rate 88 Respiratory 18 Rate Blood Pressure 94/72 O2 Sat by Pulse 100 Oximetry - General Appearance General appearance: well-developed, well-nourished, appears stated age EENT: ATNC, PERRL Neck: no JVD, no thyromegaly Respiratory: Present: Clear to Ascultation Cardiology: regular, S1S2 Gastrointestinal: normal, normoactive bowel sounds Integumentary: no rash, warm and dry Neurologic: no focal deficit, no asterixis, alert and oriented x3 Musculoskeletal: other (-edema ) Psychiatric: mood/affect appropriate, cooperative - Lab 05/03/19 15:01 05/08/19 07:00 Most recent lab results Calcium 9.5 mg/dL (8.4-10.2) 05/08/19 07:00 - Allied health notes Allied health notes reviewed: nursing Medications & Allergies - Medications Allergies/Adverse Reactions: Allergies No Known Allergies Allergy (Unverified 04/20/19 09:03) Home Medications: Home Medications Medication Instructions Recorded Confirmed Last Taken Type amLODIPine [Norvasc] 5 mg PO DAILY 04/20/19 05/02/19 Unknown History Insulin Glargine [Lantus VIAL] 10 units SUB-Q QHS 30 Days #1000 04/29/19 05/02/19 Unknown Rx units Lispro Insulin [HumaLOG] 0 unit SUB-Q ACHS units 04/29/19 05/02/19 Unknown Rx Metoprolol [Lopressor TAB] 50 mg PO BID tablet 04/29/19 05/02/19 Unknown Rx oxyCODONE /ACETAMINOPHEN [Percocet 2 tab PO Q6H PRN #20 tablet 04/29/19 05/02/19 Unknown Rx 5/325 mg] Active Medications: Generic Name Dose Route Start Last Admin Trade Name Freq PRN Reason Stop Dose Admin Acetaminophen 650 mg 05/02/19 03:00 Tylenol PO Q4H PRN Pain MILD(1-3)/Fever >100.5/DE ANDA Acetaminophen/Hydrocodone Bitart 1 each 05/06/19 13:54 [place] 10/325 PO Q4H PRN Pain , Severe (7-10) Acetaminophen/Hydrocodone Bitart 1 each 05/09/19 08:47 [place] 5/325 PO Q4H PRN Pain, Moderate (4-6) Dextrose 50 ml 05/03/19 22:44 D50w (25gm) Syringe IV PRN PRN Hypoglycemia Diphenhydramine HCl 25 mg 05/04/19 06:01 05/04/19 22:04 Benadryl PO 25 mg Q6H PRN Administration Itching Enoxaparin Sodium 40 mg 05/07/19 10:00 05/09/19 09:54 Lovenox SUB-Q 40 mg QDAY@1000 [facility] Administration Hydromorphone HCl 1 mg 05/06/19 13:53 05/09/19 08:39 Dilaudid IV 1 mg Q4H PRN Administration Pain , Severe (7-10) Insulin Human Lispro 0 unit 05/04/19 07:30 05/09/19 07:30 Humalog SUB-Q Not Given [facility] Protocol Naloxone HCl 0.1 mg 05/06/19 13:53 Narcan 0.4 Mg/1 Ml IV Q2MIN PRN Res Rate </= 8 or 02 SAT < 92% Ondansetron HCl 4 mg 05/02/19 03:00 Zofran IV Q8H PRN Nausea And Vomiting Sodium Bicarbonate 1,300 mg 05/02/19 10:00 05/09/19 09:53 Sodium Bicarbonate PO 1,300 mg BID ZOE Administration Sodium Chloride 10 ml 05/02/19 10:00 05/09/19 09:54 Sodium Chloride Flush Syringe 10 Ml IV 10 ml BID ZOE Administration Sodium Chloride 10 ml 05/02/19 03:00 05/02/19 06:38 Sodium Chloride Flush Syringe 10 Ml IV 10 ml PRN PRN Administration LINE FLUSH Temazepam 15 mg 05/06/19 22:57 05/07/19 00:07 Restoril PO 15 mg QHS PRN Administration Sleep
--- NOTE | 2019-05-09 13:10 | Progress Note ---
Assessment and Plan Assessment and plan: Patient is a 59 yo man with a history of hypertension, diabetes mellitus, rectal CA status post laparotomy, colostomy, stage IV sacral ulcer and ARF s/p HD up until 04/26/19 who presented back to ED with hypotension after being discharged the previous day. In discussing with Nephrology, patient may have went home and took his old antihypertensive which dropped his bp too low. He was found to have Creatinine of 4.0. Acute renal failure, ATN and vasomotor nephropathy, poa: Nephrology following, no HD Hypotension, probably secondary to antihypertensive: resolved Hyperkalemia: treated, monitor bmp closely Hyponatremia hypovolemia: monitor bmp closely Abnormal cardiac enzyme due to ARF Diabetes mellitus type 2 on Insulin: cont insulins Rectal cancer sp colostomy, with stage 3 sacral decubitus ulcer, patient reports that the rectal cancer resection may have went to far to the anal verge, he spent a month in hyperbaric O2 treatment: cont wound care Chronic rectal pains uncontrolled, patient in tears: added IV dilaudid will not be given at [place] Dispo; continue inpatient care, awaiting BRIANNE placement History Interval history: Patient was seen and examined. Follow-up on current diagnosis of Renal failure. No overnight events reported to me. Patient denies any chest pain, shortness breath, nausea/vomiting or severe headaches. Imaging, nursing note, chart, labs and old chart reviewed. Discussed with patient. Hospitalist Physical - Physical exam Narrative exam: Gen: WDWN, NAD, Awake, Alert, Orientated HEENT: NCAT, EOMI, PERRL, OP Clear Neck: supple, no adenopathy, no thyromegaly, no JVD CVS/Heart: RRR, normal S1S2, pulses present bilaterally Chest/Lungs: CTA B, Symmetrical chest expansion, good air entry bilaterally GI/Abdomen: soft, NTND, colostomy bag in place, good bowel sounds, no guarding or rebound /Bladder: no suprapubic tenderness, no CVA or paraspinal tenderness Extermity/Skin: no c/c/e, no obvious rash MSK: FROM x 4 Neuro: CN 2-12 grossly intact, no new focal deficits Psych: calm - Constitutional Vitals: Temp Pulse Resp BP Pulse Ox 98.6 F 102 H 20 95/67 100 05/09/19 12:07 05/09/19 12:07 05/09/19 12:07 05/09/19 12:07 05/09/19 12:07 Results - Labs CBC & Chem 7: 05/03/19 15:01 05/08/19 07:00 Labs: Laboratory Last Values WBC 8.4 K/mm3 (4.5-11.0) 05/03/19 15:01 RBC 2.98 M/mm3 (3.65-5.03) L 05/03/19 15:01 Hgb 8.8 gm/dl (11.8-15.2) L 05/03/19 15:01 Hct 25.9 % (35.5-45.6) L 05/03/19 15:01 MCV 87 fl (84-94) 05/03/19 15:01 MCH 30 pg (28-32) 05/03/19 15:01 MCHC 34 % (32-34) 05/03/19 15:01 RDW 13.9 % (13.2-15.2) 05/03/19 15:01 Plt Count 541 K/mm3 (140-440) H 05/03/19 15:01 Lymph % (Auto) 33.3 % (13.4-35.0) 05/03/19 15:01 [place] % (Auto) 9.6 % (0.0-7.3) H 05/03/19 15:01 Eos % (Auto) 2.4 % (0.0-4.3) 05/03/19 15:01 Baso % (Auto) 1.1 % (0.0-1.8) 05/03/19 15:01 Lymph # 2.8 K/mm3 (1.2-5.4) 05/03/19 15:01 Real # 0.8 K/mm3 (0.0-0.8) 05/03/19 15:01 Eos # 0.2 K/mm3 (0.0-0.4) 05/03/19 15:01 Baso # 0.1 K/mm3 (0.0-0.1) 05/03/19 15:01 Seg Neutrophils % 53.6 % (40.0-70.0) 05/03/19 15:01 Seg Neutrophils # 4.5 K/mm3 (1.8-7.7) 05/03/19 15:01 Sodium 133 mmol/L (137-145) L 05/08/19 07:00 Potassium 4.9 mmol/L (3.6-5.0) 05/08/19 07:00 Chloride 98.9 mmol/L (98-107) 05/08/19 07:00 Carbon Dioxide 18 mmol/L (22-30) L 05/08/19 07:00 21 mmol/L 05/08/19 07:00 BUN 24 mg/dL (9-20) H 05/08/19 07:00 1.5 mg/dL (0.8-1.5) 05/08/19 07:00 Estimated GFR 58 ml/min 05/08/19 07:00 16 % 05/08/19 07:00 Glucose 131 mg/dL (75-100) H 05/08/19 07:00 POC Glucose 174 (70-105) H 05/09/19 12:14 5.7 % (4-6) 05/04/19 05:33 Lactic Acid 1.10 mmol/L (0.7-2.0) 05/02/19 01:21 Calcium 9.5 mg/dL (8.4-10.2) 05/08/19 07:00 0.30 mg/dL (0.1-1.2) 05/02/19 01:21 AST 19 units/L (5-40) 05/02/19 01:21 ALT 41 units/L (7-56) 05/02/19 01:21 172 units/L (35-129) H 05/02/19 01:21 72 units/L (55-170) 05/02/19 09:36 CK-MB (CK-2) 2.9 ng/mL (0.0-4.0) 05/02/19 09:36 CK-MB (CK-2) Rel Index 4.0 (0-4) 05/02/19 09:36 0.185 ng/mL (0.00-0.029) H* 05/02/19 09:36 8.9 g/dL (6.3-8.2) H 05/02/19 01:21 3.7 g/dL (3.9-5) L 05/02/19 01:21 0.7 % 05/02/19 01:21 Triglycerides 255 mg/dL (2-149) H 05/02/19 01:21 Cholesterol 163 mg/dL (50-199) 05/02/19 01:21 79 mg/dL (50-130) 05/02/19 01:21 34 mg/dL (40-59) L 05/02/19 01:21 4.79 % 05/02/19 01:21 Active Medications - Current Medications Current Medications: Generic Name Dose Route Start Last Admin Trade Name Freq PRN Reason Stop Dose Admin Acetaminophen 650 mg 05/02/19 03:00 Tylenol PO Q4H PRN Pain MILD(1-3)/Fever >100.5/DE ANDA Acetaminophen/Hydrocodone Bitart 1 each 05/06/19 13:54 [place] 10/325 PO Q4H PRN Pain , Severe (7-10) Acetaminophen/Hydrocodone Bit[place] 1 each 05/09/19 08:47 [place] 5/325 PO Q4H PRN Pain, Moderate (4-6) Dextrose 50 ml 05/03/19 22:44 D50w (25gm) Syringe IV PRN PRN Hypoglycemia Diphenhydramine HCl 25 mg 05/04/19 06:01 05/04/19 22:04 Benadryl PO 25 mg Q6H PRN Administration Itching Enoxaparin Sodium 40 mg 05/07/19 10:00 05/09/19 09:54 Lovenox SUB-Q 40 mg QDAY@1000 ZOE Administration Hydromorphone HCl 1 mg 05/06/19 13:53 05/09/19 12:53 Dilaudid IV 1 mg Q4H PRN Administration Pain , Severe (7-10) Insulin Human Lispro 0 unit 05/04/19 07:30 05/09/19 11:30 Humalog SUB-Q Not Given [facility] Protocol Naloxone HCl 0.1 mg 05/06/19 13:53 Narcan 0.4 Mg/1 Ml IV Q2MIN PRN Res Rate </= 8 or 02 SAT < 92% Ondansetron HCl 4 mg 05/02/19 03:00 Zofran IV Q8H PRN Nausea And Vomiting Sodium Bicarbonate 1,300 mg 05/02/19 10:00 05/09/19 09:53 Sodium Bicarbonate PO 1,300 mg BID ZOE Administration Sodium Chloride 10 ml 05/02/19 10:00 05/09/19 09:54 Sodium Chloride Flush Syringe 10 Ml IV 10 ml BID ZOE Administration Sodium Chloride 10 ml 05/02/19 03:00 05/02/19 06:38 Sodium Chloride Flush Syringe 10 Ml IV 10 ml PRN PRN Administration LINE FLUSH Temazepam 15 mg 05/06/19 22:57 05/07/19 00:07 Restoril PO 15 mg QHS PRN Administration Sleep Nutrition/Malnutrition Assess - Dietary Evaluation Nutrition/Malnutrition Findings: Nutrition Notes Start: 05/03/19 17:53 Freq: Status: Active Protocol: Document 05/06/19 16:02 RM (Rec: 05/06/19 16:06 RM [email or web address]) Nutrition Notes Initial or Follow up Assessment Current Diagnosis Acute Kidney Injury,Diabetes, Hypertension Other Pertinent Diagnosis Sacral PU,Hx rectal cancer Current Diet Regular Labs/Tests K 4.6 Pertinent Medications Reviewed Height 5 ft 11.5 in Weight 99.8 kg [place] Body Weight (kg) 79.54 BMI 30.2 Subjective/Other Information Pt stated that his appetite is good and that he eats most of his meals. Also stated that he drinks the Glucerna. Percent of energy/protein needs met: 82%/80% Burn Absent Trauma Absent #1 Nutrition Diagnosis Inadequate oral intake As Evidenced by Signs and Symptoms pt meeting 82% of calorie and 80% of protein needs Diagnosis Progress(for reassessment Resolved documentation) Is patient on ventilator? No Is Patient Ambulatory and/or Out of Bed Yes REE-([facility]-ambulatory/OOB) [ 2408.978 NUTR.MSJOOB] Calculation Used for Recommendations [facility] Additional Notes Protein Needs: 94-123g (1-1.3g /kg) Fluid Needs: 1 ml/kcal Nutrition Intervention Change Diet Order: Continue current Add Supplement/Snack (indicate name/kcal Glucerna [place], Chocolate /protein ) 1 daily Provides kCal: 220 Provides Protein (gm) 10 Goal #1 Continue to meet at least 75% of calorie and protein needs via PO and ONS intakes Anticipated Discharge Needs: Regular diet Follow-Up By: 05/14/19 Additional Comments Follow for PO and ONS intakes
[2019-05-10] MEDS: DILAUDID IV PRN ×5 (00:07→17:01)
[2019-05-10] MEDS: BENADRYL PO PRN (00:08)
[2019-05-10] MEDS: SODIUM BICARBONATE PO SCH ×2 (09:15→21:31)
[2019-05-10] MEDS: LOVENOX SUB-Q SCH (09:16)
[2019-05-10] MEDS: SODIUM CHLORIDE FLUSH SYRINGE 10 ML IV SCH ×2 (09:18→21:31)
[2019-05-10] MEDS: HumaLOG SUB-Q SCH ×4 (09:23→21:39)
--- NOTE | 2019-05-10 10:23 | Progress Note ---
Assessment and Plan - Patient Problems (1) Acute kidney failure with tubular necrosis Current Visit: No Status: Acute Plan to address problem: Renal function continues to improve. no indications for renal replacement therapy at this time. From nephrology standpoint patient is stable for DC, and should follow up with his beauty culturist in [facility] in 1-2 weeks post discharge. From nephrology standpoint patient is stable for DC. (2) Hypotension Current Visit: Yes Status: Acute Qualifiers: Hypotension type: unspecified hypotension type Qualified Code(s): I95.9 - Hypotension, unspecified Plan to address problem: Improvement in current hemodynamics off antihypertensive medications. (3) Anemia in chronic illness Current Visit: No Status: Acute Plan to address problem: Trend Hgb levels. (4) Hyperkalemia Current Visit: No Status: Acute Plan to address problem: improved at present time. (5) Sacral decubitus ulcer, stage IV Current Visit: No Status: Acute Plan to address problem: undergoing wound care. Subjective Date of service: 05/10/19 Principal diagnosis: acute kidney injury Interval history: No acute issues overnight. No new labs this am. Objective - Vital Signs Vital signs: Vital Signs - 12hr 05/10/19 05:00 Pulse Rate 109 H Blood Pressure 99/73 O2 Sat by Pulse 97 Oximetry - General Appearance General appearance: well-developed, well-nourished EENT: ATNC, PERRL Neck: no JVD, no thyromegaly Respiratory: Present: Clear to Ascultation, Normal Exam Cardiology: regular, S1S2 Gastrointestinal: normal, normoactive bowel sounds Integumentary: no rash, warm and dry Neurologic: no focal deficit, no asterixis Psychiatric: mood/affect appropriate, cooperative - Lab 05/03/19 15:01 05/08/19 07:00 Most recent lab results Calcium 9.5 mg/dL (8.4-10.2) 05/08/19 07:00 - Allied health notes Allied health notes reviewed: nursing Medications & Allergies - Medications Allergies/Adverse Reactions: Allergies No Known Allergies Allergy (Unverified 04/20/19 09:03) Home Medications: Home Medications Medication Instructions Recorded Confirmed Last Taken Type amLODIPine [Norvasc] 5 mg PO DAILY 04/20/19 05/02/19 Unknown History Insulin Glargine [Lantus VIAL] 10 units SUB-Q QHS 30 Days #1000 04/29/19 05/02/19 Unknown Rx units Lispro Insulin [HumaLOG] 0 unit SUB-Q ACHS units 04/29/19 05/02/19 Unknown Rx Metoprolol [Lopressor TAB] 50 mg PO BID tablet 04/29/19 05/02/19 Unknown Rx oxyCODONE /ACETAMINOPHEN [Percocet 2 tab PO Q6H PRN #20 tablet 04/29/19 05/02/19 Unknown Rx 5/325 mg] Active Medications: Generic Name Dose Route Start Last Admin Trade Name Freq PRN Reason Stop Dose Admin Acetaminophen 650 mg 05/02/19 03:00 Tylenol PO Q4H PRN Pain MILD(1-3)/Fever >100.5/DE ANDA Acetaminophen/Hydrocodone Bitart 1 each 05/06/19 13:54 [place] 10/325 PO Q4H PRN Pain , Severe (7-10) Acetaminophen/Hydrocodone Bit[place] 1 each 05/09/19 08:47 [place] 5/325 PO Q4H PRN Pain, Moderate (4-6) Dextrose 50 ml 05/03/19 22:44 D50w (25gm) Syringe IV PRN PRN Hypoglycemia Diphenhydramine HCl 25 mg 05/04/19 06:01 05/10/19 00:08 Benadryl PO 25 mg Q6H PRN Administration Itching Enoxaparin Sodium 40 mg 05/07/19 10:00 05/10/19 09:16 Lovenox SUB-Q 40 mg QDAY@1000 [facility] Administration Hydromorphone HCl 1 mg 05/06/19 13:53 05/10/19 09:16 Dilaudid IV 1 mg Q4H PRN Administration Pain , Severe (7-10) Insulin Human Lispro 0 unit 05/04/19 07:30 05/10/19 09:23 Humalog SUB-Q Not Given [facility] Protocol Naloxone HCl 0.1 mg 05/06/19 13:53 Narcan 0.4 Mg/1 Ml IV Q2MIN PRN Res Rate </= 8 or 02 SAT < 92% Ondansetron HCl 4 mg 05/02/19 03:00 Zofran IV Q8H PRN Nausea And Vomiting Sodium Bicarbonate 1,300 mg 05/02/19 10:00 05/10/19 09:15 Sodium Bicarbonate PO 1,300 mg BID ZOE Administration Sodium Chloride 10 ml 05/02/19 10:00 05/10/19 09:18 Sodium Chloride Flush Syringe 10 Ml IV 10 ml BID ZOE Administration Sodium Chloride 10 ml 05/02/19 03:00 05/02/19 06:38 Sodium Chloride Flush Syringe 10 Ml IV 10 ml PRN PRN Administration LINE FLUSH Temazepam 15 mg 05/06/19 22:57 05/07/19 00:07 Restoril PO 15 mg QHS PRN Administration Sleep
--- NOTE | 2019-05-10 12:03 | Progress Note ---
Assessment and Plan Assessment and plan: Patient is a 59 yo man with a history of hypertension, diabetes mellitus, rectal CA status post laparotomy, colostomy, stage IV sacral ulcer and ARF s/p HD up until 04/26/19 who presented back to ED with hypotension after being discharged the previous day. In discussing with Nephrology, patient may have went home and took his old antihypertensive which dropped his bp too low. He was found to have Creatinine of 4.0. Acute renal failure, ATN and vasomotor nephropathy, poa: Nephrology following, no HD Hypotension, probably secondary to antihypertensive: resolved Hyperkalemia: treated, monitor bmp closely Hyponatremia hypovolemia: monitor bmp closely Abnormal cardiac enzyme due to ARF Diabetes mellitus type 2 on Insulin: cont insulins Rectal cancer sp colostomy, with stage 3 sacral decubitus ulcer, patient reports that the rectal cancer resection may have went to far to the anal verge, he spent a month in hyperbaric O2 treatment: cont wound care Chronic rectal pains uncontrolled, patient in tears: added IV dilaudid will not be given at [place] Dispo; continue inpatient care, awaiting [facility] placement History Interval history: Patient was seen and examined. Follow-up on current diagnosis of Renal failure. No overnight events reported to me. Patient denies any chest pain, shortness breath, nausea/vomiting or severe headaches. Imaging, nursing note, chart, labs and old chart reviewed. Discussed with patient. Hospitalist Physical - Physical exam Narrative exam: Gen: WDWN, NAD, Awake, Alert, Orientated HEENT: NCAT, EOMI, PERRL, OP Clear Neck: supple, no adenopathy, no thyromegaly, no JVD CVS/Heart: RRR, normal S1S2, pulses present bilaterally Chest/Lungs: CTA B, Symmetrical chest expansion, good air entry bilaterally GI/Abdomen: soft, NTND, colostomy bag in place, good bowel sounds, no guarding or rebound /Bladder: no suprapubic tenderness, no CVA or paraspinal tenderness Extermity/Skin: no c/c/e, no obvious rash MSK: FROM x 4 Neuro: CN 2-12 grossly intact, no new focal deficits Psych: calm - Constitutional Vitals: Temp Pulse Resp BP Pulse Ox 99.5 F 109 H 20 99/73 97 05/09/19 22:16 05/10/19 05:00 05/09/19 22:16 05/10/19 05:00 05/10/19 05:00 Results - Labs CBC & Chem 7: 05/03/19 15:01 05/08/19 07:00 Labs: Laboratory Last Values WBC 8.4 K/mm3 (4.5-11.0) 05/03/19 15:01 RBC 2.98 M/mm3 (3.65-5.03) L 05/03/19 15:01 Hgb 8.8 gm/dl (11.8-15.2) L 05/03/19 15:01 Hct 25.9 % (35.5-45.6) L 05/03/19 15:01 MCV 87 fl (84-94) 05/03/19 15:01 MCH 30 pg (28-32) 05/03/19 15:01 MCHC 34 % (32-34) 05/03/19 15:01 RDW 13.9 % (13.2-15.2) 05/03/19 15:01 Plt Count 541 K/mm3 (140-440) H 05/03/19 15:01 Lymph % (Auto) 33.3 % (13.4-35.0) 05/03/19 15:01 [place] % (Auto) 9.6 % (0.0-7.3) H 05/03/19 15:01 Eos % (Auto) 2.4 % (0.0-4.3) 05/03/19 15:01 Baso % (Auto) 1.1 % (0.0-1.8) 05/03/19 15:01 Lymph # 2.8 K/mm3 (1.2-5.4) 05/03/19 15:01 [place] # 0.8 K/mm3 (0.0-0.8) 05/03/19 15:01 Eos # 0.2 K/mm3 (0.0-0.4) 05/03/19 15:01 Baso # 0.1 K/mm3 (0.0-0.1) 05/03/19 15:01 Seg Neutrophils % 53.6 % (40.0-70.0) 05/03/19 15:01 Seg Neutrophils # 4.5 K/mm3 (1.8-7.7) 05/03/19 15:01 Sodium 133 mmol/L (137-145) L 05/08/19 07:00 Potassium 4.9 mmol/L (3.6-5.0) 05/08/19 07:00 Chloride 98.9 mmol/L (98-107) 05/08/19 07:00 Carbon Dioxide 18 mmol/L (22-30) L 05/08/19 07:00 21 mmol/L 05/08/19 07:00 BUN 24 mg/dL (9-20) H 05/08/19 07:00 1.5 mg/dL (0.8-1.5) 05/08/19 07:00 Estimated GFR 58 ml/min 05/08/19 07:00 16 % 05/08/19 07:00 Glucose 131 mg/dL (75-100) H 05/08/19 07:00 POC Glucose 199 (70-105) H 05/10/19 11:05 5.7 % (4-6) 05/04/19 05:33 Lactic Acid 1.10 mmol/L (0.7-2.0) 05/02/19 01:21 Calcium 9.5 mg/dL (8.4-10.2) 05/08/19 07:00 0.30 mg/dL (0.1-1.2) 05/02/19 01:21 AST 19 units/L (5-40) 05/02/19 01:21 ALT 41 units/L (7-56) 05/02/19 01:21 172 units/L (35-129) H 05/02/19 01:21 72 units/L (55-170) 05/02/19 09:36 CK-MB (CK-2) 2.9 ng/mL (0.0-4.0) 05/02/19 09:36 CK-MB (CK-2) Rel Index 4.0 (0-4) 05/02/19 09:36 0.185 ng/mL (0.00-0.029) H* 05/02/19 09:36 8.9 g/dL (6.3-8.2) H 05/02/19 01:21 3.7 g/dL (3.9-5) L 05/02/19 01:21 0.7 % 05/02/19 01:21 Triglycerides 255 mg/dL (2-149) H 05/02/19 01:21 Cholesterol 163 mg/dL (50-199) 05/02/19 01:21 79 mg/dL (50-130) 05/02/19 01:21 34 mg/dL (40-59) L 05/02/19 01:21 4.79 % 05/02/19 01:21 Active Medications - Current Medications Current Medications: Generic Name Dose Route Start Last Admin Trade Name Freq PRN Reason Stop Dose Admin Acetaminophen 650 mg 05/02/19 03:00 Tylenol PO Q4H PRN Pain MILD(1-3)/Fever >100.5/DE ANDA Acetaminophen/Hydrocodone Bitart 1 each 05/06/19 13:54 [place] 10/325 PO Q4H PRN Pain , Severe (7-10) Acetaminophen/Hydrocodone Bitart 1 each 05/09/19 08:47 [place] 5/325 PO Q4H PRN Pain, Moderate (4-6) Dextrose 50 ml 05/03/19 22:44 D50w (25gm) Syringe IV PRN PRN Hypoglycemia Diphenhydramine HCl 25 mg 05/04/19 06:01 05/10/19 00:08 Benadryl PO 25 mg Q6H PRN Administration Itching Enoxaparin Sodium 40 mg 05/07/19 10:00 05/10/19 09:16 Lovenox SUB-Q 40 mg QDAY@1000 ZOE Administration Hydromorphone HCl 1 mg 05/06/19 13:53 05/10/19 09:16 Dilaudid IV 1 mg Q4H PRN Administration Pain , Severe (7-10) Insulin Human Lispro 0 unit 05/04/19 07:30 05/10/19 09:23 Humalog SUB-Q Not Given ACHS [facility] Protocol Naloxone HCl 0.1 mg 05/06/19 13:53 Narcan 0.4 Mg/1 Ml IV Q2MIN PRN Res Rate </= 8 or 02 SAT < 92% Ondansetron HCl 4 mg 05/02/19 03:00 Zofran IV Q8H PRN Nausea And Vomiting Sodium Bicarbonate 1,300 mg 05/02/19 10:00 05/10/19 09:15 Sodium Bicarbonate PO 1,300 mg BID ZOE Administration Sodium Chloride 10 ml 05/02/19 10:00 05/10/19 09:18 Sodium Chloride Flush Syringe 10 Ml IV 10 ml BID ZOE Administration Sodium Chloride 10 ml 05/02/19 03:00 05/02/19 06:38 Sodium Chloride Flush Syringe 10 Ml IV 10 ml PRN PRN Administration LINE FLUSH Temazepam 15 mg 05/06/19 22:57 05/07/19 00:07 Restoril PO 15 mg QHS PRN Administration Sleep Nutrition/Malnutrition Assess - Dietary Evaluation Nutrition/Malnutrition Findings: Nutrition Notes Start: 05/03/19 17:53 Freq: Status: Active Protocol: Document 05/06/19 16:02 RM (Rec: 05/06/19 16:06 RM [id number]) Nutrition Notes Initial or Follow up Assessment Current Diagnosis Acute Kidney Injury,Diabetes, Hypertension Other Pertinent Diagnosis Sacral PU,Hx rectal cancer Current Diet Regular Labs/Tests K 4.6 Pertinent Medications Reviewed Height 5 ft 11.5 in Weight 99.8 kg [place] Body Weight (kg) 79.54 BMI 30.2 Subjective/Other Information Pt stated that his appetite is good and that he eats most of his meals. Also stated that he drinks the Glucerna. Percent of energy/protein needs met: 82%/80% Burn Absent Trauma Absent #1 Nutrition Diagnosis Inadequate oral intake As Evidenced by Signs and Symptoms pt meeting 82% of calorie and 80% of protein needs Diagnosis Progress(for reassessment Resolved documentation) Is patient on ventilator? No Is Patient Ambulatory and/or Out of Bed Yes REE-([facility]-ambulatory/OOB) [ 2408.978 NUTR.MSJOOB] Calculation Used for Recommendations [facility] Additional Notes Protein Needs: 94-123g (1-1.3g /kg) Fluid Needs: 1 ml/kcal Nutrition Intervention Change Diet Order: Continue current Add Supplement/Snack (indicate name/kcal Glucerna [place], Chocolate /protein ) 1 daily Provides kCal: 220 Provides Protein (gm) 10 Goal #1 Continue to meet at least 75% of calorie and protein needs via PO and ONS intakes Anticipated Discharge Needs: Regular diet Follow-Up By: 05/14/19 Additional Comments Follow for PO and ONS intakes
[2019-05-11] MEDS: DILAUDID IV PRN ×6 (01:41→22:44)
[2019-05-11] MEDS: HumaLOG SUB-Q SCH ×4 (08:52→22:33)
[2019-05-11] MEDS: SODIUM CHLORIDE FLUSH SYRINGE 10 ML IV SCH ×2 (09:10→22:34)
[2019-05-11] MEDS: LOVENOX SUB-Q SCH (10:44)
[2019-05-11] MEDS: SODIUM BICARBONATE PO SCH ×2 (10:44→22:33)
[2019-05-11] MEDS ORDERED: XYLOCAINE 1% 20 mL INFILTRATI ONE (12:18)
--- NOTE | 2019-05-11 12:45 | Consultation ---
History of Present Illness Consult date: 05/11/19 Chief complaint: buttock fluid collection - History of present illness History of present illness: 59 yo M with hx of rectal cancer s/p colostomy and now with large sacral wound presented to hospital for weakness. He also has been having pain in his buttock area. The patient is being seen by wound care and being managed with a wound vac for a sacral wound. The patient was seen in follow up by wound care today and noted a fluid filled area on his right buttock. He states it has been present for a long time but it is uncomfortable and tender sometimes. No drainage. NO f/c. Past History Past Medical History: anemia, cancer, diabetes, hypertension, renal failure Past Surgical History: Other (open laparotomy, ANGELES, perineal proctectomy) Social history: denies: smoking, alcohol abuse, prescription drug abuse, IV drug use Family history: hypertension Medications and Allergies Allergies Allergy/AdvReac Type Severity Reaction Status Date / Time No Known Allergies Allergy Unverified 04/20/19 09:03 Home Medications Medication Instructions Recorded Confirmed Last Taken Type amLODIPine [Norvasc] 5 mg PO DAILY 04/20/19 05/02/19 Unknown History Insulin Glargine [Lantus VIAL] 10 units SUB-Q QHS 30 Days #1000 04/29/19 Unknown Rx units Lispro Insulin [HumaLOG] 0 unit SUB-Q ACHS units 04/29/19 05/02/19 Unknown Rx Metoprolol [Lopressor TAB] 50 mg PO BID tablet 04/29/19 05/02/19 Unknown Rx oxyCODONE /ACETAMINOPHEN [Percocet 2 tab PO Q6H PRN #20 tablet 04/29/19 05/02/19 Unknown Rx 5/325 mg] Active Meds: Active Medications Acetaminophen (Tylenol) 650 mg PO Q4H PRN PRN Reason: Pain MILD(1-3)/Fever >100.5/DE ANDA Acetaminophen/Hydrocodone Bitart ([place] 10/325) 1 each PO Q4H PRN PRN Reason: Pain , Severe (7-10) Acetaminophen/Hydrocodone Bitart ([place] 5/325) 1 each PO Q4H PRN PRN Reason: Pain, Moderate (4-6) Dextrose (D50w (25gm) Syringe) 50 ml IV PRN PRN PRN Reason: Hypoglycemia Diphenhydramine HCl (Benadryl) 25 mg PO Q6H PRN PRN Reason: Itching Last Admin: 05/10/19 00:08 Dose: 25 mg Documented by: Enoxaparin Sodium (Lovenox) 40 mg SUB-Q QDAY@1000 ZOE Last Admin: 05/11/19 10:44 Dose: 40 mg Documented by: Hydromorphone HCl (Dilaudid) 1 mg IV Q4H PRN PRN Reason: Pain , Severe (7-10) Last Admin: 05/11/19 09:08 Dose: 1 mg Documented by: Insulin Human Lispro (Humalog) 0 unit SUB-Q ACHS [facility]; Protocol Last Admin: 05/11/19 08:52 Dose: Not Given Documented by: Naloxone HCl (Narcan 0.4 Mg/1 Ml) 0.1 mg IV Q2MIN PRN PRN Reason: Res Rate </= 8 or 02 SAT < 92% Ondansetron HCl (Zofran) 4 mg IV Q8H PRN PRN Reason: Nausea And Vomiting Sodium Bicarbonate (Sodium Bicarbonate) 1,300 mg PO BID [facility] Last Admin: 05/11/19 10:44 Dose: 1,300 mg Documented by: Sodium Chloride (Sodium Chloride Flush Syringe 10 Ml) 10 ml IV BID [facility] Last Admin: 05/11/19 09:10 Dose: 10 ml Documented by: Sodium Chloride (Sodium Chloride Flush Syringe 10 Ml) 10 ml IV PRN PRN PRN Reason: LINE FLUSH Last Admin: 05/02/19 06:38 Dose: 10 ml Documented by: Temazepam (Restoril) 15 mg PO QHS PRN PRN Reason: Sleep Last Admin: 05/07/19 00:07 Dose: 15 mg Documented by: Review of Systems All systems: negative (10 pt ROS performed and negative except for that listed in HPI) Exam Vital Signs Temp Pulse Resp BP Pulse Ox 98.2 F 118 H 18 94/54 92 05/01/19 23:42 05/01/19 23:42 05/01/19 23:42 05/01/19 23:42 05/01/19 23:42 Narrative exam: Gen: AAOx3. NAD CV: s1, s2+ Resp; even and unlabored Abd: soft, ostomy present Sacrum/buttock: wound vac in place with good seal and no leak. 4 cm fluctuance mass right upper buttock, no tenderness or erythema. Results - Labs 05/03/19 15:01 05/08/19 07:00 Abnormal lab results 05/10/19 05/11/19 Range/Units 21:15 08:17 POC Glucose 208 H 142 H (70-105) Assessment and Plan 59 yo M with fluid collection of right buttock Plan; 1. Discussed options with patient regarding leaving the area alone, aspirating it, or performing incision and drainage. We discussed all risks, benefits, and alternatives to each option. He elected to have it lanced because it is getting more uncomfortable. I obtained consent for the procedure 2. Cultures to be obtained during procedure 3. continue wound care per relay engineer 4. patient may follow up in [facility] wound care center upon dc. 5. Home health care and wound vac on dc - d/w case management Thank you, please call with questions
--- NOTE | 2019-05-11 12:45 | Procedure Note ---
Date of procedure: 05/11/19 Pre-op diagnosis: fluid collection of right buttock Post-op diagnosis: same Procedure: incision and drainage of right buttock fluid collection Findings: Time out performed. Patient in right lateral decubitus position. Area prepped with betadine in sterile fashion. Local anesthetic 1% lidocaine injected into skin at intended incision site. An small incision was made at the center of the fluctuant area using an 11 blade. There was immediate drainage of clear brown liquid. The area was probed with a hemostat. Cultures obtained. All fluid was evacuated until the skin was completely flat. Hemostasis was achieved with pressure. The wound was covered with 4x4 gauze and foam dressing. The patient tolerated the procedure well. All sharps were disposed of appropriately. Anesthesia: local Surgeon: VAUGHN MOSES Estimated blood loss: minimal Pathology: list (wound culture) Specimen disposition: to lab Condition: stable Disposition: PACU
--- NOTE | 2019-05-11 17:42 | Progress Note ---
Assessment and Plan Assessment and plan: Patient is a 59 yo man with a history of hypertension, diabetes mellitus, rectal CA status post laparotomy, colostomy, stage IV sacral ulcer and ARF s/p HD up until 04/26/19 who presented back to ED with hypotension after being discharged the previous day. In discussing with Nephrology, patient may have went home and took his old antihypertensive which dropped his bp too low. He was found to have Creatinine of 4.0. Acute renal failure, ATN and vasomotor nephropathy, poa: Nephrology following, no HD Hypotension, probably secondary to antihypertensive: resolved Hyperkalemia: treated, monitor bmp closely Hyponatremia hypovolemia: monitor bmp closely Abnormal cardiac enzyme due to ARF Diabetes mellitus type 2 on Insulin: cont insulins Rectal cancer sp colostomy, with stage 3 sacral decubitus ulcer, patient reports that the rectal cancer resection may have went to far to the anal verge, he spent a month in hyperbaric O2 treatment: cont wound care Gluteal Cyst; s/p lancing,. will monitor. Chronic rectal pains uncontrolled, patient in tears: added IV dilaudid will not be given at [place] Dispo; continue inpatient care, awaiting B[facility]NE placement History Interval history: Patient was seen and examined. Follow-up on current diagnosis of Renal failure. No overnight events reported to me. Patient denies any chest pain, shortness breath, nausea/vomiting or severe headaches. Imaging, nursing note, chart, labs and old chart reviewed. Discussed with patient. Surgery performed lancing of lesion this am. Hospitalist Physical - Physical exam Narrative exam: Gen: WDWN, NAD, Awake, Alert, Orientated HEENT: NCAT, EOMI, PERRL, OP Clear Neck: supple, no adenopathy, no thyromegaly, no JVD CVS/Heart: RRR, normal S1S2, pulses present bilaterally Chest/Lungs: CTA B, Symmetrical chest expansion, good air entry bilaterally GI/Abdomen: soft, NTND, colostomy bag in place, good bowel sounds, no guarding or rebound /Bladder: no suprapubic tenderness, no CVA or paraspinal tenderness Extermity/Skin: no c/c/e, dressing over buttock following lancing of a cyst, no overt drainage, wound vac in place MSK: FROM x 4 Neuro: CN 2-12 grossly intact, no new focal deficits Psych: calm - Constitutional Vitals: Temp Pulse Resp BP Pulse Ox 99.1 F 93 H 20 119/80 100 05/11/19 11:59 05/11/19 11:59 05/11/19 11:59 05/11/19 11:59 05/11/19 11:59 Results - Labs CBC & Chem 7: 05/03/19 15:01 05/08/19 07:00 Labs: Laboratory Last Values WBC 8.4 K/mm3 (4.5-11.0) 05/03/19 15:01 RBC 2.98 M/mm3 (3.65-5.03) L 05/03/19 15:01 Hgb 8.8 gm/dl (11.8-15.2) L 05/03/19 15:01 Hct 25.9 % (35.5-45.6) L 05/03/19 15:01 MCV 87 fl (84-94) 05/03/19 15:01 MCH 30 pg (28-32) 05/03/19 15:01 MCHC 34 % (32-34) 05/03/19 15:01 RDW 13.9 % (13.2-15.2) 05/03/19 15:01 Plt Count 541 K/mm3 (140-440) H 05/03/19 15:01 Lymph % (Auto) 33.3 % (13.4-35.0) 05/03/19 15:01 [place] % (Auto) 9.6 % (0.0-7.3) H 05/03/19 15:01 Eos % (Auto) 2.4 % (0.0-4.3) 05/03/19 15:01 Baso % (Auto) 1.1 % (0.0-1.8) 05/03/19 15:01 Lymph # 2.8 K/mm3 (1.2-5.4) 05/03/19 15:01 [place] # 0.8 K/mm3 (0.0-0.8) 05/03/19 15:01 Eos # 0.2 K/mm3 (0.0-0.4) 05/03/19 15:01 Baso # 0.1 K/mm3 (0.0-0.1) 05/03/19 15:01 Seg Neutrophils % 53.6 % (40.0-70.0) 05/03/19 15:01 Seg Neutrophils # 4.5 K/mm3 (1.8-7.7) 05/03/19 15:01 Sodium 133 mmol/L (137-145) L 05/08/19 07:00 Potassium 4.9 mmol/L (3.6-5.0) 05/08/19 07:00 Chloride 98.9 mmol/L (98-107) 05/08/19 07:00 Carbon Dioxide 18 mmol/L (22-30) L 05/08/19 07:00 21 mmol/L 05/08/19 07:00 BUN 24 mg/dL (9-20) H 05/08/19 07:00 1.5 mg/dL (0.8-1.5) 05/08/19 07:00 Estimated GFR 58 ml/min 05/08/19 07:00 16 % 05/08/19 07:00 Glucose 131 mg/dL (75-100) H 05/08/19 07:00 POC Glucose 197 (70-105) H 05/11/19 12:07 5.7 % (4-6) 05/04/19 05:33 Lactic Acid 1.10 mmol/L (0.7-2.0) 05/02/19 01:21 Calcium 9.5 mg/dL (8.4-10.2) 05/08/19 07:00 0.30 mg/dL (0.1-1.2) 05/02/19 01:21 AST 19 units/L (5-40) 05/02/19 01:21 ALT 41 units/L (7-56) 05/02/19 01:21 172 units/L (35-129) H 05/02/19 01:21 72 units/L (55-170) 05/02/19 09:36 CK-MB (CK-2) 2.9 ng/mL (0.0-4.0) 05/02/19 09:36 CK-MB (CK-2) Rel Index 4.0 (0-4) 05/02/19 09:36 0.185 ng/mL (0.00-0.029) H* 05/02/19 09:36 8.9 g/dL (6.3-8.2) H 05/02/19 01:21 3.7 g/dL (3.9-5) L 05/02/19 01:21 0.7 % 05/02/19 01:21 Triglycerides 255 mg/dL (2-149) H 05/02/19 01:21 Cholesterol 163 mg/dL (50-199) 05/02/19 01:21 79 mg/dL (50-130) 05/02/19 01:21 34 mg/dL (40-59) L 05/02/19 01:21 4.79 % 05/02/19 01:21 Active Medications - Current Medications Current Medications: Generic Name Dose Route Start Last Admin Trade Name Freq PRN Reason Stop Dose Admin Acetaminophen 650 mg 05/02/19 03:00 Tylenol PO Q4H PRN Pain MILD(1-3)/Fever >100.5/DE ANDA Acetaminophen/Hydrocodone Bitart 1 each 05/06/19 13:54 [place] 10/325 PO Q4H PRN Pain , Severe (7-10) Acetaminophen/Hydrocodone Bitart 1 each 05/09/19 08:47 [place] 5/325 PO Q4H PRN Pain, Moderate (4-6) Dextrose 50 ml 05/03/19 22:44 D50w (25gm) Syringe IV PRN PRN Hypoglycemia Diphenhydramine HCl 25 mg 05/04/19 06:01 05/10/19 00:08 Benadryl PO 25 mg Q6H PRN Administration Itching Enoxaparin Sodium 40 mg 05/07/19 10:00 05/11/19 10:44 Lovenox SUB-Q 40 mg QDAY@1000 [facility] Administration Hydromorphone HCl 1 mg 05/06/19 13:53 05/11/19 17:38 Dilaudid IV 1 mg Q4H PRN Administration Pain , Severe (7-10) Insulin Human Lispro 0 unit 05/04/19 07:30 05/11/19 13:21 Humalog SUB-Q 2 unit ACHS [facility] Administration Protocol Naloxone HCl 0.1 mg 05/06/19 13:53 Narcan 0.4 Mg/1 Ml IV Q2MIN PRN Res Rate </= 8 or 02 SAT < 92% Ondansetron HCl 4 mg 05/02/19 03:00 Zofran IV Q8H PRN Nausea And Vomiting Sodium Bicarbonate 1,300 mg 05/02/19 10:00 05/11/19 10:44 Sodium Bicarbonate PO 1,300 mg BID ZOE Administration Sodium Chloride 10 ml 05/02/19 10:00 05/11/19 09:10 Sodium Chloride Flush Syringe 10 Ml IV 10 ml BID ZOE Administration Sodium Chloride 10 ml 05/02/19 03:00 05/02/19 06:38 Sodium Chloride Flush Syringe 10 Ml IV 10 ml PRN PRN Administration LINE FLUSH Temazepam 15 mg 05/06/19 22:57 05/07/19 00:07 Restoril PO 15 mg QHS PRN Administration Sleep Nutrition/Malnutrition Assess - Dietary Evaluation Nutrition/Malnutrition Findings: Nutrition Notes Start: 05/03/19 17:53 Freq: Status: Active Protocol: Document 05/06/19 16:02 RM (Rec: 05/06/19 16:06 [id number]) Nutrition Notes Initial or Follow up Assessment Current Diagnosis Acute Kidney Injury,Diabetes, Hypertension Other Pertinent Diagnosis Sacral PU,Hx rectal cancer Current Diet Regular Labs/Tests K 4.6 Pertinent Medications Reviewed Height 5 ft 11.5 in Weight 99.8 kg [place] Body Weight (kg) 79.54 BMI 30.2 Subjective/Other Information Pt stated that his appetite is good and that he eats most of his meals. Also stated that he drinks the Glucerna. Percent of energy/protein needs met: 82%/80% Burn Absent Trauma Absent #1 Nutrition Diagnosis Inadequate oral intake As Evidenced by Signs and Symptoms pt meeting 82% of calorie and 80% of protein needs Diagnosis Progress(for reassessment Resolved documentation) Is patient on ventilator? No Is Patient Ambulatory and/or Out of Bed Yes REE-([place]-ambulatory/OOB) [ 2408.978 NUTR.MSJOOB] Calculation Used for Recommendations [place] or Additional Notes Protein Needs: 94-123g (1-1.3g /kg) Fluid Needs: 1 ml/kcal Nutrition Intervention Change Diet Order: Continue current Add Supplement/Snack (indicate name/kcal Glucerna [place], Chocolate /protein ) 1 daily Provides kCal: 220 Provides Protein (gm) 10 Goal #1 Continue to meet at least 75% of calorie and protein needs via PO and ONS intakes Anticipated Discharge Needs: Regular diet Follow-Up By: 05/14/19 Additional Comments Follow for PO and ONS intakes
[2019-05-12] MEDS: NORCO 10/325 PO PRN ×4 (01:17→20:06)
[2019-05-12] MEDS: DILAUDID IV PRN ×5 (04:59→21:38)
--- NOTE | 2019-05-12 08:35 | Discharge Summary ---
Providers - Providers Date of Admission: 05/02/19 03:00 Attending physician: GENA SANABRIA MD 05/02/19 03:00 Consult to Physician [CONS] Routine Comment: Consulting Provider: ROBERT ALEXANDRA Physician Instructions: Reason For Exam: arf 05/03/19 02:49 Consult to Wound/ET Nurse [CONS] Routine Reason For Exam: Sacral wound eval 05/04/19 16:01 Occupational Therapy Evaluate and Treat [CONS] Routine Comment: Reason For Exam: Eval and treat- assess rehab needs. Physical Therapy Evaluation and Treat [CONS] Routine Comment: Reason For Exam: Eval and treat, deconditioning, muscle weakness 05/11/19 11:01 Consult to Physician [CONS] Routine Comment: Consulting Provider: VAUGHN MOSES Physician Instructions: Reason For Exam: EVALUATE RIGHT BUTTOCK FLUCTUANT AREA [facility] Reason for admission: ATN Condition: Stable Hospital course: Patient is a 59 yo man with a history of hypertension, diabetes mellitus, rectal CA status post laparotomy, colostomy, stage IV sacral ulcer and ARF s/p HD up until 04/26/19 who presented back to ED with hypotension after being discharged the previous day. In discussing with Nephrology, patient may have went home and took his old antihypertensive which dropped his bp too low. He was found to have Creatinine of 4.0. Acute renal failure, ATN and vasomotor nephropathy, poa: Nephrology following, no HD Hypotension, probably secondary to antihypertensive: resolved Hyperkalemia: treated, monitor bmp closely Hyponatremia hypovolemia: monitor bmp closely Abnormal cardiac enzyme due to ARF Diabetes mellitus type 2 on Insulin: cont insulins Rectal cancer sp colostomy, with stage 3 sacral decubitus ulcer, patient reports that the rectal cancer resection may have went to far to the anal verge, he spent a month in hyperbaric O2 treatment: cont wound care and follow at wound care center Gluteal Cyst; s/p lancing,. will monitor. Chronic rectal pains uncontrolled, patient in tears: pain control Dispo; continue inpatient care, awaiting [facility] placement, this was denied by insurance and patient was discharged to home with home health Disposition: [id number] [facility] Time spent for discharge: 35 mins Core Measure Documentation - Palliative Care Palliative Care/ Comfort Measures: Not Applicable - Core Measures Any of the following diagnoses?: none Exam - Physical Exam Narrative exam: Gen: WDWN, NAD, Awake, Alert, Orientated HEENT: NCAT, EOMI, PERRL, OP Clear Neck: supple, no adenopathy, no thyromegaly, no JVD CVS/Heart: RRR, normal S1S2, pulses present bilaterally Chest/Lungs: CTA B, Symmetrical chest expansion, good air entry bilaterally GI/Abdomen: soft, NTND, colostomy bag in place, good bowel sounds, no guarding or rebound /Bladder: no suprapubic tenderness, no CVA or paraspinal tenderness Extermity/Skin: no c/c/e, dressing over buttock following lancing of a cyst, no overt drainage, wound vac in place MSK: FROM x 4 Neuro: CN 2-12 grossly intact, no new focal deficits Psych: calm - Constitutional Vitals: Temp Pulse Resp BP Pulse Ox 97.4 F L 99 H 18 96/69 99 05/12/19 05:18 05/12/19 05:18 05/12/19 08:02 05/12/19 05:18 05/12/19 05:18 Plan Activity: advance as tolerated, fall precautions Diet: diabetic Special Instructions: record daily BP diary, record blood sugar diary [facility] - 3-5 Days VAUGHN MOSES DO [Staff Physician] - 7 Days GEORGETTE VIVAR DO [Staff Physician] - 7 Days Prescriptions: oxyCODONE /ACETAMINOPHEN [Percocet 5/325 mg] 2 tab PO Q6H PRN #14 tablet PRN Reason: Pain, Moderate (4-6) Sodium Bicarbonate 1,300 mg PO BID #20 tablet
--- NOTE | 2019-05-12 09:04 | Progress Note ---
Assessment and Plan - Patient Problems (1) Acute kidney failure with tubular necrosis Current Visit: No Status: Acute Plan to address problem: Renal function continues to improve. no indications for renal replacement therapy at this time. 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 From nephrology standpoint patient is stable for DC. (2) Hypotension Current Visit: Yes Status: Acute Qualifiers: Hypotension type: unspecified hypotension type Qualified Code(s): I95.9 - Hypotension, unspecified Plan to address problem: Improvement in current hemodynamics off antihypertensive medications. (3) Anemia in chronic illness Current Visit: No Status: Acute Plan to address problem: Trend Hgb levels. (4) Hyperkalemia Current Visit: No Status: Acute Plan to address problem: improved at present time. (5) Sacral decubitus ulcer, stage IV Current Visit: No Status: Acute Plan to address problem: undergoing wound care. Subjective Date of service: 05/12/19 Principal diagnosis: acute kidney injury Interval history: No acute events overnight. Pending DC home with home health care. Objective - Vital Signs Vital signs: Vital Signs - 12hr 05/11/19 05/12/19 05/12/19 22:44 05:18 08:02 Temperature 97.4 F L Pulse Rate 99 H Respiratory 20 17 18 Rate Blood Pressure 96/69 O2 Sat by Pulse 99 99 Oximetry - General Appearance General appearance: well-developed, well-nourished, appears stated age EENT: ATNC, PERRL Neck: no JVD, no thyromegaly Respiratory: Present: Clear to Ascultation, Normal Exam Cardiology: regular, S1S2 Gastrointestinal: normal, normoactive bowel sounds Integumentary: warm and dry Neurologic: no focal deficit, no asterixis, alert and oriented x3 Musculoskeletal: other (-edema ) Psychiatric: mood/affect appropriate, cooperative - Lab 05/03/19 15:01 05/08/19 07:00 Most recent lab results Calcium 9.5 mg/dL (8.4-10.2) 05/08/19 07:00 - Allied health notes Allied health notes reviewed: nursing Medications & Allergies - Medications Allergies/Adverse Reactions: Allergies No Known Allergies Allergy (Unverified 04/20/19 09:03) Home Medications: Home Medications Medication Instructions Recorded Confirmed Last Taken Type amLODIPine [Norvasc] 5 mg PO DAILY 04/20/19 05/02/19 Unknown History Insulin Glargine [Lantus VIAL] 10 units SUB-Q QHS 30 Days #1000 04/29/19 05/02/19 Unknown Rx units Lispro Insulin [HumaLOG] 0 unit SUB-Q ACHS units 04/29/19 05/02/19 Unknown Rx Metoprolol [Lopressor TAB] 50 mg PO BID tablet 04/29/19 05/02/19 Unknown Rx Sodium Bicarbonate 1,300 mg PO BID #20 tablet 05/12/19 Unknown Rx oxyCODONE /ACETAMINOPHEN [Percocet 2 tab PO Q6H PRN #14 tablet 05/12/19 Unknown Rx 5/325 mg] Active Medications: Generic Name Dose Route Start Last Admin Trade Name Freq PRN Reason Stop Dose Admin Acetaminophen 650 mg 05/02/19 03:00 Tylenol PO Q4H PRN Pain MILD(1-3)/Fever >100.5/DE ANDA Acetaminophen/Hydrocodone Bitart 1 each 05/06/19 13:54 05/12/19 08:02 [place] 10/325 PO 1 each Q4H PRN Administration Pain , Severe (7-10) Acetaminophen/Hydrocodone Bitart 1 each 05/09/19 08:47 [place] 5/325 PO Q4H PRN Pain, Moderate (4-6) Dextrose 50 ml 05/03/19 22:44 D50w (25gm) Syringe IV PRN PRN Hypoglycemia Diphenhydramine HCl 25 mg 05/04/19 06:01 05/10/19 00:08 Benadryl PO 25 mg Q6H PRN Administration Itching Enoxaparin Sodium 40 mg 05/07/19 10:00 05/11/19 10:44 Lovenox SUB-Q 40 mg QDAY@1000 ZOE Administration Hydromorphone HCl 1 mg 05/06/19 13:53 05/12/19 04:59 Dilaudid IV 1 mg Q4H PRN Administration Pain , Severe (7-10) Insulin Human Lispro 0 unit 05/04/19 07:30 05/11/19 22:33 Humalog SUB-Q 1 unit ACHS ZOE Administration Protocol Naloxone HCl 0.1 mg 05/06/19 13:53 Narcan 0.4 Mg/1 Ml IV Q2MIN PRN Res Rate </= 8 or 02 SAT < 92% Ondansetron HCl 4 mg 05/02/19 03:00 Zofran IV Q8H PRN Nausea And Vomiting Sodium Bicarbonate 1,300 mg 05/02/19 10:00 05/11/19 22:33 Sodium Bicarbonate PO 1,300 mg BID ZOE Administration Sodium Chloride 10 ml 05/02/19 10:00 05/11/19 22:34 Sodium Chloride Flush Syringe 10 Ml IV 10 ml BID ZOE Administration Sodium Chloride 10 ml 05/02/19 03:00 05/02/19 06:38 Sodium Chloride Flush Syringe 10 Ml IV 10 ml PRN PRN Administration LINE FLUSH Temazepam 15 mg 05/06/19 22:57 05/07/19 00:07 Restoril PO 15 mg QHS PRN Administration Sleep
[2019-05-12] MEDS: HumaLOG SUB-Q SCH ×3 (11:05→17:35)
[2019-05-12] MEDS: SODIUM CHLORIDE FLUSH SYRINGE 10 ML IV SCH ×2 (11:05→21:39)
[2019-05-12] MEDS: SODIUM BICARBONATE PO SCH ×2 (11:05→21:39)
[2019-05-12] MEDS: LOVENOX SUB-Q SCH (11:06)
[2019-05-12 21:36] VITALS: BP 104/69
== END 2019-05-12 23:00 | disposition home health service (06) | DRG 682 ==
LOC: ED 23:29 → 4A 05-02 03:00 → 3A 05-05 19:02
PROVIDERS: ADMIT Internal Medicine; ATTEND Internal Medicine
PROC: 0Y900ZZ Drainage of Right Buttock, Open Approach (ICD-10-PCS; principal; 2019-05-11)
DX: N17.0 Acute kidney failure with tubular necrosis (principal); L89.154 Pressure ulcer of sacral region, stage 4; L02.31 Cutaneous abscess of buttock; C20 Malignant neoplasm of rectum; E87.1 Hypo-osmolality and hyponatremia; E87.2 Acidosis; I95.2 Hypotension due to drugs; T50.995A Adverse effect of other drugs, medicaments and biological substances, initial encounter; N18.9 Chronic kidney disease, unspecified; I12.9 Hypertensive chronic kidney disease with stage 1 through stage 4 chronic kidney disease, or unspecified chronic kidney disease; E11.22 Type 2 diabetes mellitus with diabetic chronic kidney disease; D63.8 Anemia in other chronic diseases classified elsewhere; G89.29 Other chronic pain; E86.1 Hypovolemia; E87.5 Hyperkalemia; Z93.3 Colostomy status; Z82.49 Family history of ischemic heart disease and other diseases of the circulatory system; Z85.048 Personal history of other malignant neoplasm of rectum, rectosigmoid junction, and anus; Z79.4 Long term (current) use of insulin; Z79.899 Other long term (current) drug therapy; Z85.038 Personal history of other malignant neoplasm of large intestine; Y92.098 Other place in other non-institutional residence as the place of occurrence of the external cause
CPT/HCPCS: 36415; 71045; 76770; 80048; 80053; 80061; 82140; 82550; 82553; 82962; 83036; 84484; 85025; 87116; 93005; 93010; 93306; G0378; J1170; J1650; J1815; J7030